=== PATIENT | male | born 1970 | race Caucasian/White ===

== ENCOUNTER 2016-04-17 18:02 | Emergency (ER) | payer MEDICARE, OTHER ==
[~2016-04-17] VITALS: Ht 172.7 cm; Wt 89.1 kg
[~2016-04-17 18:02] MED LIST: ALPR1TAB7 PO; AMLO10TA3 PO; CARV6.252 PO; CLON0.1T14 PO; GUAI400T57 PO; HYDR-3939 PO; ONDA4TAB6 PO; SERT100T9 PO
[2016-04-17 18:06] VITALS: BP 142/96; PULSE 81; RESP 15; O2SAT 100
[2016-04-17 18:30] LABS: EOSINOPHILS % (AUTO) 3.5 % (0-5); MONOCYTES % (AUTO) 9.4 % (4-12); Mean Corpuscular Volume 85.1 fL (81-100); NEUTROPHILS % (AUTO) 60.6 % (40-74); Platelet Count 301 bil/L (150-400)
--- NOTE | 2016-04-17 18:43 | ED.REPORT ---
HPI-Chest Pain 40 and Over Date of Service Apr 17, 2016 ED Provider: Vadim Everett MD Patient is a 45 year old male with a history ESRD on peritoneal dialysis who presents to the ED complaining of intermittent sharp left sided chest pain that began 2 days ago, with a constant pressure today. The patient reports a squeezing chest pain, with radiates into his left armpit. He states that the duration of these episodes varies. The patient reports having similar pain when he was previously diagnosed with a small pericardial effusion. When these episodes occur he also experiences shortness of breath and radiation of his pain to his kidneys. The pain is present even when he is laying in bed and does not notice any changes to his pain with movement. Prior to this the patient had felt very well, the best he had felt in some time. The patient reports only having a "trickle" of urinary output this morning, although he usually has 500cc. The patient reports having associated bilateral kidney pain. The patient reports having decreased appetite, with the patient developing nausea and vomiting prior to arrival. He denies increased swelling in his legs or fever. Nursing Notes Stated Complaint: CHEST PAIN Chief Complaint: Chest Pain Nursing Notes Reviewed: Yes Allergies: Coded Allergies: Penicillins (Verified Allergy, Severe, difficulty breathing, 04/17/16) Sulfa (Sulfonamide Antibiotics) (Verified Allergy, Severe, hives, 04/17/16) cefotetan (Verified Adverse Reaction, Intermediate, causes unusual swelling, 04/17/16) Scheduled Amlodipine (Amlodipine) 10 Mg Tablet 10 MG PO HS Carvedilol (Carvedilol) 6.25 Mg Tablet 6.25 MG PO BID Clonidine (Catapres) 0.1 Mg Tablet 0.1 MG PO TID Guaifenesin (Guaifenesin) 400 Mg Tablet 400 MG PO BID Hydralazine (Hydralazine) 25 Mg Tablet 25 MG PO TID Sertraline HCl (Sertraline) 100 Mg Tablet 100 MG PO DAILY Scheduled PRN Alprazolam (Alprazolam) 1 Mg Tablet 0.5-1 MG PO BID PRN PRN For Anxiety or Agitation Ondansetron (Zofran) 4 Mg Tablet 8 MG PO BID PRN PRN For Nausea General Time Seen by MD: 18:42 Chief Complaint Chest pain Hx Obtained From: Patient Arrived By: Walk-in Sudden in Onset?: No Onset Occurred: 2 days ago Symptom Duration: Intermittent Location: : Chest left Quality: Painful, Stabbing Radiation: : Arm left (left armpit) Recent Healthcare: No recent doctor visit, No recent hospitalization Similar Sx Previous: Yes Past Medical History Past Medical History Notes: Nephrology: Dr. 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 Female: Reports: Flank pain, Urination decreased Physical Exam Initial Vital Signs Vital Signs (First) Date Time Temp Pulse Resp B/P Pulse Ox O2 Delivery O2 Flow Rate FiO2 04/17/16 18:06 36.5 81 15 142/96 100 Room Air 04/17/16 19:48 2 Initial VS: Reviewed Head / Eyes: Atraumatic, Normocephalic, PERRL ENT: Conjunctiva normal, No scleral icterus Neck: Supple, Full range of motion Skin: Warm, Dry, No cyanosis Neurologic: Alert, Oriented, Nonfocal Psychiatric: Mood/affect normal, Behavior normal, Normal thought content General/Constitutional: Awake, Alert, No acute distress Appearance / Presentation: Positive: Obese Respiratory / Chest: Breath sounds NL, Breath sounds = bilat, No respiratory distress, No rales, No rhonchi, No wheezing Cardiovascular: Heart rate NL, Regular rhythm, No murmurs Abdomen: Soft, Non-tender, No guarding, No rebound Back: No CVA tenderness diffuse low back tenderness Lower Extremity / Pelvis / MS: No swelling, No edema Upper Extremity / MS: No swelling, No edema Interpretation & Diagnostics Lab Results Interpretation Result Diagram: 04/17/16 1823 04/17/16 1823 Test 04/17/16 18:23 04/17/16 21:04 04/17/16 21:50 White Blood Count 13.3th/mm3 (3.8-10.1) Red Blood Count 4.17mil/mm3 (4.40-5.80) Hemoglobin 12.1g/dL (13.8-17.2) Hematocrit 35.5% (41.0-50.0) Mean Corpuscular Volume 85.1fL (81-100) Mean Corpuscular Hemoglobin 29.0pg (27.0-35.0) Mean Corpuscular Hemoglobin Concent 34.1% (32.0-37.0) Red Cell Distribution Width 16.8% (12.3-15.4) Platelet Count 301bil/L (150-400) Neutrophils (%) (Auto) 60.6% (40-74) Lymphocytes (%) (Auto) 25.0% (14-46) Monocytes (%) (Auto) 9.4% (4-12) Eosinophils (%) (Auto) 3.5% (0-5) Basophils (%) (Auto) 1.0% (0-3) D-Dimer < 0.5mg/L (<0.50) Sodium Level 135mEq/L (134-144) Potassium Level 4.1mEq/L (3.5-5.2) Chloride Level 96mEq/L (97-108) Carbon Dioxide Level 23mmol/L (18-29) Blood Urea Nitrogen 62mg/dL (6-24) Creatinine 5.35mg/dL (0.76-1.27) Estimat Glomerular Filtration Rate 12mL/min (>59) Glucose Level 103mg/dL (60-99) Calcium Level 8.7mg/dL (8.5-10.1) Magnesium Level 2.6mg/dL (1.6-2.6) Total Bilirubin 0.2mg/dL (0.0-1.2) Aspartate Amino Transf (AST/SGOT) 11U/L (0-50) Alanine Aminotransferase (ALT/SGPT) 9U/L (0-44) Alkaline Phosphatase 108U/L (25-150) Total Protein 7.2g/dL (6.4-8.4) Albumin 3.6g/dL (3.4-5.0) Hold Jolley Top Tube Received (Received) Urine Color Yellow (YELLOW) Urine Appearance Clear (CLEAR,HAZY) Urine pH 6.5 (5.0-8.0) Urine Specific Dafter 1.015 (1.003-1.035) Urine Protein 30mg/dL (NEG,TRACE) Urine Glucose (UA) Negativemg/dL (NEGATIVE) Urine Ketones Negativemg/dL (NEGATIVE) Urine Occult Blood Small (NEGATIVE) Urine Nitrite Negative (NEGATIVE) Urine Bilirubin Negative (NEGATIVE) Urine Urobilinogen Normalmg/dL (NORMAL) Urine Leukocyte Esterase Negative (NEGATIVE) Urine RBC 3-10/hpf (0-2) Urine WBC 0-5/hpf (0-5) Urine Epithelial Cells Few/hpf (NONE-MOD) Urine Crystals None seen (NONE SEEN) Urine Bacteria Few/hpf (NONE-FEW) Urine Hyaline Casts None/lpf (NONE) Urine Granular Casts None seen (NONE SEEN) Urine Waxy Casts None seen (NONE SEEN) Urine Red Blood Cell Casts None seen (NONE SEEN) Urine White Blood Cell Casts None seen (NONE SEEN) Urine Mucus None seen (None Seen) Urine Trichomonas None seen (NONE SEEN) Urine Yeast None (NONE SEEN) Urinalysis Comment None Urine Culture Reflexed Not indicated Troponin T 0.010ug/L (0.0-0.011) Re-Eval/Medical Decision Med Decision/Clinical Course Care endorsed to me by Dr. Daniel. I know Adolph well taken care of him before. To me it seems like he is developing a left kidney infection. Pulmonary emboli was ruled out based on the negative d-dimer and low risk. 2 myocardial infarction was ruled out. With interesting is that his pain is clearly reproducible with positioning. He has pain up and down the left side of his body. He does have some CVA tenderness on the left. He does not make much urine but the urine that he is producing does seem to have some evidence of infection. He is allergic to cephalosporins and sulfa so therefore I will place him on ciprofloxacin. Adolph understands the risk and I went through a regarding the tendons please see the discharge. A follow-up on his urine culture check within in a few days. Short course of Percocet provided for pain. Source of Hx: Old records Time of Eval: 19:03 Re-Evaluation/Progress Note: After completion of the interview, examination, and initial evaluation the patient requests to be seen by a different provider, Dr. Das. Discharge & Departure Primary Impression: Chest pain Chest pain type: unspecified Qualified Code: R07.9 - Chest pain, unspecified Additional Impression: UTI (urinary tract infection) Urinary tract infection type: acute pyelonephritis Qualified Code: N10 - Acute tubulo-interstitial nephritis Disposition: Home Discharge Condition All VS Reviewed: Yes Condition: Stable Patient Instructions: Chest Pain (ED) Additional Instructions: The blood clot blood test was negative. The chest x-ray is normal. Your heart blood tests are normal. Your EKG did not show signs of a heart attack. The pain is reproducible with certain movements so certainly seems to be musculoskeletal. The fact that your left flank pain is worrisome is that maybe it's related to your IgA nephropathy. Your urine does have some bacteria and white blood cells in it. We will culture your urine. I would like is set up a follow-up with your primary care physician as well as your votator machine operator. Call tomorrow morning. Take Cipro once daily for the next 3 days well we are culturing your urine. Take it after your peritoneal dialysis. Follow-up with your votator machine operator and your primary care physician in the next 2-3 days. Follow up with urine culture. If you develop any tendon pain while taking the Cipro, stop taking it right away. Take 1-2 Percocet every 6 hours as needed for pain. Do not drive, consume acetaminophen, or drink alcohol while taking the Percocet. Referrals: Rehan Golden DO (PCP) Care Transferred to: Dr. Das (per patient request) Care Transferred at: 19:03 Scribe Attestation Portions of this note were transcribed by Amy Ford. Dr. Marguerite Davila personally performed the history, physical exam and medical decision-making; I reviewed and confirmed the accuracy of the information in the transcribed note. Signed by: Vishal Aguero, 04/17/2016 5906 Portions of this note were transcribed by Iesha Jenkins and Katie Awan. Dr. Pippa Davila personally performed the history, physical exam and medical decision-making ; I reviewed and confirmed the accuracy of the information in the transcribed note. Signed by: Vishal Serrano, 04/17/2016 and 1957 copies to: Rehan Golden Ben M MD Apr 17, 2016 18:43 Amy Ford Apr 17, 2016 18:52 Govind Das DO Apr 17, 2016 23:20 Hannah Jenkins [Iesha] Apr 17, 2016 23:24
[2016-04-17 19:04] LABS: TROPONIN T < 0.010 ug/L (0.0-0.011)
--- NOTE | 2016-04-17 19:08 | DRSVH ---
PROCEDURE: X-RAY CHEST ONE VIEW, PORTABLE ([id number]) INDICATIONS: Chest pain TECHNIQUE: One view of the chest was acquired. COMPARISON: [facility], CT, CT ANGIO CHEST PE, 01/14/2016, 18:56. [facility] l, CR, XR CHEST 1VW (PORTABLE), 01/14/2016, 16:42. [facility], CR, XR CHEST 1VW (PORTABL E), 12/21/2015, 21:30. [facility], NM, NM LUNG VQ, 11/08/2015, 15:47. [facility]W (PORT[facility]), 11/07/2015, 17:34. [facility], CT, CT CHEST WO CON, 07/2015, 17:29. [facility], CR, XR CHEST 1VW (PORTABLE), 10/08/2015, 15:31. [facility], CR, XR CHEST 1VW (PORTABLE), 04/06/2015, 20:42. [facility], CR, XR CHEST 2VW, 01/08/2015, 16:32. [facility], CR, CHEST 2VW, 05/08/2007, 22:16. [facility] , CR, XR CHEST 2VW, 02/26/2016, 9:16. FINDINGS: Surgical changes and devices: None. Lungs and pleura: No pleural effusions or pneumothorax. Lungs are clear. Mediastinum: Mediastinal contours appear normal. Heart size is normal. Bones and chest wall: No suspicious bony lesions. Overlying soft tissues appear unremarkable. Densi ties project over the left upper quadrant of the abdomen which likely are present material within the splenic flexure of the colon. IMPRESSION: No acute cardiopulmonary disease process. Dictated by: Venita Stuart MD, PhD on 04/17/2016 at 19:06 Approved by: Venita Stuart MD, PhD on 04/17/2016 at 19:06
[2016-04-17 19:10] LABS: Magnesium 2.6 mg/dL (1.6-2.6)
[2016-04-17] MEDS: HYDROmorphone 0.5 mg/0.5 mL iSecure Syringe IVPUSH PRN ×2 (19:32→22:45)
[2016-04-17] MEDS ORDERED: Ondansetron 2 mg/mL 2 mL Inj ONE (19:34)
[2016-04-17 19:48] VITALS: BP 124/82; PULSE 75; RESP 16; O2SAT 100
[2016-04-17] MEDS ORDERED: HYDROmorphone 1 mg/mL Inj IVPUSH ONE (20:50)
[2016-04-17 20:58] VITALS: BP 125/73; PULSE 76; RESP 16; O2SAT 98
[2016-04-17 21:25] LABS: APPEARANCE,URINE CLEAR (CLEAR,HAZY); COLOR,URINE YELLOW (YELLOW); OCCULT BLOOD,URINE SMALL (NEGATIVE); PH,URINE 6.5 (5.0-8.0); UROBILINOGEN,URINE NORMAL (NORMAL)
[2016-04-17] MEDS ORDERED: _oxyCODONE/APAP 5-325 mg Tablet PO PRN (21:50)
[2016-04-17 23:27] VITALS: BP 132/80; PULSE 71; RESP 18; O2SAT 99
== END 2016-04-17 23:28 | disposition home or self-care (01) ==
LOC: SED 18:02
DX: R07.89 Other chest pain (principal); N10 Acute pyelonephritis; I12.0 Hypertensive chronic kidney disease with stage 5 chronic kidney disease or end stage renal disease; N18.6 End stage renal disease; Z99.2 Dependence on renal dialysis; Z88.0 Allergy status to penicillin; Z88.2 Allergy status to sulfonamides; Z88.8 Allergy status to other drugs, medicaments and biological substances
CPT/HCPCS: 36415; 71010; 80053; 81000; 83735; 84484; 85025; 85379; 93005; 96374; 96375; 96376; 99285; J1170; J2405

== ENCOUNTER 2016-07-15 20:05 | Observation (INO) | payer MEDICARE, OTHER ==
[~2016-07-15] VITALS: Ht 172.7 cm; Wt 97.4 kg
--- NOTE | 2016-07-15 20:08 | ED.REPORT ---
HPI-Stroke / CVA Jul 15, 2016 ED Provider: Al Srivastava MD The patient is a 45 year old male with history of end-stage renal disease on peritoneal dialysis presumed secondary to lupus and migraines, who presents to the emergency department by EMS complaining of symptoms concerning for a stroke. 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 He was getting ready to start his peritoneal dialysis at home when he suddenly developed a sharp headache and was seeing "triple." He subsequently developed left-sided weakness and numbness. After further questioning he reports pain to his left upper extremity. Prior to this episode he had measured his blood pressure and the diastolic number was over 100. He is not on any blood thinners. He has had similar symptoms in the past and was told by one physician that he may have had a mini stroke and by another physician that it was probably not a mini stroke. Nursing Notes Stated Complaint: LEFT SIDED NUMBNESS Nursing Notes Reviewed: Yes Allergies: Coded Allergies: Penicillins (Verified Allergy, Severe, difficulty breathing, 04/17/16) Sulfa (Sulfonamide Antibiotics) (Verified Allergy, Severe, hives, 04/17/16) cefotetan (Verified Adverse Reaction, Intermediate, causes unusual swelling, 04/17/16) Scheduled Amlodipine (Amlodipine) 10 Mg Tablet 5 MG PO HS (Reported) Carvedilol (Carvedilol) 6.25 Mg Tablet 6.25 MG PO BID (Reported) Cholecalciferol (Vitamin D3) (Vitamin D3) 50,000 Unit Capsule 50,000 UNIT PO WEEKLY (Reported) WEDNESDAYS Clonidine (Catapres) 0.1 Mg Tablet 0.1 MG PO TID Gabapentin (Gabapentin) 100 Mg Capsule 200 MG PO HS (Reported) Hydralazine (Hydralazine) 25 Mg Tablet 25 MG PO TID (Reported) Lanthanum Carb Chew (Fosrenol Chew) 1,000 Mg Chew 1,000 MG PO TIDWM (Reported) Sertraline HCl (Sertraline) 100 Mg Tablet 100 MG PO QAM (Reported) Scheduled PRN Acetaminophen (Acetaminophen) 500 Mg Tablet 500 MG PO Q6H PRN PRN For Fever ( Reported) Alprazolam (Alprazolam) 1 Mg Tablet 1 MG PO BID PRN PRN For Anxiety or Agitation (Reported) Lidocaine/Prilocaine (Lido-Prilo Roderick Pack) 2.5 %-2.5 % Kit 1 EACH TP DAILY PRN PRN IV START (Reported) Ondansetron (Zofran) 4 Mg Tablet 8 MG PO BID PRN PRN For Nausea (Reported) Ranitidine (Ranitidine) 75 Mg Tablet 75 MG PO BID PRN PRN For Dyspepsia or Heartburn (Reported) General Time Seen by Provider: 20:10 Chief Complaint Weakness, Numbness Left-sided Hx Obtained From: Patient, EMS Arrived By: Ambulance Time last known well 1929 today Sudden in Onset?: Yes Symptom Duration: Since onset Progression Since Onset: Constant Location: : Head Quality: Painful, Sharp Severity: Current: Severe Severity: Maximum: Severe Associated with: Reports: Headache Pertinent Negative: Pt denies other symptoms Recent Healthcare: Recent doctor visit Similar Sx Previous: No Risk Factors NIH Stroke Scale Level of Consciousness: Alert and responsive (0) Ask Month & Age: Both questions right (0) Open/Close Eyes/Hand Digital Media Designer: Performs both tasks (0) Horizontal EO Movements: None (0) Visual Gardner: No visual loss (0) Facial Palsy: Normal symmetry (0) Right Arm Motor Drift (10s): No drift 10 sec (0) Left Arm Motor Drift (10s): No drift 10 sec (0) Right Leg Motor Drift (5s): No drift 5 sec (0) Left Leg Motor Drift (5s): No drift 5 sec (0) Limb Ataxia FNF/Heel-Crouch: No ataxia (0) Sensation (Arms/Legs/Face): No sensory loss (0) Language Aphasia: No aphasia, normal (0) Dysarthria: No dysarthria, normal (0) Extinction/Inattention: No exctinct/inattent (0) NIHSS Score: 0 Time NIHSS Performed: 20:19 Date NIHSS Performed: Jul 15, 2016 Past Medical History Past Medical History Notes: Nephrology: Dr. 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 Physical Exam Initial Vital Signs Vital Signs (First) Date Time Temp Pulse Resp B/P Pulse Ox O2 Delivery O2 Flow Rate FiO2 07/15/16 20:15 36.8 82 20 155/104 98 Room Air Initial VS: Reviewed ENT: Mucous membranes moist, Conjunctiva normal, No scleral icterus Extremities: Vascular intact, Neuro intact, No swelling, No tenderness Skin: Warm, Dry, No cyanosis Psychiatric: Mood/affect normal, Behavior normal, Normal thought content General/Constitutional: Awake, Alert, Cooperative Head / Eyes: Atraumatic, Normocephalic, PERRL, EOMI Respiratory / Chest: Atraumatic, Breath sounds NL, Breath sounds = bilat, No respiratory distress, No rales, No rhonchi, No wheezing Neurologic: Oriented X3, Speech NL, No motor deficits, No sensory deficits, CN II - XII intact Somewhat non participatory neurologic exam. The patient is clutching his left arm at this side complaining of left elbow pain. His speech is fluent, organized and linear. No slurred speech. No facial droop. He is holding his left arm against his chest in flexion at the elbow. He seems to have good strength in his left arm but reports significant pain when he tries to move his left arm. Digital Media Designer strength is 5/5 in his left hand. Strength is 5/5 to both lower extremities. Finger to nose testing is normal on the right and left. No pronator drift. Abdomen: Soft, Non-tender, No guarding, No rebound, BS normoactive, No distention, No hernia, No palpable mass, No pulsatile mass There is a peritoneal dialysis catheter in his right abdomen. There is no surrounding redness or warmth. Upper Extremity / MS: No deformity He reports pain just proximal and distal to his left elbow if I try to move his left arm. Interpretation & Diagnostics Lab Results Interpretation Result Diagram: 07/15/16202907/15/16 2030 Test 07/15/16 20:30 White Blood Count 12.0th/mm3 (3.8-10.1) Red Blood Count 4.70mil/mm3 (4.40-5.80) Hemoglobin 13.8g/dL (13.8-17.2) Hematocrit 41.5% (41.0-50.0) Mean Corpuscular Volume 88.3fL (81-100) Mean Corpuscular Hemoglobin 29.4pg (27.0-35.0) Mean Corpuscular Hemoglobin Concent 33.3% (32.0-37.0) Red Cell Distribution Width 13.7% (12.3-15.4) Platelet Count 290bil/L (150-400) Neutrophils (%) (Auto) 53.4% (40-74) Lymphocytes (%) (Auto) 31.5% (14-46) Monocytes (%) (Auto) 10.3% (4-12) Eosinophils (%) (Auto) 3.8% (0-5) Basophils (%) (Auto) 0.7% (0-3) Prothrombin Time 9.8sec (8.1-12.5) Prothromb Time International Ratio 0.92ratio Activated Partial Thromboplast Time 28.7sec (22.8-33.0) Sodium Level 136mEq/L (134-144) Potassium Level 3.8mEq/L (3.5-5.2) Chloride Level 97mEq/L (97-108) Carbon Dioxide Level 22mmol/L (18-29) Blood Urea Nitrogen 50mg/dL (6-24) Creatinine 5.88mg/dL (0.76-1.27) Estimat Glomerular Filtration Rate 11mL/min (>59) Glucose Level 96mg/dL (60-99) Calcium Level 9.2mg/dL (8.5-10.1) Magnesium Level 2.4mg/dL (1.6-2.6) Total Bilirubin 0.3mg/dL (0.0-1.2) Aspartate Amino Transf (AST/SGOT) 18U/L (0-50) Alanine Aminotransferase (ALT/SGPT) 11U/L (0-44) Alkaline Phosphatase 97U/L (25-150) Troponin T < 0.010ug/L (0.0-0.011) Total Protein 7.7g/dL (6.4-8.4) Albumin 4.0g/dL (3.4-5.0) Hold Jolley Top Tube Received (Received) ECG Interpretation ECG Interpretation: Poor baseline quality Sinus rhythm with a rate of 85 bpm Normal axis Normal intervals No ST segment changes No T wave abnormalities Time: 20:28 Interpreted by: ED physician CT Head Interpretation IMPRESSION: No acute intracranial findings. Note: The preliminary [facility] interpretation and the final report are concordant. This study fulfills neurological imaging criteria for inclusion or exclusion of acute stroke therapies based on available published neurological imaging guidelines. Dictated by: Mary Berg M.D. on 07/15/2016 at 20:36 Study: Head CT no contrast Interpretation / Wet Read by: Interpret - Radiologist, Discussed w radiologist Re-Eval/Medical Decision Med Decision/Clinical Course The patient is a 45 year old male with history of end-stage renal disease on peritoneal dialysis presumed secondary to lupus and migraines, who presents to the emergency department by EMS complaining of symptoms concerning for a stroke. 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 He was getting ready to start his peritoneal dialysis at home when he suddenly developed a sharp headache and was seeing "triple." He subsequently developed left-sided weakness and numbness. After further questioning he reports pain to his left upper extremity. Prior to this episode he had measured his blood pressure and the diastolic number was over 100. He is not on any blood thinners. He has had similar symptoms in the past and was told by one physician that he may have had a mini stroke and by another physician that it was "probably not a mini stroke". Upon arrival to the emergency department the patient appears quite anxious. He is very difficult to examine and provides a history that is quite vague. I do not personally detect any significant lateralizing weakness. He reports that he is having difficulty moving his left arm seems to like this to chronic left elbow pain. Of note when I order an x-ray to assess his left elbow he refuses the x-ray stating that he is always had pain in his left elbow and that this is nothing new. He has no pronator drift he has no lateralizing weakness he has no objective sensory deficits and he has no slurred speech or facial droop. In the absence of objective lateralizing neurologic deficits or alternatively rapid improvement in his neurologic deficits I do not believe that he is a candidate for TPA. Emergency CT scan of the brain demonstrates no acute intracranial abnormality or hemorrhage. LABS: leukocytosis of 12, CBC otherwise unremarkable, BUN 50, creatinine 5.88 consistent with known end-stage renal disease, electrolytes are unremarkable, Ca WNL, Mg WNL, LFTs are normal, troponin negative, coags normal. Here in the emergency department serial neurologic assessments remained reassuring. I see no evidence of significant electrolyte abnormality. No evidence of acute seizure event. No head trauma. She has no fevers, meningismus or other findings suggestive of bacterial meningitis. I cannot definitively rule out TIA though the overall constellation of symptoms is not entirely convincing of this. He was extremely anxious and was treated here with Ativan and Tylenol for his headache. The hospitalist service with plan for further stroke/TIA workup. Source of Hx: Old records, EMS Re-Evaluation/Progress #1: Time of Eval: 20:24 Re-Evaluation/Progress Note: On repeat neurologic exam he has 5/5 strength to both upper and lower extremities. Re-Evaluation/Progress #2: Time of Eval: 21:22 Re-Evaluation/Progress Note: Rechecked the patient. Discussed results, diagnosis, and plan for disposition. His is concerned because the patient was confused earlier and still continues to be slightly confused. On re-examination the patient is neurologically intact. His would like the patient admitted for further workup. Consultation : Referral / Consult Name: Jaren Carter MD Consulted With: Hospitalist Requested Call at: 21:30 Call Returned at: 21:39 Sash Clamp Operator: Will see patient, Agrees with eval, Agrees with plan, Accepts admit Counseled Regarding: Diagnosis, Lab results, Need for admission Patient Discharge & Departure Impression: Primary Impression: TIA (transient ischemic attack) Transient cerebral ischemia type: unspecified Qualified Code: G45.9 - Transient cerebral ischemic attack, unspecified Additional Impressions: Headache Headache type: unspecified Headache chronicity pattern: unspecified pattern Intractability: not intractable Qualified Code: R51 - Headache Left-sided sensory deficit present Left-sided weakness Peritoneal dialysis status Disposition: ADMITTED TO HOSPITAL Discharge Condition All VS Reviewed: Yes Condition: Stable Referrals: Rehan Golden DO (PCP) Vishal Attestation Portions of this note were transcribed by Annette Jiménez. I, Dr. Srivastava personally performed the history, physical exam and medical decision-making; I reviewed and confirmed the accuracy of the information in the transcribed note. Signed by: Vishal Marmolejo, 07/15/2016 at 2200. copies to: Rehan Golden Beck O MD Jul 15, 2016 20:08 Annette Jiménez Jul 15, 2016 20:13
[2016-07-15 20:15] VITALS: BP 155/104; PULSE 82; RESP 20; O2SAT 98
--- NOTE | 2016-07-15 20:39 | DRSVH ---
PROCEDURE: CT BRAIN (TPA) ([id number]) INDICATIONS: Stroke TECHNIQUE: Noncontrast 4.5 mm thick angled axial sections acquired from the foramen magnum to the vertex, with c oronal reformats. COMPARISON: None. FINDINGS: Image quality: Excellent. CSF spaces: Basal cisterns are patent. No extra-axial fluid collections. Ventricles are normal in size and shape. Brain: No midline shift. No intracranial masses or hemorrhage. Crowe-white matter interface is norm al. Skull and face: Calvarium and visualized facial bones are intact, without suspicious lesions. Sinuses: Visualized sinuses and mastoids are clear. IMPRESSION: No acute intracranial findings. Note: The preliminary [facility] interpretation and the final report are concordant. This study fulfills neurological imaging criteria for inclusion or exclusion of acute stroke therapie s based on available published neurological imaging guidelines. Dictated by: Mary Berg M.D. on 07/15/2016 at 20:36 Approved by: Mary Berg M.D. on 07/15/2016 at 20:38
[2016-07-15] MEDS ORDERED: Ondansetron 2 mg/mL 2 mL Inj IVPUSH PRN (20:40)
[2016-07-15] MEDS ORDERED: Alum-Mag Hydrox-Simeth 30 mL Suspension PO PRN ×2 (20:40→22:50)
[2016-07-15 20:42] LABS: BASOPHILS % (AUTO) 0.7 % (0-3); EOSINOPHILS % (AUTO) 3.8 % (0-5); MONOCYTES % (AUTO) 10.3 % (4-12); Mean Corpuscular Hemoglobin 29.4 pg (27.0-35.0); Mean Corpuscular Volume 88.3 fL (81-100); NEUTROPHILS % (AUTO) 53.4 % (40-74); Platelet Count 290 bil/L (150-400)
[2016-07-15 21:03] LABS: INR 0.92 ratio
[2016-07-15 21:15] LABS: TROPONIN T < 0.010 ug/L (0.0-0.011)
[2016-07-15] MEDS ORDERED: HYDROmorphone 0.5 mg/0.5 mL iSecure Syringe IVPUSH ONE (21:30)
[2016-07-15] MEDS ORDERED: CHOL500050 PO (21:37)
[2016-07-15] MEDS ORDERED: ACET-171 PO (21:41)
[2016-07-15] MEDS ORDERED: LIDO1KIT TP (21:41)
[2016-07-15] MEDS ORDERED: RANI-426 PO (21:41)
[2016-07-15] MEDS ORDERED: GABA-500 PO (21:41)
[2016-07-15] MEDS ORDERED: LANT1000 PO (21:41)
[2016-07-15] MEDS ORDERED: HYDR-3939 PO (21:41)
--- NOTE | 2016-07-15 21:58 | PCM.HPMED ---
Subjective Date of Service Jul 15, 2016 Primary Provider: Admitting Physician: Primary Care Physician: Rehan Golden DO Attending Physician: Admit Status: From the Emergency Department Chief Complaint: Acute onset left-sided weakness, altered vision, and headache History of Present Illness: The patient is a 45 year old male with history of end-stage renal disease diagnosed April 2015, patient had renal biopsy in May 2015 which showed IgA nephropathy possibly secondary to unconfirmed diagnosis of lupus. He is on peritoneal dialysis since January 2016, his baseline creatinine is 5.0. Dialyzes nightly for 10 hours. Patient had his dialysis port placed in October 2015. History of migraine headaches. Patient states that when he went to start his nightly dialysis around 1929 and 07/15/2016, he began to experience a severe sharp headache and took his blood pressure which was 160/103. He states that he then began to experience double and triple vision, with associated left- sided numbness and tingling in his upper and lower extremity. Patient states that he then felt very weak on the left and fell onto his bed but denies having his head. She did symptoms are headache, dizziness, right-sided shaking with left-sided weakness. Patient denied slurred speech, facial droop, fevers, chills, sweats. He also reports pain to his left upper extremity elbow. Pain in his elbows is not a new complaint. He is not on any blood thinners. Patient may have had an unconfirmed TIA versus stroke in the past less than 1 year ago. He states that he was told by 2 different doctors one saying that he had a TIA /stroke and the other saying he did not. Patient denies similar symptoms of left-sided weakness in the past however he does suffer from severe headaches. CT brain showed: No acute intracranial findings. Hemogram in ED: WBC's 12.0, PMN's 53.4, lymphs 31.5 Chem panel showed: Sodium 136, potassium 3.8, chloride 97, CO2 22, BUN 50, creatinine 5.88, he had creatinine of 5.33 in April 2016, magnesium 2.4, troponin 0.010 otherwise normal chemistry panel. PT/INR and 0.8/0.92 ETT 28.7 Review of Systems: A comprehensive review of systems was conducted and was negative except as mentioned in history of present illness. Allergies Coded Allergies: Penicillins (Verified Allergy, Severe, difficulty breathing, 04/17/16) Sulfa (Sulfonamide Antibiotics) (Verified Allergy, Severe, hives, 04/17/16) cefotetan (Verified Adverse Reaction, Intermediate, causes unusual swelling, 04/17/16) Home Medications Amlodipine (Amlodipine) 10 Mg Tablet 10 MG PO HS (Reported) Carvedilol (Carvedilol) 6.25 Mg Tablet 6.25 MG PO BID (Reported) Cholecalciferol (Vitamin D3) (Vitamin D3) 50,000 Unit Capsule 50,000 UNIT PO WEEKLY (Reported) Clonidine (Catapres) 0.1 Mg Tablet 0.1 MG PO TID Guaifenesin (Guaifenesin) 400 Mg Tablet 400 MG PO BID Hydralazine (Hydralazine) 25 Mg Tablet 25 MG PO TID Sertraline HCl (Sertraline) 100 Mg Tablet 100 MG PO DAILY (Reported) PRN Alprazolam (Alprazolam) 1 Mg Tablet 0.5-1 MG PO BID PRN PRN For Anxiety or Agitation (Reported) Ondansetron (Zofran) 4 Mg Tablet 8 MG PO BID PRN PRN For Nausea (Reported) PMH Migraines Suspected lupus 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 Anemia History of a small pericardial effusion Hypertension Reports history of a possible TIA last 1 year ago Surgical History Kidney biopsy Right-sided peritoneal dialysis catheter Family History Mother, maternal aunt maternal uncles and maternal cousins with history of diabetes mellitus Hypertension in many family members Paternal grand mother with stomach cancer Mother with history of TIA Other paternal relatives with history of stroke Social History Hx Alcohol Use: No Hx Substance Use: No Hx Tobacco Use: No Smoking Status: Unknown if Ever Smoker Living Arrangement: with Family (he is and this was his William) Exam Vital Signs Vital Sign - Last Date Time Temp Pulse Resp B/P Pulse Ox O2 Delivery O2 Flow Rate FiO2 07/15/16 20:15 36.8 82 20 155/104 98 Room Air Exam General: Patient was alert and oriented 3. In no acute distress. Patient speaking in full sentences. HEENT: NC/AT, eyes, PERRLA, EOMI, neck, soft supple, no adenopathy, no JVD, no masses, no thyromegaly, throat mucous membranes pink and moist. Lungs: CTAB all [place], no wheezes, no rhonchi, no crackles, no adventitious lung sounds Heart: Regular rate and rhythm, no murmur, S1-S2 present, no rub, no click, no distant heart sounds, Abdomen: Peritoneal dialysis port right flank, anterior abdominal stream present , demonstrated is protuberant but soft, nontender, nondistended, bowel sounds active, no rebound, no guarding, Genitourinary: No CVA tenderness, no suprapubic tenderness Extremities: Muscle strength, 5 out of 5 upper/lower extremity and symmetric laterally, reflexes 2 out of 4 upper/lower extremity and symmetric bilaterally, pulses equal and symmetric upper/lower extremity including radial and dorsalis pedis, no edema Neurologic: Wzvizi-wh-qqjz and fyjd-si-zafk normal, rapid alternating hand movements on the left are delayed compared to the right, mild clonus on the left upper and lower extremity, no pronator drift, no hemineglect, facial sensation intact bilaterally, no facial droop, nurse 2 through 12 grossly intact bilaterally, reports tingling sensation in the left upper extremity, muscle strength 5 out of 5 on the right, with muscle strength 4-5 on the left upper/lower extremities. Skin: Warm dry and intact with no rash Lab and Diagnostics Result Diagram: 07/15/16202907/15/162029 X-Rays, CTs and MRIs Date of Service: 07/15/162006 PROCEDURE: CT BRAIN (TPA) INDICATIONS: Stroke TECHNIQUE: Noncontrast 4.5 mm thick angled axial sections acquired from the foramen magnum to the vertex, with coronal reformats. COMPARISON: None. FINDINGS: Image quality: Excellent. CSF spaces: Basal cisterns are patent. No extra-axial fluid collections. Ventricles are normal in size and shape. Brain: No midline shift. No intracranial masses or hemorrhage. Crowe-white matter interface is normal. Skull and face: Calvarium and visualized facial bones are intact, without suspicious lesions. Sinuses: Visualized sinuses and mastoids are clear. IMPRESSION: No acute intracranial findings. Note: The preliminary [facility] interpretation and the final report are concordant. This study fulfills neurological imaging criteria for inclusion or exclusion of acute stroke therapies based on available published neurological imaging guidelines. Dictated by: Mary Berg M.D. on 07/15/2016 at 20:36 Approved by: Mary Berg M.D. on 07/15/2016 at 20:38 Assessment & Plan This is a 45-year-old male with history of stage V end-stage renal disease on peritoneal dialysis, and migraine type headaches who presented to the ED with acute onset severe sharp headache pain, followed by left-sided stroke symptoms such as weakness and numbness in upper and lower extremity are gradually improving. Patient had negative CT of the brain. He was admitted for sedation for further stroke workup. # Acute Stroke vs TIA, Present on Admission, active - Patient presented to the ED with severe migraine type sharp headache which is not a new finding for him, associated acute onset left-sided stroke symptoms to include upper and lower left-sided extremity weakness numbness and tingling, mild clonus on physical exam, and decreased rapid hand alternating movements on the left, mild left-sided clonus. 4-5 muscle strength on the left. Patient did complain of left posterior cervical tenderness. He complained of neck tenderness with flexion of the head and chin to the chest. Otherwise neurological exam was normal. Patient had normal and symmetric reflexes upper/ lower extremity. No slurred speech no facial droop, cranial nerves II through XII were grossly intact bilaterally, sensation of the face was intact bilaterally. Patient did complain of left upper and lower extremity numbness and tingling that persists. -Differential diagnosis includes stroke/TIA hemorrhagic versus ischemic, new onset seizure activity, meningitis/encephalitis, -CT brain done in ED: No acute intracranial findings. -Patient is not a candidate for thrombolysis -Aspirin 81 mg daily -Start atorvastatin 40 mg daily - Neuro checks Q 15 min for 2 hr, then Q 30 min for 6 hr, then Q 60 min up to 24 hours. -MRA Brain -Permissive HTN -NIHSS score of Zero -PT/OT/speech evaluation in the morning -Given patient's history of end-stage renal disease secondary to IgA nephropathy and strong family history of lupus. Will order initial lupus labs GRAY, ESR, CRP. # Mild leukocytosis, present on admission, active -Temperature 36.8, pulse 82, respiratory rate 20, blood pressure 135/104 with a map of 121, 98% on room air -Patient is afebrile and does not meet sepsis criteria -white blood cell count was 12.0 was no left shift -We will repeat CBC with differential and monitor leukocytosis. -I do not believe lumbar puncture is necessary at this time. # Chronic kidney disease stage V, present on admission, -Patient diagnosed with end-stage renal disease in April 2015, and renal biopsy showing IgA nephropathy, is on peritoneal dialysis nightly, his port was placed October 2015, he has been on peritoneal dialysis since January 2016. -Patient has never been worked up for lupus however he does have a strong family history as his mother has discoid and systemic lupus. -He reports his baseline creatinine is 5.0. Patient had creatinine of 5.33 in April 2016. Currently his creatinine is 5.88 # Migraine Headaches - Tylenol for headache pain # Anemia - H/H 13.8/41.5 # History of a small pericardial effusion # Hypertension -We will allow for permissive hypertension -We will hold patient medication amlodipine -We will hold medication carvedilol -We will hold patient medication clonidine -We will hold patient medication hydralazine Disposition: Admitted to in patient service with expected length of stay greater than 2 days, secondary to severity of presenting symptoms, treatment plan, complexity of clinical work up, and risk of adverse events. CODE STATUS: Full code PCP: Rehan Golden DO Nephrology: Dr. Muniz DVT PE prophylaxis: SubQ heparin Q8H Contact: William [phone] CT brain showed: No acute intracranial findings. Hemogram in ED: WBC's 12.0, PMN's 53.4, lymphs 31.5 Chem panel showed: Sodium 136, potassium 3.8, chloride 97, CO2 22, BUN 50, creatinine 5.88, he had creatinine of 5.33 in April 2016, magnesium 2.4, troponin 0.010 otherwise normal chemistry panel. PT/INR and 0.8/0.92 ETT 28.7 Pain Evaluation: Adequate Pain Control VTE Prophylaxis: Sub-Q Heparin (Unfractionated) Resuscitation Status: CPR: Attempt Resuscitation Attending Statement The patient was seen and examined together with Dr. Girard on 07/15 and I agree with the history, exam and plan as outlined in the note above. Scot Girard DO Jul 15, 2016 21:58 Jaren Carter MD Jul 16, 2016 01:41 Scot Girard DO Jul 15, 2016 21:58 Jaren Carter MD Jul 16, 2016 01:41
[2016-07-15 22:45] VITALS: BP 137/91; PULSE 72; RESP 20; O2SAT 98
[2016-07-15 22:46] VITALS: BP 132/100; PULSE 78; RESP 18; O2SAT 97
[2016-07-15] MEDS ORDERED: 0.9% Sodium Chloride 1,000 ML IV SCH (22:46)
[2016-07-15] MEDS ORDERED: Ondansetron 2 mg/mL 2 mL Inj IV PRN (22:50)
[2016-07-15] MEDS ORDERED: Polyethylene Glycol (PEG) 17 Gm Powder PO PRN (22:50)
--- NOTE | 2016-07-16 00:05 | NUR ---
Admit pt arrived to room 240-1 approximately at 2240 per gurney, accompanied by care technician. and family at the bedside. pt transferred self to bed, pt alert/oriented x4, IV on left arm saline locked at this time. pt reported tingling/burning on left side extremities. arm strength is the same except left arm is little bit slower. no tongue deviation or facial drooping. on arrival pt was told he will have roommate. pt told this RN if he is going to have roommate, he wants to go home AMA. Talked to charge attendant, and decided to left the pt with private room. Oriented pt to room. Admission is done by this RN, and med.rec. is done by admit RN. call light within reach. will continue to monitor.
[2016-07-16] MEDS ORDERED: HYDROmorphone 0.5 mg/0.5 mL iSecure Syringe IVPUSH PRN (01:20)
[2016-07-16] MEDS: Heparin 5,000 Unit/mL Inj SUBQ SCH ×2 (01:53→08:43)
[2016-07-16] MEDS: HYDROmorphone 0.5 mg/0.5 mL iSecure Syringe IVPUSH PRN ×3 (02:23→11:10)
[2016-07-16 02:36] VITALS: BP 142/92; PULSE 67; RESP 18; O2SAT 96
[2016-07-16] MEDS ORDERED: HYDROmorphone 0.5 mg/0.5 mL iSecure Syringe IM ONE (03:50)
[2016-07-16 04:16] VITALS: PULSE 71
[2016-07-16 06:12] VITALS: BP 132/85; PULSE 77; RESP 18; O2SAT 96
[2016-07-16 06:44] LABS: BASOPHILS % (AUTO) 0.9 % (0-3); EOSINOPHILS % (AUTO) 5.8 % (0-5); Mean Corpuscular Hemoglobin 29.5 pg (27.0-35.0); NEUTROPHILS % (AUTO) 48.9 % (40-74); Platelet Count 255 bil/L (150-400)
[2016-07-16] MEDS ORDERED: Lidocaine-Prilo 2.5-2.5% 5 Gm Cream TOPICAL PRN (08:30)
--- NOTE | 2016-07-16 09:36 | NUR ---
Evaluation completed. Please go to "Notes" then click on "Assessments and Notes" (bottom left corner of screen). Then select appropriate discipline tab on top of screen.
--- NOTE | 2016-07-16 10:53 | NUR ---
Case Management: Attempted to give [place] and Medicare Part D info to pt. Pt out of room at 10:25 am and 10:50 am, for test. Requested pt's nurse to notify UR RN when pt returns. BTWILBERTO mena RN
--- NOTE | 2016-07-16 11:25 | NUR ---
Case Management: Notified by nursing that pt has returned from test. [place] and Medicare Part D info given and explained to pt at bedside at 11:05 am. No questions at this time. Signed original [place] placed on hard chart, copy given to pt. WILBERTO Randall RN
[2016-07-16 11:30] VITALS: BP 151/83; RESP 18; O2SAT 98
--- NOTE | 2016-07-16 11:30 | NUR ---
Evaluation completed. Please go to "Notes" then click on "Assessments and Notes" (bottom left corner of screen). Then select appropriate discipline tab on top of screen.
--- NOTE | 2016-07-16 11:52 | NUR ---
Pain Pt c/o pain in posterior portion of neck Reports increase numbness/tingling occurs slightly with increase of headache Reports "feels confused slower to respond" After pain rx, feels mentation returns to baseline. Reports hx of pain in bilat elbows d/t ESRD and repeated hospitalizations. Has asked PCP for percocet for outpatient basis. Had cortisone injection right elbow 3 months ago
--- NOTE | 2016-07-16 12:16 | DRSVH ---
[facility] [address] [place] [address] Echocardiogram Report Name: JUANITA BROOKS FStudy Date: 07/16/2016 Height: 68 in Hospital Exam Location: [facility] Weight: 215 lb Gender: Male BSA: 2.1 m2 : 1970 Age: 45 yrs BP: 132/85 mmHg Reason For Study: TIA Ordering Physician: [facility]OSPITALIST [facility] Performed By: Redd Long Referring Physician: Dr. Ronda Golden Interpretation Summary 1. Normal left ventricular size, wall thickness and systolic function with an estimated EF of 60-65% 2. Grossly normal right ventricular size and systolic function. 3. No evidence for valvular pathology. 4. Saline contrast (with Valsalva) documented an interatrial shunt Compared to the previous study, a saline contrast study was performed Procedure: A two-dimensional transthoracic echocardiogram with color flow Doppler was performed. The study quality was technically adequate. Comparison is made with the echocardiogram of 10/09/15. A saline contrast injection was performed to assess for cardiac shunting. The patient was in normal sinus rhythm during the exam. Left Ventricle: The left ventricle is normal in size. Left ventricular wall thickness is at the upper limits of normal. The ejection fraction is estimated to be 60-65%. The E/A ratio is reversed with an elevated E/E', suggesting impaired early relaxation of the left ventricle with possible increased filling pressures. Right Ventricle: The right ventricle grossly appears normal in size with probable normal systolic function. The right ventricle is not optimally visualized. Atria: The left atrium is mildly dilated. Right atrial size is normal. Injection of contrast with valsalva documented an interatrial shunt. Mitral Valve: The mitral valve leaflets appear thickened, but open well. There is trace mitral regurgitation. Aortic Valve: The aortic valve is trileaflet. The aortic valve opens well. No aortic regurgitation is present. Tricuspid Valve: The tricuspid valve is normal in structure and function. There is a trace or physiologic amount of tricuspid regurgitation. Pulmonary artery pressures cannot be estimated because of the lack of a measurable TR jet velocity. Pulmonic Valve: The pulmonic valve is normal in structure and function. There is no pulmonic valvular regurgitation. Great Vessels: The aortic root is normal size. The ascending aorta is normal in size. The inferior vena cava was not visualized. Pericardium/ Pleura There is no pericardial effusion. There is no pleural effusion. MMode/2D Measurements & Calculations LVIDd: 5.1 cm RA long axis LVOT diam LVIDs: 3.4 cm LA A2 area: 24.1 cm FS: 33.9 % LA A4 area: 20.3 cm RA area AoV Opening EPSS: 0.69 cm LA length (vol): 5.3 cm IVSd: 0.98 cm LA vol: 78.9 ml : 16.8 cm Ao root diam LVPWd: 0.67 cm LA vol index RA vol : 48.0 ml asc Aorta : 37.4 ml/m2 RA Diam: 3.1 cm : 22.8 mm2 LV hamilton. diameter/BSA LV sys. diameter/BSA (cm/m^2): 2.4 (cm/m^2): 1.6 Doppler Measurements & Calculations Ao V2 max MV E max kirby MV E/A: 0.70 PA V2 max : 114.0 cm/sec : 62.5 cm/sec Med Peak E' Kirby : 67.8 cm/sec Ao max PG MV A max kirby PA mean PG : 5.2 mmHg : 89.4 cm/sec E/E' med: 12.4 : 0.95 mmHg Ao mean PG MV P1/2t: 81.7 msec Lat Peak E' Kirby PA Accel Time : 0.08 sec LVOT Max Kirby E/E' lat: 11.9 : 91.2 cm/sec E/e' average: 12.1 JTAIN(I,D): 3.0 cm Pulm A Revs Dur sev ratio MV A dur: 0.12 sec MV dec time MV P1/2t max kirby Ao V2 mean LV V1 max PG : 0.28 sec : 89.4 cm/sec Ao V2 VTI: 27.1 cm LV V1 VTI MVA(P1/2t): 2.7 cm2 : 22.9 cm JATIN(V,D): 2.8 cm2 PA V2 mean JATIN indexed to BSA Pulm A Revs Dur - MV A : 45.6 cm/sec (cm^2/m^2): 1.4 Dur: 0.01 msec Reading Physician:12:15 PM
[2016-07-16 12:26] VITALS: PULSE 71
--- NOTE | 2016-07-16 13:45 | NUR ---
renal consult Asked MD if wanting to consult renal MD as a peritoneal dialysis patient. 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
--- NOTE | 2016-07-16 13:56 | NUR ---
Social Work Note: Initial Assessment Data& Assessment: EMR reviewed. SW met with pt at bedside to discuss discharge planning, SW role explained. Adolph Santiago is a 45 year old male admitted on 07/15/2016 for TIA and headache. Pt has Medicare and [facility] [id number] insurance [place] supplement. Pt sees Rehan Golden DO for primary care. Pt is connected to the [facility] [place] [facility], but has Peritoneal dialysis at home. Pt lives in [place] with his and kids and is independent with all ADL's at baseline. Pt does not use any DME, does not have SNF hx or HH hx. Pt does not have LTC insurance or VA benefits. Pt has DPOA paperwork completed, SW requested a copy when possible. Pt or bestfriend to transport him home when medically ready. Pt denies any other needs. No other discharge needs identified. Plan: Anticipated discharge home via POV when medically ready. Pt denies any other needs. No other discharge needs identified. SW to continue to follow if any needs arise. LIZ Espino Addendum: 07/16/16 at 1401 by LISSETTE MUNOZ Amended: Links added.
--- NOTE | 2016-07-16 13:58 | DRSVH ---
PROCEDURE: MRI BRAIN WITHOUT CONTRAST ([id number]) INDICATIONS: TIA/Stroke TECHNIQUE: Noncontrast axial T1 spin echo, axial T2 fast spin echo, sagittal and axial FLAIR, coronal T2 fast sp in echo, axial gradient echo, axial diffusion and ADC through the brain. COMPARISON: None. FINDINGS: Image quality: Excellent. CSF Spaces: Basal cisterns are patent. No extra-axial fluid collections. Ventricles are normal in size and shape. Brain: No intracranial masses or hemorrhage. Crowe/white matter interface is normal. Brainstem appe ars normal. Diffusion-weighted images demonstrate no acute ischemic insult. No chronic ischemic ins ults. Normal intravascular flow voids are present. There are mild bilateral frontal hyperintense fo ci. Skull and face: Calvarium has normal marrow signal. Orbits appear normal. Sinuses: Sinuses demonstrate trace scattered mucosal thickening. IMPRESSION: 1. No acute intracranial process. No acute ischemia. 2. Mild bifrontal hyperintensities, as above. They are overall nonspecific. They could be related to early changes of chronic microvascular ischemia, migraine sequelae, vasculitis or potentially demy elinating disease. Clinical correlation is recommended. Dictated by: Laurence Kowalski M.D. on 07/16/2016 at 13:46 Approved by: Laurence Kowalski M.D. on 07/16/2016 at 13:57
--- NOTE | 2016-07-16 15:41 | PCM.DIMED ---
Discharge Instructions Date of Service Jul 16, 2016 Dates of Hospitalization Jul 15, 2016 at 22:13 Discharge Diagnosis Discharge Diagnosis 1. Hypertensive urgency 2. Headache with left arm and leg tingling 3. End-stage renal disease, with ongoing peritoneal dialysis Diet Low fat, Low Sodium, Renal Diet Activity Limited until seen by PCP Call your provider Fever or Chills, Shortness of breath, Other (headache, weakness of arm or leg, difficulty speaking.) Patient Instructions Follow-up Provider: Rehan Golden DO Follow-up with PCP in: 1 week Gaudencio Francisco MD Jul 16, 2016 15:41
[2016-07-16] MEDS ORDERED: CARV12.52 PO (15:42)
--- NOTE | 2016-07-16 16:37 | PCM.DC.MED ---
Discharge Summary Date of Service Jul 16, 2016 Dates of Hospitalization Date of Hospital Admission Jul 15, 2016 at 22:13 Date of Discharge: Jul 16, 2016 Providers: Admitting Physician: Jaren Carter MD Primary Care Physician: Rehan Golden DO Attending Physician: Jaren Carter MD Diagnosis at Time of Discharge Diagnosis at Time of Discharge 1. Hypertensive urgency 2. Headache with left arm and leg tingling 3. End-stage renal disease, with ongoing peritoneal dialysis Consultations None Procedures XRay, CTs & MRIs Date of Service: 07/15/162006 PROCEDURE: CT BRAIN (TPA) INDICATIONS: Stroke TECHNIQUE: Noncontrast 4.5 mm thick angled axial sections acquired from the foramen magnum to the vertex, with coronal reformats. COMPARISON: None. FINDINGS: Image quality: Excellent. CSF spaces: Basal cisterns are patent. No extra-axial fluid collections. Ventricles are normal in size and shape. Brain: No midline shift. No intracranial masses or hemorrhage. Crowe-white matter interface is normal. Skull and face: Calvarium and visualized facial bones are intact, without suspicious lesions. Sinuses: Visualized sinuses and mastoids are clear. IMPRESSION: No acute intracranial findings. Note: The preliminary [facility] interpretation and the final report are concordant. This study fulfills neurological imaging criteria for inclusion or exclusion of acute stroke therapies based on available published neurological imaging guidelines. Dictated by: Mary Berg M.D. on 07/15/2016 at 20:36 Approved by: Mary Berg M.D. on 07/15/2016 at 20:38 Brain MRI: 1. No acute intracranial process. No acute ischemia. 2. Mild bifrontal hyperintensities, as above. They are overall nonspecific. They could be related to early changes of chronic microvascular ischemia, migraine sequelae, vasculitis or potentially demyelinating disease. Clinical correlation is recommended. Dictated by: Laurence Kowalski M.D. on 07/16/2016 at 13:46 Approved by: Laurence Kowalski M.D. on 07/16/2016 at 13:57 ECG 12 Lead Normal sinus rhythm with normal intervals and no ST segment changes. Cardiac Echo Impression Interpretation Summary 1. Normal left ventricular size, wall thickness and systolic function with an estimated EF of 60-65% 2. Grossly normal right ventricular size and systolic function. 3. No evidence for valvular pathology. 4. Saline contrast (with Valsalva) documented an interatrial shunt Compared to the previous study, a saline contrast study was performed Invasive Procedures None Brief History The patient is a 45 year old male with history of end-stage renal disease diagnosed April 2015, patient had renal biopsy in May 2015 which showed IgA nephropathy possibly secondary to unconfirmed diagnosis of lupus. He is on peritoneal dialysis since January 2016, his baseline creatinine is 5.0. Dialyzes nightly for 10 hours. Patient had his dialysis port placed in October 2015. History of migraine headaches. Patient states that when he went to start his nightly dialysis around 1929 and 07/15/2016, he began to experience a severe sharp headache and took his blood pressure which was 160/103. He states that he then began to experience double and triple vision, with associated left- sided numbness and tingling in his upper and lower extremity. Patient states that he then felt very weak on the left and fell onto his bed but denies having his head. She did symptoms are headache, dizziness, right-sided shaking with left-sided weakness. Patient denied slurred speech, facial droop, fevers, chills, sweats. He also reports pain to his left upper extremity elbow. Pain in his elbows is not a new complaint. He is not on any blood thinners. Patient may have had an unconfirmed TIA versus stroke in the past less than 1 year ago. He states that he was told by 2 different doctors one saying that he had a TIA /stroke and the other saying he did not. Patient denies similar symptoms of left-sided weakness in the past however he does suffer from severe headaches. CT brain showed: No acute intracranial findings. Hemogram in ED: WBC's 12.0, PMN's 53.4, lymphs 31.5 Chem panel showed: Sodium 136, potassium 3.8, chloride 97, CO2 22, BUN 50, creatinine 5.88, he had creatinine of 5.33 in April 2016, magnesium 2.4, troponin 0.010 otherwise normal chemistry panel. PT/INR and 0.8/0.92 ETT 28.7 Hospital Course This is a 45-year-old male with history of stage V end-stage renal disease on peritoneal dialysis, and migraine type headaches who presented to the ED with acute onset severe sharp headache pain, followed by left-sided stroke symptoms such as weakness and numbness in upper and lower extremity are gradually improving. Patient had negative CT of the brain. He was admitted for sedation for further stroke workup. # Acute Stroke vs TIA, Present on Admission, active - Patient presented to the ED with severe migraine type sharp headache which is not a new finding for him, associated acute onset left-sided stroke symptoms to include upper and lower left-sided extremity weakness numbness and tingling, mild clonus on physical exam, and decreased rapid hand alternating movements on the left, mild left-sided clonus. 4-5 muscle strength on the left. Patient did complain of left posterior cervical tenderness. He complained of neck tenderness with flexion of the head and chin to the chest. Otherwise neurological exam was normal. Patient had normal and symmetric reflexes upper/ lower extremity. No slurred speech no facial droop, cranial nerves II through XII were grossly intact bilaterally, sensation of the face was intact bilaterally. Patient did complain of left upper and lower extremity numbness and tingling that persists. -Differential diagnosis includes stroke/TIA hemorrhagic versus ischemic, new onset seizure activity, meningitis/encephalitis, -CT brain done in ED: No acute intracranial findings. -Patient is not a candidate for thrombolysis -Aspirin 81 mg daily -Start atorvastatin 40 mg daily - Neuro checks Q 15 min for 2 hr, then Q 30 min for 6 hr, then Q 60 min up to 24 hours. -MRA Brain -Permissive HTN -NIHSS score of Zero -PT/OT/speech evaluation in the morning -Given patient's history of end-stage renal disease secondary to IgA nephropathy and strong family history of lupus. Will order initial lupus labs GRAY, ESR, CRP. The patient had resolution of all symptoms other than the very mild tingling of the arm and perhaps leg. MRI was negative for stroke. CT was also negative. Echo was unremarkable other than a possible small PFO. Given patient's lack of evidence of stroke is felt that his neurologic symptoms are related to headaches such as a migrainous headache versus mild hypertensive urgency. # Mild leukocytosis, present on admission, active -Temperature 36.8, pulse 82, respiratory rate 20, blood pressure 135/104 with a map of 121, 98% on room air -Patient is afebrile and does not meet sepsis criteria -white blood cell count was 12.0 was no left shift -We will repeat CBC with differential and monitor leukocytosis. -I do not believe lumbar puncture is necessary at this time. This remained stable on the hospital. # Chronic kidney disease stage V, present on admission, -Patient diagnosed with end-stage renal disease in April 2015, and renal biopsy showing IgA nephropathy, is on peritoneal dialysis nightly, his port was placed October 2015, he has been on peritoneal dialysis since January 2016. -Patient has never been worked up for lupus however he does have a strong family history as his mother has discoid and systemic lupus. -He reports his baseline creatinine is 5.0. Patient had creatinine of 5.33 in April 2016. Currently his creatinine is 5.88 Laboratories were stable throughout hospitalization, he did miss dialysis on the first evening of his admitted. # Migraine Headaches - Tylenol for headache pain He had no further headaches while in the hospital. # Anemia - H/H 13.8/41.5 # History of a small pericardial effusion # Hypertension -We will allow for permissive hypertension -We will hold patient medication amlodipine -We will hold medication carvedilol -We will hold patient medication clonidine -We will hold patient medication hydralazine We discussed his mild hypertension as a possible contributing factor with his headache and neurologic symptoms given the negative MRI. Was also noted that his amlodipine was recently decreased from 10-5 mg a day and he has had slightly higher readings especially some diastolic hypertension since. BLOOD pressure meds and made a joint decision to increase carvedilol from 6.25 mg twice a day to 12.5 mg twice a day and pursue close follow-up with his PCP, Dr. Golden Disposition: Admitted to in patient service with expected length of stay greater than 2 days, secondary to severity of presenting symptoms, treatment plan, complexity of clinical work up, and risk of adverse events. CODE STATUS: Full code Exam Vital Signs (Last) Date Time Temp Pulse Resp B/P Pulse Ox O2 Delivery O2 Flow Rate FiO2 07/16/16 12:26 71 07/16/16 11:30 36.5 18 151/83 98 Room Air Exam Patient was seen and examined and the discharge Test 07/15/16 20:30 07/16/16 06:00 Prothrombin Time 9.8sec (8.1-12.5) Prothromb Time International Ratio 0.92ratio Activated Partial Thromboplast Time 28.7sec (22.8-33.0) Magnesium Level 2.4mg/dL (1.6-2.6) Total Bilirubin 0.3mg/dL (0.0-1.2) Aspartate Amino Transf (AST/SGOT) 18U/L (0-50) Alanine Aminotransferase (ALT/SGPT) 11U/L (0-44) Alkaline Phosphatase 97U/L (25-150) Troponin T < 0.010ug/L (0.0-0.011) Total Protein 7.7g/dL (6.4-8.4) Albumin 4.0g/dL (3.4-5.0) Hold Jolley Top Tube Received (Received) White Blood Count 9.8th/mm3 (3.8-10.1) Red Blood Count 4.47mil/mm3 (4.40-5.80) Hemoglobin 13.2g/dL (13.8-17.2) Hematocrit 39.8% (41.0-50.0) Mean Corpuscular Volume 89.0fL (81-100) Mean Corpuscular Hemoglobin 29.5pg (27.0-35.0) Mean Corpuscular Hemoglobin Concent 33.2% (32.0-37.0) Red Cell Distribution Width 13.8% (12.3-15.4) Platelet Count 255bil/L (150-400) Neutrophils (%) (Auto) 48.9% (40-74) Lymphocytes (%) (Auto) 35.3% (14-46) Monocytes (%) (Auto) 9.0% (4-12) Eosinophils (%) (Auto) 5.8% (0-5) Basophils (%) (Auto) 0.9% (0-3) Erythrocyte Sedimentation Rate 29mm/hr (0-15) Sodium Level 139mEq/L (134-144) Potassium Level 3.9mEq/L (3.5-5.2) Chloride Level 101mEq/L (97-108) Carbon Dioxide Level 22mmol/L (18-29) Blood Urea Nitrogen 50mg/dL (6-24) Creatinine 5.98mg/dL (0.76-1.27) Estimat Glomerular Filtration Rate 11mL/min (>59) Glucose Level 91mg/dL (60-99) Calcium Level 8.5mg/dL (8.5-10.1) C-Reactive Protein 0.4mg/dL (0.0-0.5) Discharge Medications Discharge Medications Amlodipine (Amlodipine) 10 Mg Tablet 5 MG PO HS (Reported) Carvedilol (Carvedilol) 12.5 Mg Tablet 12.5 MG PO BID Prescribed by: GAUDENCIO MARTINEZ MD Cholecalciferol (Vitamin D3) (Vitamin D3) 50,000 Unit Capsule 50,000 UNIT PO WEEKLY (Reported) WEDNESDAYS Clonidine (Catapres) 0.1 Mg Tablet 0.1 MG PO TID Prescribed by: FLO ANTONIO DO Gabapentin (Gabapentin) 100 Mg Capsule 200 MG PO HS (Reported) Hydralazine (Hydralazine) 25 Mg Tablet 25 MG PO TID (Reported) Lanthanum Carb Chew (Fosrenol Chew) 1,000 Mg Chew 1,000 MG PO TIDWM (Reported) Sertraline HCl (Sertraline) 100 Mg Tablet 100 MG PO QAM (Reported) As needed Acetaminophen (Acetaminophen) 500 Mg Tablet 500 MG PO Q6H PRN PRN For Fever ( Reported) Alprazolam (Alprazolam) 1 Mg Tablet 1 MG PO BID PRN PRN For Anxiety or Agitation (Reported) Lidocaine/Prilocaine (Lido-Prilo Roderick Pack) 2.5 %-2.5 % Kit 1 EACH TP DAILY PRN PRN IV START (Reported) Ondansetron (Zofran) 4 Mg Tablet 8 MG PO BID PRN PRN For Nausea (Reported) Ranitidine (Ranitidine) 75 Mg Tablet 75 MG PO BID PRN PRN For Dyspepsia or Heartburn (Reported) Followup Plan Disposition: Home Discharge Diet: Low fat, Low Sodium, Renal Diet Discharge Activity: Limited until seen by PCP Follow-up Provider: Rehan Golden DO Follow-up with PCP in: 1 week Time spent 35 minutes Gaudencio Martinez MD Jul 16, 2016 16:37
--- NOTE | 2016-07-16 17:40 | NUR ---
discharge Reviewed DC instructions with patient and . Stated understanding. All belongings taken Pt amb to private vehicle to home with . Hard script sent in packet.
== END 2016-07-16 17:40 | disposition home or self-care (01) ==
LOC: SED 20:05 → INTOOBSV 22:13 → MOC 22:13
PROVIDERS: ADMIT Hospitalist; ATTEND Hospitalist
DX: I16.0 Hypertensive urgency (principal); R51 Headache; R53.1 Weakness; D72.829 Elevated white blood cell count, unspecified; N18.5 Chronic kidney disease, stage 5; D64.9 Anemia, unspecified; I12.0 Hypertensive chronic kidney disease with stage 5 chronic kidney disease or end stage renal disease; Z99.2 Dependence on renal dialysis; Z79.899 Other long term (current) drug therapy; Z87.891 Personal history of nicotine dependence

== ENCOUNTER 2016-08-03 21:34 | Emergency (ER) | payer MEDICARE, OTHER ==
[~2016-08-03] VITALS: Ht 172.7 cm; Wt 95.5 kg
[~2016-08-03 21:34] MED LIST changes: +ACET-171 PO; +CARV12.52 PO; -CARV6.252 PO; +CHOL500050 PO; +GABA-500 PO; -GUAI400T57 PO; +LANT1000 PO; +LIDO1KIT TP; +RANI-426 PO
[2016-08-03 22:43] VITALS: BP 122/81; PULSE 79; RESP 16; O2SAT 97
--- NOTE | 2016-08-03 23:21 | ED.REPORT ---
HPI- Male Date of Service Aug 03, 2016 ED Provider: Elder Shore MD A 45 year old male with a medical history including suspected lupus, hypertension, and ESRD on peritoneal dialysis presents to the ED reporting right -sided inguinal pain and swelling onset this afternoon, after vomiting. The pain is currently rated 8/10. The patient reportedly "drank too much alcohol" last night, resulting in nausea and vomiting which continued today. After a particularly violent bout of retching this afternoon, the patient noticed a lump in his right groin which has subsequently progressed to generalized scrotal and penis swelling, with associated pain. The patient denies fever, abdominal pain, or other symptoms. He underwent peritoneal dialysis as usual today, before his symptoms began. He has never had similar symptoms in the past. Nursing Notes Stated Complaint: GROIN PAIN/POSSIBLY HERNIA RUPTURE Chief Complaint: Male Abdominal Pain Nursing Notes Reviewed: Yes Allergies: Coded Allergies: Penicillins (Verified Allergy, Severe, difficulty breathing, 08/03/16) Sulfa (Sulfonamide Antibiotics) (Verified Allergy, Severe, hives, 08/03/16) cefotetan (Verified Adverse Reaction, Intermediate, causes unusual swelling, 08/03/16) Scheduled Amlodipine (Amlodipine) 10 Mg Tablet 5 MG PO HS Carvedilol (Carvedilol) 12.5 Mg Tablet 12.5 MG PO BID Cholecalciferol (Vitamin D3) (Vitamin D3) 50,000 Unit Capsule 50,000 UNIT PO WEEKLY WEDNESDAYS Clonidine (Catapres) 0.1 Mg Tablet 0.1 MG PO TID Gabapentin (Gabapentin) 100 Mg Capsule 200 MG PO HS Hydralazine (Hydralazine) 25 Mg Tablet 25 MG PO TID Lanthanum Carb Chew (Fosrenol Chew) 1,000 Mg Chew 1,000 MG PO TIDWM Sertraline HCl (Sertraline) 100 Mg Tablet 100 MG PO QAM Scheduled PRN Acetaminophen (Acetaminophen) 500 Mg Tablet 500 MG PO Q6H PRN PRN For Fever Alprazolam (Alprazolam) 1 Mg Tablet 1 MG PO BID PRN PRN For Anxiety or Agitation Hydrocodone-Acetaminophen 5-325 mg (Hydrocodone-Acetaminophen 5-325 mg) 1 Each Tablet 1-2 TABLET PO Q4H PRN PRN For Pain Lidocaine/Prilocaine (Lido-Prilo Roderick Pack) 2.5 %-2.5 % Kit 1 EACH TP DAILY PRN PRN IV START Ondansetron (Zofran) 4 Mg Tablet 8 MG PO BID PRN PRN For Nausea Ranitidine (Ranitidine) 75 Mg Tablet 75 MG PO BID PRN PRN For Dyspepsia or Heartburn General Time Seen by MD: 23:07 Chief Complaint Inguinal pain right, Inguinal swelling right Hx Obtained From: Patient Arrived By: Walk-in Onset Occurred: 5 - 8 hours ago Symptom Duration: Since onset Location: : Inguinal area right: Penis: Scrotum Quality: Painful Severity: Current: Moderate Severity: Maximum: Moderate Pertinent Negative: Relieved by nothing Recent Healthcare: No recent doctor visit Similar Sx Previous: No Past Medical History Past Medical History Notes: Nephrology: Dr. 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 Anemia History of a small pericardial effusion Hypertension Reports history of a possible TIA last 1 year ago Past Surgical History Kidney biopsy Right-sided peritoneal dialysis catheter Family History Mother, maternal aunt maternal uncles and maternal cousins with history of diabetes mellitus Hypertension in many family members Paternal grand mother with stomach cancer Mother with history of TIA Other paternal relatives with history of stroke Smoking History Unknown if Ever Smoker Social History Alcohol Use: "Social" Drug Use: Denies drug use Other Social History: Good social support, , Local resident Ambulatory Status Cane Review of Systems Review of Systems Note: + Right groin pain and swelling, penis pain and swelling Constitutional: Denies: Fever GI: Reports: Nausea, Vomiting, Denies: Abdominal pain Male: Reports Scrotal swelling (with pain) Complete sys rev & neg: except as marked. Respiratory: Denies: Non-productive cough, Shortness of breath Physical Exam Physical Exam Notes: Initial Vital Signs Vital Signs (First) Date Time Temp Pulse Resp B/P Pulse Ox O2 Delivery O2 Flow Rate FiO2 08/03/16 22:43 36.3 79 16 122/81 97 Room Air Initial VS: Reviewed Head / Eyes: Atraumatic, Normocephalic ENT: Conjunctiva normal, No scleral icterus Neck: Supple, Full range of motion Skin: Warm, Dry, No cyanosis Neurologic: Alert, Oriented, Nonfocal Psychiatric: Mood/affect normal, Behavior normal, Normal thought content Male Genitourinary: Atraumatic Testes / Epidid / Scrotum: Positive: Scrotum swollen Severely swollen glans penis, uncircumcised No heat or erythema General/Constitutional: Awake, Alert, No acute distress Abdomen: Soft, Non-tender, BS normoactive Peritoneal dialysis catheter in place Interpretation & Diagnostics CT PELVIS W/O CONTRAST: CONCLUSION: Fat-containing right inguinal hernia. Large amount of fluid and stranding in the scrotum and along the right inguinal canal. Uncertain if this is fluid related to inguinal hernia or a primary scrotal process such as epididymitis. Associated subcutaneous stranding. Minimal free pelvic fluid. Peritoneal dialysis catheter. Transmitted to ED by radiologist Shefali Dove M.D. at 08/04/16 - 12:39:34 AM PDT Lab Results Interpretation Result Diagram: 08/04/16 0001 08/04/16 0001 Test 08/04/16 00:01 08/04/16 01:50 White Blood Count 13.2th/mm3 (3.8-10.1) Red Blood Count 4.55mil/mm3 (4.40-5.80) Hemoglobin 13.4g/dL (13.8-17.2) Hematocrit 39.1% (41.0-50.0) Mean Corpuscular Volume 85.9fL (81-100) Mean Corpuscular Hemoglobin 29.5pg (27.0-35.0) Mean Corpuscular Hemoglobin Concent 34.3% (32.0-37.0) Red Cell Distribution Width 13.6% (12.3-15.4) Platelet Count 267bil/L (150-400) Neutrophils (%) (Auto) 59.7% (40-74) Lymphocytes (%) (Auto) 27.0% (14-46) Monocytes (%) (Auto) 10.4% (4-12) Eosinophils (%) (Auto) 1.9% (0-5) Basophils (%) (Auto) 0.8% (0-3) Sodium Level 139mEq/L (134-144) Potassium Level 3.6mEq/L (3.5-5.2) Chloride Level 97mEq/L (97-108) Carbon Dioxide Level 23mmol/L (18-29) Blood Urea Nitrogen 47mg/dL (6-24) Creatinine 5.83mg/dL (0.76-1.27) Estimat Glomerular Filtration Rate 11mL/min (>59) Glucose Level 111mg/dL (60-99) Calcium Level 8.6mg/dL (8.5-10.1) Total Bilirubin 0.2mg/dL (0.0-1.2) Aspartate Amino Transf (AST/SGOT) 17U/L (0-50) Alanine Aminotransferase (ALT/SGPT) 17U/L (0-44) Alkaline Phosphatase 66U/L (25-150) Total Protein 7.0g/dL (6.4-8.4) Albumin 4.1g/dL (3.4-5.0) Urine Color Yellow (YELLOW) Urine Appearance Clear (CLEAR,HAZY) Urine pH 6.5 (5.0-8.0) Urine Specific Holden 1.010 (1.003-1.035) Urine Protein 30mg/dL (NEG,TRACE) Urine Glucose (UA) Negativemg/dL (NEGATIVE) Urine Ketones Negativemg/dL (NEGATIVE) Urine Occult Blood Small (NEGATIVE) Urine Nitrite Negative (NEGATIVE) Urine Bilirubin Negative (NEGATIVE) Urine Urobilinogen Normalmg/dL (NORMAL) Urine Leukocyte Esterase Negative (NEGATIVE) Urine RBC 0-2/hpf (0-2) Urine WBC 0-5/hpf (0-5) Urine Epithelial Cells Occasional/hpf (NONE-MOD) Urine Crystals None seen (NONE SEEN) Urine Bacteria None/hpf (NONE-FEW) Urine Hyaline Casts None/lpf (NONE) Urine Granular Casts Rare (NONE SEEN) Urine Waxy Casts None seen (NONE SEEN) Urine Red Blood Cell Casts None seen (NONE SEEN) Urine White Blood Cell Casts None seen (NONE SEEN) Urine Mucus None seen (None Seen) Urine Trichomonas None seen (NONE SEEN) Urine Yeast None (NONE SEEN) Urinalysis Comment None Urine Culture Reflexed Not indicated Re-Eval/Medical Decision Source of Hx: Old records Re-Evaluation/Progress : Time of Eval: 02:14 Patient Status: Condition improved Re-Evaluation/Progress Note: Patient's pain has improved. Discussed with patient lab and CT results, consultations, diagnosis, and plan for discharge. Follow-up and return to the ER instructions given. Patient agrees with plan for care and all questions were addressed. Consultation #1: Referral / Consult Name: Blayne Muniz MD Consulted With: Nephrology Call Returned at: 23:34 Fur Puller: Agrees with eval, Agrees with plan Note: Discussed patient's case. Consultation #2: Referral / Consult Name: Francine Morelos MD Consulted With: Urology Call Returned at: 23:41 Fur Puller: Will see in office, Agrees with eval, Agrees with plan Note: Discussed patient's case. Consultation #3: Referral / Consult Name: Heri Wilder MD Consulted With: Hospitalist Call Returned at: 00:53 Fur Puller: Agrees with eval, Agrees with plan Note: Discussed patient's case. He does not feel hernia requires urgent intervention. Counseled Regarding: Diagnosis, Lab results, Need for follow-up, When/why to return to ED Discharge & Departure Impression: Primary Impression: Right inguinal hernia Additional Impression: Scrotal edema Disposition: Home Discharge Condition All VS Reviewed: Yes Condition: Improved Patient Instructions: Inguinal Hernia (ED) Additional Instructions: ED evaluation included interview, exam, labs and CT of pelvis. We found a R inguinal hernia that contains fat only (no bowel) and edema of the scrotum and penis. We suspect the edema is related to your CAPD. Continue CAPD. Elevate scrotum and penis when able- use a towel under them when reclining. Follow up with Dr Cristy perdue. Return to ED for fevers, abdominal pain, increased scrotal pain. Hydrocodone 1-2 every 4 hours as needed for pain. Referrals: Blayne Muniz MD Attestation Portions of this note were transcribed by Rere Navarrete. I, Dr. Shore, personally performed the history, physical exam, and medical decision-making; I reviewed and confirmed the accuracy of the information in the transcribed note. Signed by: Vishal Damian, 08/04/2016, 02:50 copies to: Blayne Muniz MD; Rehan Golden Donald L MD Aug 03, 2016 23:21 RERE NAVARRETE Aug 03, 2016 23:29
[2016-08-03] MEDS ORDERED: 0.9% Sodium Chloride 1,000 ML IV ONE (23:31)
[2016-08-03] MEDS ORDERED: Ondansetron 2 mg/mL 2 mL Inj IV PRN (23:35)
[2016-08-03] MEDS ORDERED: HYDROmorphone 0.5 mg/0.5 mL iSecure Syringe IVPUSH PRN (23:35)
[2016-08-04 00:07] LABS: BASOPHILS % (AUTO) 0.8 % (0-3); EOSINOPHILS % (AUTO) 1.9 % (0-5); MONOCYTES % (AUTO) 10.4 % (4-12); Mean Corpuscular Hemoglobin 29.5 pg (27.0-35.0); Mean Corpuscular Volume 85.9 fL (81-100); NEUTROPHILS % (AUTO) 59.7 % (40-74); Platelet Count 267 bil/L (150-400)
[2016-08-04 02:00] LABS: APPEARANCE,URINE CLEAR (CLEAR,HAZY); COLOR,URINE YELLOW (YELLOW); OCCULT BLOOD,URINE SMALL (NEGATIVE); PH,URINE 6.5 (5.0-8.0); UROBILINOGEN,URINE NORMAL (NORMAL)
[2016-08-04] MEDS ORDERED: _HYDROcodone/APAP 5-325 mg Tablet PO PRN (02:20)
[2016-08-04] MEDS ORDERED: HYDR-4003 PO (02:24)
[2016-08-04 04:12] VITALS: BP 130/85; PULSE 68; RESP 16; O2SAT 97
--- NOTE | 2016-08-04 10:01 | DRSVH ---
PROCEDURE: CT PELVIS WITHOUT CONTRAST ([id number]) INDICATIONS: scrotal swelling/CAPD patient TECHNIQUE: After the administration of oral contrast, 5 mm thick sections acquired from the iliac crests to the symphysis. 5 mm coronal and sagittal reformats were then performed. For radiation dose reduction, t he following was used: automated exposure control, adjustment of mA and/or kV according to patient s ize. COMPARISON: None. FINDINGS: Image quality: Excellent. Peritoneum and bowel: Bowel loops demonstrate normal wall thickness and caliber. No free fluid or a ir. Genitourinary: Bladder wall thickness is normal. Nodes and vessels: No iliac, pelvic, or inguinal adenopathy by size criteria. Iliac vessels demonst rate normal size. Bones: No suspicious bony lesions. Pelvic ring and hip joints appear intact. Miscellaneous: Within the right inguinal canal, there is soft tissue thickening and fluid. Stranding is extending to the subcutaneous tissues. There is increased thickening and fluid extending into the scrotum and anterior perineal region. Scrotal wall thickening is present. IMPRESSION: 1. Prominent fluid and soft tissue thickening within the right inguinal canal extending into signific ant fluid and stranding in the scrotum/scrotal wall. Prominent subcutaneous fat stranding is also pre sent. Inflammation could be related to inguinal canal inflammation with subsequent cellulitis like ap pearance in the subcutaneous tissues. However, primary scrotal process such as epididymitis or other etiologies should be considered. Testicular ultrasound may be helpful for additional evaluation. Dictated by: Laurence Kowalski M.D. on 08/04/2016 at 9:54 Approved by: Laurence Kowalski M.D. on 08/04/2016 at 9:59
[2016-08-04] MEDS ORDERED: CARV6.252 PO (16:25)
[2016-08-04] MEDS ORDERED: OXYC1TAB24 PO (16:25)
[2016-08-04] MEDS ORDERED: ONDA8TAB10 PO (16:25)
== END 2016-08-04 04:13 | disposition home or self-care (01) ==
LOC: SED 21:34
DX: K40.90 Unilateral inguinal hernia, without obstruction or gangrene, not specified as recurrent (principal); N50.89 Other specified disorders of the male genital organs; I12.0 Hypertensive chronic kidney disease with stage 5 chronic kidney disease or end stage renal disease; N18.6 End stage renal disease; Z99.2 Dependence on renal dialysis; Z88.2 Allergy status to sulfonamides; Z88.0 Allergy status to penicillin; Z88.1 Allergy status to other antibiotic agents
CPT/HCPCS: 36415; 51702; 51798; 72192; 80053; 81000; 85025; 96361; 96374; 96375; 99285; J1170; J2405; J7030

== ENCOUNTER 2016-08-04 11:30 | Inpatient (IN) | payer MEDICARE, OTHER ==
[~2016-08-04] VITALS: Ht 172.7 cm; Wt 92.7 kg
[~2016-08-04 11:30] MED LIST changes: +HYDR-4003 PO
[2016-08-04 11:47] VITALS: BP 145/94; PULSE 84; RESP 18; O2SAT 98
--- NOTE | 2016-08-04 12:13 | ED.REPORT ---
HPI-General Illness Date of Service August 04, 2016 ED Provider: Jean-Pierre Haines DO Pt is a 45 y/o male w/ a hx of ESRD on PD, HTN, presenting to the ED c/o inability to urinate secondary to swelling of the penis onset today. Two days ago, the patient was heavily drinking and violently vomited and felt a tearing sensation in his right inguinal area. Yesterday, the patient was undergoing peritoneal dialysis at which time he noticed his scrotum to be swelling. He was sent to the ED at which time a new fat-containing right-sided inguinal hernia was discovered as well as free fluid in the scrotum. An in-and-out catheter was placed during that visit and he was able to urinate and was sent home. He was able to urinate today at 11:30 am but only a very small amount and currently is experiencing the sensation of needing to void. He is uncircumcised, his scrotal swelling has increased, and he is now experiencing penile swelling which is causing him to be unable to urinate secondary to being unable to retract the foreskin past the urethra. He normally urinates 4-6 times each day. He c/o associated mild suprapubic abdominal pain, significant pain at the site of the hernia. Pt denies testicular or penile pain, rash, nausea, vomiting, fever, chills. He has not been able to fill his Vicodin prescription yet. Nursing Notes Stated Complaint: HERNIA COMPLICATIONS Chief Complaint: Male Abdominal Pain Nursing Notes Reviewed: Yes Allergies: Coded Allergies: Penicillins (Verified Allergy, Severe, difficulty breathing, 08/03/16) Sulfa (Sulfonamide Antibiotics) (Verified Allergy, Severe, hives, 08/03/16) cefuroxime (Verified Allergy, Intermediate, "swelling", 08/04/16) cefotetan (Verified Adverse Reaction, Intermediate, causes unusual swelling, 08/03/16) Scheduled Amlodipine (Amlodipine) 10 Mg Tablet 10 MG PO DAILY Carvedilol (Carvedilol) 6.25 Mg Tablet 12.5 MG PO BID Cholecalciferol (Vitamin D3) (Vitamin D3) 50,000 Unit Capsule 50,000 UNIT PO WEEKLY WEDNESDAYS Clonidine (Catapres) 0.1 Mg Tablet 0.1 MG PO TID Gabapentin (Gabapentin) 100 Mg Capsule 300 MG PO HS Hydralazine (Hydralazine) 25 Mg Tablet 25 MG PO TID Lanthanum Carb Chew (Fosrenol Chew) 1,000 Mg Chew 1,000 MG PO TIDWM Sertraline HCl (Sertraline) 100 Mg Tablet 100 MG PO QAM Scheduled PRN Alprazolam (Alprazolam) 1 Mg Tablet 1 MG PO BID PRN PRN For Anxiety or Agitation Ondansetron ODT (Ondansetron ODT) 8 Mg Tab.rapdis 8 MG PO BID PRN PRN For Nausea Ranitidine (Ranitidine) 75 Mg Tablet 75 MG PO BID PRN PRN For Dyspepsia or Heartburn oxyCODONE-Acetaminophen 5-325 mg (oxyCODONE-Acetaminophen 5-325 mg) 1 Each Tablet 1 TABLET PO q6 hours PRN PRN For Pain General Time Seen by MD: 12:08 Chief Complaint Other (decreased urination) Hx Obtained From: Patient Arrived By: Walk-in Sudden in Onset?: No Onset Occurred: Yesterday Symptom Duration: Since onset Location: : Abdomen Quality: Painful Severity: Current: Mild Severity: Maximum: Mild Recent Healthcare: Recent doctor visit, Recent testing, Previous diagnosis Past Medical History Past Medical History Notes: Nephrology: Dr. 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 Anemia History of a small pericardial effusion Hypertension Reports history of a possible TIA last 1 year ago Past Surgical History Kidney biopsy Right-sided peritoneal dialysis catheter Family History Mother, maternal aunt maternal uncles and maternal cousins with history of diabetes mellitus Hypertension in many family members Paternal grand mother with stomach cancer Mother with history of TIA Other paternal relatives with history of stroke Smoking History Unknown if Ever Smoker Social History Alcohol Use: "Social" Drug Use: Denies drug use Other Social History: Good social support, , Local resident Ambulatory Status Cane Review of Systems Full Review of Systems Constitutional: Denies: Chills, Fever Respiratory: Denies: Non-productive cough, Shortness of breath Cardiovascular: Denies: Chest pain, Dyspnea on exertion GI: Reports: Abdominal pain, Denies: Nausea, Vomiting Male: Reports Urination decreased, Denies Dysuria Complete sys rev & neg: except as marked. Physical Exam Vital Signs Vital Signs Date Time Temp Pulse Resp B/P Pulse Ox O2 Delivery O2 Flow Rate FiO2 08/04/16 16:01 73 16 135/91 98 Room Air 08/04/16 11:47 36.6 84 18 145/94 98 Room Air Initial VS: Reviewed, Vital signs normal Head / Eyes: Atraumatic, Normocephalic, PERRL ENT: Mucous membranes moist, Conjunctiva normal, No scleral icterus Neck: Supple, Full range of motion Respiratory: Breath sounds normal, Clear to auscultation, No respiratory distress Cardiovascular: Regular rate & rhythm, Heart sounds normal, Intact distal pulses Skin: Warm, Dry, No cyanosis Neurologic: Alert, Oriented, Nonfocal Psychiatric: Mood/affect normal, Behavior normal, Normal thought content Abdomen: Atraumatic, Soft, Non-tender, No guarding, No rebound, No distention, No palpable mass Peritoneal dialysis catheter right side abdomen Male Genitourinary: Atraumatic, No lesions or rash Tender over right inguinal area. Extensive scrotal and penile swelling. Unable to retract foreskin and evaluate the glans. Scrotum is larger than a grapefruit Interpretation & Diagnostics Lab Results Interpretation Result Diagram: 08/04/16 1300 08/04/16 1300 Test 08/04/16 13:00 White Blood Count 9.8th/mm3 (3.8-10.1) Red Blood Count 4.58mil/mm3 (4.40-5.80) Hemoglobin 13.5g/dL (13.8-17.2) Hematocrit 40.2% (41.0-50.0) Mean Corpuscular Volume 87.8fL (81-100) Mean Corpuscular Hemoglobin 29.5pg (27.0-35.0) Mean Corpuscular Hemoglobin Concent 33.6% (32.0-37.0) Red Cell Distribution Width 13.8% (12.3-15.4) Platelet Count 258bil/L (150-400) Neutrophils (%) (Auto) 60.0% (40-74) Lymphocytes (%) (Auto) 26.1% (14-46) Monocytes (%) (Auto) 8.5% (4-12) Eosinophils (%) (Auto) 3.7% (0-5) Basophils (%) (Auto) 1.5% (0-3) Sodium Level 137mEq/L (134-144) Potassium Level 3.7mEq/L (3.5-5.2) Chloride Level 96mEq/L (97-108) Carbon Dioxide Level 23mmol/L (18-29) Blood Urea Nitrogen 49mg/dL (6-24) Creatinine 5.85mg/dL (0.76-1.27) Estimat Glomerular Filtration Rate 11mL/min (>59) Glucose Level 119mg/dL (60-99) Calcium Level 8.6mg/dL (8.5-10.1) Total Bilirubin 0.2mg/dL (0.0-1.2) Aspartate Amino Transf (AST/SGOT) 17U/L (0-50) Alanine Aminotransferase (ALT/SGPT) 18U/L (0-44) Alkaline Phosphatase 70U/L (25-150) Total Protein 7.0g/dL (6.4-8.4) Albumin 3.7g/dL (3.4-5.0) Hold Jolley Top Tube Received (Received) Lab Results Interpretation: Bladder scan: 400 cc Re-Eval/Medical Decision Med Decision/Clinical Course Ultimately the concern is that peritoneal dialysis may cause worsening scrotal edema, the plan is that the patient will be admitted and observed during peritoneal dialysis. Time of Eval: 15:27 Re-Evaluation/Progress Note: Pt rechecked. Informed pt of need for admission due to recommendation of Dr. Russell. Pt understands and agrees with plan for admission. All questions addressed. Consultation #1: Referral / Consult Name: Anjelica Bennett MD Consulted With: Nephrology Call Returned at: 13:45 Housekeeping/Laundry: Agrees with eval, Agrees with plan Note: Recommends surgery consult. Consultation #2: Referral / Consult Name: Eleazar Narayanan MD Consulted With: Surgeon Call Returned at: 14:09 Housekeeping/Laundry: Agrees with eval, Agrees with plan Note: States that scrotal swelling and inguinal hernia is not a contraindication to dialysis and recommends patient follow-up in clinic this week for surgery. called back after decision to admit and will consult in hospital Consultation #3: Referral / Consult Name: Anjelica Bennett MD Consulted With: Nephrology Call Returned at: 15:28 Housekeeping/Laundry: Agrees with eval, Agrees with plan Note: Recommends admit to hospitalist for observation and peritoneal dialysis. Requests surgeon see the patient at some point during admission. Consultation #4: Referral / Consult Name: Emily Dukes MD Consulted With: Hospitalist Call Returned at: 16:06 Housekeeping/Laundry: Will see patient, Agrees with eval, Agrees with plan, Accepts admit Counseled Regarding: Diagnosis, Lab results, Need for admission Discharge & Departure Primary Impression: Right inguinal hernia Additional Impressions: ESRD (end stage renal disease) on dialysis Scrotal edema Disposition: ADMITTED TO HOSPITAL Discharge Condition All VS Reviewed: Yes Condition: Stable Referrals: Rehan Golden DO (PCP) Eleazar Narayanan MD Attestation Portions of this note were transcribed by Tyrone Olmos. I, Dr. Haines personally performed the history, physical exam and medical decision-making; I reviewed and confirmed the accuracy of the information in the transcribed note. Signed by Vishal Martino, 08/04/16 - [id number] copies to: Rehan Golden Timothy S DO August 04, 2016 12:13 TYRONE OLMOS August 04, 2016 12:33
[2016-08-04 13:11] LABS: BASOPHILS % (AUTO) 1.5 % (0-3); EOSINOPHILS % (AUTO) 3.7 % (0-5); MONOCYTES % (AUTO) 8.5 % (4-12); Mean Corpuscular Hemoglobin 29.5 pg (27.0-35.0); Mean Corpuscular Volume 87.8 fL (81-100); Platelet Count 258 bil/L (150-400)
[2016-08-04] MEDS ORDERED: Lactulose 20 Gm/30 mL 30 mL Syrup PO ONE (16:00)
[2016-08-04 16:01] VITALS: BP 135/91; PULSE 73; RESP 16; O2SAT 98
[2016-08-04] MEDS ORDERED: OXYC1TAB24 PO (16:25)
[2016-08-04] MEDS ORDERED: ONDA8TAB10 PO (16:25)
[2016-08-04] MEDS ORDERED: CARV6.252 PO (16:25)
--- NOTE | 2016-08-04 17:01 | PCM.HPMED ---
Subjective Date of Service August 04, 2016 Primary Provider: Admitting Physician: Primary Care Physician: Rehan Golden DO Attending Physician: Chief Complaint: Scrotal swelling History of Present Illness: 45 year old male with history of end-stage renal disease diagnosed April 2015 , patient had renal biopsy in May 2015 which showed IgA nephropathy possibly secondary to unconfirmed diagnosis of lupus. He is on peritoneal dialysis since January 2016, his baseline creatinine is 5.0. Dialyzes nightly for 10 hours. Patient had his dialysis port placed in October 2015. History of migraine headaches. pt initially presented to ED 08/03 with scrotal swelling. pt stated that he drank alcohol a lot had severe retching turned into pain in his right groin, then started having swelling on scrotum. Initial visit in ED, pt was HD stable, afebrile, CT showed Prominent fluid and soft tissue thickening within the right inguinal canal extending into significant fluid and stranding in the scrotum/ scrotal wall and fat stranding. patient was unable to urinate so underwent in/ out cath once, pt was sent home around 5am today. Since then, pt noticed his scrotal swelling was worse, more pain on groin, decided to come back. denied vomiting, but felt nauseous. pt also denied JALLOH, dizziness, chest pain left inguinal pain, unprotected sex, hx of STDs, hx of inguinal hernia, penile rash/ ulcer. Of note, patient was hospitalized with HTN urgency recently 07/15-, BP regimen was changed, actively followed by Rehan Cai DO. Second visit in ED, VS remained stable. UA unremarkable. nephrology/surgery was consulted. Hoang cath was inserted. Review of Systems: Pertinent positives as noted in history of present illness. All other systems were reviewed and are negative Allergies Coded Allergies: Penicillins (Verified Allergy, Severe, difficulty breathing, 08/03/16) Sulfa (Sulfonamide Antibiotics) (Verified Allergy, Severe, hives, 08/03/16) cefotetan (Verified Adverse Reaction, Intermediate, causes unusual swelling, 08/03/16) Home Medications Scheduled Amlodipine (Amlodipine) 10 Mg Tablet 5 MG PO HS Carvedilol (Carvedilol) 12.5 Mg Tablet 12.5 MG PO BID Cholecalciferol (Vitamin D3) (Vitamin D3) 50,000 Unit Capsule 50,000 UNIT PO WEEKLY WEDNESDAYS Clonidine (Catapres) 0.1 Mg Tablet 0.1 MG PO TID Gabapentin (Gabapentin) 100 Mg Capsule 200 MG PO HS Hydralazine (Hydralazine) 25 Mg Tablet 25 MG PO TID Lanthanum Carb Chew (Fosrenol Chew) 1,000 Mg Chew 1,000 MG PO TIDWM Sertraline HCl (Sertraline) 100 Mg Tablet 100 MG PO QAM Scheduled PRN Acetaminophen (Acetaminophen) 500 Mg Tablet 500 MG PO Q6H PRN PRN For Fever Alprazolam (Alprazolam) 1 Mg Tablet 1 MG PO BID PRN PRN For Anxiety or Agitation Hydrocodone-Acetaminophen 5-325 mg (Hydrocodone-Acetaminophen 5-325 mg) 1 Each Tablet 1-2 TABLET PO Q4H PRN PRN For Pain Lidocaine/Prilocaine (Lido-Prilo Roderick Pack) 2.5 %-2.5 % Kit 1 EACH TP DAILY PRN PRN IV START Ondansetron (Zofran) 4 Mg Tablet 8 MG PO BID PRN PRN For Nausea Ranitidine (Ranitidine) 75 Mg Tablet 75 MG PO BID PRN PRN For Dyspepsia or Heartburn PMH PMH Migraines Suspected lupus 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 Anemia History of a small pericardial effusion Hypertension Reports history of a possible TIA last 1 year ago Surgical History Kidney biopsy Right-sided peritoneal dialysis catheter Family History Mother, maternal aunt maternal uncles and maternal cousins with history of diabetes mellitus Hypertension in many family members Paternal grand mother with stomach cancer Mother with history of TIA Other paternal relatives with history of stroke Social History Hx Alcohol Use: Yes (VERY RARE) Hx Substance Use: No Hx Tobacco Use: No Smoking Status: Unknown if Ever Smoker Exam Vital Signs Vital Sign - Last Date Time Temp Pulse Resp B/P Pulse Ox O2 Delivery O2 Flow Rate FiO2 08/04/16 16:01 73 16 135/91 98 Room Air 08/04/16 11:47 36.6 Exam NAD, mildly distressed with pain no JVD, MMM, no LAD RRR, nl s1, s2 no mrg CTAB, no w,c S,ND,NT,normoactive BS+, PD cath in place, no CVAT warm, no edema, pulses 2/2 Rt groin: tender to palpate, no erythema/edema diffuse soft swelling on scrotum, nontender to palpate, uncomfortable, no penile/scrotal erythema no inguinal LAD bilaterally hoang cath in place Lab and Diagnostics Result Diagram: 08/04/16 1300 08/04/16 1300 X-Rays, CTs and MRIs PROCEDURE: CT PELVIS WITHOUT CONTRAST ([id number]) INDICATIONS: scrotal swelling/CAPD patient TECHNIQUE: After the administration of oral contrast, 5 mm thick sections acquired from the iliac crests to the symphysis. 5 mm coronal and sagittal reformats were then performed. For radiation dose reduction, the following was used: automated exposure control, adjustment of mA and/or kV according to patient size. COMPARISON: None. FINDINGS: Image quality: Excellent. Peritoneum and bowel: Bowel loops demonstrate normal wall thickness and caliber. No free fluid or air. Genitourinary: Bladder wall thickness is normal. Nodes and vessels: No iliac, pelvic, or inguinal adenopathy by size criteria. Iliac vessels demonstrate normal size. Bones: No suspicious bony lesions. Pelvic ring and hip joints appear intact. Miscellaneous: Within the right inguinal canal, there is soft tissue thickening and fluid. Stranding is extending to the subcutaneous tissues. There is increased thickening and fluid extending into the scrotum and anterior perineal region. Scrotal wall thickening is present. IMPRESSION: 1. Prominent fluid and soft tissue thickening within the right inguinal canal extending into significant fluid and stranding in the scrotum/scrotal wall. Prominent subcutaneous fat stranding is also present. Inflammation could be related to inguinal canal inflammation with subsequent cellulitis like appearance in the subcutaneous tissues. However, primary scrotal process such as epididymitis or other etiologies should be considered. Testicular ultrasound may be helpful for additional evaluation. Dictated by: Laurence Kowalski M.D. on 08/04/2016 at 9:54 Approved by: Laurence Kowalski M.D. on 08/04/2016 at 9:59 Assessment & Plan acute, active Rt inguinal/scrotal swelling, POA, likely due to initial insult with valsalva with retching, hernia with dialysate fluid infiltrate. no signs of systemic infection. no signs of strangulation. Although pelvic CT 08/03 showed probable inflammatory chg. UA neg for infection. no hx of STD. -will get scrotal US to exclude epididymitis, cellulitis -appreciate input -observe with PD overnight. -zofran for n/v -pain control with percocet, dilaudid prn chronic, stable, # ESRD on HD, POA, Patient diagnosed with end-stage renal disease in April 2015, and renal biopsy showing IgA nephropathy, is on peritoneal dialysis nightly, his port was placed October 2015, he has been on peritoneal dialysis since January 2016. -PD is not contraindicated in this situation, appreciate input, PD as scheduled # Migraine Headaches, Tylenol for headache pain # Anemia, chronic, stable h/h # Hypertension, stable, resume all of home meds once med recs done. Dispo: Patient is admitted under observation status with expectation that she will be discharged within 24-48 hours, diet:general dvt ppx:HSQ FC Time spent 65min Emily Dukes MD August 04, 2016 16:06
[2016-08-04] MEDS: HYDROmorphone 1 mg/mL Inj IVPUSH PRN ×2 (17:32→22:07)
[2016-08-04] MEDS: Ondansetron 2 mg/mL 2 mL Inj IVPUSH PRN (17:32)
[2016-08-04 17:39] VITALS: BP 129/86; PULSE 68; RESP 20; O2SAT 95
[2016-08-04 17:53] VITALS: PULSE 79
--- NOTE | 2016-08-04 17:58 | DRSVH ---
PROCEDURE: US TESTICULAR SONOGRAM WITH DOPPLER INDICATIONS: scrotal swelling fat stranding on CT TECHNIQUE: Real-time scanning was performed of the scrotum and testicles, with image documentation. Color and p ulse Doppler interrogation was performed of both testicles. COMPARISON: , CT, CT PELVIS WO CON, 08/04/2016, 0:08. FINDINGS: Bilateral hydroceles are present, moderate in size. Right: Testicle is normal in size at 3.4 x 2.6 x 2.9 cm, and homogenous in echotexture. Epididymis is normal in overall size and morphology. No varicoceles. Overlying scrotal skin is edematous, edward uring 2.0 cm. Complex fluid is present within the inferior scrotal wall. Left: Testicle is normal in size at 3.8 x 2.7 x 2.9 cm, and homogeneous in echotexture. Epididymis is normal in overall size and morphology. No varicoceles. Overlying scrotal skin is edematous, edward uring 21 mm in thickness. Complex fluid is present within the inferior scrotal wall Doppler: Color and pulse Doppler demonstrate normal and symmetric arterial flow in both testicles. IMPRESSION: 1. No evidence of scrotal hernia, nor portion of the time of the examination. 2. Edematous scrotal wall with complex intramural fluid, consistent with cellulitis, with possible de veloping abscesses. 3. Bilateral hydroceles. Dictated by: Coy Bentley M.D. on 08/04/2016 at 17:55 Approved by: Coy Bentley M.D. on 08/04/2016 at 17:57
[2016-08-04] MEDS: Lanthanum Carbonate 500 mg Chewable Tablet PO SCH (18:22)
--- NOTE | 2016-08-04 18:26 | NUR ---
Admission Patient admitted to the floor from ED at 1655. Admit questions done by primary nurse and med list accomplished in the ED. Vitals - bp 135/91, p-73, rr-16, O2-98 RA. Patient complained of 8/10 pain in the scrotal and penile area. Gave 1mg Dilaudid. Pain decrease to 3/10. Also, patient complained of nausea. Gave patient 8mg Zofran. nausea resolved. Oriented patient to the room, placed bed in lowest position and call light within reach. Also, started 22 gauge IV on his right wrist now SL.
--- NOTE | 2016-08-04 18:58 | NUR ---
Dialysis note: PD cycler tx started. 9 hrs, 4 cycles, 2000 ml fill volume and 200 ml last fill, using 2.5% dextrose solution. PD catheter exit site dsg changed, no s/s of infection noted. Initial drain clear, no fibrin, no sediments noted. Report given to Gregorio PEREZ.
[2016-08-04 20:00] VITALS: PULSE 70
--- NOTE | 2016-08-04 20:05 | CONS ---
[address] [address] CONSULTATION REPORT PATIENT: JUANITA BROOKS : 1970 MR#: [id number] ADMIT: 08/04/2016 JOB ID: [id number] DATE OF SERVICE: 08/04/2016 REQUESTING PHYSICIAN: Dr. Jose Ramon Haines. REASON FOR CONSULTATION: Management of end-stage renal disease. CHIEF COMPLAINT: Right groin pain and scrotal swelling. PRESENT ILLNESS: This is a very pleasant, 45-year-old gentleman with significant past medical history of end-stage renal disease on peritoneal dialysis, biopsy-proven IgA nephropathy, migraines, hypertension who presented to the hospital due to right groin pain and scrotal swelling. The patient reported that he consumed some alcohol the night before, August 02, 2016. Afterwards, he experienced nausea and vomiting. Yesterday afternoon, he had another episode of a bout of retching. Later on, he noticed a lump in his right groin which was associated with severe right groin pain and scrotal swelling. The patient also had difficulty urinating due to closure of the opening of the urethra. The patient then came to the emergency department last night. CT of pelvis without contrast was performed which showed fat-containing right inguinal hernia, large amount of fluid and stranding in the scrotum and along the right inguinal canal. The patient experienced difficulty urinating, hence he had a straight cath x1. The patient then was sent home with pain medication. Unfortunately, the patient started to develop worsening scrotal and penile swelling. He was unable to urinate. The patient then came to the emergency department again and was seen by the ER physician around noontime. The patient reported that he did last peritoneal dialysis yesterday at around 7 p.m. He had to stop the treatment due to scrotal swelling. He drained the fluid out around 8 p.m. He left some fluid inside approximately 200 to 300 cc. The patient denies history of fever, chills, abdominal pain, diarrhea. The patient was recently admitted a couple of weeks ago due to pneumonia. He was treated completely with antibiotics. He no longer has any cough. The patient typically is not constipated. He usually urinates 4-6 times a day with a normal amount of urine. During my visit, the patient has some scrotal swelling and right inguinal pain. A Pereira catheter has been placed. He has clear yellowish urine. The patient agreed to be admitted for an observation period. He would like to try peritoneal dialysis overnight. His peritoneal dialysis prescription includes 10 hours, four cycles, 2.5% dextrose, total volume 12 L, last filled 200-300 cc. He is a patient of Dr. Muniz. He was started on hemodialysis in October 2015. Later on, he was switched to peritoneal dialysis in December 2015. 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 He received IV pulse steroids and oral prednisone. PAST MEDICAL HISTORY: 1. End-stage renal disease on peritoneal dialysis. 2. Biopsy-proven IgA nephropathy. 3. Migraines. 4. Family history of lupus. 5. History of small pericardial effusion. 6. Anemia of chronic kidney disease. 7. Hypertension. 8. Suspected history of TIA. PAST SURGICAL HISTORY: 1. Status post kidney biopsy status post tunneled catheter placement. 2. Status post peritoneal dialysis catheter placement. FAMILY HISTORY: Positive for diabetes, hypertension, stomach cancer, TIA, lupus and stroke in the family. SOCIAL HISTORY: Patient drinks socially. Denies current use of tobacco or illicit drugs. REVIEW OF SYSTEMS: Fourteen point system was performed. MEDICATIONS: 1. Amlodipine 5 mg at bedtime. 2. Carvedilol 12.5 mg b.i.d. 3. Vitamin D 3 50,000 units weekly. 4. Clonidine 0.1 mg t.i.d. 5. Gabapentin 200 mg at bedtime. 6. Hydralazine 25 mg t.i.d. 7. Fosrenol 1 g t.i.d. 8. Sertraline 100 mg daily. PHYSICAL EXAMINATION: Vitals: Temperature 36.6, pulse 84, respiratory rate 18, blood pressure 135/91, O2 sat 98% on room air. General appearance: Awake, alert, oriented x3. No acute distress. Very pleasant. Lying in bed comfortably. HEENT: No pallor, no jaundice. No JVD. No lymphadenopathy. No thyroid enlargement. Positive subconjunctival hemorrhage on the left eye. Heart: Regular rhythm. Normal S1, S2. No murmurs, rubs, or gallops. Lungs: Clear to auscultation bilaterally. No wheezing. No rhonchi. Abdomen: Soft, active bowel sounds, nontender, nondistended. No hepatosplenomegaly. PD catheter in place which is dry, clean and intact. : Positive for scrotal swelling. Pereira catheter in place with clear urine. Extremity: No edema, cyanosis or clubbing of fingers. LABORATORY: WBC 9.8, hemoglobin 13.5, sodium 137, potassium 3.7, chloride 96, bicarb 23, BUN 49, creatinine 5.85, calcium 8.6. ASSESSMENT: 1. Right scrotal swelling. CAT scan showed prominent fluid and soft tissue thickening within the right inguinal canal extending into significant fluid and stranding in the scrotum and scrotal wall. 2. End-stage renal disease on peritoneal dialysis. 3. Hypertension. 4. History of IgA nephropathy. 5. Migraines. PLAN: We will resume his blood pressure medications. Will start the patient on a renal diet. We will resume low-volume peritoneal dialysis tonight using 2.5% dextrose. We will try only 2 L. If the scrotal swelling getting worse, we will contact general surgeon for further evaluation. We may need to switch to hemodialysis if indicated. Thank you for allowing me to participate in the care of your patient. We will monitor along with you. KEVIN
[2016-08-04 20:11] VITALS: BP 118/76; PULSE 68; RESP 20; O2SAT 96
--- NOTE | 2016-08-04 20:38 | CONS ---
[address] [address] CONSULTATION REPORT PATIENT: JUANITA BROOKS : 1970 MR#: [id number] ADMIT: 08/04/2016 JOB ID: [id number] DATE OF SERVICE: 08/04/2016 CHIEF COMPLAINT: Right inguinal hernia and scrotal swelling. HISTORY OF PRESENT ILLNESS: The patient is a 45-year-old male who was diagnosed with a new right inguinal hernia just yesterday. The patient was celebrating a wedding anniversary two nights ago and he had too much alcohol intake and this caused subsequent nausea and vomiting Thursday night. The patient felt a tearing sensation in his right groin with subsequent scrotal swelling. The patient presented to the emergency department yesterday and underwent a workup that included a CT scan of the pelvis which demonstrated a new fat-containing right inguinal hernia. Given the swelling of his penis and scrotum, the patient has been having issues with his urination. The patient is actually requiring a Pereira catheter at this time. The patient is a dialysis patient. 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 Since this new-onset right inguinal hernia with penile and scrotal swelling, he has not had an opportunity to undergo peritoneal dialysis. The patient is being admitted by the Nephrology Service to see what will happen if he undergoes peritoneal dialysis. PAST MEDICAL HISTORY: Right inguinal hernia, migraines, suspected lupus, renal failure due to IgA nephropathy, hypertension, TIA, kidney biopsy and peritoneal dialysis catheter placement by Dr. Larry Francisco. MEDICATIONS AT HOME: 1. Alprazolam. 2. Amlodipine. 3. Carvedilol. 4. Vitamins. 5. Gabapentin. 6. Hydralazine. 7. Ranitidine. ALLERGIES: 1. PENICILLIN. 2. SULFA. 3. CEFOTETAN. 4. CEFUROXIME. SOCIAL HISTORY: The patient is . He has two daughters. He lives in [place]. He is currently disabled. FAMILY HISTORY: Positive for lupus, kidney disease, hypertension and cirrhosis of the liver. REVIEW OF SYSTEMS: Positive for the right inguinal swelling and scrotal swelling and difficulty with urination. There has been no further nausea or vomiting since two nights ago. PHYSICAL EXAMINATION: The patient is currently on the emergency department gurney in no acute distress. Temperature is 36.6, blood pressure 135/91, pulse is 73, respirations 16. Head is normocephalic, atraumatic. The patient has a small left-sided subconjunctival hemorrhage of his left eye. Neck is supple. Heart is regular rate. Lungs are clear. Abdomen is nondistended. It is nontender to palpation. Examination shows equally swollen bilateral pubic tubercle region. His scrotum is distended and swollen. Currently both testes are palpable. A Pereira catheter is in place. The patient does report some discomfort when palpating in the right pubic tubercle region. Extremities show no clubbing and no cyanosis. Neurologically, patient is awake and alert and answers appropriately. His WBC is 9.8, creat 5.85. A pelvic CT scan which was done yesterday shows prominent fluid and soft tissue thickening within the right inguinal canal. ASSESSMENT: This is a 45-year-old male peritoneal dialysis patient with a new right-sided inguinal hernia after nausea and vomiting two nights ago. This new hernia is creating swelling of his penis and scrotum at this time and seems to be affecting his urination. The patient is being admitted by the Nephrology Service to see what would happen if he undergoes peritoneal dialysis. I do not believe this hernia requires urgent or emergent surgical intervention, and it should be planned given that peritoneal dialysis is his current route of dialysis. I will follow the patient along with you. I've recommended scrotal elevation and using an inguinal truss as supportive measures. KEVIN
[2016-08-04] MEDS: cloNIDine 0.1 mg Tablet PO SCH (21:30)
[2016-08-04] MEDS: Heparin 5,000 Unit/mL Inj SUBQ SCH (21:30)
--- NOTE | 2016-08-04 23:23 | NUR ---
Edema/PD: Pt has PD infusing, states scrotal/penile swelling has increased slightly since the start of the PD and his pain is 6/10. Pt requested that he continue with the PD and will alert RN if swelling increases and/or pain. RN will continue to monitor.
[2016-08-05] VITALS (8 sets, daily range): BP systolic 105–120; BP diastolic 66–80; PULSE 64–74; RESP 20; O2SAT 95–98
--- NOTE | 2016-08-05 04:33 | NUR ---
Pain: Pt slept most of the night, no further complaints. at bedside, pleasant and cooperative with care.
[2016-08-05] MEDS: HYDROmorphone 1 mg/mL Inj IVPUSH PRN ×4 (05:43→20:18)
[2016-08-05] MEDS: cloNIDine 0.1 mg Tablet PO SCH ×3 (07:56→22:39)
[2016-08-05] MEDS: Heparin 5,000 Unit/mL Inj SUBQ SCH ×2 (07:57→22:40)
[2016-08-05] MEDS: Ondansetron 2 mg/mL 2 mL Inj IVPUSH PRN ×2 (07:57→17:10)
[2016-08-05] MEDS: Lanthanum Carbonate 500 mg Chewable Tablet PO SCH ×3 (07:57→17:09)
[2016-08-05 08:15] LABS: BASOPHILS % (AUTO) 1.5 % (0-3); EOSINOPHILS % (AUTO) 4.9 % (0-5); MONOCYTES % (AUTO) 11.1 % (4-12); Mean Corpuscular Hemoglobin 29.4 pg (27.0-35.0); Mean Corpuscular Volume 88.4 fL (81-100); NEUTROPHILS % (AUTO) 53.8 % (40-74); Platelet Count 242 bil/L (150-400)
[2016-08-05 08:47] LABS: Magnesium 2.3 mg/dL (1.6-2.6); Phosphorus 5.9 mg/dL (2.5-4.9)
--- NOTE | 2016-08-05 08:58 | PCM.PNSURG ---
Subjective Visit Information: Reason for Visit ESRD Surgery/Surgery Date Post-Op Day # Date of Admission: August 04, 2016 at 16:28 Hospital Day # Subjective: tolerated overnight peritoneal dialysis, penile swelling is down, scrotal swelling about the same Objective Objective Awake in bed Hoang in place Scrotum -- about same size as yesterday Penile swelling is less Vital Sign- Last 8 Hours Date Time Temp Pulse Resp B/P Pulse Ox O2 Delivery O2 Flow Rate FiO2 08/05/16 05:39 36.4 64 20 106/66 96 Room Air Intake and Output- Last 8 Hour 08/05/16 Cumulative From/Thru 07:00 08/04/16 11:47 - 08/05/16 06:11 Intake Total 400 ml 1575 ml Output Total 1200 ml 1200 ml Balance -800 ml 375 ml Intake Oral 400 ml 1575 ml Output Urine Total 1200 ml 1200 ml # Bowel Movements 0 0 Result Diagram: 08/05/16 0800 08/04/16 1300 Assessment & Plan Impression Peritoneal dialysis pt with a RIH Scrotal swelling Problems: Plan Will order an inguinal truss for support Peritoneal dialysis prn Consider removal hoang catheter to see if he can urinate on his own. Nephrology f/u. Eleazar Narayanan MD August 05, 2016 08:58
[2016-08-05] MEDS ORDERED: levoFLOXacin Inj 750 MG in IV Premix 1 EACH IV ONE (10:17)
--- NOTE | 2016-08-05 11:16 | PCM.PNNEPH ---
Subjective Date of Service August 05, 2016 Subjective PD went well last night. However, he stated that he noticed worsening scrotal swelling when PD fluid filled in and when he was upright. Penile swelling is somewhat better. He has no fever/chills. (+) Persistent pain noted on right groin. Testicular US: 1. No evidence of scrotal hernia, nor portion of the time of the examination. 2. Edematous scrotal wall with complex intramural fluid, consistent with cellulitis, with possible developing abscesses. 3. Bilateral hydroceles. Exam Vital Signs Vital Sign - Last Date Time Temp Pulse Resp B/P Pulse Ox O2 Delivery O2 Flow Rate FiO2 08/05/16 10:17 70 08/05/16 10:00 36.6 20 106/71 97 08/05/16 05:39 Room Air Intake and Output 08/04/16 08/04/16 08/05/16 Cumulative From/Thru 15:00 23:00 07:00 08/04/16 11:47 - 08/05/16 06:11 Intake Total 1175 ml 400 ml 1575 ml Output Total 1200 ml 1200 ml Balance 1175 ml -800 ml 375 ml Intake Oral 1175 ml 400 ml 1575 ml Output Urine Total 1200 ml 1200 ml Bladder Scan Volume Amount 400 # Bowel Movements 0 0 Exam General appearance: Awake, alert, oriented x3. No acute distress. Very pleasant. Lying in bed comfortably. HEENT: No pallor, no jaundice. No JVD. No lymphadenopathy. No thyroid enlargement. Positive subconjunctival hemorrhage on the left eye. Heart: Regular rhythm. Normal S1, S2. No murmurs, rubs, or gallops. Lungs: Clear to auscultation bilaterally. No wheezing. No rhonchi. Abdomen: Soft, active bowel sounds, nontender, nondistended. No hepatosplenomegaly. PD catheter in place which is dry, clean and intact. : Positive for scrotal swelling and tenderness on right inguinal area. Pereira catheter in place with clear urine. Extremity: No edema, cyanosis or clubbing of fingers. Lab and Diagnostics Result Diagram: 08/05/16 0800 08/05/16 0800 X-Rays, CTs and MRIs PROCEDURE: CT PELVIS WITHOUT CONTRAST ([id number]) INDICATIONS: scrotal swelling/CAPD patient TECHNIQUE: After the administration of oral contrast, 5 mm thick sections acquired from the iliac crests to the symphysis. 5 mm coronal and sagittal reformats were then performed. For radiation dose reduction, the following was used: automated exposure control, adjustment of mA and/or kV according to patient size. COMPARISON: None. FINDINGS: Image quality: Excellent. Peritoneum and bowel: Bowel loops demonstrate normal wall thickness and caliber. No free fluid or air. Genitourinary: Bladder wall thickness is normal. Nodes and vessels: No iliac, pelvic, or inguinal adenopathy by size criteria. Iliac vessels demonstrate normal size. Bones: No suspicious bony lesions. Pelvic ring and hip joints appear intact. Miscellaneous: Within the right inguinal canal, there is soft tissue thickening and fluid. Stranding is extending to the subcutaneous tissues. There is increased thickening and fluid extending into the scrotum and anterior perineal region. Scrotal wall thickening is present. IMPRESSION: 1. Prominent fluid and soft tissue thickening within the right inguinal canal extending into significant fluid and stranding in the scrotum/scrotal wall. Prominent subcutaneous fat stranding is also present. Inflammation could be related to inguinal canal inflammation with subsequent cellulitis like appearance in the subcutaneous tissues. However, primary scrotal process such as epididymitis or other etiologies should be considered. Testicular ultrasound may be helpful for additional evaluation. Dictated by: Laurence Kowalski M.D. on 08/04/2016 at 9:54 Approved by: Laurence Kowalski M.D. on 08/04/2016 at 9:59 Plan Impression ASSESSMENT: 1. Scrotal swelling. CAT scan showed prominent fluid and soft tissue thickening within the right inguinal canal extending into significant fluid and stranding in the scrotum and scrotal wall. Testicular US -No evidence of scrotal hernia, nor portion of the time of the examination. -Edematous scrotal wall with complex intramural fluid, consistent with cellulitis, with possible developing abscesses. -Bilateral hydroceles. 2. End-stage renal disease on peritoneal dialysis. 3. Hypertension. 4. History of IgA nephropathy. 5. Migraines. Plan: Hold PD tonight. Agreed with primary team to start IV levaquin. Recommend ID/Urology consultation. D/c natalya in am. Anjelica Bennett MD August 05, 2016 11:16
--- NOTE | 2016-08-05 11:35 | PCM.PNMED ---
Subjective Date of Service August 05, 2016 Subjective pt still in pain, testicular US showed cellulitis, possible abscess pt stated that he is monogamous relationship with for 16yrs, again denied STD hx /ID consulted, Levaquin ordered Exam Vital Signs Vital Sign - Last Date Time Temp Pulse Resp B/P Pulse Ox O2 Delivery O2 Flow Rate FiO2 08/05/16 10:17 70 08/05/16 10:00 36.6 20 106/71 97 08/05/16 05:39 Room Air Intake and Output 08/04/16 08/04/16 08/05/16 Cumulative From/Thru 15:00 23:00 07:00 08/04/16 11:47 - 08/05/16 06:11 Intake Total 1175 ml 400 ml 1575 ml Output Total 1200 ml 1200 ml Balance 1175 ml -800 ml 375 ml Intake Oral 1175 ml 400 ml 1575 ml Output Urine Total 1200 ml 1200 ml Bladder Scan Volume Amount 400 # Bowel Movements 0 0 Exam NAD, mildly distressed with pain no JVD, MMM, no LAD RRR, nl s1, s2 no mrg CTAB, no w,c S,ND,NT,normoactive BS+, PD cath in place, no CVAT warm, no edema, pulses 2/2 Rt groin: tender to palpate, no erythema/edema diffuse soft swelling on scrotum, nontender to palpate, uncomfortable, no penile/scrotal erythema no inguinal LAD left, Rt inguinal tenderness, no definite LAD. hoang cath in place IVs and Medications Medications Reviewed: Medications were reviewed in detail Lab and Diagnostics Result Diagram: 08/05/16 0800 08/05/16 0800 X-Rays, CTs and MRIs PROCEDURE: CT PELVIS WITHOUT CONTRAST ([id number]) INDICATIONS: scrotal swelling/CAPD patient TECHNIQUE: After the administration of oral contrast, 5 mm thick sections acquired from the iliac crests to the symphysis. 5 mm coronal and sagittal reformats were then performed. For radiation dose reduction, the following was used: automated exposure control, adjustment of mA and/or kV according to patient size. COMPARISON: None. FINDINGS: Image quality: Excellent. Peritoneum and bowel: Bowel loops demonstrate normal wall thickness and caliber. No free fluid or air. Genitourinary: Bladder wall thickness is normal. Nodes and vessels: No iliac, pelvic, or inguinal adenopathy by size criteria. Iliac vessels demonstrate normal size. Bones: No suspicious bony lesions. Pelvic ring and hip joints appear intact. Miscellaneous: Within the right inguinal canal, there is soft tissue thickening and fluid. Stranding is extending to the subcutaneous tissues. There is increased thickening and fluid extending into the scrotum and anterior perineal region. Scrotal wall thickening is present. IMPRESSION: 1. Prominent fluid and soft tissue thickening within the right inguinal canal extending into significant fluid and stranding in the scrotum/scrotal wall. Prominent subcutaneous fat stranding is also present. Inflammation could be related to inguinal canal inflammation with subsequent cellulitis like appearance in the subcutaneous tissues. However, primary scrotal process such as epididymitis or other etiologies should be considered. Testicular ultrasound may be helpful for additional evaluation. Dictated by: Laurence Kowalski M.D. on 08/04/2016 at 9:54 Approved by: Laurence Kowalski M.D. on 08/04/2016 at 9:59 Assessment & Plan acute, active Rt inguinal/scrotal swelling, POA, likely due to initial insult with valsalva with retching, hernia with dialysate fluid infiltrate. no signs of systemic infection. no signs of strangulation. Although pelvic CT 08/03 showed probable inflammatory chg. UA neg for infection. no hx of STD. testicular US 08/04 showed no inguinal hernia, bilateral hydrocele, ddematous scrotal wall with complex intramural fluid, consistent with cellulitis, with possible developing abscesses. -started IV Levaquin 750mg, appreciate ID recs for further abx of choice, send gen probe for GC/chlamydia, HIV -appreciate input, no surgical intervention now, -appreciate input -gerson for n/v -pain control with percocet, dilaudid prn -keep hoang cath for now, chronic, stable, # ESRD on HD, POA, Patient diagnosed with end-stage renal disease in April 2015, and renal biopsy showing IgA nephropathy, is on peritoneal dialysis nightly, his port was placed October 2015, he has been on peritoneal dialysis since January 2016. -PD is not contraindicated in this situation, appreciate input, PD as scheduled # Migraine Headaches, Tylenol for headache pain # Anemia, chronic, stable h/h # Hypertension, stable, resume all of home meds once med recs done. Dispo: likely 2-3more days, pending. diet:general dvt ppx:HSQ FC Time spent 35min Emily Dukes MD August 05, 2016 11:35
--- NOTE | 2016-08-05 12:01 | NUR ---
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 Dr Russell paged and message given to her.
--- NOTE | 2016-08-05 16:32 | NUR ---
Case Management: IMM explained to patient at 1515, all questions answered. Signed original placed in chart, copy of IMM given to patient. Pt commented that he may need to contest discharge considering how things have been managed... Danitza Calderón RN
--- NOTE | 2016-08-05 17:14 | PCM.HPSURG ---
Subjective Date of Service: August 05, 2016 Referring Provider: Admitting Physician: Emily Dukes MD Primary Care Physician: Rehan Golden DO Attending Physician: Emily Dukes MD Chief Complaint I was asked by Dr Dukes for eval and treament recommendations for a 45 y/o patient Scrotal swelling/pain and imaging studies suggestive of cellulitis/ possible early abscess. History of Present Illness Pt is a 45 y/o gentleman with ESRD in home PD chronic (IgA nephropathy) seen at [facility] ER 08/03/16 with c/o scrotal swelling/inguinal swelling after nausea and emesis associated with drinking and new onset/worsened Rt groin fullness/pain. CT that visit showed Rt inguinal canal fat/tissue thickening extending into the scrotal wall, strandy fat changes c/w inflammation- felt either to be related more proximally to the inguinal canal process (possibly extrusion of PD fluid with emesis into the inguinal canal and surrounding tissues with valsalva at emesis) or potentially from a distal source: primarily scrotal as from epididymoorchitis. There was no abdominal contents (bowel) in the canal, no incarcerated hernia. He returned to the ER 08/04 with worsened c/o scrotal edema and pain centered again overlying the inguinal canal. F/U US showed again the edematous tissue above the inguinal canal and edematous scrotal wall with complex intramural fluid c/w Cellulitis- potentially developing abscess. He was not started on empiric antibiotics. He had difficulty urinating and some penile edema making catheter placement difficult for nursing staff per pt. He stated he can see his meatus, but the edema makes it more difficult. 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) Hx Tobacco Use: No PMH HEENT History History of ENT Problems?: No HEENT History: Positive for:: Sinus Problem (Hx of sinusitis) Denies:: Abnormal Airway Cataracts Difficult Intubation Dysphagia Hearing Problem TMJ Cardiovascular History History of Heart Problems?: Yes Cardiovascular History: Positive for:: Chest Pain Denies:: Abdominal Aortic Aneurism Atrial Fibrillation Cardiac Surgery Congestive Heart Failure Edema Heart Murmur Hypertension Irregular Heartbeat Pacemaker Thrombophlebitis Respiratory History of Respiratory Problem: Yes Respiratory History: Denies:: Asthma COPD Chest Surgery Dyspnea Emphysema Hemoptysis Pneumonia Tuberculosis Use of C-PAP Machine (sleep apnea dx - no sleep study appt avail until february) Other Resp Pertinent History: upper respiratory infection Neurological History Hx Neurologic Problems?: Yes Neurological History: Positive for:: CVA ( "TIA a year ago". admitted today due to TIA) Headaches (migraine) Denies:: Alzheimer's Disease Dementia Dizziness Multiple Sclerosis Parkinson's Disease Seizures Gastrointestinal History HX of GI Problems?: No Gastrointestinal History: Positive for:: Heartburn Denies:: Cirrhosis Diverticulitis Gastroesphageal Reflux Gastrointestinal Bleeding Hepatitis Hiatal Hernia Rectal Bleeding Genitourinary History Hx of Gu Problems?: Yes Genitourinary History: Denies: HX of Hemodialysis Kidney Stones Urinary Tract Infection Female/Male History Reproductive History Male: Denies: Prostate Problems Scrotal Mass Skin History Skin History: Denies:: History Skin Disorders? Pressure Ulcers Musculoskeletal History Hx Musculoskeletal Problems?: No Musculoskeletal History: Denies:: Back Injury Joint Replacement Musculoskeletal Trauma Systemic Lupus Psycho Social History Hx of Psycho/Social Problems?: Yes Psycho Social History: Positive for:: Anxiety Denies:: Bipolar Disorder Hx Depression ("Undiagnosed, but depressive swings") Suicide Attempt Other History Hx Any Other Health Problems?: Yes Other History: Positive for:: Hospitalization ("End of last year") Denies:: Cancer Thyroid Disease Diabetes: No Social History Hx Alcohol Use: Yes (VERY RARE)Hx Substance Use: Yes (2003 - methamphetamin) Hx Tobacco Use: No Smoking Status: Unknown if Ever Smoker Review of Systems Constitutional: Reports: Weakness, Denies: Chills, Fever ENT: Denies: Hoarseness, Nasal Congestion, Throat Pain Cardiovascular: Denies: Chest Pain, Palpitations Respiratory: Denies: Cough, Hemoptysis, Sputum Gastrointestinal: Reports: Abdominal Pain, Denies: Hematochezia, Melena Genitourinary: Reports: Change in Frequency, Retention Musculoskeletal: Denies: Limitation of Function, Redness, Swelling Skin: Denies: Bruising, Jaundice Neurological: Denies: Confusion, Dizziness, Numbness, Weakness Psychologic: Denies: Agitation, Disorientation, Excitation, Nervousness Endocrine: Reports: Change in Appitite, Denies: Polyuria H&P Surgical Exam Exam General: Alert, Oriented X3, Cooperative, No Acute Distress Neck: Supple, Other (midline trachea, no scars, good rom) Lungs: Normal Air Movement (no audible ronchi or wheezes, no coughing, no inc wob) Abdomen: Benign, Soft (PD catheter looks good, protuberant, n omasses) Extremities: Warm, Edema Localized Neuro: Grossly Neurologically Intact, Normal Speech (clear speech, symmetric face) Catheters: Urethral 2 Way Hoang Lab & Micro Results: WBC at admit 9.2 60% N 26%L Assessment & Plan Assessment Scrotal Cellulitis, also same process overlying inguinal canal (most tender area ) Fairly normal WBC with normal differential This could potentially represent a chemical reaction if the PD fluid were causal as this did begin with his bout of retching, though infectious etiology cannot be excluded and secondary infection could still occur even if the inciting event were chemical irritant. No evidence for necrotic tissue, abscess at this time. No evidence for orchitis/epididymitis at this time- no Quite edematous- will take some time to resolve. hoang in place, pt anxious about removal as it was "difficult" for nursing staff to place, likely only due to edematous anatomy. may leave for now if he is more comfortable. Ideally remove when possisble Plan: Recommend broad spectrum antibiotic coverage for cellulitis. Currently on Levaquin. If clinically responding can continue and convert to PO , though if any question may broaden, potentially Clindamycin would add some G+ and anaerobic coverage Otherwise cont scrotal elevation/support to help edema resolve No surgical intervention indicated at present will follow with you this hospitalization Kaleigh Colindres MD August 05, 2016 17:14
--- NOTE | 2016-08-05 18:28 | NUR ---
Hoang Pt states he feels he could urinate with hoang dc'd, however he feels it "would go everywhere" and is causing him anxiety to remove hoang. He wishes to keep it in longer, per pt this was discussed with nephrology and urology who agree. Hoang is patent, draining light maite urine. Scrotum remains swollen, attempting to keep elevated/slinged as able. Bed in lowest, locked position and call light in reach.
--- NOTE | 2016-08-05 19:35 | CONS ---
[address] [address] CONSULTATION REPORT PATIENT: JUANITA BROOKS : 1970 MR#: [id number] ADMIT: 08/04/2016 JOB ID: [id number] DATE OF SERVICE: 08/05/2016 REASON FOR CONSULTATION: Possible scrotal cellulitis. HISTORY OF PRESENT ILLNESS: The patient is a 45-year-old gentleman with underlying renal failure secondary to IgA nephropathy. He has been on peritoneal dialysis for about six months and tolerating it quite well. He is said to also have a possible underlying diagnosis of lupus, though the grounds for that diagnosis is not completely clear to me. In any event, the patient was in his usual state of reasonably good compensated health until August 03. At that time, he was out with friends and had a few beers and some food, and then after he got home developed intractable vomiting and retching. During this prolonged episode of retching, he felt a tearing sensation in his right groin. He was eventually able to go to sleep but, the next day, noticed that he had developed quite significant scrotal edema as well as swelling of the penis. This was painful, especially in the right groin, right testicle, right epididymal area but the swelling was actually bilateral. When he attempted to use peritoneal dialysis following this episode, he noticed there was profound re-accumulation of swelling in the scrotum and the penis. This painful swelling in the scrotum and penis has persisted and has been exacerbated by each attempt at doing peritoneal dialysis which eventually led to his admission here yesterday, August 04, for evaluation. Throughout this illness, the patient has been free of fevers, chills, or sweats. He also notes that he developed urinary retention within the past couple of days and, for that reason, a Pereira catheter was placed, as he does still continue to produce some urine despite his renal failure and IgA nephropathy. Throughout this illness, the patient has not had fevers, as mentioned, nor has he had significant pulmonary or GI symptoms. ID consultation is requested because CT imaging of this area showed some fat stranding and raised the question about possible scrotal cellulitis and/or epididymitis or orchitis. PAST MEDICAL HISTORY: 1. IgA nephropathy. 2. End-stage renal disease since 2015. 3. History of possible lupus. 4. Hypertension. 5. TIA one year ago. SOCIAL HISTORY: The patient spent 13 years in the [employer] and left voluntarily because of issues related to deployments. The patient is a rare alcohol consumer and does not smoke cigarettes and has not lived overseas or deployed overseas. FAMILY HISTORY: Positive for many relatives with diabetes but no relatives including first and second-degree relatives with tuberculosis. REVIEW OF SYSTEMS: Was done. At this point, the patient has no significant headache, visual change, sore throat, odynophagia, dysphagia, stiff neck, cough, shortness of breath, chest pain, nausea, vomiting, or diarrhea. He, of course, has the right groin pain and swelling which started on Thursday three days ago. The patient denies any edema in his legs or any motor complaints. Remainder of the review of systems is negative. PHYSICAL EXAMINATION: Reveals an afebrile gentleman, temperature 36.4, he has been afebrile since admission, pulse 67, respiratory rate 20, blood pressure 120/80, saturating well on room air. The mental status is completely clear. Head without trauma. Eyes with a left conjunctival hemorrhage which also occurred during this period of retching three days ago. Otherwise, his eyes appear normal. Oral cavity: No thrush or hairy leukoplakia. Teeth in good repair. Neck is supple. No adenopathy. Lungs clear. Cardiac tones: Regular rate and rhythm without murmur. Abdomen: Soft, nontender. No organomegaly. No appreciable ascites. He does have a trocar in place for peritoneal dialysis which appears uninflamed and uninfected. Examination of the genitourinary tract shows that he has very swollen scrotum. His testes are easily palpable on the right and may be slightly tender. The epididymis is almost nontender except for perhaps minimal tenderness on the right side, but certainly not the jumping off the bed one would expect classically with epididymitis. His whole right inguinal area is more swollen than the corresponding area on the left and is tender to palpation. A Valsalva maneuver did not elicit obvious presence of a hernia but that could not be excluded. His lower extremities are essentially benign. There is no edema, no cellulitis, no synovitis. The patient is neurologically intact. He does not have an indwelling dialysis line. He does have a Pereira catheter at this point. Labs include white count 9000 with normal diff on two measurements. Creatinine about 6 on two measurements. LFTs normal. Procalcitonin 0.21 on a single measure which is normal for a renal failure patient. Chlamydia and gonorrhea studies are pending as is an HIV test. No cultures are available. IMAGING: Includes a testicular ultrasound which shows no evidence of scrotal hernia. He does have an edematous scrotum with complex intramural fluid consistent with cellulitis or possible developing abscess. A pelvic CT done shows prominent soft tissue thickening in the right inguinal canal and stranding up into the scrotum and scrotal wall. Prominent subcutaneous fat stranding is also present. This inflammation could be related to inguinal canal inflammation with cellulitis and scrotal process such as epididymitis should be considered. IMPRESSION: I see little or no evidence for infection at this point. The patient has had no fevers, chills, leukocytosis and his procalcitonin is normal. I suspect that what has happened here is that the patient's retching led to the passage of peritoneal dialysis fluid into the right inguinal and scrotal region perhaps through a hernia. I have very little concern for infection, though I note that certainly the differential based upon radiographic studies that have been obtained. The surgical assist believes that the patient has a right inguinal hernia with peritoneal dialysis and I think that is the correct diagnosis, but I think it is reasonable to hedge our bets at least in the short run with a short course of levofloxacin, but I would not continue that for very long without additional evidence of infection in this very nontoxic gentleman. RECOMMENDATIONS: 1. I will be continue the q. 48 hour levofloxacin for about three dose or one week course. 2. Without additional evidence of infection, I do not think any other antibiotics are indicated as overall my sense of this case is that there is no infection. 3. ID will go ahead and sign off at this time. 4. Please do not hesitate to call if there are additional questions or issues regarding this case.
[2016-08-06] VITALS (7 sets, daily range): BP systolic 108–120; BP diastolic 69–75; PULSE 60–72; RESP 14–20; O2SAT 96–98
[2016-08-06] MEDS ORDERED: 0.9% Sodium Chloride 500 ML IV ONE (00:45)
--- NOTE | 2016-08-06 01:54 | NUR ---
Leg cramps: Pt c/o leg cramps, requesting IV fluids, stating that when he gets dehydrated from PD he gets cramps and that fluids are what helps with the cramps. MD contacted, new order for x1 dose 500 ml NS for gentle hydration. RN will continue to monitor.
[2016-08-06] MEDS: Ondansetron 2 mg/mL 2 mL Inj IVPUSH PRN ×4 (04:06→22:10)
--- NOTE | 2016-08-06 04:39 | NUR ---
Pain/Constipation: Pt c/o groin/pelvic pain x2, medication administered; effective. Pt requested Lactulose for constipation stating he takes this at home daily. MD contacted, MD ordered Miralax at this time. Pt slept off/on throughout the night, pleasant and cooperative with care.
[2016-08-06] MEDS: Polyethylene Glycol (PEG) 17 Gm Powder PO SCH ×2 (04:48→08:30)
[2016-08-06] MEDS ORDERED: Polyethylene Glycol (PEG) 17 Gm Powder PO PRN (08:10)
[2016-08-06] MEDS: cloNIDine 0.1 mg Tablet PO SCH ×3 (08:13→21:25)
[2016-08-06] MEDS: Lanthanum Carbonate 500 mg Chewable Tablet PO SCH ×3 (08:14→17:48)
[2016-08-06] MEDS: Heparin 5,000 Unit/mL Inj SUBQ SCH ×2 (08:15→21:22)
[2016-08-06 08:38] LABS: BASOPHILS % (AUTO) 0.6 % (0-3); EOSINOPHILS % (AUTO) 4.9 % (0-5); MONOCYTES % (AUTO) 7.5 % (4-12); Mean Corpuscular Hemoglobin 29.5 pg (27.0-35.0); Mean Corpuscular Volume 86.5 fL (81-100); NEUTROPHILS % (AUTO) 63.3 % (40-74); Platelet Count 244 bil/L (150-400)
[2016-08-06] MEDS: LORazepam 1 mg Tablet PO PRN ×2 (08:38→23:26)
[2016-08-06 09:06] LABS: Magnesium 2.2 mg/dL (1.6-2.6); Phosphorus 4.6 mg/dL (2.5-4.9)
[2016-08-06] MEDS ORDERED: Lactulose 20 Gm/30 mL 30 mL Syrup PO PRN (09:20)
--- NOTE | 2016-08-06 09:22 | PCM.PNMED ---
Subjective Date of Service August 06, 2016 Subjective scrotal swelling is improving since PD was held ID/ are on board, continued Levaquin, c/o less pain on scrotum, no n/v requested Lactulose for constipation, ativan for anxiety Exam Vital Signs Vital Sign - Last Date Time Temp Pulse Resp B/P Pulse Ox O2 Delivery O2 Flow Rate FiO2 08/06/16 05:27 36.7 72 20 114/73 96 Room Air Intake and Output 08/05/16 08/05/16 08/06/16 Cumulative From/Thru 15:00 23:00 07:00 08/04/16 11:47 - 08/06/16 06:46 Intake Total 1380 ml 900 ml 3855 ml Output Total 850 ml 1700 ml 3750 ml Balance 530 ml -800 ml 105 ml Intake Oral 1200 ml 400 ml 3175 ml IV Total 180 ml 500 ml 680 ml Output Urine Total 850 ml 1700 ml 3750 ml # Bowel Movements 0 0 Exam NAD, mildly distressed with pain no JVD, MMM, no LAD RRR, nl s1, s2 no mrg CTAB, no w,c S,ND,NT,normoactive BS+, PD cath in place, no CVAT warm, no edema, pulses 2/2 Rt groin: tender to palpate, no erythema/edema diffuse soft swelling on scrotum, less tense no penile/scrotal erythema no inguinal LAD left, Rt inguinal tenderness, no definite LAD. hoang cath in place IVs and Medications Medications Reviewed: Medications were reviewed in detail Lab and Diagnostics Result Diagram: 08/06/16 0830 08/05/16 0800 X-Rays, CTs and MRIs PROCEDURE: CT PELVIS WITHOUT CONTRAST ([id number]) INDICATIONS: scrotal swelling/CAPD patient TECHNIQUE: After the administration of oral contrast, 5 mm thick sections acquired from the iliac crests to the symphysis. 5 mm coronal and sagittal reformats were then performed. For radiation dose reduction, the following was used: automated exposure control, adjustment of mA and/or kV according to patient size. COMPARISON: None. FINDINGS: Image quality: Excellent. Peritoneum and bowel: Bowel loops demonstrate normal wall thickness and caliber. No free fluid or air. Genitourinary: Bladder wall thickness is normal. Nodes and vessels: No iliac, pelvic, or inguinal adenopathy by size criteria. Iliac vessels demonstrate normal size. Bones: No suspicious bony lesions. Pelvic ring and hip joints appear intact. Miscellaneous: Within the right inguinal canal, there is soft tissue thickening and fluid. Stranding is extending to the subcutaneous tissues. There is increased thickening and fluid extending into the scrotum and anterior perineal region. Scrotal wall thickening is present. IMPRESSION: 1. Prominent fluid and soft tissue thickening within the right inguinal canal extending into significant fluid and stranding in the scrotum/scrotal wall. Prominent subcutaneous fat stranding is also present. Inflammation could be related to inguinal canal inflammation with subsequent cellulitis like appearance in the subcutaneous tissues. However, primary scrotal process such as epididymitis or other etiologies should be considered. Testicular ultrasound may be helpful for additional evaluation. Dictated by: Laurence Kowalski M.D. on 08/04/2016 at 9:54 Approved by: Laurence Kowalski M.D. on 08/04/2016 at 9:59 Assessment & Plan acute, active Rt inguinal/scrotal swelling, POA, likely due to initial insult with valsalva with retching, hernia with dialysate fluid infiltrate. no signs of systemic infection. no signs of strangulation. Although pelvic CT 08/03 showed probable inflammatory chg. UA neg for infection. no hx of STD. testicular US 08/04 showed no inguinal hernia, bilateral hydrocele, ddematous scrotal wall with complex intramural fluid, consistent with cellulitis, with possible developing abscesses. HIV neg -started IV Levaquin 750mg, likely to continue 500mg q48hr per ID recs despite low suspicion for infection, awaits gen probe for GC/chlamydia, -appreciate input, no surgical intervention now, -appreciate input, no surgical intervention recommended. -zofran for n/vmore days, pending. -pain control with percocet, dilaudid prn -keep hoang cath for now, constipation, POA, lactulose prn chronic, stable, # ESRD on HD, POA, Patient diagnosed with end-stage renal disease in April 2015, and renal biopsy showing IgA nephropathy, is on peritoneal dialysis nightly, his port was placed October 2015, he has been on peritoneal dialysis since January 2016. -PD was held and pt is clinically improving, pt will likely needs new access for dialysis, appreciate input, # Migraine Headaches, Tylenol for headache pain # Anemia, chronic, stable h/h # Hypertension, stable, resume all of home meds once med recs done. anxiety d/o, ativan prn Dispo: likely 1-2 diet:general dvt ppx:HSQ FC Time spent 35min Emily Dukes MD August 06, 2016 09:19
--- NOTE | 2016-08-06 10:37 | PCM.PNNEPH ---
Subjective Date of Service August 06, 2016 Subjective He was up and about this morning. Reported having less scrotal swelling. He has mild bilateral groin pain. He has no fever/chills. He was evaluated by Dr. Colindres and Dr. Stark. Exam Vital Signs Vital Sign - Last Date Time Temp Pulse Resp B/P Pulse Ox O2 Delivery O2 Flow Rate FiO2 08/06/16 10:04 36.7 67 20 112/75 98 Room Air Intake and Output 08/05/16 08/05/16 08/06/16 Cumulative From/Thru 15:00 23:00 07:00 08/04/16 11:47 - 08/06/16 06:46 Intake Total 1380 ml 900 ml 3855 ml Output Total 850 ml 1700 ml 3750 ml Balance 530 ml -800 ml 105 ml Intake Oral 1200 ml 400 ml 3175 ml IV Total 180 ml 500 ml 680 ml Output Urine Total 850 ml 1700 ml 3750 ml # Bowel Movements 0 0 Exam General appearance: Awake, alert, oriented x3. No acute distress. Very pleasant. Lying in bed comfortably. HEENT: No pallor, no jaundice. No JVD. No lymphadenopathy. No thyroid enlargement. Positive subconjunctival hemorrhage on the left eye. Heart: Regular rhythm. Normal S1, S2. No murmurs, rubs, or gallops. Lungs: Clear to auscultation bilaterally. No wheezing. No rhonchi. Abdomen: Soft, active bowel sounds, nontender, nondistended. No hepatosplenomegaly. PD catheter in place which is dry, clean and intact. : Less scrotal swelling and tenderness on bilateral groin. Pereira catheter in place with clear urine. Extremity: No edema, cyanosis or clubbing of fingers. Lab and Diagnostics Result Diagram: 08/06/16 0830 08/06/16 0830 X-Rays, CTs and MRIs PROCEDURE: CT PELVIS WITHOUT CONTRAST ([id number]) INDICATIONS: scrotal swelling/CAPD patient TECHNIQUE: After the administration of oral contrast, 5 mm thick sections acquired from the iliac crests to the symphysis. 5 mm coronal and sagittal reformats were then performed. For radiation dose reduction, the following was used: automated exposure control, adjustment of mA and/or kV according to patient size. COMPARISON: None. FINDINGS: Image quality: Excellent. Peritoneum and bowel: Bowel loops demonstrate normal wall thickness and caliber. No free fluid or air. Genitourinary: Bladder wall thickness is normal. Nodes and vessels: No iliac, pelvic, or inguinal adenopathy by size criteria. Iliac vessels demonstrate normal size. Bones: No suspicious bony lesions. Pelvic ring and hip joints appear intact. Miscellaneous: Within the right inguinal canal, there is soft tissue thickening and fluid. Stranding is extending to the subcutaneous tissues. There is increased thickening and fluid extending into the scrotum and anterior perineal region. Scrotal wall thickening is present. IMPRESSION: 1. Prominent fluid and soft tissue thickening within the right inguinal canal extending into significant fluid and stranding in the scrotum/scrotal wall. Prominent subcutaneous fat stranding is also present. Inflammation could be related to inguinal canal inflammation with subsequent cellulitis like appearance in the subcutaneous tissues. However, primary scrotal process such as epididymitis or other etiologies should be considered. Testicular ultrasound may be helpful for additional evaluation. Dictated by: Laurence Kowalski M.D. on 08/04/2016 at 9:54 Approved by: Laurence Kowalski M.D. on 08/04/2016 at 9:59 Plan Impression ASSESSMENT: 1. Scrotal swelling. DDx: Dialysate leakage thru inguinal canal/hernia vs scrotal cellulitis. We will try low volume PD today. 2L, 2.5% dextrose, 3 cycles, 6 hr today. If scrotal swelling worsens, will switch to HD for a couple of weeks. May require elective repair if clinically indicated. 2. End-stage renal disease on peritoneal dialysis. 3. Hypertension. 4. History of IgA nephropathy. 5. Migraines. Anjelica Bennett MD August 06, 2016 10:37 Anjelica Bennett MD August 06, 2016 10:37
--- NOTE | 2016-08-06 14:58 | PCM.PNSURG ---
Subjective Date of Service: August 06, 2016 Visit Information: Reason for Visit ESRD Surgery/Surgery Date Post-Op Day # Date of Admission: August 04, 2016 at 16:28 Hospital Day #3 Subjective: The patient believes that his penile swelling has completely resolved. He also believes that scrotal edema has decreased by approximately 25%. He is hesitant to have the Pereira catheter removed as he fears that he will not be able to void. He has discomfort with movement but otherwise no pain. He is undergoing peritoneal dialysis during this exam. Postop General: No Complaints Pain Management: Good Pain Control Objective Objective Non-edematous penis with Pereira catheter in place. Moderate scrotal edema. Vital Sign- Last 8 Hours Date Time Temp Pulse Resp B/P Pulse Ox O2 Delivery O2 Flow Rate FiO2 08/06/16 13:56 36.8 68 14 110/69 96 Room Air 08/06/16 11:05 69 08/06/16 10:04 36.7 67 20 112/75 98 Room Air Intake and Output- Last 8 Hour 08/06/16 Cumulative From/Thru 07:00 08/04/16 11:47 - 08/06/16 06:46 Intake Total 900 ml 3855 ml Output Total 1700 ml 3750 ml Balance -800 ml 105 ml Intake Oral 400 ml 3175 ml IV Total 500 ml 680 ml Output Urine Total 1700 ml 3750 ml # Bowel Movements 0 0 General: Alert, Cooperative, No Acute Distress Lungs: Clear to Auscultation Heart: Regular Rate/Rhythm, No Murmurs/Rubs/Gallops Neuro: Normal Speech Catheters: Urethral 2 Way Pereira Result Diagram: 08/06/16 0830 08/06/16 0830 Assessment & Plan Impression Primary diagnosis: Right inguinal hernia with scrotal edema. HD #3 with slowly resolving scrotal edema. Other chronic conditions 1. Migraines 2. Suspected lupus 3. 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 Anemia 5. History of a small pericardial effusion 6. Hypertension 7. Reports history of a possible TIA last 1 year ago Problems: Plan 1. A scrotal truss was applied by me during this exam with reported significant relief of discomfort. 2. Pereira catheter will remain in place until tomorrow when a trial of urination with the Pereira out will occur. Pain Management: Ultram Intermittent IV Dilaudid VTE Prophylaxis: Sub-Q Heparin (Unfractionated) Resuscitation Status: CPR: Attempt Resuscitation (a discussion was held with the patient and he would like full resuscitation) Javed Jo PA-C August 06, 2016 14:58
--- NOTE | 2016-08-06 15:28 | NUR ---
spiritual care: follow up brief visit, prayer. pt shared coping and status reports, positive manner.
--- NOTE | 2016-08-06 18:41 | NUR ---
Pain/activity/plan Pt reporting 4/10 abdominal pain, PRN analgesic effective. Also c/o nausea, PRN antiemetic effective as well. Pt up, moving around room. PD done today, pt tolerated well. Reports edema is slightly improved, PA placed a scrotal truss which pt states aided in comfort. Pereira remains patent, draining light yellow urine. Pt to be NPO after MN for hemocath placement in AM, understands instructions. Bed in lowest, locked position and call light in reach.
[2016-08-06] MEDS: HYDROmorphone 1 mg/mL Inj IVPUSH PRN (21:16)
[2016-08-07] VITALS (17 sets, daily range): BP systolic 102–148; BP diastolic 63–95; PULSE 58–96; RESP 16–20; O2SAT 91–98
[2016-08-07 06:01] LABS: BASOPHILS % (AUTO) 0.5 % (0-3); Mean Corpuscular Hemoglobin 29.1 pg (27.0-35.0); Mean Corpuscular Volume 88.3 fL (81-100); NEUTROPHILS % (AUTO) 51.8 % (40-74); Platelet Count 235 bil/L (150-400)
[2016-08-07 06:04] LABS: INR 0.95 ratio
[2016-08-07 06:20] LABS: Magnesium 2.2 mg/dL (1.6-2.6); Phosphorus 5.5 mg/dL (2.5-4.9)
[2016-08-07] MEDS ORDERED: Heparin 5,000 Units/500 mL NS Premix IV ONE (07:38)
[2016-08-07] MEDS ORDERED: Heparin 1,000 Unit/mL 10 mL Inj ONE (07:38)
[2016-08-07] MEDS ORDERED: 0.9% Sodium Chloride 1,000 ML ONE (07:38)
--- NOTE | 2016-08-07 07:49 | PCM.PNSURG ---
Subjective Visit Information: Reason for Visit ESRD Surgery/Surgery Date Post-Op Day # Date of Admission: August 04, 2016 at 16:28 Hospital Day # Subjective: had partial PD dialysis yesterday, still has some scrotal swellling but appears slightly less. On abx for possible infection. Objective Objective Awake in bed Pereira still in place Scrotum appears slightly less swollen this AM Vital Sign- Last 8 Hours Date Time Temp Pulse Resp B/P Pulse Ox O2 Delivery O2 Flow Rate FiO2 08/07/16 06:28 64 08/07/16 05:26 36.7 74 18 115/68 98 Room Air 08/07/16 00:35 36.4 74 18 119/72 97 Room Air Intake and Output- Last 8 Hour 08/07/16 Cumulative From/Thru 07:00 08/04/16 11:47 - 08/07/16 06:11 Intake Total 400 ml 5130 ml Output Total 1200 ml 7320.00 ml Balance -800 ml -2190.00 ml Intake Oral 400 ml 4450 ml IV Total 680 ml Output Urine Total 1200 ml 6600 ml Ultrafiltrate 720.00 ml # Bowel Movements 0 0 Result Diagram: 08/07/16 0525 08/07/16 0525 Assessment & Plan Impression Peritoneal dialysis pt with a new RIH On abx for possible infection Problems: Plan I believe the plan is to switch to hemodialysis first. Then I'd recommend outpt elective hernia repair once he's completed his course of abx, to minimize possibility of mesh infection. VTE Prophylaxis: Sub-Q Heparin (Unfractionated) Resuscitation Status: CPR: Attempt Resuscitation (a discussion was held with the patient and he would like full resuscitation) Eleazar Narayanan MD August 07, 2016 07:49
[2016-08-07] MEDS: Lanthanum Carbonate 500 mg Chewable Tablet PO SCH ×3 (08:00→17:30)
--- NOTE | 2016-08-07 08:26 | NUR ---
Off Unit: Transported to lab tester for dialysis cath placement @ approx 0830 accompanied by [employer] staff. printing technician notified. No apparent distress at time of transport. Family @ bedside and accompanied patient on transport. AM assessment and medication administration delayed do to transport.
[2016-08-07] MEDS: Polyethylene Glycol (PEG) 17 Gm Powder PO SCH (08:30)
[2016-08-07] MEDS: cloNIDine 0.1 mg Tablet PO SCH ×3 (08:30→19:57)
[2016-08-07] MEDS: Heparin 5,000 Unit/mL Inj SUBQ SCH ×2 (08:30→19:57)
[2016-08-07] MEDS ORDERED: fentaNYL-PF 50 mCg/mL 2 mL Inj ONE (08:37)
[2016-08-07] MEDS ORDERED: Vancomycin Inj 1,000 MG in IV Premix 1 EACH IV ONE (09:00)
--- NOTE | 2016-08-07 09:20 | NUR ---
FROM ROTARY BAR OPERATOR. SEE FLOW SHEET
[2016-08-07] MEDS ORDERED: Levofloxacin 500 mg/100 mL D5W IV SCH (10:00)
--- NOTE | 2016-08-07 10:30 | NUR ---
TRANSFER NOTE RETURNED TO [facility]. REPORT GIVEN
--- NOTE | 2016-08-07 10:34 | DRSVH ---
PROCEDURE: CV TUNNEL CATH PLCMNT 1. Sonographic guidance for venous access. 2. Conscious sedation for 30 minutes. 3. Right internal jugular vein tunneled hemodialysis catheter placement. 4. Fluoroscopic guidance for catheter placement. INDICATIONS: ESRD TECHNIQUE: The indications, alternatives, benefits, risks, and complications of the procedure were e xplained to the patient and any family members present. Informed written consent was obtained and pl aced in the chart. The patient was brought to the angiography suite, and conscious sedation was admi nistered intravenously by care home staff, while continuous cardiorespiratory monitoring was pe rformed. Maximum sterile barrier technique was employed per standard protocol, including hand hygiene, cap, ma sk, sterile gown and gloves, and 2% chlorhexidine. Sterile ultrasound probe cover was also utilized. 1% lidocaine was used for local anaesthesia. Under sonographic guidance, the right internal jugular vein was accessed with a Micropuncture set. An 0.035J wire was advanced into the vena cava. Subcuta neous tunnel was created within the right anterior chest wall, through which a 14.5 [place] double lum en tunneled hemodialysis catheter was advanced. Following sequential venotomy tract dilation, the ca theter was advanced through the peel-away sheath and the tip was placed at the cavoatrial junction. Peel-away sheath was removed. Adequate flow was obtained through both lumens of the catheter. The v enotomy was closed with Vicryl, and the catheter was fastened to the skin with Ticron. Both lumens w ere flushed with heparinized saline. The patient tolerated the procedure without difficulty and was in stable condition at the conclusion of the procedure. COMPARISON: [facility], , CV TUNNEL CATH PLCMNT, 10/09/2015, 14:17. FINDINGS: The right internal jugular vein is patent by ultrasound. Fluoroscopic imaging demonstrates tip of th e catheter at the cavoatrial junction. IMPRESSION: Right internal jugular vein tunneled hemodialysis catheter placement using sonographic and fluoroscop ic guidance. Dictated by: Coy Bentley M.D. on 08/07/2016 at 10:32 Approved by: Coy Bentley M.D. on 08/07/2016 at 10:33
[2016-08-07] MEDS: HYDROmorphone 1 mg/mL Inj IVPUSH PRN ×2 (10:52→19:59)
[2016-08-07] MEDS: Ondansetron 2 mg/mL 2 mL Inj IVPUSH PRN (10:56)
--- NOTE | 2016-08-07 11:07 | PCM.PNMED ---
Subjective Date of Service August 07, 2016 Subjective had RIJ dialysis cath today. tolerated well. plan for HD this afternoon still c/o discomfort on scrotum, but swelling went down. denied n/v Exam Vital Signs Vital Sign - Last Date Time Temp Pulse Resp B/P Pulse Ox O2 Delivery O2 Flow Rate FiO2 08/07/16 10:45 36.5 62 20 130/87 97 Room Air Intake and Output 08/06/16 08/06/16 08/07/16 Cumulative From/Thru 15:00 23:00 07:00 08/04/16 11:47 - 08/07/16 06:11 Intake Total 875 ml 400 ml 5130 ml Output Total 720.00 ml 1650 ml 1200 ml 7320.00 ml Balance -720.00 ml -775 ml -800 ml -2190.00 ml Intake Oral 875 ml 400 ml 4450 ml IV Total 680 ml Output Urine Total 1650 ml 1200 ml 6600 ml Ultrafiltrate 720.00 ml 720.00 ml # Bowel Movements 0 0 Exam NAD, mildly distressed with pain no JVD, MMM, no LAD RRR, nl s1, s2 no mrg CTAB, no w,c S,ND,NT,normoactive BS+, PD cath in place, no CVAT warm, no edema, pulses 2/2 diffuse soft swelling on scrotum, less tense, swollen no inguinal LAD hoang cath in place Lab and Diagnostics Result Diagram: 08/07/16 0525 08/07/16 0525 X-Rays, CTs and MRIs PROCEDURE: CT PELVIS WITHOUT CONTRAST ([id number]) INDICATIONS: scrotal swelling/CAPD patient TECHNIQUE: After the administration of oral contrast, 5 mm thick sections acquired from the iliac crests to the symphysis. 5 mm coronal and sagittal reformats were then performed. For radiation dose reduction, the following was used: automated exposure control, adjustment of mA and/or kV according to patient size. COMPARISON: None. FINDINGS: Image quality: Excellent. Peritoneum and bowel: Bowel loops demonstrate normal wall thickness and caliber. No free fluid or air. Genitourinary: Bladder wall thickness is normal. Nodes and vessels: No iliac, pelvic, or inguinal adenopathy by size criteria. Iliac vessels demonstrate normal size. Bones: No suspicious bony lesions. Pelvic ring and hip joints appear intact. Miscellaneous: Within the right inguinal canal, there is soft tissue thickening and fluid. Stranding is extending to the subcutaneous tissues. There is increased thickening and fluid extending into the scrotum and anterior perineal region. Scrotal wall thickening is present. IMPRESSION: 1. Prominent fluid and soft tissue thickening within the right inguinal canal extending into significant fluid and stranding in the scrotum/scrotal wall. Prominent subcutaneous fat stranding is also present. Inflammation could be related to inguinal canal inflammation with subsequent cellulitis like appearance in the subcutaneous tissues. However, primary scrotal process such as epididymitis or other etiologies should be considered. Testicular ultrasound may be helpful for additional evaluation. Dictated by: Laurence Kowalski M.D. on 08/04/2016 at 9:54 Approved by: Laurence Kowalski M.D. on 08/04/2016 at 9:59 Assessment & Plan acute, active Rt inguinal/scrotal swelling, POA, likely due to initial insult with valsalva with retching, hernia with dialysate fluid infiltrate. no signs of systemic infection. no signs of strangulation. Although pelvic CT 08/03 showed probable inflammatory chg. UA neg for infection. no hx of STD. testicular US 08/04 showed no inguinal hernia, bilateral hydrocele, ddematous scrotal wall with complex intramural fluid, consistent with cellulitis, with possible developing abscesses. HIV, gen probe for GC/chlamydia neg -started IV Levaquin 750mg, likely to continue 500mg q48hr per ID recs despite low suspicion for infection, will finish 1week course iv. -appreciate input, no surgical intervention now, elective surgery after finishing course of abx -appreciate input, no surgical intervention recommended. -zofran for n/v -pain control with percocet, dilaudid prn -keep hoang cath for now, likely try wean off tomorrow constipation, POA, lactulose prn chronic, stable, # ESRD on HD, POA, Patient diagnosed with end-stage renal disease in April 2015, and renal biopsy showing IgA nephropathy, is on peritoneal dialysis nightly, his port was placed October 2015, he has been on peritoneal dialysis since January 2016. -PD was held and pt is clinically improving, initiate HD via new access in [facility], appreciate input # Migraine Headaches, Tylenol for headache pain # Anemia, chronic, stable h/h # Hypertension, stable, resume all of home meds once med recs done. anxiety d/o, ativan prn Dispo: likely 1-2more days, diet:general dvt ppx:HSQ FC VTE Prophylaxis: Sub-Q Heparin (Unfractionated) Resuscitation Status: CPR: Attempt Resuscitation (a discussion was held with the patient and he would like full resuscitation) Time spent 35min Emily Dukes MD August 07, 2016 11:07
--- NOTE | 2016-08-07 11:25 | NUR ---
Medications/Pain/Nausea: Reviewed medication list with meal grinder tender. Scheduled am medications on hold as patient will receive dialysis early this afternoon. Discussed with spin table operator. Dilaudid administered for groin pain level 8/10 on pain scale. On reassessment, groin pain 3/10. Nausea relieved after administration of Zofran.
--- NOTE | 2016-08-07 14:01 | NUR ---
Off Unit: Patient transported [place] [facility] [place] [id number] [place] bed for dialysis at approx 1315. nuclear fuel enrichment technician notified. No apparent distress at time of transport.
--- NOTE | 2016-08-07 15:47 | NUR ---
Anxiety: Call placed to regarding home medication of Alprazolam. ordered a 1x dose of Alprazolam now and he will order home med for use on the unit. Addendum: 08/07/16 at 1614 by JOANIE WILSON RN Medication effective. Pt sleeping.
--- NOTE | 2016-08-07 16:22 | PCM.PNNEPH ---
Subjective Date of Service August 07, 2016 Subjective s/p right tunneled cath placement. seen during HD. (+) anxiety attack, xanax given, feeling better. Exam Vital Signs Vital Sign - Last Date Time Temp Pulse Resp B/P Pulse Ox O2 Delivery O2 Flow Rate FiO2 08/07/16 13:33 62 08/07/16 11:24 118/80 08/07/16 10:45 36.5 20 97 Room Air Intake and Output 08/06/16 08/06/16 08/07/16 Cumulative From/Thru 15:00 23:00 07:00 08/04/16 11:47 - 08/07/16 06:11 Intake Total 875 ml 400 ml 5130 ml Output Total 720.00 ml 1650 ml 1200 ml 7320.00 ml Balance -720.00 ml -775 ml -800 ml -2190.00 ml Intake Oral 875 ml 400 ml 4450 ml IV Total 680 ml Output Urine Total 1650 ml 1200 ml 6600 ml Ultrafiltrate 720.00 ml 720.00 ml # Bowel Movements 0 0 Exam General appearance: Awake, alert, oriented x3. No acute distress. Very pleasant. Lying in bed comfortably. HEENT: No pallor, no jaundice. No JVD. No lymphadenopathy. No thyroid enlargement. Positive subconjunctival hemorrhage on the left eye. Heart: Regular rhythm. Normal S1, S2. No murmurs, rubs, or gallops. Lungs: Clear to auscultation bilaterally. No wheezing. No rhonchi. Abdomen: Soft, active bowel sounds, nontender, nondistended. No hepatosplenomegaly. PD catheter in place which is dry, clean and intact. : Less scrotal swelling and tenderness on bilateral groin. Hoang catheter in place with clear urine. Extremity: No edema, cyanosis or clubbing of fingers. Skin: right tunneled cath in place. Lab and Diagnostics Result Diagram: 08/07/1652408/07/16524 X-Rays, CTs and MRIs PROCEDURE: CT PELVIS WITHOUT CONTRAST ([id number]) INDICATIONS: scrotal swelling/CAPD patient TECHNIQUE: After the administration of oral contrast, 5 mm thick sections acquired from the iliac crests to the symphysis. 5 mm coronal and sagittal reformats were then performed. For radiation dose reduction, the following was used: automated exposure control, adjustment of mA and/or kV according to patient size. COMPARISON: None. FINDINGS: Image quality: Excellent. Peritoneum and bowel: Bowel loops demonstrate normal wall thickness and caliber. No free fluid or air. Genitourinary: Bladder wall thickness is normal. Nodes and vessels: No iliac, pelvic, or inguinal adenopathy by size criteria. Iliac vessels demonstrate normal size. Bones: No suspicious bony lesions. Pelvic ring and hip joints appear intact. Miscellaneous: Within the right inguinal canal, there is soft tissue thickening and fluid. Stranding is extending to the subcutaneous tissues. There is increased thickening and fluid extending into the scrotum and anterior perineal region. Scrotal wall thickening is present. IMPRESSION: 1. Prominent fluid and soft tissue thickening within the right inguinal canal extending into significant fluid and stranding in the scrotum/scrotal wall. Prominent subcutaneous fat stranding is also present. Inflammation could be related to inguinal canal inflammation with subsequent cellulitis like appearance in the subcutaneous tissues. However, primary scrotal process such as epididymitis or other etiologies should be considered. Testicular ultrasound may be helpful for additional evaluation. Dictated by: Laurence Kowalski M.D. on 08/04/2016 at 9:54 Approved by: Laurence Kowalski M.D. on 08/04/2016 at 9:59 Plan Impression ASSESSMENT: 1. Scrotal swelling. DDx: Dialysate leakage thru inguinal canal/hernia vs scrotal cellulitis. 2. End-stage renal disease on peritoneal dialysis. switched to HD. 3.5 hr, 3K, 35HCO3, DFR 600, BFR 300, revaclear, UF 500 ml. right tunneled cath. 3. Hypertension. 4. History of IgA nephropathy. 5. Migraines. Plan: Next HD in am. Hold PD for 2weeks. OP HD arranged Q MWF at [facility]. d/c hoang cath. Anjelica Bennett MD August 07, 2016 16:22
--- NOTE | 2016-08-07 17:20 | NUR ---
Dialysis note: S/P catheter placement 3 1/2 hours tx 500 ml net UF per pt's request Right catheter, dsg changed, sutures intact Pls see DTR for VS details Qb 300 Heparin given O2 @ 2L via NC on during tx Alprazolam 1 mg po given for anxiety Tolerated tx, slept at intervals Catheter flushed, heparin dwelled and secured Stable condition at end of tx Report given to Adriana PEREZ
--- NOTE | 2016-08-07 18:33 | NUR ---
Pereira Discontinued: Pereira catheter removed @ 1830. Patient encouraged to use urinal to measure urinary output. Patient agreed.
[2016-08-08 01:31] VITALS: BP 119/85; PULSE 65; RESP 18; O2SAT 98
--- NOTE | 2016-08-08 06:08 | NUR ---
Pain Pt reporting pain / to dialysis cath insertion site and christy area. Pt stating he would like his HS medications and Dilaudid so he could get some rest. Medicated pt with 1.5 mg IV dilaudid, pt resting in bed after medication admin. Pt sleeping through shift, no further reports of pain. Call light within reach, frequent rounding.
[2016-08-08 06:27] VITALS: BP 118/83; PULSE 64; RESP 18; O2SAT 97
[2016-08-08 08:00] VITALS: PULSE 65
[2016-08-08] MEDS: Lanthanum Carbonate 500 mg Chewable Tablet PO SCH ×2 (08:00→12:00)
[2016-08-08 08:30] VITALS: BP 123/71; PULSE 66; RESP 20; O2SAT 93
[2016-08-08] MEDS: Polyethylene Glycol (PEG) 17 Gm Powder PO SCH (08:30)
[2016-08-08] MEDS: cloNIDine 0.1 mg Tablet PO SCH ×2 (08:30→13:59)
[2016-08-08] MEDS: Ondansetron 2 mg/mL 2 mL Inj IVPUSH PRN (09:09)
[2016-08-08 09:31] VITALS: BP 117/79; PULSE 69
--- NOTE | 2016-08-08 09:33 | NUR ---
Off Unit: Patient transported to [facility] [place] [id number] for dialysis via bed accompanied by FLOATLIGHT LOADING SUPERVISOR. Scheduled am BP medications on hold until after dialysis. Zofran administered prior to transfer, patient stated groin pain at a tolerable 4/10 on pain scale. No apparent distress at time of transport.
--- NOTE | 2016-08-08 10:26 | PCM.DIMED ---
Discharge Instructions Date of Service August 08, 2016 Dates of Hospitalization August 04, 2016 at 16:28 Discharge Diagnosis Discharge Diagnosis scrotal edema, likely associated with peritoneal dialysis probable scrotal cellulitis urinary retention Diet Renal Diet Activity No restrictions Call your provider Other (more pain and swelling on scrotum) Patient Instructions You were hospitalized with scrotal pain and swelling, likely associated with infiltration of dialyzate fluid with PD. You received antibiotics empirically although there was no signs of infection. Please note that you likely need elective repair of inguinal hernia to continue peritoneal dialysis, Please follow hemodialysis schedule Please monitor your scrotum, return if you notice more swelling, pain. Follow-up plan Please follow up with your primary doctor in 2weeks Follow-up Provider: Gab Beltrán MD Follow-up with PCP in: 2 weeks Emily Dukes MD August 08, 2016 10:26
--- NOTE | 2016-08-08 10:34 | NUR ---
Social Work: Discharge Data: Pt is on day 4 of hospitalization. EMR reviewed. D/C orders are in. No d/c planning needs at this time. CHART PICKER will continue to follow if needs arise. Assessment: Pt who is independent at baseline. Plan: Pt will d/c home via POV today. No d/c planning needs at this time. CHART PICKER will continue to follow if needs arise. LIZ Head
--- NOTE | 2016-08-08 10:43 | PCM.PNSURG ---
Subjective Date of Service: August 08, 2016 Date of Service: August 08, 2016 Visit Information: Reason for Visit ESRD Surgery/Surgery Date Post-Op Day # Date of Admission: August 04, 2016 at 16:28 Hospital Day # Subjective: At time of interview patient undergoing hemodialysis. States he is in no specific pain though states he still has significant scrotal swelling and is concerned about this becoming worse and his ability to urinate. Remains on antibiotics. Objective Vital Sign- Last 8 Hours Date Time Temp Pulse Resp B/P Pulse Ox O2 Delivery O2 Flow Rate FiO2 08/08/16 08:30 36.5 66 20 123/71 93 Room Air 08/08/16 06:27 36.6 64 18 118/83 97 Room Air Intake and Output- Last 8 Hour 08/08/16 Cumulative From/Thru 07:00 08/04/16 11:47 - 08/08/16 06:48 Intake Total 800 ml 7052 ml Output Total 2000 ml 25961.00 ml Balance -1200 ml -4268.00 ml Intake Oral 800 ml 6122 ml IV Total 930 ml Output Urine Total 2000 ml 12535 ml Ultrafiltrate 1220.00 ml # Bowel Movements 0 General: Alert, Oriented X3, Cooperative Neck: Full Range of Motion Lungs: Clear to Auscultation, Clear to Percussion Heart: Exam Unremarkable, Regular Rate/Rhythm Abdomen: Benign, Soft, Appropriately tender (right lower quadrant tenderness to palpation) Result Diagram: 08/07/16 0525 08/07/16 0525 Additional Information: Time of interview patient undergoing hemodialysis Assessment & Plan Impression Assessment: 1. Right inguinal hernia, with recovering scrotal swelling secondary to possible cellulitis 2. End-stage renal disease Plan: 1. Continue antibiotics 2. Elective surgery for RIH after completion of ABX course 3. Continue with Hemodialysis Problems: Plan I agree with Dr. Torres's assessment and plan. Elective repair of RIH as outpt. VTE Prophylaxis: Sub-Q Heparin (Unfractionated) Resuscitation Status: CPR: Attempt Resuscitation (a discussion was held with the patient and he would like full resuscitation) NICK TORRES DO August 08, 2016 10:43 Eleazar Narayanan MD August 12, 2016 12:02
[2016-08-08] MEDS ORDERED: levoFLOXacin 500 mg Tablet PO ONE (11:50)
--- NOTE | 2016-08-08 12:00 | PCM.PNNEPH ---
Subjective Date of Service August 08, 2016 Subjective Feeling better, mild scrotal swelling noted, hoang cath removed, able to urinate without difficulty. Mild pain on bilateral groin areas. Seen during HD. Exam Vital Signs Vital Sign - Last Date Time Temp Pulse Resp B/P Pulse Ox O2 Delivery O2 Flow Rate FiO2 08/08/16 08:30 36.5 66 20 123/71 93 Room Air Intake and Output 08/07/16 08/07/16 08/08/16 Cumulative From/Thru 15:00 23:00 07:00 08/04/16 11:47 - 08/08/16 06:48 Intake Total 250 ml 872 ml 800 ml 7052 ml Output Total 500 ml 1500 ml 2000 ml 11703.00 ml Balance -250 ml -628 ml -1200 ml -4268.00 ml Intake Oral 872 ml 800 ml 6122 ml IV Total 250 ml 930 ml Output Urine Total 1500 ml 2000 ml 31146 ml Ultrafiltrate 500 ml 1220.00 ml # Bowel Movements 0 Exam General appearance: Awake, alert, oriented x3. No acute distress. Very pleasant. Lying in bed comfortably. HEENT: No pallor, no jaundice. No JVD. No lymphadenopathy. No thyroid enlargement. Positive subconjunctival hemorrhage on the left eye. Heart: Regular rhythm. Normal S1, S2. No murmurs, rubs, or gallops. Lungs: Clear to auscultation bilaterally. No wheezing. No rhonchi. Abdomen: Soft, active bowel sounds, nontender, nondistended. No hepatosplenomegaly. PD catheter in place which is dry, clean and intact. : mild scrotal swelling and tenderness on bilateral groin. Extremity: No edema, cyanosis or clubbing of fingers. Skin: right tunneled cath in place. Lab and Diagnostics Result Diagram: 08/07/16 0508/07/16 05 X-Rays, CTs and MRIs PROCEDURE: CT PELVIS WITHOUT CONTRAST ([id number]) INDICATIONS: scrotal swelling/CAPD patient TECHNIQUE: After the administration of oral contrast, 5 mm thick sections acquired from the iliac crests to the symphysis. 5 mm coronal and sagittal reformats were then performed. For radiation dose reduction, the following was used: automated exposure control, adjustment of mA and/or kV according to patient size. COMPARISON: None. FINDINGS: Image quality: Excellent. Peritoneum and bowel: Bowel loops demonstrate normal wall thickness and caliber. No free fluid or air. Genitourinary: Bladder wall thickness is normal. Nodes and vessels: No iliac, pelvic, or inguinal adenopathy by size criteria. Iliac vessels demonstrate normal size. Bones: No suspicious bony lesions. Pelvic ring and hip joints appear intact. Miscellaneous: Within the right inguinal canal, there is soft tissue thickening and fluid. Stranding is extending to the subcutaneous tissues. There is increased thickening and fluid extending into the scrotum and anterior perineal region. Scrotal wall thickening is present. IMPRESSION: 1. Prominent fluid and soft tissue thickening within the right inguinal canal extending into significant fluid and stranding in the scrotum/scrotal wall. Prominent subcutaneous fat stranding is also present. Inflammation could be related to inguinal canal inflammation with subsequent cellulitis like appearance in the subcutaneous tissues. However, primary scrotal process such as epididymitis or other etiologies should be considered. Testicular ultrasound may be helpful for additional evaluation. Dictated by: Laurence Kowalski M.D. on 08/04/2016 at 9:54 Approved by: Laurence Kowalski M.D. on 08/04/2016 at 9:59 Plan Impression ASSESSMENT: 1. Scrotal swelling improving secondary to right inguinal hernia. possible scrotal cellulitis. 2. End-stage renal disease. switched to HD on 08/07. 3.5 hr, 3K, 35HCO3, DFR 600, BFR 300, revaclear, no UF. right tunneled cath. 3. Hypertension. 4. History of IgA nephropathy. 5. Migraines. Plan: Per renal perspective, he can be d/c'd home. Next HD on Thursday a [facility]. Anjelica Bennett MD August 08, 2016 12:00
--- NOTE | 2016-08-08 13:01 | NUR ---
Pt arrived to [facility]: Pt arrived to [facility] for dialysis at approx. 0940. Pt appears stable at time of arrival. Pt requested Xanax for anxiety, call placed to who put order in. See MAR. Report obtained and give to Mary Burnett RN. clinical tech aware of transfer.
--- NOTE | 2016-08-08 13:10 | NUR ---
Dialysis note: 3 1/2 hours tx 500 ml net UF Right catheter, dsg dry and intact Pls see DTR for VS details Qb 350 Heparin given O2 @ 2L via NC on during tx Alprazolam 1 mg po given for anxiety Tolerated tx, slept at intervals Catheter flushed, heparin dwelled and secured Stable condition at end of tx Report given to Adriana PEREZ
[2016-08-08 13:35] VITALS: BP 120/67; PULSE 68; RESP 19; O2SAT 96
[2016-08-08] MEDS: Heparin 5,000 Unit/mL Inj SUBQ SCH (13:59)
[2016-08-08] MEDS ORDERED: levoFLOXacin 500 mg Tablet PO SCH (14:45)
--- NOTE | 2016-08-08 15:15 | NUR ---
Discharge: Patient discharged to home @ approx 1515. IV d/c'd intact, telemetry removed, laboratory development technician notified. Personal belongings sent home with patient. Reviewed home medication list, d/c instruction and follow up appointments. Verbalized understanding. Patient ambulated to main entrance accompanied by RN and family.
--- NOTE | 2016-08-09 11:38 | PCM.DC.MED ---
Discharge Summary Date of Service August 08, 2016 Dates of Hospitalization Date of Hospital Admission August 04, 2016 at 16:28 Date of Discharge: August 08, 2016 Providers: Admitting Physician: Emily Dukes MD Primary Care Physician: Rehan Golden DO Attending Physician: Emily Dukes MD Diagnosis at Time of Discharge Diagnosis at Time of Discharge acute dx scrotal edema, likely associated with peritoneal dialysis probable scrotal cellulitis urinary retention chronic dx #conspitation # ESRD on dialysis, PD to HD # Migraine Headaches # Anemia # Hypertension, #anxiety d/o Consultations Nephrology General surgery Infectious disease Urology Procedures XRay, CTs & MRIs PROCEDURE: CT PELVIS WITHOUT CONTRAST ([id number]) INDICATIONS: scrotal swelling/CAPD patient TECHNIQUE: After the administration of oral contrast, 5 mm thick sections acquired from the iliac crests to the symphysis. 5 mm coronal and sagittal reformats were then performed. For radiation dose reduction, the following was used: automated exposure control, adjustment of mA and/or kV according to patient size. COMPARISON: None. FINDINGS: Image quality: Excellent. Peritoneum and bowel: Bowel loops demonstrate normal wall thickness and caliber. No free fluid or air. Genitourinary: Bladder wall thickness is normal. Nodes and vessels: No iliac, pelvic, or inguinal adenopathy by size criteria. Iliac vessels demonstrate normal size. Bones: No suspicious bony lesions. Pelvic ring and hip joints appear intact. Miscellaneous: Within the right inguinal canal, there is soft tissue thickening and fluid. Stranding is extending to the subcutaneous tissues. There is increased thickening and fluid extending into the scrotum and anterior perineal region. Scrotal wall thickening is present. IMPRESSION: 1. Prominent fluid and soft tissue thickening within the right inguinal canal extending into significant fluid and stranding in the scrotum/scrotal wall. Prominent subcutaneous fat stranding is also present. Inflammation could be related to inguinal canal inflammation with subsequent cellulitis like appearance in the subcutaneous tissues. However, primary scrotal process such as epididymitis or other etiologies should be considered. Testicular ultrasound may be helpful for additional evaluation. Dictated by: Laurence Kowalski M.D. on 08/04/2016 at 9:54 Approved by: Laurence Kowalski M.D. on 08/04/2016 at 9:59 Brief History HPI obtained on 08/04 Pt is a 45 y/o gentleman with ESRD in home PD chronic (IgA nephropathy) seen at [facility] ER 08/03/16 with c/o scrotal swelling/inguinal swelling after nausea and emesis associated with drinking and new onset/worsened Rt groin fullness/pain. CT that visit showed Rt inguinal canal fat/tissue thickening extending into the scrotal wall, strandy fat changes c/w inflammation- felt either to be related more proximally to the inguinal canal process (possibly extrusion of PD fluid with emesis into the inguinal canal and surrounding tissues with valsalva at emesis) or potentially from a distal source: primarily scrotal as from epididymoorchitis. There was no abdominal contents (bowel) in the canal, no incarcerated hernia. He returned to the ER 08/04 with worsened c/o scrotal edema and pain centered again overlying the inguinal canal. F/U US showed again the edematous tissue above the inguinal canal and edematous scrotal wall with complex intramural fluid c/w Cellulitis- potentially developing abscess. He was not started on empiric antibiotics. He had difficulty urinating and some penile edema making catheter placement difficult for nursing staff per pt. He stated he can see his meatus, but the edema makes it more difficult. Hospital Course acute dx Rt inguinal/scrotal swelling, Patient was consulted with multiple services with Gen surg, Urology, ID, nephrology. Consensus was that it's most likely due to initial insult with valsalva with retching, causing inguinal hernia with dialysate fluid infiltrate into scrotum. pt didn't show any signs of systemic infection. no signs of strangulation. Although pelvic CT 08/03 showed probable inflammatory chg. UA neg for infection. no hx of STD. testicular US 08/04 showed no inguinal hernia, bilateral hydrocele, edematous scrotal wall with complex intramural fluid, consistent with cellulitis, with possible developing abscesses. Therefore Patient was consulted with ED, Levaquin was started to finish 1week course. HIV, gen probe for GC/chlamydia all came back negative. pt was initially nauseated but sx controlled with zofran, eventually symptoms stopped. patient also developed urinary retention with scrotal edema. inserted hoang cath on admission. As edema resolves, pt was able to void w/o hoang cath. PD diverted to HD via new RIJ dialysis cath, tolerated HD well in house. Plan is to finish one last dose of Levaquin, continue HD as scheduled. Follow up with surgery for elective repair of inguinal hernia in the future. chronic dx #conspitation, lactulose prn tried # ESRD on PD, POA, Patient diagnosed with end-stage renal disease in April 2015, and renal biopsy showing IgA nephropathy, diverted to HD as above # Migraine Headaches, Tylenol for headache pain # Anemia, chronic, stable h/h # Hypertension, stable, resume all of home meds once med recs done. #anxiety d/o, required alprazolam as needed prior to HD Exam Vital Signs (Last) Date Time Temp Pulse Resp B/P Pulse Ox O2 Delivery O2 Flow Rate FiO2 08/08/16 13:35 36.4 68 19 120/67 96 Room Air Exam NAD no JVD, MMM, no LADm, RIJ cath in place RRR, nl s1, s2 no mrg CTAB, no w,c S,ND,NT,normoactive BS+, warm, no edema, pulses 2/2 scrotal edema, almost resolved Test 08/04/16 13:00 08/05/16 08:00 08/05/16 10:45 08/07/16 05:25 Hold Jolley Top Tube Received (Received) Procalcitonin 0.20ng/mL (0.00-0.08) HIV (1&2) Ag and Ab, 4th Generation Non reactive (Non Reactive) Chlamydia trachomatis DNA (OTIS) Negative (Negative) Neisseria gonorrhoeae DNA (OTIS) Negative (Negative) White Blood Count 8.8th/mm3 (3.8-10.1) Red Blood Count 4.19mil/mm3 (4.40-5.80) Hemoglobin 12.2g/dL (13.8-17.2) Hematocrit 37.0% (41.0-50.0) Mean Corpuscular Volume 88.3fL (81-100) Mean Corpuscular Hemoglobin 29.1pg (27.0-35.0) Mean Corpuscular Hemoglobin Concent 33.0% (32.0-37.0) Red Cell Distribution Width 13.2% (12.3-15.4) Platelet Count 235bil/L (150-400) Neutrophils (%) (Auto) 51.8% (40-74) Lymphocytes (%) (Auto) 33.6% (14-46) Monocytes (%) (Auto) 9.0% (4-12) Eosinophils (%) (Auto) 5.0% (0-5) Basophils (%) (Auto) 0.5% (0-3) Prothrombin Time 10.1sec (8.1-12.5) Prothromb Time International Ratio 0.95ratio Activated Partial Thromboplast Time 28.8sec (22.8-33.0) Sodium Level 140mEq/L (134-144) Potassium Level 4.5mEq/L (3.5-5.2) Chloride Level 101mEq/L (97-108) Carbon Dioxide Level 25mmol/L (18-29) Blood Urea Nitrogen 44mg/dL (6-24) Creatinine 5.69mg/dL (0.76-1.27) Estimat Glomerular Filtration Rate 12mL/min (>59) Glucose Level 88mg/dL (60-99) Calcium Level 8.9mg/dL (8.5-10.1) Phosphorus Level 5.5mg/dL (2.5-4.9) Magnesium Level 2.2mg/dL (1.6-2.6) Total Bilirubin 0.2mg/dL (0.0-1.2) Aspartate Amino Transf (AST/SGOT) 15U/L (0-50) Alanine Aminotransferase (ALT/SGPT) 13U/L (0-44) Alkaline Phosphatase 57U/L (25-150) Total Protein 6.2g/dL (6.4-8.4) Albumin 4.0g/dL (3.4-5.0) Discharge Medications Discharge Medications Amlodipine (Amlodipine) 10 Mg Tablet 10 MG PO DAILY (Reported) Carvedilol (Carvedilol) 6.25 Mg Tablet 12.5 MG PO BID (Reported) Cholecalciferol (Vitamin D3) (Vitamin D3) 50,000 Unit Capsule 50,000 UNIT PO WEEKLY (Reported) WEDNESDAYS Clonidine (Catapres) 0.1 Mg Tablet 0.1 MG PO TID Prescribed by: FLO ANTONIO DO Gabapentin (Gabapentin) 100 Mg Capsule 300 MG PO HS (Reported) Hydralazine (Hydralazine) 25 Mg Tablet 25 MG PO TID (Reported) Lanthanum Carb Chew (Fosrenol Chew) 1,000 Mg Chew 1,000 MG PO TIDWM (Reported) Sertraline HCl (Sertraline) 100 Mg Tablet 100 MG PO HS (Reported) As needed Alprazolam (Alprazolam) 1 Mg Tablet 1 MG PO BID PRN PRN For Anxiety or Agitation (Reported) Ondansetron ODT (Ondansetron ODT) 8 Mg Tab.rapdis 8 MG PO BID PRN PRN For Nausea (Reported) Ranitidine (Ranitidine) 75 Mg Tablet 75 MG PO BID PRN PRN For Dyspepsia or Heartburn (Reported) oxyCODONE-Acetaminophen 5-325 mg (oxyCODONE-Acetaminophen 5-325 mg) 1 Each Tablet 1 TABLET PO q6 hours PRN PRN For Pain (Reported) Followup Plan Disposition: home Follow-up plan Please follow up with your primary doctor in 2weeks Discharge Diet: Renal Diet Discharge Activity: No restrictions Patient Instructions You were hospitalized with scrotal pain and swelling, likely associated with infiltration of dialyzate fluid with PD. You received antibiotics empirically although there was no signs of infection. Please note that you likely need elective repair of inguinal hernia to continue peritoneal dialysis, Please follow hemodialysis schedule Please monitor your scrotum, return if you notice more swelling, pain. Follow-up Provider: Gab Beltrán MD Follow-up with PCP in: 2 weeks Time spent 65min Emily Dukes MD August 08, 2016 22:08
[2016-08-09] MEDS ORDERED: levoFLOXacin 500 mg Tablet PO ONE (14:35)
== END 2016-08-08 15:10 | disposition home or self-care (01) | DRG 811 ==
LOC: SED 11:30 → MPC 16:28 → OBSVTOIN 16:28 → MPC 16:48
PROVIDERS: ADMIT Internal Medicine; ATTEND Internal Medicine
PROC: 3E1M39Z Irrigation of Peritoneal Cavity using Dialysate, Percutaneous Approach (ICD-10-PCS; 2016-08-04)
PROC: 3E1M39Z Irrigation of Peritoneal Cavity using Dialysate, Percutaneous Approach (ICD-10-PCS; 2016-08-06)
PROC: 05HM33Z Insertion of Infusion Device into Right Internal Jugular Vein, Percutaneous Approach (ICD-10-PCS; principal; 2016-08-07)
PROC: B513YZA Fluoroscopy of Right Jugular Veins using Other Contrast, Guidance (ICD-10-PCS; 2016-08-07)
DX: T80.89XA Other complications following infusion, transfusion and therapeutic injection, initial encounter (principal); N18.6 End stage renal disease; I12.0 Hypertensive chronic kidney disease with stage 5 chronic kidney disease or end stage renal disease; N49.2 Inflammatory disorders of scrotum; N50.89 Other specified disorders of the male genital organs; Z99.2 Dependence on renal dialysis; Z79.84 Long term (current) use of oral hypoglycemic drugs; Z86.73 Personal history of transient ischemic attack (TIA), and cerebral infarction without residual deficits; G43.909 Migraine, unspecified, not intractable, without status migrainosus; K59.00 Constipation, unspecified; R33.9 Retention of urine, unspecified

== ENCOUNTER 2016-08-21 08:05 | Observation (INO) | payer MEDICARE, OTHER ==
[~2016-08-21] VITALS: Ht 172.7 cm; Wt 95.5 kg
[~2016-08-21 08:05] MED LIST changes: -ACET-171 PO; -CARV12.52 PO; +CARV6.252 PO; -HYDR-4003 PO; -LIDO1KIT TP; -ONDA4TAB6 PO; +ONDA8TAB10 PO; +OXYC1TAB24 PO
[2016-08-21 08:15] VITALS: BP 148/109; PULSE 74; RESP 14; O2SAT 100
[2016-08-21] MEDS ORDERED: LACT10SO PO (08:39)
--- NOTE | 2016-08-21 09:08 | ED.REPORT ---
HPI-Abd Pain M 40 and Over Date of Service August 21, 2016 ED Provider: Gerard Mcclain MD The patient is a 45 year old male with history of renal failure on peritoneal dialysis, who presents to the emergency department complaining of right groin pain that began last night. He describes the pain as "sharp" and states if felt like something tore. He also experienced testicular swelling, nausea and diaphoresis. He took Percocet last night with no relief. He has been urinating okay. The patient put in 2 L for peritoneal dialysis last night and only got 1650 out. His symptoms are similar to when he was recently admitted. He denies fever, chills or vomiting. Nursing Notes Stated Complaint: INGUINAL HERNIA Chief Complaint: Male Abdominal Pain Nursing Notes Reviewed: Yes (DP7 Digital, SmartDocs (Tek[employer]) reconciled) Allergies: Coded Allergies: Penicillins (Verified Allergy, Severe, difficulty breathing, 08/21/16) Sulfa (Sulfonamide Antibiotics) (Verified Allergy, Severe, hives, 08/21/16) cefuroxime (Verified Allergy, Intermediate, "swelling", 08/21/16) cefotetan (Verified Adverse Reaction, Intermediate, causes unusual swelling, 08/21/16) Scheduled Amlodipine (Amlodipine) 10 Mg Tablet 10 MG PO DAILY Carvedilol (Carvedilol) 6.25 Mg Tablet 12.5 MG PO BID Cholecalciferol (Vitamin D3) (Vitamin D3) 50,000 Unit Capsule 50,000 UNIT PO WEEKLY WEDNESDAYS Clonidine (Catapres) 0.1 Mg Tablet 0.1 MG PO TID Gabapentin (Gabapentin) 100 Mg Capsule 300 MG PO HS Hydralazine (Hydralazine) 25 Mg Tablet 25 MG PO TID Lactulose (Lactulose) 10 Gm/15 Ml Solution 10 GM PO HS Lanthanum Carb Chew (Fosrenol Chew) 1,000 Mg Chew 1,000 MG PO TIDWM Sertraline HCl (Sertraline) 100 Mg Tablet 100 MG PO HS Scheduled PRN Alprazolam (Alprazolam) 1 Mg Tablet 1 MG PO BID PRN PRN For Anxiety or Agitation Ondansetron ODT (Ondansetron ODT) 8 Mg Tab.rapdis 8 MG PO BID PRN PRN For Nausea oxyCODONE-Acetaminophen 5-325 mg (oxyCODONE-Acetaminophen 5-325 mg) 1 Each Tablet 1 TABLET PO q6 hours PRN PRN For Pain General Time Seen by MD: 09:04 Chief Complaint Abdominal pain Hx Obtained From: Patient Arrived By: Walk-in Sudden in Onset?: Yes Onset Occurred: Yesterday Symptom Duration: Since onset Progression since Onset: Constant Location: : Suprapubic (right side) Quality: Painful, Sharp, Tearing Radiation: : Inguinal right Severity: Current: Severe Severity: Maximum: Severe Recent Healthcare: Recent doctor visit, Recent hospitalization Similar Sx Previous: Yes Past Medical History Past Medical History Notes: Nephrology: Dr. 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 - on peritoneal dialysis Anemia History of a small pericardial effusion Hypertension Reports history of a possible TIA last 1 year ago Past Surgical History Kidney biopsy Right-sided peritoneal dialysis catheter Family History Mother, maternal aunt maternal uncles and maternal cousins with history of diabetes mellitus Hypertension in many family members Paternal grand mother with stomach cancer Mother with history of TIA Other paternal relatives with history of stroke Smoking History Unknown if Ever Smoker Social History Alcohol Use: "Social" Drug Use: Denies drug use Other Social History: Good social support, , Lives with children, Local resident Ambulatory Status Cane Review of Systems Constitutional: Denies: Chills, Fever GI: Reports: Abdominal pain, Nausea, Denies: Vomiting Male: Reports Testicular pain, Reports Testicular swelling, Denies Dysuria, Denies Hematuria Complete sys rev & neg: except as marked. Skin: Reports Diaphoresis Physical Exam Initial Vital Signs Vital Signs (First) Date Time Temp Pulse Resp B/P Pulse Ox O2 Delivery O2 Flow Rate FiO2 08/21/16 08:15 36.6 74 14 148/109 100 Room Air Initial VS: Reviewed, Vital signs normal Head / Eyes: Atraumatic, Normocephalic, PERRL ENT: Mucous membranes moist, Conjunctiva normal, No scleral icterus Neck: Supple, Non-tender, Full range of motion Lymphatic: No lymphadenopathy Extremities: Vascular intact, Neuro intact, No swelling, No tenderness Skin: Warm, Dry, No cyanosis Neurologic: Alert, Oriented, Nonfocal Psychiatric: Mood/affect normal, Behavior normal, Normal thought content General/Constitutional: Awake, Alert Respiratory / Chest: Atraumatic, Breath sounds NL, Breath sounds = bilat, No respiratory distress, No rales, No rhonchi, No wheezing, No retractions Hemodialysis access in right chest Cardiovascular: Heart rate NL, Regular rhythm, Heart sounds NL, Peripheral circulation NL Abdomen: Soft, No guarding, No rebound, BS normoactive, No distention Abdomen itself is nontender. Peritoneal dialysis catheter in abdomen. Back: Inspection NL, Non-tender, No CVA tenderness Male Genitourinary: Testes NL Tender right inguinal region. No mass. No testicular swelling or erythema. Interpretation & Diagnostics US:There is a direct hernia in the right groin, fat containing only, no bowels, no incarceration. Lab Results Interpretation Result Diagram: 08/21/16 1251 08/21/16 1251 Test 08/21/16 12:51 08/21/16 13:27 White Blood Count 9.5th/mm3 (3.8-10.1) Red Blood Count 4.66mil/mm3 (4.40-5.80) Hemoglobin 13.6g/dL (13.8-17.2) Hematocrit 41.2% (41.0-50.0) Mean Corpuscular Volume 88.4fL (81-100) Mean Corpuscular Hemoglobin 29.2pg (27.0-35.0) Mean Corpuscular Hemoglobin Concent 33.0% (32.0-37.0) Red Cell Distribution Width 13.5% (12.3-15.4) Platelet Count 275bil/L (150-400) Neutrophils (%) (Auto) 56.8% (40-74) Lymphocytes (%) (Auto) 30.2% (14-46) Monocytes (%) (Auto) 7.1% (4-12) Eosinophils (%) (Auto) 4.7% (0-5) Basophils (%) (Auto) 0.9% (0-3) Sodium Level 139mEq/L (134-144) Potassium Level 4.1mEq/L (3.5-5.2) Chloride Level 102mEq/L (97-108) Carbon Dioxide Level 22mmol/L (18-29) Blood Urea Nitrogen 39mg/dL (6-24) Creatinine 4.73mg/dL (0.76-1.27) Estimat Glomerular Filtration Rate 14mL/min (>59) Glucose Level 103mg/dL (60-99) Calcium Level 9.1mg/dL (8.5-10.1) Phosphorus Level 4.5mg/dL (2.5-4.9) Magnesium Level 2.2mg/dL (1.6-2.6) Total Bilirubin 0.2mg/dL (0.0-1.2) Aspartate Amino Transf (AST/SGOT) 17U/L (0-50) Alanine Aminotransferase (ALT/SGPT) 11U/L (0-44) Alkaline Phosphatase 67U/L (25-150) Total Protein 7.3g/dL (6.4-8.4) Albumin 4.0g/dL (3.4-5.0) Urine Color Straw (YELLOW) Urine Appearance Hazy (CLEAR,HAZY) Urine pH 7.5 (5.0-8.0) Urine Specific [place] 1.005 (1.003-1.035) Urine Protein Tracemg/dL (NEG,TRACE) Urine Glucose (UA) Negativemg/dL (NEGATIVE) Urine Ketones Negativemg/dL (NEGATIVE) Urine Occult Blood Trace (NEGATIVE) Urine Nitrite Negative (NEGATIVE) Urine Bilirubin Negative (NEGATIVE) Urine Urobilinogen Normalmg/dL (NORMAL) Urine Leukocyte Esterase Negative (NEGATIVE) Urine RBC 3-10/hpf (0-2) Urine WBC 0-5/hpf (0-5) Urine Epithelial Cells Occasional/hpf (NONE-MOD) Urine Crystals None seen (NONE SEEN) Urine Bacteria None/hpf (NONE-FEW) Urine Hyaline Casts None/lpf (NONE) Urine Granular Casts None seen (NONE SEEN) Urine Waxy Casts None seen (NONE SEEN) Urine Red Blood Cell Casts None seen (NONE SEEN) Urine White Blood Cell Casts None seen (NONE SEEN) Urine Mucus None seen (None Seen) Urine Trichomonas None seen (NONE SEEN) Urine Yeast None (NONE SEEN) Urinalysis Comment None Urine Culture Reflexed Not indicated Lab Results Interpretation: CBC normal CMP chronic renal failure Re-Eval/Medical Decision Med Decision/Clinical Course This is a 45-year-old male with renal failure who presents with right inguinal pain. The patient was recently hospitalized, developed a right inguinal hernia made worse with peritoneal dialysis. He is awaiting outpatient repair, and has an appointment to see Chapo Francisco on the of this month. He reports that last night he did a peritoneal flush with 2 L-it turns out it is recommended only do 500 mL-with peritoneal flush he had swelling and pain in the right groin and testicle again, and he only got about 15-6000 mL back out. He had pain much of the night, no fevers, no nausea or vomiting and returns to the emergency department. He has been able to urinate, but reports he has had urinary retention as a result previously. The patient is uncomfortable, however there is no appreciable clinically evident swelling of the testicle, groin, inguinal canal and I do not appreciate an incarceration. There are no clinical signs of a scrotal abscess or infection -patient was treated empirically for that possibility on his recent admission, but has no clinical findings to suggest that on today's exam. An ultrasound was obtained and revealed a fat-containing inguinal direct hernia , but no evidence of incarceration, no clinical findings or radiographic findings indicate need for emergent surgery. The patient is still very concerned that he needs surgery that he was sent in by his culinary assistant as well. So I contacted and discuss the case with Dr. Narayanan consumer studies professor for surgery who agrees and the patient does not require emergent surgery and that outpatient follow-up for elective repair is indicated. He did improve my contacting the surgery office to see if it is possible facilitate advancing the patient's appointment-so we did this and unable to advance his appointment with Dr. Francisco to the . However, the patient remains insistent he is not comfortable with discharge home. I want to talk the culinary assistant, which I did was understanding the patient does not meet traditional criteria for emergent surgery, or emergent direct hospitalization. They do note however that the patient should not be doing his peritoneal flushes with 2 L given this situation, and recommend a maximum of 500 mL for any future peritoneal flushes. During this. Peritoneal dialysis is likely exacerbate the hernia, the patient has been set up for hemodialysis-is currently scheduled for tomorrow afternoon. Nonetheless, the patient remains insistent that he is not feel comfortable with discharged home, he is demanding hot observation hospitalization and understands he does not meet criteria for full admission. Ronny be observed overnight, obtain pain management if needed verify that he is doing okay-no longer period, citing that he has artery had bounced back once with his previous admission and does not want bounce back again. I have tried to explain the setting of waiting for an elective surgery like this, that there is not a possibility to exclude the possibility of another bounce back. She remains consistently like to be hospitalized. I then rediscussed the case with Dr. Narayanan from surgery, who indicates he wants the patient admitted to the medicine services the patient does not require emergent surgery-and I have explained the need to have surgery consult in this setting and he will do so. At this point a line and labs are being obtained the patient's request. The hospitalist is being paged Source of Hx: Old records Time of Eval: 11:30 Re-Evaluation/Progress Note: Rechecked the patient. Discussed results, diagnosis, and plan for discharge. All questions were addressed. Time of Eval: 12:21 Re-Evaluation/Progress Note: The patient expressed more concerns. He is refusing to go home at this time. Consultation #1: Referral / Consult Name: Eleazar Narayanan MD Consulted With: Surgeon Call Returned at: 11:21 Manager Occupational: Agrees with eval, Agrees with plan Consultation #2: Referral / Consult Name: Anjelica Bennett MD Consulted With: Nephrology Call Returned at: 11:42 Note: Hold PD flushes and go to HD tomorrow. Consultation #3: Referral / Consult Name: Eleazar Narayanan MD Consulted With: Surgeon Call Returned at: 12:27 Note: He is willing to see the patient. Consultation #4: Referral / Consult Name: Emily Dukes MD Consulted With: Hospitalist Requested Call at: 12:27 Call Returned at: 13:09 Manager Occupational: Will see patient, Agrees with eval, Agrees with plan, Accepts admit Counseled Regarding: Diagnosis, Lab results, Need for admission Discharge & Departure Primary Impression: Inguinal hernia Obstruction and gangrene presence: without obstruction or gangrene Laterality : unilateral Recurrence: not specified as recurrent Qualified Code: K40.90 - Unilateral inguinal hernia, without obstruction or gangrene, not specified as recurrent Additional Impression: Chronic renal failure Chronic kidney disease stage: stage 5 Qualified Code: N18.5 - Chronic kidney disease, stage 5 Disposition: ADMITTED TO HOSPITAL Vital Signs - All Vital Signs Date Time Temp Pulse Resp B/P Pulse Ox O2 Delivery O2 Flow Rate FiO2 08/21/16 11:34 36.3 80 134/91 100 Room Air 08/21/16 08:15 36.6 74 14 148/109 100 Room Air )( All Prior VS Reviewed: Yes Condition: Stable Additional Instructions: 1. The ultrasound reveals that he is still have the right inguinal hernia, but the bowel was not entrapped. This means that emergent surgical repair today is not indicated. 2. Your appointment has been moved up to August 28 at 1:15 PM with a 1:00 PM check-in time. 3. Please call the office later today to check in with him. 4. Continue your current pain medication. 5. Return again if worsening symptoms occur. Referrals: Rehan Golden DO (PCP) Scribe Attestation Portions of this note were transcribed by Annette Jiménez. I, Dr. Mcclain personally performed the history, physical exam and medical decision-making; I reviewed and confirmed the accuracy of the information in the transcribed note. Signed by: Vishal Marmolejo, 08/21/2016 at 1317. copies to: Rehan Golden Matthew F MD August 21, 2016 09:08 Annette Jiménez August 21, 2016 09:15
[2016-08-21] MEDS ORDERED: Ondansetron 8 mg ODT Tablet PO ONE (09:15)
[2016-08-21] MEDS ORDERED: HYDROmorphone 1 mg/mL Inj IM ONE (09:15)
[2016-08-21 11:34] VITALS: BP 134/91; PULSE 80; O2SAT 100
[2016-08-21] MEDS ORDERED: HYDROmorphone 1 mg/mL Inj IVPUSH PRN (12:25)
[2016-08-21] MEDS ORDERED: Ondansetron 2 mg/mL 2 mL Inj IVPUSH ONE (12:25)
--- NOTE | 2016-08-21 12:33 | DRSVH ---
PROCEDURE: US HERNIA INGUINAL INDICATIONS: R pain TECHNIQUE: Real-time focused scanning was performed of the inguinal region, with image documentation. COMPARISON: None. FINDINGS: Non-completely reducible fat-containing right inguinal hernia is present, which is more pro minent during Valsalva maneuver. IMPRESSION: Right inguinal fat containing hernia. Dictated by: Nathanael Worthy M.D. on 08/21/2016 at 12:30 Approved by: Nathanael Worthy M.D. on 08/21/2016 at 12:32
[2016-08-21 13:00] LABS: BASOPHILS % (AUTO) 0.9 % (0-3); EOSINOPHILS % (AUTO) 4.7 % (0-5); MONOCYTES % (AUTO) 7.1 % (4-12); Mean Corpuscular Hemoglobin 29.2 pg (27.0-35.0); Mean Corpuscular Volume 88.4 fL (81-100); NEUTROPHILS % (AUTO) 56.8 % (40-74); Platelet Count 275 bil/L (150-400)
[2016-08-21 13:25] LABS: Magnesium 2.2 mg/dL (1.6-2.6); Phosphorus 4.5 mg/dL (2.5-4.9)
--- NOTE | 2016-08-21 13:46 | NUR ---
Admit nurse note Admission assessment completed in the ER. Pt.'s speech is pressured and he states he feels strongly that his surgery should be GO and not wait. He states he needs to flush his abdominal catheter and when he does he retains fluid in his Right testicle, which causes pain that is not alleviated with prescribed pain meds. Visitor states concern that pt. has been "doing too much at home," and should rest more. Dr. Dukes in to evaluate pt. and to update him to plan of care. brewmaster in to discuss his admission and admission requirements. Med rec completed by ED RN and pt. states it is accurate. Allergies verified and allergy sticker placed on nameband. Pt. states he was recently dx with sleep apnea but has not been fitted with a CPAP recently. Sleep apnea protocol to be initiated upon arrival to unit.
[2016-08-21 13:48] LABS: APPEARANCE,URINE HAZY (CLEAR,HAZY); COLOR,URINE STRAW (YELLOW); OCCULT BLOOD,URINE TRACE (NEGATIVE); PH,URINE 7.5 (5.0-8.0); UROBILINOGEN,URINE NORMAL (NORMAL)
--- NOTE | 2016-08-21 14:33 | PCM.HPMED ---
Subjective Date of Service August 21, 2016 Primary Provider: Admitting Physician: Primary Care Physician: Rehan Golden DO Attending Physician: Chief Complaint: Right-sided Groin pain History of Present Illness: This is a patient well-known to myself from prior hospitalization, patient was hospitalized 5-, with similar symptoms of right inguinal pain, scrotal swelling, resulted from peritoneal dialysate passed through inguinal canal, causing scrotal swelling/cellulitis. Patient dialysis method was switched from PD to HD. received abx but suspicion was very low for infection and patient was discharged on stable condition, resolved scrotal swelling and inguinal pain. He has been tolerated hemodialysis as scheduled. Patient stated that,last night , it was due for flush of peritoneal cath and this was the first time he did flush since d/c from last hospitalization. Since he injected 2liters, only 1.6liter was out, started noticing pain and swelling in rt groin, scrotum was also mildly swollen. Pain was improved but remaining decided to come to the hospital. ED VSS, afebrile, 100% on RA. abd US showed Right inguinal fat containing hernia.Pain was controlled dilaudid, received zofran as well. As per , patient has appointment with on for inguinal hernia repair then was able to make it to . Patient strongly wanted to stay in the hospital until pain is better controlled, also did understand, this is not urgent Ix of surgery. Review of Systems: Pertinent positives as noted in history of present illness. All other systems were reviewed and are negative Allergies Coded Allergies: Penicillins (Verified Allergy, Severe, difficulty breathing, 08/21/16) Sulfa (Sulfonamide Antibiotics) (Verified Allergy, Severe, hives, 08/21/16) cefuroxime (Verified Allergy, Intermediate, "swelling", 08/21/16) cefotetan (Verified Adverse Reaction, Intermediate, causes unusual swelling, 08/21/16) Home Medications Amlodipine (Amlodipine) 10 Mg Tablet 10 MG PO DAILY (Reported) Carvedilol (Carvedilol) 6.25 Mg Tablet 12.5 MG PO BID (Reported) Cholecalciferol (Vitamin D3) (Vitamin D3) 50,000 Unit Capsule 50,000 UNIT PO WEEKLY (Reported) WEDNESDAYS Clonidine (Catapres) 0.1 Mg Tablet 0.1 MG PO TID Prescribed by: FLO ANTONIO DO Gabapentin (Gabapentin) 100 Mg Capsule 300 MG PO HS (Reported) Hydralazine (Hydralazine) 25 Mg Tablet 25 MG PO TID (Reported) Lanthanum Carb Chew (Fosrenol Chew) 1,000 Mg Chew 1,000 MG PO TIDWM (Reported) Sertraline HCl (Sertraline) 100 Mg Tablet 100 MG PO HS (Reported) As needed Alprazolam (Alprazolam) 1 Mg Tablet 1 MG PO BID PRN PRN For Anxiety or Agitation (Reported) Ondansetron ODT (Ondansetron ODT) 8 Mg Tab.rapdis 8 MG PO BID PRN PRN For Nausea (Reported) Ranitidine (Ranitidine) 75 Mg Tablet 75 MG PO BID PRN PRN For Dyspepsia or Heartburn (Reported) oxyCODONE-Acetaminophen 5-325 mg (oxyCODONE-Acetaminophen 5-325 mg) 1 Each Tablet 1 TABLET PO q6 hours PRN PRN For Pain (Reported) PMH PMH Migraines Suspected lupus 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 Anemia History of a small pericardial effusion Hypertension Reports history of a possible TIA last 1 year ago Surgical History Kidney biopsy Right-sided peritoneal dialysis catheter Family History Mother, maternal aunt maternal uncles and maternal cousins with history of diabetes mellitus Hypertension in many family members Paternal grand mother with stomach cancer Mother with history of TIA Other paternal relatives with history of stroke Social History Hx Alcohol Use: Yes (VERY RARE) Hx Substance Use: Yes (2003 - methamphetamin) Hx Tobacco Use: No Smoking Status: Unknown if Ever Smoker Exam Vital Signs Vital Sign - Last Date Time Temp Pulse Resp B/P Pulse Ox O2 Delivery O2 Flow Rate FiO2 08/21/16 11:34 36.3 80 134/91 100 Room Air 08/21/16 08:15 14 Exam NAD, comfortably laying down on the bed no JVD, MMM, no LAD RRR, nl s1, s2 no mrg CTAB, no w,c S,ND,NT,normoactive BS+ warm, no edema, pulses 2/2 no scrotal swelling/erythema, mild tenderness on Rt inguinal area, no LAD Lab and Diagnostics Result Diagram: 08/21/16 1251 08/21/16 1251 Assessment & Plan Acute, active Rt inguinal pain, POA, likely resulted from dialysate passed via inguinal canal , no s/s of local or systemic infection, scrotal swelling has already improved. urinating okay.UA negative. -It was suggested by nephrology that patient should use 200-300cc for future irrigation. -tentatively scheduled for appointment with on , then surgery thereafter. -zofran for n/v -pain control with percocet, dilaudid prn chronic, stable, # ESRD on HD, Patient diagnosed with end-stage renal disease in April 2015, and renal biopsy showing IgA nephropathy, is on peritoneal dialysis nightly, his port was placed October 2015, he has been on peritoneal dialysis since January 2016. -HD as scheduled, plan for tomorrow, appreciate input regarding education # Migraine Headaches, Tylenol for headache pain # Anemia, chronic, stable h/h # Hypertension, stable, resume all of home meds once med recs done. #depression, anxiety d/o, alprazolam prn, sertraline Dispo: Patient is admitted under observation status with expectation that she will be discharged within 24-48 hours, diet:renal dvt ppx:HSQ Full code Time spent 65 minutes Emily Dukes MD August 21, 2016 14:11
[2016-08-21] MEDS ORDERED: Ondansetron 8 mg ODT Tablet PO PRN (14:35)
[2016-08-21 15:38] VITALS: BP 135/95; PULSE 18; PULSE 81; RESP 20; O2SAT 99
--- NOTE | 2016-08-21 15:45 | NUR ---
Admit Pt admitted to [facility] room 1020 at 1530 via stretcher. Pt able to transfer from stretcher to bed, SBA with steady gait. Pt rates pain in the groin area at 5/10. Medication given in ED. Pt A&Ox3. NUÑEZ. Family at bedside. Pt oriented to room and call light within reach. Care continues.
[2016-08-21 16:00] VITALS: PULSE 82
[2016-08-21] MEDS: Lanthanum Carbonate 500 mg Chewable Tablet PO SCH (16:54)
[2016-08-21] MEDS: HYDROmorphone 1 mg/mL Inj IVPUSH PRN (16:54)
[2016-08-21 20:20] VITALS: BP 125/80; PULSE 76; RESP 20; O2SAT 98
[2016-08-21] MEDS: HYDROcodone-APAP 5-325 mg Tablet PO PRN (20:40)
[2016-08-21] MEDS: cloNIDine 0.1 mg Tablet PO SCH (20:41)
[2016-08-21] MEDS: Heparin 5,000 Unit/mL Inj SUBQ SCH (20:46)
--- NOTE | 2016-08-21 20:46 | NUR ---
Case Management: ANASTASIA explained to patient at 2035, all questions answered. Signed original placed in chart, copy given to patient. I also provided patient with "How Medicare Covers Self-Administered Drugs Given in Hospital Outpatient Settings". Danitza Calderón RN
[2016-08-21] MEDS ORDERED: Lactulose 20 Gm/30 mL 30 mL Syrup PO SCH (21:00)
[2016-08-22 00:41] VITALS: BP 136/93; PULSE 73; RESP 18; O2SAT 98
[2016-08-22] MEDS: HYDROmorphone 1 mg/mL Inj IVPUSH PRN (00:48)
--- NOTE | 2016-08-22 01:43 | CONS ---
[address] [address] CONSULTATION REPORT PATIENT: JUANITA BROOKS : 1970 MR#: [id number] ADMIT: 08/21/2016 JOB ID: [id number] DATE OF SERVICE: 08/21/2016 CHIEF COMPLAINT: Symptomatic right-sided inguinal hernia. HISTORY OF PRESENT ILLNESS: The patient is a 45-year-old male, whom I had met in the early part of August due to a new onset right-sided inguinal hernia. The patient developed this right-sided inguinal hernia after an episode of retching and nausea and vomiting after he drank too much while celebrating a anniversary. The patient has an indwelling peritoneal dialysis catheter, which was placed last year by Dr. Avel Francisco. After the nausea, vomiting and retching, he developed a symptomatic swelling of his right inguinal region and also into the right scrotum. There was suspicion of scrotal cellulitis, and he was started on antibiotics per the recommendation of urologist. The patient was given a hemodialysis catheter while he was in-house, and he was switched over to hemodialysis. The patient was discharged home with a plan to follow up and have an elective right-sided inguinal hernia repair. Patient still has the peritoneal dialysis catheter in place, and he was instructed to flush it once a week. His commissary manager had instructed only using 500 cc for the flushing; however, he gave himself 2 L by mistake yesterday. After the infusion of the dialysate through the peritoneal dialysis catheter, he got recurrence of right-sided pain in the groin region and into his scrotum. He reports having sharp pains last night and also this morning. The pain doubled him over, and he resorted to taking Percocet. Due to persistence of pain, the patient presented to the emergency department today. An ultrasound was again performed that showed just a right-sided fat containing inguinal hernia. Patient requested to be admitted to the hospital for observation. PAST MEDICAL HISTORY: Right-sided inguinal hernia, migraines, lupus, renal failure due to IgA nephropathy, hypertension, TIA, prior kidney biopsy, PD catheter placement in September [address] Avel Francisco. MEDICATIONS AT HOME: Include alprazolam, amlodipine, carvedilol, clonidine, gabapentin, hydralazine, ondansetron, oxycodone, sertraline. ALLERGIES: 1. PENICILLIN. 2. SULFA. 3. CEFOTETAN. 4. CEFUROXIME. SOCIAL HISTORY: The patient is . He has two daughters. He lives in [place]. He is disabled. FAMILY HISTORY: Positive for lupus, kidney disease, hypertension, and liver cirrhosis. REVIEW OF SYSTEMS: Positive for the right-sided inguinal pain and scrotal swelling. The patient is able to urinate without difficulty. PHYSICAL EXAMINATION: The patient is currently in the emergency department [facility] in no acute distress. His BMI is 32, temperature is 36.3, blood pressure 134/91, pulse is 80, respirations were 14. Head is normocephalic, atraumatic. There is no scleral icterus. Neck is supple. Heart is regular rate. Lungs are clear. Abdomen is mildly obese but it is soft and nontender, and indwelling PD catheter is in place. Examination of his groin region shows no obvious swelling or tenderness at this time. His right scrotum does appear to be slightly enlarged but it is definitely not as pronounced as his prior hospitalization in early August. The patient does not appear to be in distress. Neurologically, patient is awake and alert and follows commands. LABORATORY EXAMINATION: Today showed a white blood count of 9.5, hematocrit 41.2, platelet count is 275. Sodium is 139, potassium 4.1, creatinine 4.73, and his total bilirubin is 0.2. ASSESSMENT: This is a 45-year-old male with a symptomatic right-sided inguinal hernia complicated by the need to flush his peritoneal dialysis catheter once a week. The patient had used 2 L of dialysate rather than 500 cc as recommended by his commissary manager. The patient is currently not in distress. We have tentatively moved up his elective outpatient appointment with Dr. Avel Francisco. The patient will be observed overnight and likely be discharged tomorrow for him to follow up with Dr. Avel Francisco for an elective right-sided inguinal hernia repair. This was explained to the patient and his mother and they both understand and seem to agree with the plan.
--- NOTE | 2016-08-22 03:46 | NUR ---
Pain Pt. reported pain 6-7/10 earlier in shift. Pain responsive to IV Dilaudid and PO [place]. Will continue to monitor.
[2016-08-22 04:41] VITALS: BP 125/80; PULSE 74; RESP 18; O2SAT 97
[2016-08-22 06:18] VITALS: PULSE 72
[2016-08-22 08:00] VITALS: PULSE 68
[2016-08-22 08:15] VITALS: BP 145/96; PULSE 70; RESP 18; O2SAT 100
--- NOTE | 2016-08-22 08:31 | CONS ---
[address] [address] CONSULTATION REPORT PATIENT: JUANITA BROOKS : 1970 MR#: [id number] ADMIT: 08/21/2016 JOB ID: [id number] DATE OF SERVICE: 08/21/2016 DATE OF SERVICE: NEPHROLOGY CONSULTATION: REQUESTING PHYSICIAN: Dr. Dukes. REASON FOR CONSULTATION: Management of end-stage renal disease. CHIEF COMPLAINT: Right groin pain. PRESENT ILLNESS: This is a very pleasant 45-year-old gentleman with significant past medical history of end-stage renal disease on hemodialysis, biopsy-proven IgA nephropathy, migraines, hypertension who came to the hospital due to right groin pain. The patient was just hospitalized between August 04 and August 08, 2016 due to right scrotal edema likely due to inguinal hernia. The patient was switched to hemodialysis. Currently, he is dialyzed every Thursday, Thursday and Thursday. The patient has been off peritoneal dialysis for at least two weeks. The patient was told to flush the PD catheter yesterday. He misunderstood instead of using 500 cc of fluid, he used 2 L of dialysate. Within 10 or 15 minutes, he noticed sharp pain on the right groin. He also noticed a right scrotal swelling as well. The patient decided to come to the hospital for further investigation. The patient received pain medication to control the right scrotal tenderness. The sonogram of the right inguinal area showed right inguinal fat containing hernia. During my visit, he stated that the pain has been better, however, he still has some moderate pain, 6/10. He reports no fever, no chills. No nausea, vomiting. He reported profound sweating when he had severe right groin pain. His last hemodialysis was performed yesterday at the [facility]. PAST MEDICAL HISTORY: 1. End-stage heart disease currently on hemodialysis, peritoneal dialysis on hold due to right inguinal hernia. 2. Biopsy-proven IgA nephropathy. 3. Migraines. 4. Family history of lupus. 5. History of small pericardial effusion. 6. Anemia of chronic kidney disease. 7. Hypertension. 8. Suspected history of TIA. 9. Recent history of pneumonia. PAST SURGICAL HISTORY: 1. Status post kidney biopsy. 2. Status post tunneled catheter placement. 3. Status post peritoneal dialysis catheter placement. FAMILY HISTORY: Positive for diabetes, hypertension, stomach cancer, TIA, lupus and stroke. SOCIAL HISTORY: Patient drinks socially. He denies current use of tobacco or illicit drugs. REVIEW OF SYSTEMS: Fourteen point review of system was performed. MEDICATIONS: Amlodipine, carvedilol, vitamin D, clonidine, gabapentin, hydralazine, Fosrenol, Sertraline. PHYSICAL EXAMINATION: Vitals: Temperature 36.4, pulse 18, respiratory rate 20, blood pressure 135/95, O2 sat 99% on room air. General appearance: Awake, alert and oriented x3. No acute distress. HEENT: No pallor. No jaundice. No JVD. No lymphadenopathy. No thyroid enlargement. Dry mucous membranes. PERRLA. Atraumatic. Heart: Regular rhythm. Normal S1, S2. No murmurs, rubs or gallops. Lungs: Clear to auscultation bilaterally. Abdomen: Soft, active bowel sounds. Nontender. Nondistended. No hepatosplenomegaly. Extremities: No edema, cyanosis or clubbing of fingers. : No obvious scrotal swelling. Positive for tenderness on the right groin area. LABORATORY: WBC 9.5, hemoglobin 13.6, sodium 139, potassium 4.1, chloride 102, bicarbonate 22, BUN 39, creatinine 4.73. ASSESSMENT: 1. Right inguinal tenderness likely related to right inguinal hernia. The pain likely precipitated by dialysate that had passed through the inguinal canal. 2. End-stage renal disease, currently on hemodialysis, peritoneal dialysis has been put on hold. 3. Biopsy-proven IgA nephropathy. 4. Migraines. 5. Hypertension with hypertensive nephrosclerosis. 6. Renal osteodystrophy. 7. Depression and anxiety. PLANS: Per renal standpoint, we will arrange for hemodialysis tomorrow. We will hold peritoneal dialysis for now. The patient will need to be evaluated by a surgeon for potential elective hernia repair. Thank you for allowing me to participate in the care of your patient. We will monitor along with you. KEVIN
[2016-08-22] MEDS: Lanthanum Carbonate 500 mg Chewable Tablet PO SCH ×2 (09:01→12:02)
[2016-08-22] MEDS: cloNIDine 0.1 mg Tablet PO SCH ×2 (09:02→14:56)
[2016-08-22] MEDS: HYDROcodone-APAP 5-325 mg Tablet PO PRN (09:03)
[2016-08-22] MEDS: Heparin 5,000 Unit/mL Inj SUBQ SCH (09:03)
--- NOTE | 2016-08-22 09:26 | NUR ---
Social Work- Initial Assessment/Readiness for Discharge Data: See Initial Assessment. Pt is a 45 year old male admitted 08/21/16 for right inguinal hernia per H&P. Pt's insurance is [facility] [email or web address] [place] [employer] [facility]. Pt's PCP is Rehan Golden DO. NOK is William [phone]. Pt's readmit risk score is 4- high risk. COMPUTER NETWORK AND SYSTEMS ENGINEER met with pt at bedside regarding discharge plan, SW role explained. Pt to discharge today and complete is dialysis as an outpatient at the [facility]. Pt resides in [place] in an apartment with his where he is independent with ADLs. Pt receives dialysis Tu/Th/Sat. Pt uses no DME and continues to drive. Pt has HH history while living in [place], no SNF history. Pt has no LTC or VA benefits. Pt's Advance Directives are complete. COMPUTER NETWORK AND SYSTEMS ENGINEER wrote phone number and plan on whiteboard if discharge needs arise. Pt to discharge home with to transport via POV. No discharge needs identified. COMPUTER NETWORK AND SYSTEMS ENGINEER will continue to follow. Assessment: Pt who is independent at baseline. Plan: Pt to discharge today. Pt to discharge home with to transport via POV. No discharge needs identified. COMPUTER NETWORK AND SYSTEMS ENGINEER will continue to follow. LIZ Kilpatrick Addendum: 08/22/16 at 0929 by EVENS FIORE Amended: Links added.
--- NOTE | 2016-08-22 12:01 | PCM.DIMED ---
Discharge Instructions Date of Service August 22, 2016 Dates of Hospitalization August 21, 2016 at 15:09 Discharge Diagnosis Discharge Diagnosis Right groin pain from peritoneal dialysate in the setting of known Rt inguinal hernia, Medication Instructions you can take Oxycodone as needed for your pain Diet Low fat, Low Sodium, Heart Healthy, Renal Diet Activity No restrictions Call your provider Fever or Chills, Other Patient Instructions You were hospitalized with Rt groin, which was likely due to dialysate fluid being passed given your inguinal hernia. Pain is better controlled during hospitalization. Please follow up with for elective repair of inguinal hernia, tantatively scheduled to see in the clinic on Please follow recommendation from [employer], using less amount of dialysate for flush judiciously Follow-up Provider: Avel Francisco MD Follow-up with PCP in: 1 week Emily Dukes MD August 22, 2016 12:01
--- NOTE | 2016-08-22 13:32 | PCM.PNSURG ---
Subjective Date of Service: August 22, 2016 Date of Service: August 22, 2016 Visit Information: Reason for Visit Right Inguinal Hernia Surgery/Surgery Date Post-Op Day # Date of Admission: August 21, 2016 at 15:09 Hospital Day #2 Subjective: Patient more comfortable today. Requests to minimize outpatient appointments and to have inguinal hernia repair soon. Notes decreased scrotal swelling. Gastrointestinal: Good Appetite, No N/V Pain Management: Good Pain Control Objective Vital Sign- Last 8 Hours Date Time Temp Pulse Resp B/P Pulse Ox O2 Delivery O2 Flow Rate FiO2 08/22/16 08:15 36.4 70 18 145/96 100 Room Air 08/22/16 08:00 68 08/22/16 06:18 72 Intake and Output- Last 8 Hour 08/22/16 Cumulative From/Thru 07:00 08/21/16 08:15 - 08/22/16 06:07 Intake Total 700 ml 1100 ml Output Total 1100 ml 1100 ml Balance -400 ml 0 ml Intake Oral 700 ml 1100 ml Output Urine Total 1100 ml 1100 ml # Voids 0 # Bowel Movements 0 0 General: Alert, Oriented X3 Heart: Exam Unremarkable Abdomen: Other (tender right inguinal region and mild right scrotal tenderness. ) Result Diagram: 08/21/16 1251 08/21/16 1251 Assessment & Plan Impression right inguinal hernia migraines, lupus, renal failure due to IgA nephropathy, hypertension, TIA, prior kidney biopsy, PD catheter placement in September [address] Avel Francisco. Problems: Plan Outpatient appointment moved up to this next , 08/28 in preparation for Right Inguinal hernia repair. Patient is satisfied with the plan. José Frost PA-C August 22, 2016 13:32
[2016-08-22] MEDS ORDERED: OXYC1TAB24 PO (14:25)
[2016-08-22 14:57] VITALS: BP 114/80; PULSE 71
--- NOTE | 2016-08-22 15:04 | NUR ---
Discharge Pt states that pain is under control with PO pain medication. Pt has outpt dialysis apt at 1700. All discharge teaching and instructions done with pt. All questions and concerns addressed. Hard copy of RX in the folder with the pt. IV d/c'd intact. Pt to follow up with Dr. Francisco on 08/28/16 for surgical apt.
--- NOTE | 2016-08-22 15:29 | NUR ---
Social Work- Discharge Data: Pt to discharge today. Pt to discharge home with to transport via POV. No discharge needs identified. Assessment: Pt who is independent at baseline. Plan: Pt to discharge today. Pt to discharge home with to transport via POV. No discharge needs identified. Kaylee Gabriel MSW
--- NOTE | 2016-08-23 14:21 | PCM.DC.MED ---
Discharge Summary Date of Service August 22, 2016 Dates of Hospitalization Date of Hospital Admission August 21, 2016 at 15:09 Date of Discharge: August 22, 2016 Providers: Admitting Physician: Emily Paul MD Primary Care Physician: Rehan Golden DO Attending Physician: Emily Paul MD Diagnosis at Time of Discharge Diagnosis at Time of Discharge Acute Right groin pain from peritoneal dialysate in the setting of known Rt inguinal hernia, chronic dx # ESRD on HD, # Migraine Headaches, # Anemia, # Hypertension, . #depression, anxiety d/o Consultations Nephrology General surgery Procedures Other Diagnostics PROCEDURE: US HERNIA INGUINAL INDICATIONS: R pain TECHNIQUE: Real-time focused scanning was performed of the inguinal region, with image documentation. COMPARISON: None. FINDINGS: Non-completely reducible fat-containing right inguinal hernia is present, which is more prominent during Valsalva maneuver. IMPRESSION: Right inguinal fat containing hernia. Dictated by: Nathanael Worthy M.D. on 08/21/2016 at 12:30 Approved by: Nathanael Worthy M.D. on 08/21/2016 at 12:32 Brief History This is a patient well-known to myself from prior hospitalization, patient was hospitalized 08/04-, with similar symptoms of right inguinal pain, scrotal swelling, resulted from peritoneal dialysate passed through inguinal canal, causing scrotal swelling/cellulitis. Patient dialysis method was switched from PD to HD. received abx but suspicion was very low for infection and patient was discharged on stable condition, resolved scrotal swelling and inguinal pain. He has been tolerated hemodialysis as scheduled. Patient stated that,last night , it was due for flush of peritoneal cath and this was the first time he did flush since d/c from last hospitalization. Since he injected 2liters, only 1.6liter was out, started noticing pain and swelling in rt groin, scrotum was also mildly swollen. Pain was improved but remaining decided to come to the hospital. ED VSS, afebrile, 100% on RA. abd US showed Right inguinal fat containing hernia.Pain was controlled dilaudid, received zofran as well. As per , patient has appointment with on for inguinal hernia repair then was able to make it to . Patient strongly wanted to stay in the hospital until pain is better controlled, also did understand, this is not urgent Ix of surgery. Hospital Course Acute dx Rt inguinal pain, likely resulted from peritoneal dialysate passed via inguinal canal, this is recurrent as pt used excessive amount of fluid for flushes. there was no s/s of local or systemic infection on labs, exam. pt had no difficulty of urination. UA negative. patient was observed overnight for pain control. pain subsided appropriately with percocet. patient will be followed up by for elective repair of hernia, tentatively scheduled for clinic visit on . pt agreed with the plan, left in stable condition chronic dx # ESRD on HD, Patient diagnosed with end-stage renal disease in April 2015, and renal biopsy showing IgA nephropathy, is on peritoneal dialysis nightly, his port was placed October 2015, he was on peritoneal dialysis since January 2016 til last month, stopped due to scrotal swelling via hernia as above.Pt didn't get HD in house, plan was to continue HD as scheduled. # Migraine Headaches, Tylenol for headache pain # Anemia, chronic, stable h/h # Hypertension, stable, resume all of home meds once med recs done. #depression, anxiety d/o, alprazolam prn, sertraline Exam Vital Signs (Last) Date Time Temp Pulse Resp B/P Pulse Ox O2 Delivery O2 Flow Rate FiO2 08/22/16 14:57 71 114/80 08/22/16 08:15 36.4 18 100 Room Air Exam NAD, comfortably laying down on the bed no JVD, MMM, no LAD RRR, nl s1, s2 no mrg CTAB, no w,c S,ND,NT,normoactive BS+ warm, no edema, pulses 2/2 Test 08/21/16 12:51 08/21/16 13:27 White Blood Count 9.5th/mm3 (3.8-10.1) Red Blood Count 4.66mil/mm3 (4.40-5.80) Hemoglobin 13.6g/dL (13.8-17.2) Hematocrit 41.2% (41.0-50.0) Mean Corpuscular Volume 88.4fL (81-100) Mean Corpuscular Hemoglobin 29.2pg (27.0-35.0) Mean Corpuscular Hemoglobin Concent 33.0% (32.0-37.0) Red Cell Distribution Width 13.5% (12.3-15.4) Platelet Count 275bil/L (150-400) Neutrophils (%) (Auto) 56.8% (40-74) Lymphocytes (%) (Auto) 30.2% (14-46) Monocytes (%) (Auto) 7.1% (4-12) Eosinophils (%) (Auto) 4.7% (0-5) Basophils (%) (Auto) 0.9% (0-3) Sodium Level 139mEq/L (134-144) Potassium Level 4.1mEq/L (3.5-5.2) Chloride Level 102mEq/L (97-108) Carbon Dioxide Level 22mmol/L (18-29) Blood Urea Nitrogen 39mg/dL (6-24) Creatinine 4.73mg/dL (0.76-1.27) Estimat Glomerular Filtration Rate 14mL/min (>59) Glucose Level 103mg/dL (60-99) Calcium Level 9.1mg/dL (8.5-10.1) Phosphorus Level 4.5mg/dL (2.5-4.9) Magnesium Level 2.2mg/dL (1.6-2.6) Total Bilirubin 0.2mg/dL (0.0-1.2) Aspartate Amino Transf (AST/SGOT) 17U/L (0-50) Alanine Aminotransferase (ALT/SGPT) 11U/L (0-44) Alkaline Phosphatase 67U/L (25-150) Total Protein 7.3g/dL (6.4-8.4) Albumin 4.0g/dL (3.4-5.0) Urine Color Straw (YELLOW) Urine Appearance Hazy (CLEAR,HAZY) Urine pH 7.5 (5.0-8.0) Urine Specific [place] 1.005 (1.003-1.035) Urine Protein Tracemg/dL (NEG,TRACE) Urine Glucose (UA) Negativemg/dL (NEGATIVE) Urine Ketones Negativemg/dL (NEGATIVE) Urine Occult Blood Trace (NEGATIVE) Urine Nitrite Negative (NEGATIVE) Urine Bilirubin Negative (NEGATIVE) Urine Urobilinogen Normalmg/dL (NORMAL) Urine Leukocyte Esterase Negative (NEGATIVE) Urine RBC 3-10/hpf (0-2) Urine WBC 0-5/hpf (0-5) Urine Epithelial Cells Occasional/hpf (NONE-MOD) Urine Crystals None seen (NONE SEEN) Urine Bacteria None/hpf (NONE-FEW) Urine Hyaline Casts None/lpf (NONE) Urine Granular Casts None seen (NONE SEEN) Urine Waxy Casts None seen (NONE SEEN) Urine Red Blood Cell Casts None seen (NONE SEEN) Urine White Blood Cell Casts None seen (NONE SEEN) Urine Mucus None seen (None Seen) Urine Trichomonas None seen (NONE SEEN) Urine Yeast None (NONE SEEN) Urinalysis Comment None Urine Culture Reflexed Not indicated Discharge Medications Discharge Medications Amlodipine (Amlodipine) 10 Mg Tablet 10 MG PO DAILY (Reported) Carvedilol (Carvedilol) 6.25 Mg Tablet 12.5 MG PO BID (Reported) Cholecalciferol (Vitamin D3) (Vitamin D3) 50,000 Unit Capsule 50,000 UNIT PO WEEKLY (Reported) WEDNESDAYS Clonidine (Catapres) 0.1 Mg Tablet 0.1 MG PO TID Prescribed by: FLO ANTONIO DO Gabapentin (Gabapentin) 100 Mg Capsule 300 MG PO HS (Reported) Hydralazine (Hydralazine) 25 Mg Tablet 25 MG PO TID (Reported) Lactulose (Lactulose) 10 Gm/15 Ml Solution 10 GM PO HS (Reported) Lanthanum Carb Chew (Fosrenol Chew) 1,000 Mg Chew 1,000 MG PO TIDWM (Reported) Sertraline HCl (Sertraline) 100 Mg Tablet 100 MG PO HS (Reported) As needed Alprazolam (Alprazolam) 1 Mg Tablet 1 MG PO BID PRN PRN For Anxiety or Agitation (Reported) Ondansetron ODT (Ondansetron ODT) 8 Mg Tab.rapdis 8 MG PO BID PRN PRN For Nausea (Reported) oxyCODONE-Acetaminophen 5-325 mg (oxyCODONE-Acetaminophen 5-325 mg) 1 Each Tablet 1 TABLET PO q6 hours PRN PRN For Pain Prescribed by: EMILY PAUL MD Additional med instructions you can take Oxycodone as needed for your pain Followup Plan Disposition: Home Discharge Diet: Low fat, Low Sodium, Heart Healthy, Renal Diet Discharge Activity: No restrictions Patient Instructions You were hospitalized with Rt groin, which was likely due to dialysate fluid being passed given your inguinal hernia. Pain is better controlled during hospitalization. Please follow up with for elective repair of inguinal hernia, tantatively scheduled to see in the clinic on Please follow recommendation from Helminthology Teacher, using less amount of dialysate for flush judiciously Follow-up Provider: Avel Francisco MD Follow-up with PCP in: 1 week Time spent 65 minutes Emily aPul MD August 22, 2016 22:08
[2016-08-28] MEDS ORDERED: Ergocalciferol (Vit D2) 50,000 Unit Capsule PO SCH (08:30)
== END 2016-08-22 15:00 | disposition home or self-care (01) ==
LOC: SED 08:05 → OSC 15:09
PROVIDERS: ADMIT Internal Medicine; ATTEND Internal Medicine
DX: K40.90 Unilateral inguinal hernia, without obstruction or gangrene, not specified as recurrent (principal); I12.0 Hypertensive chronic kidney disease with stage 5 chronic kidney disease or end stage renal disease; N18.6 End stage renal disease; G43.909 Migraine, unspecified, not intractable, without status migrainosus; D63.1 Anemia in chronic kidney disease; F41.8 Other specified anxiety disorders; Z99.2 Dependence on renal dialysis; L93.0 Discoid lupus erythematosus; Z86.73 Personal history of transient ischemic attack (TIA), and cerebral infarction without residual deficits; J90 Pleural effusion, not elsewhere classified; F15.90 Other stimulant use, unspecified, uncomplicated
CPT/HCPCS: 36415; 76857; 80053; 81000; 83735; 84100; 85025; 96372; 96374; 96375; 96376; 99285; G0378; J1170; J1644

== ENCOUNTER 2016-09-09 08:01 | Day surgery (SDC) | payer MEDICARE, OTHER ==
[~2016-09-09] VITALS: Ht 172.7 cm; Wt 93.2 kg
[2016-09-09] VITALS (9 sets, daily range): BP systolic 102–119; BP diastolic 66–75; PULSE 64–72; RESP 13–18; O2SAT 90–98
[~2016-09-09 08:01] MED LIST changes: +Clindamycin Inj 900 MG in IV Premix 1 EACH IV SCH; +LACT10SO PO; +Lactated Ringer's 1,000 ML IV SCH; -RANI-426 PO
[2016-09-09] MEDS ORDERED: Propofol 10,000 mCg/mL 20 mL Inj ONE (08:02)
[2016-09-09] MEDS ORDERED: EPHEDrine/NS 5 mg/mL 5 mL Syringe ONE (08:02)
[2016-09-09] MEDS ORDERED: Ondansetron 2 mg/mL 2 mL Inj ONE (08:02)
[2016-09-09] MEDS ORDERED: MetoCLOpramide 5 mg/mL 2 mL Inj ONE (08:02)
[2016-09-09] MEDS ORDERED: fentaNYL-PF 50 mCg/mL 2 mL Inj ONE (08:02)
[2016-09-09] MEDS ORDERED: 0.9% Sodium Chloride 1,000 ML IV ONE (08:35)
[2016-09-09] MEDS ORDERED: Bupivacaine-MPF 0.5% 30 mL Inj INFILTRATE ONE (11:17)
[2016-09-09] MEDS ORDERED: 0.9% Sodium Chloride 250 ML IV PRN (11:41)
--- NOTE | 2016-09-09 11:44 | PCM.HPANE ---
Patient Data Surgeon Admitting Provider: Attending Provider:Avel Francisco MD Primary Care Physician:Rehan Golden DO Other Provider:[facility] Reason for Visit Right Inguinal Hernia Ht/WT & BMI Height (Feet): 5 Height (Inches): 8.00 Weight (Kilograms): 93.200 Body Mass Index 31.00 Allergies Coded Allergies: Penicillins (Verified Allergy, Severe, difficulty breathing, 08/21/16) Sulfa (Sulfonamide Antibiotics) (Verified Allergy, Severe, hives, 08/21/16) cefuroxime (Verified Allergy, Intermediate, "swelling", 08/21/16) cefotetan (Verified Adverse Reaction, Intermediate, causes unusual swelling, 08/21/16) Past Anesthesia History Anesthesia History: Denies:: Abnormal Airway, Anesthesia Reactions, Difficult Intubation, Fam Anesthesia Reaction, Fam Malignant Hypertherm, Malignant Hyperthermia Diabetes History Hx Diabetes?: No MRSA MRSA: No Medications Hypertension Medication: Yes Home Meds Incl Beta Tin: Yes Date Beta Tin Taken: Sep 09, 2016 Time Beta Tin Taken: 639 Active Scripts oxyCODONE-Acetaminophen 5-325 mg 1 Each Tablet1 Tablet PO q6 hours PRN For Pain #14 Prov:Emily Dukes MD 08/22/16 Clonidine (Catapres)0.1 Mg Tablet0.1 Mg PO TID 30 Days Ref 2 Prov:Petey Rivera DO 10/13/15 Reported Medications Lactulose 10 Gm/15 Ml Dfzudhhb32 Gm PO HS 08/21/16 Ondansetron ODT 8 Mg Tab.rapdis8 Mg PO BID PRN For Nausea #30 08/04/16 Carvedilol 6.25 Mg Wwveun25.5 Mg PO BID #60 08/04/16 Hydralazine 25 Mg Upslwt32 Mg PO TID Ref 0 07/15/16 Lanthanum Carb Chew (Fosrenol Chew)1,000 Mg Chew1,000 Mg PO TIDWM 07/15/16 Gabapentin 100 Mg Ptjqsiw406 Mg PO HS 30 Days Ref 0 07/15/16 Cholecalciferol (Vitamin D3) (Vitamin D3)50,000 Unit Nbaglys83,000 Unit PO WEEKLY Wednesdays07/15/16 Sertraline HCl (Sertraline)100 Mg Clfkhv745 Mg PO HS 11/07/15 Amlodipine 10 Mg Gnpfrz54 Mg PO DAILY 09/28/15 Alprazolam 1 Mg Tablet1 Mg PO BID PRN For Anxiety or Agitation 09/28/15 History History of ENT Problems?: Yes HEENT History: Positive for:: Sinus Problem (Hx of sinusitis) Denies:: Abnormal Airway Cataracts Difficult Intubation Dysphagia Hearing Problem TMJ Denture Type: Partial- Upper Teeth Condition: Missing Teeth Hx of Heart Problems?: Yes Cardiovascular History: Positive for:: Chest Pain Hypertension Denies:: AICD Abdominal Aortic Aneurism Atrial Fibrillation Cardiac Surgery Congestive Heart Failure Coronary Artery Disease Edema Heart Murmur Irregular Heartbeat Pacemaker Peripheral Vascular Rheumatic Fever Thrombophlebitis Valvular Heart Disease Hx of Respiratory Problem?: No Respiratory History: Denies:: Asthma COPD Chest Surgery Cough Dyspnea Emphysema Hemoptysis Oxygen Administration Pneumonia Pulmonary Embolism Tuberculosis Use of C-PAP Machine (sleep apnea dx - no sleep study appt avail until february) Use of Inhalers / NEBS Hx Neurologic Problems?: Yes Neurological History: Positive for:: CVA (tia x 2) Headaches (migraine) Denies:: Alzheimer's Disease Dementia Dizziness Multiple Sclerosis Parkinson's Disease Peripheral Neuropathy Seizures TIA Hx of GI Problems?: Yes Gastrointestinal History: Denies:: Cirrhosis Diverticulitis Gall Bladder Disease Gastroesphageal Reflux Gastrointestinal Bleeding Heartburn Hepatitis Hiatal Hernia Liver Disease Rectal Bleeding Other GI Pertinent History: right inguinal hernia current admission dx Hx of Problems?: Yes Genitourinary History: Positive for:: HX of Hemodialysis (Thu, thu at [facility] - last dialysis 09/08/16) Denies:: Kidney Stones Urinary Tract Infection HX of Peritoneal Dialysis: No (prior hx/ now tunnel cath) Other Pertinent History: CKD stage V Male Hx: Denies:: Prostate Problems Scrotal Mass Testicular Surgery Skin History: Denies:: History Skin Disorders? Pressure Ulcers Hx Musculoskeletal Problems?: Yes Musculoskeletal History: Denies:: Back Injury Degenerative Joint Fibromyalgia Joint Replacement Musculoskeletal Trauma Myasthenia Gravis Osteoarthritis Rheumatoid Arthritis Systemic Lupus Hx of Psycho/Social Problems?: Yes Psycho Social History: Positive for:: Anxiety (takes xanax and sertraline) Denies:: Bipolar Disorder Hx Depression ("Undiagnosed, but depressive swings") Suicide Attempt Hx Surgeries?: Yes (KIDNEY BX, PERMACATH W/REMOVAL, PD port insertion) Hx Any Other Health Problems?: Yes Other History: Positive for:: Hospitalization (tia's, ESRD) Denies:: Cancer Endocrine Disease Thyroid Disease History Blood Transfusions: Denies:: Blood Transfuse Reaction Blood Transfusions Hx Diabetes: No Hx Alcohol Use: Yes (VERY RARE)Hx Substance Use: Yes (2003 - methamphetamin) Smoking Status: Unknown if Ever Smoker Have You Smoked inLast 12 mo: No Stop/Bang S-Snoring: Do You Snore Loudly: Yes T-Tired: feel tired, fatigued: No O-Obsered: Observed not breath: No P-Blood Pressure: treated: Yes B- Body Mass Index > 35 kg/m2: No A- Age over 50: No N- Neck Large Circumference: No G- Gender Male: Yes MICHELLE Total Score: 3 Risk Assessment Category Category 1A: Patient has history of documented sleep apnea, and HAS NOT received any narcotic, sedative or anesthesia administration during this stay. Category 1B: Patient has history of documented sleep apnea, and HAS received any narcotic , sedative or anesthesia administration during this stay Category 2: Patient has SUSPECTED Obstructive Sleep Apnea, and HAS received any narcotic , sedative or anesthesia administration during this stay. Category 3: Patient has SUSPECTED Obstructive Sleep Apnea and HAS NOT received narcotic, sedative or anesthesia administration during this stay. Category 4: Outpatient in Procedural Areas with known sleep apnea or who screen positive for High Risk via the STOP/BANG questionnaire. Exam Exam Vital Signs Vital Signs Date Time Temp Pulse Resp B/P Pulse Ox O2 Delivery O2 Flow Rate FiO2 09/09/16 08:12 36.0 64 16 115/75 95 Room Air General Appearance: Alert, Oriented X3, Cooperative, No Acute Distress HEENT/AIRWAY: MP 2, Neck Movement (FROM), Mouth Opening (3 FBMO) Lungs: Clear to Auscultation, Normal Air Movement Heart: Exam Unremarkable, Regular Rate/Rhythm, No Murmurs/Rubs/Gallops Meds/Labs/Diagnostics Admission Meds Current Medications Sodium Chloride (Normal Saline) 1,000 ml @ ud STK-MED ONCE IV Last administered on 09/09/16t 08:35; Start 09/09/16 at 08:35; Stop 09/09/16 at 08:36; Status DC Plan Impression Patient chart reviewed, patient interviewed and anesthestic plan with risks, benefits, and alternatives discussed, and informed consent obtained. NPO per Anesth. Guidelines: Yes ASA Physical Status: ASA4 Life Threatening (ESRD on dialysis) Anesthetic Plan: GA Bene/Risks/Altern/Consents: Yes HP Complete Prior to Induction: Yes Denis Bower MD Sep 09, 2016 08:43
[2016-09-09] MEDS ORDERED: EPHEDrine Sulfate 50 mg/mL Inj IVPUSH PRN (11:45)
[2016-09-09] MEDS ORDERED: Phenylephrine 10,000 mCg/mL Inj IVPUSH PRN (11:45)
[2016-09-09] MEDS ORDERED: Atropine 0.4 mg/mL Inj IVPUSH PRN (11:45)
[2016-09-09] MEDS ORDERED: fentaNYL-PF 50 mCg/mL 2 mL Inj IVPUSH PRN (11:45)
[2016-09-09] MEDS ORDERED: Labetalol 5 mg/mL 4 mL Inj IV PRN (11:45)
[2016-09-09] MEDS ORDERED: Ondansetron 2 mg/mL 2 mL Inj IVPUSH PRN (11:45)
[2016-09-09] MEDS ORDERED: HYDROcodone-APAP 5-325 mg Tablet PO PRN (12:20)
--- NOTE | 2016-09-09 13:22 | PCM.ANEP1 ---
Post Anesthesia PACU Phase 1 Assessment Vital Signs Vital Signs Date Time Temp Pulse Resp B/P Pulse Ox O2 Delivery O2 Flow Rate FiO2 09/09/16 13:10 65 18 111/74 95 Room Air 09/09/16 13:00 66 15 107/73 96 Nasal Cannula 2 09/09/16 12:55 36.1 64 13 102/71 90 Room Air 09/09/16 12:45 68 15 107/74 94 Room Air 09/09/16 12:30 66 13 103/68 94 Room Air 09/09/16 12:25 64 13 107/69 98 Simple Mask 8 09/09/16 12:21 37.0 66 13 105/66 98 Simple Mask 8 09/09/16 08:12 36.0 64 16 115/75 95 Room Air Anesthetic Administered: GA Level of Alertness: Awake, talking NUÑEZ's with Equal Strength: Yes Pain: No Nausea or Vomiting: No CV Function & Hydration Stable: No Airway Device: Oxygen Delivery: Simple Mask Lungs: Clear to Auscultation, Normal Air Movement Dermatome Level: Full Sensation PACU Phase 2 Assessment Complications: No Follow up Care: N/A Patient Instructions Provided: N/A Denis Bower MD Sep 09, 2016 13:22
--- NOTE | 2016-09-09 20:51 | OP ---
[address] [address] OPERATIVE REPORT PATIENT: JUANITA BROOKS : 1970 MR#: [id number] ADMIT: 09/09/2016 JOB ID: [id number] DATE OF SURGERY: 09/09/2016 PREOPERATIVE DIAGNOSIS(ES): Symptomatic left inguinal hernia. POSTOPERATIVE DIAGNOSIS(ES): Symptomatic direct left inguinal hernia. OPERATION: Indirect left inguinal hernia repair with Kugel patch. SURGEON: Avel Francisco MD. GUNNERY/ORDNANCE OFFICER: Javi Frost PA-C. INDICATIONS: A 45-year-old male who has a symptomatic right inguinal hernia. He does peritoneal dialysis and his hernia has been filling with fluid causing pain and distention in his right inguinal canal, and after discussing options with the patient, it was elected to proceed with repair. He has been converted to hemodialysis to allow his hernia to heal prior to restarting peritoneal dialysis. FINDINGS: He had an indirect right inguinal hernia. DESCRIPTION OF PROCEDURE: At the beginning and end of the operation, SCOAP checklist was completed. An LMA anesthetic was induced. Using ChloraPrep, he was prepped and draped in usual fashion. His right inguinal incision was designed and infiltrated with 0.5% bupivacaine. The day after making the incision, cautery was used to divide the Ashwin's fascia. The superficial epigastric vessels were ligated with 3-0 chromic. The external oblique was identified and after injecting local anesthesia deep to it, it was opened in the direction of its fibers. The internal oblique and transversus abdominis were also opened in the direction of the fibers. The cord was identified and controlled with a Sandra drain. The transversalis fascia was opened vertically. The deep epigastric artery and vein were identified and reflected anteriorly. The preperitoneal space was then developed. The sac was identified coursing up the spermatic cord. It was mobilized from cord structures and then freed up well down the length of the cord where I then ligated it with a suture ligature of 3-0 Vicryl. Further blunt dissection was used to develop the preperitoneal space and then a small Kugel patch was placed within it and secured to the transversus abdominis with interrupted 2-0 PDS. The internal oblique was closed with running 2-0 PDS. The external oblique and Ashwin's fascia with 3-0 Vicryl, and the skin with subcuticular 4-0 Monocryl. Steri-Strips and sterile dressing were applied. The estimated blood loss was less than 10 cc. There were no apparent complications. The final sponge, needle and instrument counts were announced as correct, and he was returned to recovery room in stable condition. Critical assistance was provided by Javi Frost PA-C.
== END 2016-09-09 23:59 | disposition home or self-care (01) ==
LOC: SAS 08:01
PROVIDERS: ATTEND Surgery
DX: K40.90 Unilateral inguinal hernia, without obstruction or gangrene, not specified as recurrent (principal); I12.0 Hypertensive chronic kidney disease with stage 5 chronic kidney disease or end stage renal disease; N18.6 End stage renal disease; F41.1 Generalized anxiety disorder; G47.33 Obstructive sleep apnea (adult) (pediatric); Z86.73 Personal history of transient ischemic attack (TIA), and cerebral infarction without residual deficits; Z99.2 Dependence on renal dialysis; Z87.891 Personal history of nicotine dependence; Z87.898 Personal history of other specified conditions
CPT/HCPCS: 36415; 49505; 84132; C1781; J2405; J3010; J7030

== ENCOUNTER 2016-10-03 01:35 | Observation (INO) | payer MEDICARE, OTHER ==
[~2016-10-03] VITALS: Ht 172.7 cm; Wt 94.1 kg
[2016-10-03] VITALS (12 sets, daily range): BP systolic 110–125; BP diastolic 75–96; PULSE 75–81; RESP 16–18; O2SAT 94–97
[~2016-10-03 01:35] MED LIST changes: -Clindamycin Inj 900 MG in IV Premix 1 EACH IV SCH; -Lactated Ringer's 1,000 ML IV SCH; +RANI-426 PO
--- NOTE | 2016-10-03 09:08 | NUR ---
JARET: Pt arrived to [facility] for tunnel cath removal. R upper chest tunnel cath in place, dsg C/D/I, pt does not want to be done at bedside, provider aware and procedure scheduled to be done in senior laboratory technician. VSS. 20g IV started in R FA, no c/o pain. Daughter at bedside. Questions about the procedure answered. Addendum: 10/03/16 at 1111 by TRELL PAPPAS RN Taken to senior laboratory technician for procedure at 1045 in bed per senior laboratory technician staff. Addendum: 10/03/16 at 1253 by TRELL PAPPAS RN Post Procedure: Pt arrived back from senior laboratory technician from tunnel cath removal at 1120. Initially had c/o 3/10 tolerable pain at tunnel cath removal site. Around 1215, pt had c/o 7/10 "burning" pain "down" from cath removal site. notified, and to see pt. VSS, afebrile.
[2016-10-03] MEDS ORDERED: Heparin 10,000 Unit/1,000 mL NS Premix IV ONE (10:46)
[2016-10-03] MEDS ORDERED: 0.9% Sodium Chloride 1,000 ML ONE (10:50)
[2016-10-03] MEDS ORDERED: fentaNYL-PF 50 mCg/mL 2 mL Inj ONE (10:59)
[2016-10-03] MEDS ORDERED: Vancomycin 1,000mg/200 mL NS IV ONE (14:06)
--- NOTE | 2016-10-03 14:31 | NUR ---
Pain: Pt has c/o 7 burning pain in R upper chest tunnel cath removal site. Pt initially stated pain went "down" but pain is now going "Up" from removal site. notified and IV abx started per order. Pt still having c/o 7 pain, ice applied with no relief. MD notified and IVP dilaudid ordered. Addendum: 10/03/16 at 1522 by TRELL PAPPAS RN R upper chest tunnel cath removal site with gauze dressing C/D/I. No redness, warmth or swelling noted in area. Ice pack on site.
--- NOTE | 2016-10-03 14:39 | DRSVH ---
PROCEDURE: CV REMOVE CATH TUNLD INDICATIONS: ESRD COMPARISON: [facility], XA, CV REMOVE CATH MANDEEPLD, 01/30/2016, 10:00. Technique: 1. Conscious sedation for 30 minutes. 2. Total catheter removal. The risks and benefits of the procedure were discussed with the patient, consent was obtained, and pl aced on the chart. The patient was placed in the supine position on the angiography table. Existing c atheter was prepped and draped in the usual sterile fashion. 1% lidocaine was used to anesthetize the skin around the area of interest. Conscious sedation and cardiorespiratory monitoring was provided b y the nursing staff. Using blunt dissection, the existing tunnel catheter was removed and hemostasis was achieved. IMPRESSION: Status post removal of the right upper extremity tunneled hemodialysis catheter. Dictated by: Mary Berg M.D. on 10/03/2016 at 14:36 Approved by: Mary Berg M.D. on 10/03/2016 at 14:37
[2016-10-03] MEDS ORDERED: Ondansetron 2 mg/mL 2 mL Inj ONE (14:44)
[2016-10-03] MEDS ORDERED: HYDROmorphone 1 mg/mL Inj IVPUSH ONE (14:45)
[2016-10-03] MEDS ORDERED: Ondansetron 2 mg/mL 2 mL Inj IVPUSH ONE (14:50)
[2016-10-03] MEDS ORDERED: Vancomycin Inj 1,000 MG in IV Premix 1 EACH IV ONE (14:50)
[2016-10-03] MEDS ORDERED: Polyethylene Glycol (PEG) 17 Gm Powder PO PRN (15:45)
[2016-10-03] MEDS ORDERED: HYDROcodone-APAP 5-325 mg Tablet PO PRN (15:45)
[2016-10-03] MEDS ORDERED: Alum-Mag Hydrox-Simeth 30 mL Suspension PO PRN (15:45)
[2016-10-03] MEDS ORDERED: Ondansetron 2 mg/mL 2 mL Inj IVPUSH PRN (15:45)
--- NOTE | 2016-10-03 16:16 | NUR ---
Transfer to [facility]: Pt transferred to [facility] bed 239-2 in w/c. Pt stating pain in R upper tunnel cath removal site is now 06/13, ice pack still in place. IV Vanco dose completed just prior to transfer. Reported given to CHRIS Davidson to assume care of pt. Pt taken to [facility] at 1610 in w/c with all of his belongings with him.
--- NOTE | 2016-10-03 16:30 | NUR ---
Transfer from [facility] to Room 239-2 Pt transferred from [facility] to Rm 239 at pt requested admitted for the night. Pt A&Ox3, able to NUÑEZ steady gait; VSS, currently SL, c/o pain 4/10 at site and tolerable at this time. R chest covered with gauze and tagederm dressing, CDI, no visible redness, some pain with gentle palpation above dressing site and hard feeling. Pt came with contacts, clothing, wallet, ring and cellphone to which his will take home clothing, wallet and ring.
--- NOTE | 2016-10-03 17:27 | PCM.HPMED ---
Subjective Date of Service Oct 03, 2016 Primary Provider: Admitting Physician: Pavel Bonds MD Primary Care Physician: Rehan Golden DO Attending Physician: Pavel Bonds MD Chief Complaint: Pain at site of central line removal History of Present Illness: Patient is a 46-year-old male past medical history significant for end-stage renal disease which is dialysis dependent, admitted directly following interventional radiology procedure to remove central venous catheter which have been used temporary for dialysis following patient's inguinal hernia repair. Patient notes he has had skin infections at the site of line removals in the past, and was concerned that this felt similar and is the sign of a growing infection. Patient noted some itchiness and discomfort of the site prior removal but it was much worse following this event and he noticed the pain shot upwards underneath skin, and he subsequently noted a firmness or swelling of the tissue in that same area. Interventional radiologist believed removal at without major complication however given patient's high level of concern, in addition to his immunocompromised state due to end-stage renal disease, he was placed on a medical observation to ensure no development of infection overnight. Time of my evaluation patient notes he is still experiencing pain at incision site, but denies any radiation to other locations. He has placed an ice pack over the area which has benefited him a good deal in terms of discomfort. He was initially provided Dilaudid interventional radiology suite prior to his transfer which was also very helpful in limiting pain. He denies any palpitations or shortness of breath at this time. He denies any left-sided chest pain. Denies any fever or chills. Denies any numbness or tingling down his right arm. Appetite is good. Review of Systems: A 10 point review of systems is conducted and entirely negative excepting pertinent positives and negatives included in above history of present illness Allergies Coded Allergies: Penicillins (Verified Allergy, Severe, difficulty breathing, 08/21/16) Sulfa (Sulfonamide Antibiotics) (Verified Allergy, Severe, hives, 08/21/16) cefuroxime (Verified Allergy, Intermediate, "swelling", 08/21/16) cefotetan (Verified Adverse Reaction, Intermediate, causes unusual swelling, 08/21/16) Home Medications Amlodipine (Amlodipine) 10 Mg Tablet 10 MG PO DAILY (Reported) Carvedilol (Carvedilol) 6.25 Mg Tablet 12.5 MG PO BID (Reported) Cholecalciferol (Vitamin D3) (Vitamin D3) 50,000 Unit Capsule 50,000 UNIT PO WEEKLY (Reported) WEDNESDAYS Clonidine (Catapres) 0.1 Mg Tablet 0.1 MG PO TID Prescribed by: FLO ANTONIO DO Gabapentin (Gabapentin) 100 Mg Capsule 300 MG PO HS (Reported) Hydralazine (Hydralazine) 25 Mg Tablet 25 MG PO TID (Reported) Lanthanum Carb Chew (Fosrenol Chew) 1,000 Mg Chew 1,000 MG PO TIDWM (Reported) Sertraline HCl (Sertraline) 100 Mg Tablet 100 MG PO HS (Reported) As needed Alprazolam (Alprazolam) 1 Mg Tablet 1 MG PO BID PRN PRN For Anxiety or Agitation (Reported) Ondansetron ODT (Ondansetron ODT) 8 Mg Tab.rapdis 8 MG PO BID PRN PRN For Nausea (Reported) Ranitidine (Ranitidine) 75 Mg Tablet 75 MG PO BID PRN PRN For Dyspepsia or Heartburn (Reported) oxyCODONE-Acetaminophen 5-325 mg (oxyCODONE-Acetaminophen 5-325 mg) 1 Each Tablet 1 TABLET PO q6 hours PRN PRN For Pain (Reported) PMH Migraines Suspected lupus 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 Anemia History of a small pericardial effusion Hypertension Reports history of a possible TIA last 1 year ago Surgical History Kidney biopsy Right-sided peritoneal dialysis catheter Family History Mother, maternal aunt maternal uncles and maternal cousins with history of diabetes mellitus Hypertension in many family members Paternal grand mother with stomach cancer Mother with history of TIA Other paternal relatives with history of stroke Social History Hx Alcohol Use: Yes (rarely) Hx Substance Use: No Hx Tobacco Use: No Smoking Status: Unknown if Ever Smoker Exam Vital Signs Vital Sign - Last Date Time Temp Pulse Resp B/P Pulse Ox O2 Delivery O2 Flow Rate FiO2 10/03/16 14:00 76 17 119/79 10/03/16 13:30 36.5 10/03/16 12:15 97 Room Air General: Alert, Oriented X3, Cooperative, Mild Distress Eyes: PERRLA Mouth: Mucous Membr Moist/[place] Neck: Supple Chest & Lungs: Clear to auscultation & percussion Cardiovascular: Regular Rate/Rhythm, No Murmurs/Rubs/Gallops Abdomen: Non-tender, Non-distended, Other (obese) Extremities: No cyanosis/clubbing/edma bilat Skin: Other (right subclavian region is dressed with a clean dry gauze dressing. There is no overt induration warmth or erythema of the area but there is a mild firmness superior to site of prior PICC line, which is mildly tender to touch. There is no drainage from rule site at this time. No streaking or other evidence of infection noted. ) Neurological: Grossly Neurologically Intact Assessment & Plan A 46-year-old male with end-stage renal disease placed on hospital observation overnight due to concern for pain and swelling following removal of central venous catheter. 1. Pain at central venous catheter removal site/soft tissue injury injury/ concern for cellulitis - Based on history of reported to me by interventional radiologist Dr. cullen, and my own evaluation of the area, there is more likely to be soft tissue trauma than developing infection. - He was provided 1 dose of vancomycin in interventional radiology suite following removal , given poor renal clearance this will likely be adequate for next 24 hours and provide further time for observation. - Cultures were not obtained prior to antibiotic administration, so we will defer to clinical evaluation to assess likelihood of developing cellulitis. - Anticipate discharge home in a.m. should condition improve with conservative measures but may consider further interventions, or at the very least evaluation such as ultrasound at the site, should patient demonstrate any concerns for infection worsening swelling of the area or other complaints. 2. End-stage renal disease - Doing likely short stay condition improves, we hope he is able to return home tomorrow to conduct peritoneal dialysis as prior - Should patient's hospital stay prove prolonged we will need to consult nephrology to arrange for inpatient peritoneal dialysis - Following up BMP studies at this time, recommendations creatinine seemed to trend in the 5's. 3. Hypertension - We will continue patient's home medications appears in stable condition at this time Pain Evaluation: Adequate Pain Control GI Prophylaxis: Not indicated VTE Mechanical Devices: Intermittant Pneumatic CD Resuscitation Status: CPR: Attempt Resuscitation Time spent 50 minutes Scot Barragan DO Oct 03, 2016 17:27
[2016-10-03] MEDS ORDERED: Ondansetron 8 mg ODT Tablet PO PRN (17:30)
[2016-10-03] MEDS ORDERED: Lanthanum Carbonate 500 mg Chewable Tablet PO SCH (17:30)
[2016-10-03] MEDS ORDERED: oxyCODONE-Acetamin 5-325 mg Tablet PO PRN (17:30)
[2016-10-03] MEDS ORDERED: HYDROmorphone 0.5 mg/0.5 mL iSecure Syringe IVPUSH PRN (17:30)
--- NOTE | 2016-10-03 18:27 | NUR ---
ANASTASIA explained and signed. Copy of ANASTASIA and Medicare self administered medication information given to pt.
[2016-10-03 18:42] LABS: BASOPHILS % (AUTO) 0.9 % (0-3); EOSINOPHILS % (AUTO) 5.6 % (0-5); MONOCYTES % (AUTO) 7.6 % (4-12); Mean Corpuscular Hemoglobin 28.8 pg (27.0-35.0); Mean Corpuscular Volume 86.2 fL (81-100); NEUTROPHILS % (AUTO) 56.3 % (40-74); Platelet Count 293 bil/L (150-400)
--- NOTE | 2016-10-03 19:10 | NUR ---
Shift Pt A&Ox3, cooperative with care, tolerating PO intake, no c/o N/V/D. c/o pain to L chest site, dressing CDI, ice pack to area and 2mg PO Dilaudid given before end of shift and pt resting quietly. Will continue to monitor with frequent rounds.
--- NOTE | 2016-10-03 19:58 | NUR ---
Critical Lab Critical Lab result: Creatinine 5.88 Physician paged
[2016-10-03] MEDS ORDERED: cloNIDine 0.1 mg Tablet PO SCH (20:30)
[2016-10-03] MEDS ORDERED: Lactulose 20 Gm/30 mL 30 mL Syrup PO SCH (21:00)
[2016-10-04 01:17] VITALS: BP 142/92; PULSE 76; RESP 16; O2SAT 95
--- NOTE | 2016-10-04 06:44 | NUR ---
Patient left AMA Approx 0630, patient used call light and informed this nurse that he was leaving AMA now. He was in good spirits, said he felt "100% better" and was glad he had stayed overnight to make sure, but his surgical site was no longer red and was not swollen, no pain, so he did not want to "stick around and wait for the doctors for discharge and all the same questions". He stated that this was the "best nursing care he has received in all his visits", he wasn't leaving because of that, but that he was just "done". He was informed of possible risks of infection, pain, and insurance not paying. AMA form filled out and signed; charge nurse, nursing insurance licensing supervisor, hospitalist paged and is aware prior to departure. This nurse walked him out to his car.
--- NOTE | 2016-10-04 17:20 | PCM.DC.MED ---
Discharge Summary Date of Service Oct 04, 2016 Dates of Hospitalization Date of Hospital Admission Date of Discharge: Oct 04, 2016 Providers: Admitting Physician: Primary Care Physician: Rehan Golden DO Attending Physician: Blayne Muniz MD Diagnosis at Time of Discharge Diagnosis at Time of Discharge Pain at central venous catheter removal site Hospital Course It is reported that patient left AMA this morning prior to my arrival do I did not evaluate him. Discharge Medications Discharge Medications Amlodipine (Amlodipine) 10 Mg Tablet 10 MG PO DAILY (Reported) Carvedilol (Carvedilol) 6.25 Mg Tablet 12.5 MG PO BID (Reported) Cholecalciferol (Vitamin D3) (Vitamin D3) 50,000 Unit Capsule 50,000 UNIT PO WEEKLY (Reported) WEDNESDAYS Clonidine (Catapres) 0.1 Mg Tablet 0.1 MG PO TID Prescribed by: FLO ANTONIO DO Gabapentin (Gabapentin) 100 Mg Capsule 200 MG PO HS (Reported) Hydralazine (Hydralazine) 25 Mg Tablet 25 MG PO TID (Reported) Lactulose (Lactulose) 10 Gm/15 Ml Solution 10 GM PO HS (Reported) Lanthanum Carb Chew (Fosrenol Chew) 1,000 Mg Chew 1,000 MG PO TIDWM (Reported) Sertraline HCl (Sertraline) 100 Mg Tablet 100 MG PO HS (Reported) As needed Alprazolam (Alprazolam) 1 Mg Tablet 1 MG PO BID PRN PRN For Anxiety or Agitation (Reported) Ondansetron ODT (Ondansetron ODT) 8 Mg Tab.rapdis 8 MG PO BID PRN PRN For Nausea (Reported) oxyCODONE-Acetaminophen 5-325 mg (oxyCODONE-Acetaminophen 5-325 mg) 1 Each Tablet 1 TABLET PO q6 hours PRN PRN For Pain Prescribed by: MD Ame HOLLIS Peggy E MD Oct 04, 2016 17:20
[2016-10-10] MEDS ORDERED: CHOLECALCIFEROL 50000 UNIT PO SCH (08:30)
== END 2016-10-04 06:35 | disposition left against medical advice (07) ==
LOC: SPI 01:35 → MOC 14:48
PROVIDERS: ADMIT Internal Medicine Infectious Disease; ATTEND Family Medicine
DX: G89.18 Other acute postprocedural pain (principal); I12.0 Hypertensive chronic kidney disease with stage 5 chronic kidney disease or end stage renal disease; N18.6 End stage renal disease; I31.3 Pericardial effusion (noninflammatory); D64.9 Anemia, unspecified; Z86.73 Personal history of transient ischemic attack (TIA), and cerebral infarction without residual deficits; Z99.2 Dependence on renal dialysis; Z53.21 Procedure and treatment not carried out due to patient leaving prior to being seen by health care provider
CPT/HCPCS: 36415; 36589; 80048; 85025; 99152; G0378; G0379; J1170; J1644; J2250; J2405; J3010; J3370; J7030

== ENCOUNTER 2016-10-05 20:32 | Emergency (ER) | payer MEDICARE, OTHER ==
[~2016-10-05] VITALS: Ht 172.7 cm; Wt 94.1 kg
[~2016-10-05 20:32] MED LIST changes: -RANI-426 PO
[2016-10-05 20:40] VITALS: BP 134/90; PULSE 91; RESP 18; O2SAT 99
[2016-10-05 21:23] LABS: BASOPHILS % (AUTO) 0.9 % (0-3); EOSINOPHILS % (AUTO) 5.1 % (0-5); MONOCYTES % (AUTO) 7.1 % (4-12); Mean Corpuscular Hemoglobin 28.9 pg (27.0-35.0); Mean Corpuscular Volume 86.8 fL (81-100); NEUTROPHILS % (AUTO) 58.2 % (40-74); Platelet Count 272 bil/L (150-400)
[2016-10-05 21:49] LABS: APPEARANCE,URINE CLEAR (CLEAR,HAZY); COLOR,URINE YELLOW (YELLOW); PH,URINE 6.5 (5.0-8.0)
[2016-10-05 21:50] LABS: OCCULT BLOOD,URINE TRACE (NEGATIVE); UROBILINOGEN,URINE NORMAL (NORMAL)
[2016-10-05 21:58] LABS: Magnesium 2.4 mg/dL (1.6-2.6)
--- NOTE | 2016-10-06 07:02 | PCM.EDPN ---
ED Note Date of Service Oct 06, 2016 46-year-old male who initially presented for evaluation in the emergency room. He left without being seen after labs were drawn. The labs are unremarkable and consistent with his chronic kidney injury. Vital signs are also generally normal. Mauro Lyman MD Oct 06, 2016 07:02
== END 2016-10-05 23:50 | disposition home or self-care (01) ==
LOC: SED 20:32
DX: T82.898A Other specified complication of vascular prosthetic devices, implants and grafts, initial encounter (principal); Z53.21 Procedure and treatment not carried out due to patient leaving prior to being seen by health care provider

== ENCOUNTER 2016-10-12 16:22 | Inpatient (IN) | payer MEDICARE, OTHER ==
[~2016-10-12] VITALS: Ht 172.7 cm; Wt 97.2 kg
[2016-10-12 16:25] VITALS: BP 133/86; PULSE 83; RESP 16; O2SAT 98
--- NOTE | 2016-10-12 16:52 | ED.REPORT ---
HPI-Chest Pain 40 and Over Date of Service Oct 12, 2016 ED Provider: The patient is a 46 year old male with history of end stage renal disease on peritoneal dialysis, hypertension, and anemia, who presents to the emergency department complaining of left-sided chest pain that began approximately 10 minutes prior to arrival. He also reports that he has had 3 syncopal episodes today. The first episode, he was standing in the sun, felt lightheaded, and the next thing he knows his mom was holding him up. The second episode was when he was going up on the elevator, he felt his knees buckle and then was out. The 3rd episode was different because he felt chest pain, lost consciousness, and fell and hit the back of his head on a door. He also reports experienced numbness and weakness in his arms and leg. He is still having chest pain at this time. He is not on blood thinners. Nursing Notes Stated Complaint: CHEST PAIN/HEADACHE/PASSED OUT Chief Complaint: Chest Pain Nursing Notes Reviewed: Yes Allergies: Coded Allergies: Penicillins (Verified Allergy, Severe, difficulty breathing, 10/05/16) Sulfa (Sulfonamide Antibiotics) (Verified Allergy, Severe, hives, 10/05/16) cefuroxime (Verified Allergy, Intermediate, "swelling", 10/05/16) Scheduled Amlodipine (Amlodipine) 10 Mg Tablet 10 MG PO DAILY Carvedilol (Carvedilol) 6.25 Mg Tablet 12.5 MG PO BID Cholecalciferol (Vitamin D3) (Vitamin D3) 50,000 Unit Capsule 50,000 UNIT PO WEEKLY WEDNESDAYS Clonidine (Catapres) 0.1 Mg Tablet 0.1 MG PO TID Gabapentin (Gabapentin) 100 Mg Capsule 200 MG PO HS Hydralazine (Hydralazine) 25 Mg Tablet 25 MG PO TID Lactulose (Lactulose) 10 Gm/15 Ml Solution 10 GM PO HS Lanthanum Carb Chew (Fosrenol Chew) 1,000 Mg Chew 1,000 MG PO TIDWM Sertraline HCl (Sertraline) 100 Mg Tablet 100 MG PO HS Scheduled PRN Alprazolam (Alprazolam) 1 Mg Tablet 1 MG PO BID PRN PRN For Anxiety or Agitation Ondansetron ODT (Ondansetron ODT) 8 Mg Tab.rapdis 8 MG PO BID PRN PRN For Nausea oxyCODONE-Acetaminophen 5-325 mg (oxyCODONE-Acetaminophen 5-325 mg) 1 Each Tablet 1 TABLET PO q6 hours PRN PRN For Pain General Time Seen by MD: 16:51 Chief Complaint Chest pain Hx Obtained From: Patient Arrived By: Walk-in Sudden in Onset?: Yes Onset Occurred: Just prior to arrival Symptom Duration: Since onset Location: : Chest left Quality: Painful Severity: Current: Moderate Severity: Maximum: Severe Recent Healthcare: No recent hospitalization, Recent doctor visit Similar Sx Previous: Yes Past Medical History Past Medical History Notes: Nephrology: Dr. 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 - on peritoneal dialysis Anemia History of a small pericardial effusion Hypertension Reports history of a possible TIA last 1 year ago Past Surgical History Kidney biopsy Right-sided peritoneal dialysis catheter Inguinal hernia repair Family History Mother, maternal aunt maternal uncles and maternal cousins with history of diabetes mellitus Hypertension in many family members Paternal grand mother with stomach cancer Mother with history of TIA Other paternal relatives with history of stroke Smoking History Former Smoker Social History Alcohol Use: "Social" Drug Use: Denies drug use Other Social History: Good social support, , Lives with children, Local resident Ambulatory Status Cane Review of Systems Cardiovascular: Reports: Chest pain Neurologic: Reports: Change LOC, Headache, Lightheaded, Numbness, Syncope, Weakness Complete sys rev & neg: except as marked. Physical Exam Initial Vital Signs Vital Signs (First) Date Time Temp Pulse Resp B/P Pulse Ox O2 Delivery O2 Flow Rate FiO2 10/12/16 16:25 37 83 16 133/86 98 Room Air Initial VS: Reviewed Head / Eyes: Atraumatic, Normocephalic, PERRL ENT: Mucous membranes moist, Conjunctiva normal, No scleral icterus Neck: Supple, Non-tender, Full range of motion Lymphatic: No lymphadenopathy Extremities: Vascular intact, Neuro intact, No swelling, No tenderness Skin: Warm, Dry, No cyanosis Neurologic: Alert, Oriented, Nonfocal Psychiatric: Mood/affect normal, Behavior normal, Normal thought content General/Constitutional: Awake, Alert, No acute distress, Well appearing, Cooperative Respiratory / Chest: Breath sounds NL, Breath sounds = bilat, No respiratory distress, No rales, No rhonchi, No wheezing, No stridor Left lower focal chest wall tenderness Cardiovascular: Heart rate NL, Regular rhythm, Heart sounds NL, No gallop, No murmurs, No rubs, Peripheral circulation NL, Pulses = bilaterally, No gross BP differential Abdomen: Soft, No guarding, No rebound, BS normoactive, No distention, No hernia, No palpable mass, No pulsatile mass Peritoneal dialysis catheter in place. Interpretation & Diagnostics Lab Results Interpretation Result Diagram: 10/12/16 1645 10/12/16 1645 Test 10/12/16 16:45 White Blood Count 12.9th/mm3 (3.8-10.1) Red Blood Count 4.65mil/mm3 (4.40-5.80) Hemoglobin 13.4g/dL (13.8-17.2) Hematocrit 40.2% (41.0-50.0) Mean Corpuscular Volume 86.5fL (81-100) Mean Corpuscular Hemoglobin 28.8pg (27.0-35.0) Mean Corpuscular Hemoglobin Concent 33.3% (32.0-37.0) Red Cell Distribution Width 14.3% (12.3-15.4) Platelet Count 303bil/L (150-400) Neutrophils (%) (Auto) 66.3% (40-74) Lymphocytes (%) (Auto) 18.7% (14-46) Monocytes (%) (Auto) 9.5% (4-12) Eosinophils (%) (Auto) 4.3% (0-5) Basophils (%) (Auto) 0.9% (0-3) D-Dimer 1.22mg/L FEU (<0.50) Sodium Level 133mEq/L (134-144) Potassium Level 4.7mEq/L (3.5-5.2) Chloride Level 94mEq/L (97-108) Carbon Dioxide Level 19mmol/L (18-29) Blood Urea Nitrogen 42mg/dL (6-24) Creatinine 6.13mg/dL (0.76-1.27) Estimat Glomerular Filtration Rate 11mL/min (>59) Glucose Level 122mg/dL (60-99) Calcium Level 9.1mg/dL (8.5-10.1) Magnesium Level 2.4mg/dL (1.6-2.6) Total Bilirubin 0.3mg/dL (0.0-1.2) Aspartate Amino Transf (AST/SGOT) 29U/L (0-50) Alanine Aminotransferase (ALT/SGPT) 14U/L (0-44) Alkaline Phosphatase 90U/L (25-150) Troponin T < 0.010ug/L (0.0-0.011) Total Protein 8.2g/dL (6.4-8.4) Albumin 4.2g/dL (3.4-5.0) Hold Jolley Top Tube Received (Received) ECG Interpretation ECG Interpretation: Normal sinus rhythm Inferior Q waves which were present on 07/15/2016 Time: 16:50 Interpreted by: ED physician X-Ray Chest Interpretation Chest Xray Interpretation: IMPRESSION: 1. No acute cardiopulmonary disease. Dictated by: Parrish Galvez M.D. on 10/12/2016 at 17:08 Interpretation / Wet Read by: Interpret - Radiologist CT Head Interpretation IMPRESSION: 1. No acute intracranial abnormality. Dictated by: Parrish Galvez M.D. on 10/12/2016 at 17:18 Re-Eval/Medical Decision Med Decision/Clinical Course Current syncopal episodes associated chest pain. Patient has a elevated d-dimer and still makes urine. After discussion with the patient his primary dough machine operator had recommended not having IV contrast with CAT scans. We will plan to use heparin for anticoagulation and admit for probable VQ scan in the morning. Source of Hx: Old records Time of Eval: 17:28 Re-Evaluation/Progress Note: Discussed plan for admission. All questions were addressed. Consultation : Referral / Consult Name: Elaine Washburn DO Consulted With: Hospitalist Requested Call at: 17:29 Fretted Instrument Repairer: Will see patient, Agrees with eval, Agrees with plan, Accepts admit Note: will consult nephro Counseled Regarding: Diagnosis, Lab results, Need for admission Discharge & Departure Primary Impression: Syncope Syncope type: unspecified Qualified Code: R55 - Syncope and collapse Additional Impression: Chest pain Chest pain type: unspecified Qualified Code: R07.9 - Chest pain, unspecified Disposition: ADMITTED TO HOSPITAL Discharge Condition All VS Reviewed: Yes Condition: Stable Referrals: Rehan Golden DO (PCP) Crit Care Except Billable Proc Time Spent: 30-74 minutes Services Performed: Patient management by me, Time spent at bedside, Reviewing test results Critical Care Notes: See MDM Scribe Attestation Portions of this note were transcribed by Annette Jiménez. I, Dr. Haines personally performed the history, physical exam and medical decision-making; I reviewed and confirmed the accuracy of the information in the transcribed note. Signed by: Vishal Marmolejo, 10/12/2016 at 1800. copies to: Rehan Golden Timothy S DO Oct 12, 2016 16:52 Annette Jiménez Oct 12, 2016 16:59
[2016-10-12] MEDS ORDERED: Ondansetron 2 mg/mL 2 mL Inj IVPUSH PRN ×2 (17:00→18:10)
--- NOTE | 2016-10-12 17:10 | DRSVH ---
PROCEDURE: X-RAY CHEST ONE VIEW, PORTABLE ([id number]) INDICATIONS: Chest pain TECHNIQUE: One view of the chest was acquired. COMPARISON: [facility], CR, XR CHEST 2VW, 02/26/2016, 9:16. FINDINGS: Surgical changes and devices: None. Lungs and pleura: No pleural effusions or pneumothorax. Lungs are clear. Mediastinum: Mediastinal contours appear normal. Heart size is normal. Bones and chest wall: No suspicious bony lesions. Overlying soft tissues appear unremarkable. IMPRESSION: 1. No acute cardiopulmonary disease. Dictated by: Parrish Galvez M.D. on 10/12/2016 at 17:08 Approved by: Parrish Galvez M.D. on 10/12/2016 at 17:08
--- NOTE | 2016-10-12 17:21 | DRSVH ---
PROCEDURE: CT BRAIN WITHOUT CONTRAST ([id number]) INDICATIONS: fall, syncope, head injury TECHNIQUE: Noncontrast 4.5 mm thick angled axial sections acquired from the foramen magnum to the vertex, with c oronal reformats. COMPARISON: [facility], CT, BRAIN ([facility]), 07/15/2016, 20:12. FINDINGS: Image quality: Excellent. CSF spaces: Basal cisterns are patent. No extra-axial fluid collections. Ventricles are normal in size and shape. Brain: No intracranial hemorrhage, mass, or mass effect. Crowe-white matter interface is preserved. Skull and face: Calvarium and visualized facial bones are intact, without suspicious lesions. Sinuses: Visualized sinuses and mastoids are clear. IMPRESSION: 1. No acute intracranial abnormality. Dictated by: Parrish Galvez M.D. on 10/12/2016 at 17:18 Approved by: Parrish Galvez M.D. on 10/12/2016 at 17:20
[2016-10-12 17:31] LABS: BASOPHILS % (AUTO) 0.9 % (0-3); EOSINOPHILS % (AUTO) 4.3 % (0-5); MONOCYTES % (AUTO) 9.5 % (4-12); Mean Corpuscular Hemoglobin 28.8 pg (27.0-35.0); Mean Corpuscular Volume 86.5 fL (81-100); NEUTROPHILS % (AUTO) 66.3 % (40-74); Platelet Count 303 bil/L (150-400)
[2016-10-12 17:36] VITALS: BP 124/86; PULSE 77; RESP 16; O2SAT 98
[2016-10-12 17:44] LABS: TROPONIN T < 0.010 ug/L (0.0-0.011)
[2016-10-12] MEDS ORDERED: HYDROmorphone 1 mg/mL Inj IVPUSH PRN (17:45)
[2016-10-12] MEDS ORDERED: Heparin 5,000 Unit/mL Inj IVPUSH ONE (17:50)
[2016-10-12] MEDS ORDERED: Heparin 25K Unit/500mL 0.45 NS 25,000 UNIT in IV Premix 1 EACH IV ONE (17:50)
[2016-10-12 17:53] LABS: Magnesium 2.4 mg/dL (1.6-2.6)
[2016-10-12] MEDS ORDERED: Alum-Mag Hydrox-Simeth 30 mL Suspension PO PRN ×2 (18:10→20:25)
[2016-10-12] MEDS ORDERED: CARV12.52 PO (19:31)
[2016-10-12] MEDS ORDERED: KTC2C15 TP (19:33)
[2016-10-12 19:37] VITALS: BP 137/68; PULSE 72; RESP 17; O2SAT 98
[2016-10-12 19:46] VITALS: BP 117/77; PULSE 77; RESP 22; O2SAT 97
[2016-10-12 20:02] VITALS: PULSE 78
[2016-10-12] MEDS ORDERED: HYDROcodone-APAP 5-325 mg Tablet PO PRN (20:25)
[2016-10-12] MEDS ORDERED: Polyethylene Glycol (PEG) 17 Gm Powder PO PRN (20:25)
--- NOTE | 2016-10-12 20:25 | PCM.HPMED ---
Subjective Date of Service Oct 12, 2016 Primary Provider: Admitting Physician: Carmenza Felton DO Primary Care Physician: Rehan Golden DO Attending Physician: Carmenza Felton DO Admit Status: From the Emergency Department Chief Complaint: Syncope/chest pain History of Present Illness: Adolph Santiago is a 46-year-old man with past medical history significant for end-stage renal disease on peritoneal dialysis, hypertension, anemia secondary to chronic kidney disease who presents to the [facility] emergency department due to sharp left-sided chest pain worsened with inspiration since earlier today. Patient has had 3 syncopal episodes over the course of the day. During the first the patient was aware that he was feeling "woozy" and was about to pass out. Upon awakening he was slightly confused and took him several minutes to piece together what happened. The last syncopal episode the patient suddenly collapsed and was out for 10-15 seconds per the patient's daughter. The patient woke up on the floor and had hit his head. The patient has had a prior history of a TIA but states does not feel similar to that. He noted some transient numbness and weakness in his arms and legs. He denies any loss of bladder or bowel function, any tongue lacerations, any past seizure history. The patient at this time is continuing to have chest pain but it is localized to one small area on his left chest and is reproducible with palpation. Patient does note that the pain is much worse upon deep inspiration. Of note, the patient has recently had a tunnel catheter removed. The patient is normally seen by Dr. Muniz his lung splitter. The patient undergoes nightly peritoneal dialysis with 2 green bags with 2 L at 4 cycles at 2 hours each. In the emergency department his vital signs were stable. Laboratory evaluation revealed an elevated d-dimer in the setting of syncopal episodes as well as chest pain. The patient was then placed on a heparin drip for PE/DVT protocol the intent to undergo a VQ scan in the morning as the patient refuses to have any IV or arterial contrast. Review of Systems: A comprehensive review of systems was performed and is negative except as noted above in history of present illness. Allergies Coded Allergies: Sulfa (Sulfonamide Antibiotics) (Verified Allergy, Severe, HIVES, 10/12/16) Penicillins (Verified Allergy, Intermediate, HIVES, 10/12/16) cefuroxime (Verified Allergy, Intermediate, "SWELLING" IN GROIN AREA, MAKES DIFFICULT TO URINATE, 10/12/16) lorazepam (Verified Adverse Reaction, Severe, HALLUCINATIONS, 10/12/16) PT DOES FINE WITH ALPRAZOLAM, PLEASE DON'T ADMINISTER LORAZEPAM PER PT WISHES Home Medications Amlodipine (Amlodipine) 10 Mg Tablet 10 MG PO DAILY (Reported) Carvedilol (Carvedilol) 6.25 Mg Tablet 12.5 MG PO BID (Reported) Cholecalciferol (Vitamin D3) (Vitamin D3) 50,000 Unit Capsule 50,000 UNIT PO WEEKLY (Reported) WEDNESDAYS Clonidine (Catapres) 0.1 Mg Tablet 0.1 MG PO TID Prescribed by: FLO ANTONIO DO Gabapentin (Gabapentin) 100 Mg Capsule 300 MG PO HS (Reported) Hydralazine (Hydralazine) 25 Mg Tablet 25 MG PO TID (Reported) Lanthanum Carb Chew (Fosrenol Chew) 1,000 Mg Chew 1,000 MG PO TIDWM (Reported) Sertraline HCl (Sertraline) 100 Mg Tablet 100 MG PO HS (Reported) As needed Alprazolam (Alprazolam) 1 Mg Tablet 1 MG PO BID PRN PRN For Anxiety or Agitation (Reported) Ondansetron ODT (Ondansetron ODT) 8 Mg Tab.rapdis 8 MG PO BID PRN PRN For Nausea (Reported) Ranitidine (Ranitidine) 75 Mg Tablet 75 MG PO BID PRN PRN For Dyspepsia or Heartburn (Reported) oxyCODONE-Acetaminophen 5-325 mg (oxyCODONE-Acetaminophen 5-325 mg) 1 Each Tablet 1 TABLET PO q6 hours PRN PRN For Pain (Reported) PMH Migraines Suspected lupus 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 Anemia History of a small pericardial effusion Hypertension Reports history of a possible TIA last 1 year ago Surgical History Kidney biopsy Right-sided peritoneal dialysis catheter Family History Mother, maternal aunt maternal uncles and maternal cousins with history of diabetes mellitus Hypertension in many family members Paternal grand mother with stomach cancer Mother with history of TIA Other paternal relatives with history of stroke Social History Hx Alcohol Use: No Hx Substance Use: No Hx Tobacco Use: No Smoking Status: Former Smoker Exam Vital Signs Vital Sign - Last Date Time Temp Pulse Resp B/P Pulse Ox O2 Delivery O2 Flow Rate FiO2 10/12/16 19:46 36.4 77 22 117/77 97 Room Air Exam General: Alert, Oriented X3, Cooperative, no acute distress Eyes: PERRLA, extraocular muscles are intact, conjunctiva is moist, sclerae anicteric Mouth: Mucous Membr Moist/[place], normal dentition Neck: Supple, no JVD noted Chest & Lungs: Clear to auscultation & percussion, normal respiratory effort, tenderness to palpation at the left intercostal space. Cardiovascular: Regular Rate/Rhythm, No Murmurs/Rubs/Gallops Abdomen: Non-tender, Non-distended, obese, peritoneal dialysis catheter in place and appears to be free of infection with dry intact dressing. Extremities: No cyanosis/clubbing/edema bilaterally Skin: No rashes, no nodules noted. Neurological: Grossly Neurologically Intact, normal speech, normal strength. Psychiatric: Normal mood and affect. Lab and Diagnostics Result Diagram: 10/12/16 1645 10/12/16 1645 X-Rays, CTs and MRIs X-RAY CHEST ONE VIEW, PORTABLE IMPRESSION: 1. No acute cardiopulmonary disease. Dictated by: Parrish Galvez M.D. on 10/12/2016 at 17:08 CT BRAIN WITHOUT CONTRAST IMPRESSION: 1. No acute intracranial abnormality Dictated by: Parrish Galvez M.D. on 10/12/2016 at 17:18 Assessment & Plan Adolph Santiago is a 46-year-old man with past medical history significant for end-stage renal disease on peritoneal dialysis, hypertension, anemia secondary to chronic kidney disease who presents to the [facility] emergency department due to sharp left-sided chest pain worsened with inspiration since earlier today. Syncopal episode, present on admission, active -Differential includes pulmonary embolism, cardiac arrhythmia, recurrent TIA -Patient currently on a heparin drip due to elevated d-dimer, acute chest pain worse with inspiration, and inability to evaluate patient with CTA. Risk factor includes recent removal of indwelling dialysis catheter. -Continue on heparin drip. VQ scan in the morning. -Orthostatic bp -Telemetry monitoring. Consider echocardiogram in the morning. -Should all this workup proved to be negative, consider MRI for stroke evaluation. Chronic issues, present admission: End-stage renal disease on peritoneal dialysis -Dr. Diaz of nephrology contacted, will managed the patient's periodic dialysis while he is in the hospital. Appreciate time and expertise. Hypertension -Continue home medications: Amlodipine, carvedilol, clonidine, hydralazine Depression/anxiety -Continue sertraline and as needed alprazolam Normocytic anemia secondary to CKD -Continue monitoring with CBC CODE STATUS: Full code Patient is admitted under observation status with anticipated length of stay less than to midnight due to the patient's symptoms and complexity of evaluation. VTE Prophylaxis Indicated: Meets Criteria for Anticoag Therapy Resuscitation Status: CPR: Attempt Resuscitation Attending Statement The patient was seen and examined together with house staff on 10/13/2016 and I agree with the history, exam and plan as outlined in the note above. Elaine Washburn DO Oct 12, 2016 20:05 Carmenza Felton DO Oct 13, 2016 04:49
[2016-10-12] MEDS ORDERED: Heparin 5,000 Unit/mL Inj IVPUSH PRN (20:30)
[2016-10-12] MEDS ORDERED: Heparin 25K Unit/500mL 0.45 NS 25,000 UNIT in IV Premix 1 EACH IV SCH (20:30)
[2016-10-12] MEDS ORDERED: Non-Formulary Medication (Amlodipine 10 MG) PO SCH (20:30)
[2016-10-12] MEDS ORDERED: SERTRALINE HCL 100 MG PO SCH (21:00)
[2016-10-12] MEDS ORDERED: Lactulose 10 Gm/15 mL 473 mL Solution PO SCH (21:00)
--- NOTE | 2016-10-12 21:15 | NUR ---
Dialysis note: PD cycler tx started. 9 hrs, 4 cycles, 2000 ml fill volume and 200 ml last fill, using 2.5% dextrose solution. PD catheter exit site dsg changed by pt earlier, no s/s of infection noted. Initial drain clear, no fibrin, no sediments noted. Report given to Vane PEREZ.
[2016-10-12] MEDS: cloNIDine 0.1 mg Tablet PO SCH (21:17)
[2016-10-12] MEDS: Lactulose 20 Gm/30 mL 30 mL Syrup PO SCH (21:18)
[2016-10-13] VITALS (8 sets, daily range): BP systolic 99–115; BP diastolic 63–75; PULSE 70–80; RESP 16–20; O2SAT 95–98
--- NOTE | 2016-10-13 05:33 | NUR ---
Admit: Pt arrived to room 3010 around 1945 from ED via WC, pt ambulated self to BR and bed with some mild dizziness noted. Bed alarm on, Tele placed, RA, vitals stable. Pt slept most of the night, pleasant and cooperative with care. Admit completed in the ED.
[2016-10-13 07:49] LABS: BASOPHILS % (AUTO) 1.2 % (0-3); EOSINOPHILS % (AUTO) 6.3 % (0-5); Mean Corpuscular Hemoglobin 29.3 pg (27.0-35.0); Mean Corpuscular Volume 86.2 fL (81-100); NEUTROPHILS % (AUTO) 47.1 % (40-74); Platelet Count 266 bil/L (150-400)
[2016-10-13 07:53] LABS: INR 0.99 ratio
[2016-10-13 07:58] LABS: Magnesium 2.7 mg/dL (1.6-2.6)
[2016-10-13] MEDS ORDERED: LANTHANUM CARBONATE 1000 MG PO SCH (08:00)
[2016-10-13] MEDS: Ondansetron 2 mg/mL 2 mL Inj IVPUSH PRN ×2 (10:07→22:26)
--- NOTE | 2016-10-13 10:22 | NUR ---
Case Management: OCONNOR given and explained to pt's . Connie LADD RN
[2016-10-13] MEDS: cloNIDine 0.1 mg Tablet PO SCH ×3 (10:27→22:32)
[2016-10-13] MEDS: Lanthanum Carbonate 500 mg Chewable Tablet PO SCH ×3 (10:28→17:45)
--- NOTE | 2016-10-13 11:42 | DRSVH ---
PROCEDURE: AL LUNG VQ RADIOPHARMACEUTICAL: 25.6 mCi Tc-99m DTPA aerosol by inhalation and 5.7 mCi Tc-99m MAA intravenously. INDICATIONS: CHEST PAIN, QUESTION OF PULMONARY EMBOLUS TECHNIQUE: Ventilation images were obtained first with Tc-99m DTPA aerosol. Subsequently, perfusion images were acquired after intravenous injection of Tc-99m MAA. Anterior, posterior, BYRD, ABDON, RPO, LPO, left and right lateral views were obtained. COMPARISON: [facility], AL, AL LUNG VQ, 11/08/2015, 15:47. FINDINGS: No abnormality identified that would indicate presence of pulmonary embolus. IMPRESSION: Very low probability of pulmonary embolus, source of chest pain is not identified. Dictated by: Wai Hightower M.D. on 10/13/2016 at 11:40 Approved by: Wai Hightower M.D. on 10/13/2016 at 11:41
[2016-10-13] MEDS: HYDROmorphone 0.5 mg/0.5 mL iSecure Syringe IVPUSH PRN (12:13)
--- NOTE | 2016-10-13 12:17 | DRSVH ---
PROCEDURE: US VENOUS LEG DUPLEX BILATERAL INDICATIONS: chest pain, elevated d dimer. r/o DVT TECHNIQUE: Real-time imaging, as well as color and pulse Doppler interrogation, were performed of the deep veins of both legs from the inguinal ligament to the popliteal fossa. COMPARISON: [facility], US, US VENOUS LEG DPLX BILAT, 11/08/2015, 7:36. FINDINGS: The deep veins are normally compressible, and free of intraluminal thrombus. Color and pu lse Doppler demonstrate normal phasic intravascular flow. There is normal augmentation response to d istal compression maneuver. IMPRESSION: No DVT found bilaterally. Dictated by: Wai Hightower M.D. on 10/13/2016 at 12:15 Approved by: Wai Hightower M.D. on 10/13/2016 at 12:16
--- NOTE | 2016-10-13 14:53 | NUR ---
Social Work-initial assessment/readiness for discharge: Data:See initial assessment. Pt is a 46 y/o male who was admitted on 10/12/16 for chest pain per H&P. Pt's insurance is [employer] and [employer] and PCP is Rehan Golden DO. EMR Reviewed. SW met with pt at bedside, SW role explained. Pt is alert and oriented x3. Pt resides at home with his and 2 daughter in a 4th story apartment. Pt is moving a house in [place] in November. Pt drives and does not use any DME. Pt had HH back in [place] a long time ago, but has no SNF history. Pt has no senior living care insurance or VA benefits. SW discussed DPOA/advanced directive, pt confirms he has completed this, SW encouraged a copy to be brought in. Pt does his own peritoneal dialysis at home. SW provided pt with discharge planning checklist and encouraged pt to call with any questions. SW provided phone number on white board in room. Pt's to provide transport home. No anticipated discharge needs. SW will continue to follow if needs arise. Assessment:Pt who is independent at baseline. Plan:Pt to discharge home when medically stable via POV. No anticipated discharge needs. SW will continue to follow if needs arise. LIZ Hughes Addendum: 10/13/16 at 1458 by BENNY LANCE Amended: Links added.
--- NOTE | 2016-10-13 14:59 | NUR ---
Social Work-multidisciplinary rounds: Per MD pt likely to be ready to discharge home tomorrow. Pt have Echo today. Pt has been up independent his room. No discharge needs. LIZ Hughes
--- NOTE | 2016-10-13 16:25 | PCM.PNMED ---
Subjective Date of Service Oct 13, 2016 Subjective continues to have chest pain and discomfort (mostly pleuritic). Also complains of neck pain and headache Exam Vital Signs Vital Sign - Last Date Time Temp Pulse Resp B/P Pulse Ox O2 Delivery O2 Flow Rate FiO2 10/13/16 12:52 36.4 73 18 99/65 95 Room Air Intake and Output 10/12/16 10/12/16 10/13/16 Cumulative From/Thru 15:00 23:00 07:00 10/12/16 16:25 - 10/13/16 06:06 Intake Total 800 ml 800 ml Output Total 450 ml 450 ml Balance 350 ml 350 ml Intake Oral 800 ml 800 ml Output Urine Total 450 ml 450 ml General: Alert, Oriented X3, Cooperative, No Acute Distress Head: Normal Eyes: PERRLA, EOMI, Scleral Anicteric Nose: Mucous Membr Moist/[place] Mouth: Mucous Membr Moist/[place] Neck: Supple Chest & Lungs: Chest Wall Normal, Clear to auscultation & percussion Cardiovascular: Regular Rate/Rhythm Pulses: NL carotid, radial, femoral, DP, PT Abdomen: Non-tender, Non-distended, Normoactive bowel tones, Soft Extremities: No cyanosis/clubbing/edma bilat Neurological: Grossly Neurologically Intact, Cranial Nerves 2-12 Intact, Normal Speech IVs and Medications Medications Reviewed: Medications were reviewed in detail Lab and Diagnostics Result Diagram: 10/13/16 0525 10/13/16 0525 X-Rays, CTs and MRIs X-RAY CHEST ONE VIEW, PORTABLE IMPRESSION: 1. No acute cardiopulmonary disease. Dictated by: Parrish Galvez M.D. on 10/12/2016 at 17:08 CT BRAIN WITHOUT CONTRAST IMPRESSION: 1. No acute intracranial abnormality Dictated by: Parrish Galvez M.D. on 10/12/2016 at 17:18 Additional Diagnostics Date of Service: 10/13/16 0500 PROCEDURE: NM LUNG VQ IMPRESSION: Very low probability of pulmonary embolus, source of chest pain is not identified. Dictated by: Wai Hightower M.D. on 10/13/2016 at 11:40 Approved by: Wai Hightower M.D. on 10/13/2016 at 11:41 Additional Diagnostics: Date of Service: 10/13/16 0743 PROCEDURE: US VENOUS LEG DUPLEX BILATERAL IMPRESSION: No DVT found bilaterally. Dictated by: Wai Hightower M.D. on 10/13/2016 at 12:15 Approved by: Wai Hightower M.D. on 10/13/2016 at 12:16 Assessment & Plan 46-year-old man with past medical history significant for end-stage renal disease on peritoneal dialysis, hypertension, anemia secondary to chronic kidney disease who presents to the [facility] emergency department due to sharp left-sided chest pain worsened with inspiration for one day associated with syncope # Acute syncopal episode, present on admission - Pulmonary embolism ruled out with negative VQ scan. LE U/S negative for DVT - Stop Heparin drip - Followup pending limited Echo - Cardiology consulted on 10/13. Will followup with recs # Acute chest pain, present on admission. Ongoing - IN ruled out with negative Trop - Followup pending echo - Cardiology consult as noted above # End-stage renal disease on peritoneal dialysis - Appreciate nephrology consult. Will followup with recs. - Further management of peritoneal dialysis per nephrology # Hypertension - Continue home medications: Amlodipine, carvedilol, clonidine, hydralazine # Depression/anxiety - Continue sertraline and as needed alprazolam # Normocytic anemia secondary to CKD - Continue monitoring Dispo: 1-2 days Resuscitation Status: CPR: Attempt Resuscitation Huber Hand Oct 13, 2016 16:25
--- NOTE | 2016-10-13 16:50 | DRSVH ---
[facility] [address] [place] [address] Echocardiogram Report Name: JUANITA BROOKS FStudy Date: 10/13/2016 Height: 68 in Hospital Exam Location: [facility] Weight: 214 lb Gender: Male BSA: 2.1 m2 : 1970 Age: 46 yrs BP: 112/73 mm Hg Reason For Study: Chest pain, SYNCOPE Ordering Physician: Dennis Leosist Performed By: Stiven Mitchell Referring Physician: JAVIER PALACIOS Interpretation Summary The left ventricle is normal in size, wall thickness, and systolic function without any focal wall motion abnormalities. The ejection fraction is estimated to be 55-60%. No significant change since prior study. Procedure: A two-dimensional transthoracic echocardiogram with color flow and Doppler was performed in limited views only. The study quality was technically adequate. Comparison is made with the echocardiogram of 07/16/16. The patient was in normal sinus rhythm during the exam. Left Ventricle: The left ventricle is normal in size, wall thickness, and systolic function without any focal wall motion abnormalities. The ejection fraction is estimated to be 55-60%. Aortic Valve: There is no hemodynamically significant valvular aortic stenosis. Reading Physician:TANA
--- NOTE | 2016-10-13 18:30 | NUR ---
Dialysis note: PD cycler tx started. 9 hrs, 4 cycles, 2000 ml fill volume and 200 ml last fill, using 1.5% and 2.5% dextrose solution. PD catheter exit site dsg changed by pt earlier, no s/s of infection noted. Initial drain clear, no fibrin, no sediments noted. Report given to Gregorio PEREZ.
--- NOTE | 2016-10-13 20:57 | CONS ---
[address] [address] CONSULTATION REPORT PATIENT: JUANITA BROOKS : 1970 MR#: [id number] ADMIT: 10/12/2016 JOB ID: [id number] DATE OF SERVICE: 10/13/2016 HISTORY: The patient is a very pleasant 46-year-old gentleman who is well known to me as he has recently transferred to our group to provide his nephrology services. He has a history of end-stage renal disease and has recently started peritoneal dialysis. He was admitted to [facility] for a syncopal episode and dehydration. Renal consultation is being sought for further evaluation and management of his end-stage renal disease. He states that for the last several days, he has been somewhat dizzy and lightheaded. He also states that he has had some marked changes in his diet and has had considerable thirst. He has also been out in the sunlight on several occasions and has had several near syncopal episodes especially when changing position. Yesterday, he had a syncopal episode and at time of awakening he had some confusion. There was a remote history of a TIA in the past. By the time he got to the emergency department, his only complaint was left intercostal pain which is worsened by deep inspiration and by palpation. He has a history of end-stage renal disease and the etiology of his end-stage renal disease is chronic glomerulonephritis from IgA nephropathy. He is on a nighttime cycler for this. Furthermore, he has a history of hypertension which has no doubt aggravated this. There is a questionable history of lupus in the past. He states that prior to the last several days he had been feeling well and denies any headache, visual disturbances, cough, wheezing, prior chest pain, shortness of breath, nausea, vomiting, diarrhea or constipation. He has had some decrease in oral intake because of a change in his diet. He denies any edema, fever, chills, or rashes. PAST MEDICAL HISTORY: Significant for end-stage renal disease secondary to IgA nephropathy, hypertension with hypertensive heart disease and hypertensive nephrosclerosis, history of a prior pericardial effusion, questionable lupus, migraine cephalgia, and a TIA. PAST SURGICAL HISTORY: Significant for placement of a peritoneal dialysis catheter and a renal biopsy. ALLERGIES: He is allergic to: 1. PENICILLIN. 2. SULFAS. 3. LORAZEPAM. 4. CEFUROXIME. FAMILY HISTORY: Remarkable for diabetes, hypertension, TIA, and stroke. SOCIAL HISTORY: He denies the current use of alcohol, tobacco, or illicit drugs and has a remote history of tobacco use. MEDICATIONS: At time of admission include: 1. Amlodipine. 2. Carvedilol. 3. Cholecalciferol. 4. Clonidine. 5. Gabapentin. 6. Hydralazine. 7. Sertraline. 8. [place] carbonate . REVIEW OF SYSTEMS: As detailed above. Otherwise is unremarkable. PHYSICAL EXAMINATION: Revealed a well-developed, 46-year-old gentleman who was alert and oriented x3 and in no distress at time of my evaluation. His blood pressure taken by me supine was approximately 126/78 with a pulse rate of 74. Upon sitting and waiting several minutes, his systolic blood pressure dropped to approximately 112 with a thready pulse that could not be obtained. The patient did feels mildly lightheaded. HEENT examination is remarkable for pale sclerae and moist mucous membranes. Neck is supple without adenopathy, thyromegaly or jugular venous distention. Lungs are clear to auscultation. Heart was regular and rhythmical with a soft systolic murmur. Abdomen is soft, without any tenderness, rebound, guarding, masses or hepatosplenomegaly. Peritoneal catheter was in place and there was no tenderness or evidence of a tunnel infection. Extremities did not show any evidence of any clubbing, cyanosis, or edema. Skin turgor is good. There is no evidence of any rashes. LABORATORY EXAMINATION: Today, his white count is 10.2, hemoglobin 13.4. Sodium is 138, potassium 3.8, chloride 97, bicarbonate 20, BUN and creatinine were 40 and 5.93 respectively. IMPRESSION: 1. End-stage renal disease, dialysis-dependent. 2. IgA nephropathy, by history. 3. Hypertension with hypertensive heart disease and hypertensive nephrosclerosis. RECOMMENDATION: I will write his orders for a cycler for his peritoneal dialysis this evening. His total volume will be 8500 mL. He will do four cycles with a 2000 fill volume with 1.5% Dianeal alternating with 2.5 and his last will be 100 mL. Once again, I would like to thank you for allowing me to participate in the care of this most pleasant and interesting patient. I will be following him closely with you.
[2016-10-13] MEDS: Lactulose 20 Gm/30 mL 30 mL Syrup PO SCH (21:00)
[2016-10-13] MEDS: oxyCODONE-Acetamin 5-325 mg Tablet PO PRN (22:35)
[2016-10-14] VITALS (8 sets, daily range): BP systolic 110–123; BP diastolic 67–80; PULSE 70–82; RESP 16–20; O2SAT 96
--- NOTE | 2016-10-14 05:22 | NUR ---
Pain: Pt c/o chest pain 06/13, per pt request, PO pain medication administered; effective. Pt c/o heart burn, new order x1 for tums; effective. Pt slept most of the night, pleasant and cooperative with care. Report given to Crystal Christine RN.
[2016-10-14 05:56] LABS: Magnesium 2.5 mg/dL (1.6-2.6)
[2016-10-14 06:02] LABS: Mean Corpuscular Volume 86.8 fL (81-100)
[2016-10-14] MEDS: Lanthanum Carbonate 500 mg Chewable Tablet PO SCH ×3 (08:00→17:58)
[2016-10-14] MEDS: Ondansetron 2 mg/mL 2 mL Inj IVPUSH PRN ×2 (08:41→09:55)
[2016-10-14] MEDS: cloNIDine 0.1 mg Tablet PO SCH ×3 (09:37→22:26)
--- NOTE | 2016-10-14 10:45 | NUR ---
Social Work-multidisciplinary rounds: Per MD pt likely to be ready to discharge home later today or tomorrow. Pt to have cardiology consult today. Pt has been up independent his room. No discharge needs. LIZ Hughes
[2016-10-14] MEDS: 0.9% Sodium Chloride 1,000 ML IV SCH (11:26)
--- NOTE | 2016-10-14 13:03 | PCM.PNNEPH ---
Subjective Date of Service Oct 14, 2016 Subjective Patient is still having symptomatic orthostasis. I have asked cardiology to see him and appreciate their input he is scheduled to undergo heart catheterization tomorrow. He has small to moderate oral intake and this is been encouraged. Otherwise he denies any chest further chest pain nausea or vomiting. Exam Vital Signs Vital Sign - Last Date Time Temp Pulse Resp B/P Pulse Ox O2 Delivery O2 Flow Rate FiO2 10/14/16 12:45 36.4 70 18 111/70 96 Room Air Intake and Output 10/13/16 10/13/16 10/14/16 Cumulative From/Thru 15:00 23:00 07:00 10/12/16 16:25 - 10/14/16 06:26 Intake Total 3156 ml 400 ml 4356 ml Output Total 2600 ml 900 ml 3950 ml Balance 556 ml -500 ml 406 ml Intake Oral 3156 ml 400 ml 4356 ml Output Urine Total 2600 ml 900 ml 3950 ml # Bowel Movements 0 0 Exam Lungs are clear to auscultation. Heart is regular and rhythmical with a soft systolic murmur. Abdomen is soft without any tenderness rebound guarding masses or hepatosplenomegaly. Extremities do not show any evidence of any clubbing, cyanosis, or edema. Skin turgor skull. Lab and Diagnostics Result Diagram: 10/14/16 0519 10/14/16 05 X-Rays, CTs and MRIs X-RAY CHEST ONE VIEW, PORTABLE IMPRESSION: 1. No acute cardiopulmonary disease. Dictated by: Parrish Galvez M.D. on 10/12/2016 at 17:08 CT BRAIN WITHOUT CONTRAST IMPRESSION: 1. No acute intracranial abnormality Dictated by: Parrish Galvez M.D. on 10/12/2016 at 17:18 Additional Diagnostics Date of Service: 10/13/16 0500 PROCEDURE: NM LUNG VQ IMPRESSION: Very low probability of pulmonary embolus, source of chest pain is not identified. Dictated by: Wai Hightower M.D. on 10/13/2016 at 11:40 Approved by: Wai Hightower M.D. on 10/13/2016 at 11:41 Plan Impression Impression #1 end-stage renal disease dialysis dependent #2 acute intravascular volume depletion with orthostatic which is resolving #3 IgA nephropathy for hypertension with hypertensive heart disease hypertensive nephrosclerosis #5 chest pain Recommendations #1 I will change his CCPD protocol to 1.5 exchanges and I would also like to start him on some cautious volume expansion. Raimundo Diaz DO Oct 14, 2016 13:03
--- NOTE | 2016-10-14 13:07 | PCM.PNNEPH ---
Subjective Date of Service Oct 14, 2016 Exam Vital Signs Vital Sign - Last Date Time Temp Pulse Resp B/P Pulse Ox O2 Delivery O2 Flow Rate FiO2 10/14/16 12:45 36.4 70 18 111/70 96 Room Air Intake and Output 10/13/16 10/13/16 10/14/16 Cumulative From/Thru 15:00 23:00 07:00 10/12/16 16:25 - 10/14/16 06:26 Intake Total 3156 ml 400 ml 4356 ml Output Total 2600 ml 900 ml 3950 ml Balance 556 ml -500 ml 406 ml Intake Oral 3156 ml 400 ml 4356 ml Output Urine Total 2600 ml 900 ml 3950 ml # Bowel Movements 0 0 Lab and Diagnostics Result Diagram: 10/14/16 0519 10/14/16 0519 X-Rays, CTs and MRIs X-RAY CHEST ONE VIEW, PORTABLE IMPRESSION: 1. No acute cardiopulmonary disease. Dictated by: Prarish Galvez M.D. on 10/12/2016 at 17:08 CT BRAIN WITHOUT CONTRAST IMPRESSION: 1. No acute intracranial abnormality Dictated by: Parrish Gavlez M.D. on 10/12/2016 at 17:18 Additional Diagnostics Date of Service: 10/13/16 0500 PROCEDURE: NM LUNG VQ IMPRESSION: Very low probability of pulmonary embolus, source of chest pain is not identified. Dictated by: Wai Hightower M.D. on 10/13/2016 at 11:40 Approved by: Wai Hightower M.D. on 10/13/2016 at 11:41 Raimundo Diaz DO Oct 14, 2016 13:07 PROCEDURE: NM LUNG VQ IMPRESSION: Very low probability of pulmonary embolus, source of chest pain is not identified. Dictated by: Wai Hightower M.D. on 10/13/2016 at 11:40 Approved by: Wai Hightower M.D. 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 Objective otherwise continue on his current medical therapy. Raimundo Diaz DO Oct 14, 2016 13:07
--- NOTE | 2016-10-14 13:15 | DRSVH ---
PROCEDURE: MRI BRAIN WITHOUT CONTRAST ([id number]) INDICATIONS: Transient left sided weakness TECHNIQUE: Noncontrast axial T1 spin echo, axial T2 fast spin echo, sagittal and axial FLAIR, coronal T2 fast sp in echo, axial gradient echo, axial diffusion and ADC through the brain. COMPARISON: [facility], MR, MR BRAIN WO CON, 07/16/2016, 7:26. FINDINGS: Image quality: Partly degraded by motion artifact. CSF Spaces: Basal cisterns are patent. No extra-axial fluid collections. Ventricles are normal in size and shape. Brain: No intracranial masses or hemorrhage. There is a mild degree of patchy high FLAIR signal with in the periventricular and subcortical white matter, as before. Crowe/white matter interface is normal . Brainstem appears normal. Diffusion-weighted images demonstrate no acute ischemic insult. No chr onic ischemic insults. Normal intravascular flow voids are present. Skull and face: Calvarium has normal marrow signal. Orbits appear normal. Sinuses: Sinuses and mastoids are clear. IMPRESSION: 1. No acute intracranial process. No recent infarct. 2. No change in mild nonspecific white matter disease. Differential considerations include early smal l vessel ischemic disease, migraines, diabetes mellitus, vasculitides, and demyelinating disorders, s uch as multiple sclerosis. Dictated by: Coy Bentley M.D. on 10/14/2016 at 13:08 Approved by: Coy Bentley M.D. on 10/14/2016 at 13:13
--- NOTE | 2016-10-14 13:17 | DRSVH ---
PROCEDURE: MRA ANGIOGRAM HEAD WITHOUT CONTRAST ([id number]) INDICATIONS: TRANSIENT LEFT SIDED WEAKNESS TECHNIQUE: Noncontrast axial 3-D [id number] MR angiogram, with 3-dimensional maximum intensity projection (M IP) reformats of the internal carotid arteries and posterior circulation then performed. COMPARISON: None. FINDINGS: Image quality: Excellent. Anterior circulation: Intracranial internal carotid arteries demonstrate normal size and intralumina l flow signal. The flow within the paired anterior cerebral arteries is normal and symmetric. The f low within the middle cerebral arteries is normal and symmetric. The anterior communicating artery i s seen. No stenoses, occlusions, or aneurysms. Posterior circulation: Visualized portions of the vertebral arteries demonstrate normal caliber, and join to form a normal appearing basilar artery. The flow within the posterior cerebral arteries is normal and symmetric. No stenoses, occlusions, or aneurysms. IMPRESSION: Negative cerebral MR angiography. Dictated by: Coy Bentley M.D. on 10/14/2016 at 13:13 Approved by: Coy Bentley M.D. on 10/14/2016 at 13:14
--- NOTE | 2016-10-14 13:30 | CONS ---
[address] [address] CARDIOLOGY INPATIENT CONSULTATION REPORT PATIENT: JUANITA BROOKS : 1970 MR#: [id number] ADMIT: 10/12/2016 JOB ID: [id number] DATE OF SERVICE: 10/14/2016 REASON FOR CONSULTATION: Syncopal episode and chest pain. HISTORY OF PRESENT ILLNESS: This is a very pleasant, 46-year-old gentleman with a history of hypertension and end-stage renal disease, on peritoneal dialysis, who was admitted to [facility] on October 12, 2016, with a syncopal episode and chest pain. The patient tells me that he has been on hemodialysis, starting September 2015. He had a tunneled catheter on the right side which was taken out in January 2016 when he was switched to peritoneal dialysis. In July 2016, he had an inguinal hernia surgery and he had a tunneled catheter put back on the right side and he was switched to hemodialysis again for that surgery. Two weeks ago, his right-side tunneled catheter was taken out and he was switched back to peritoneal dialysis. The patient tells me that one week before the tunneled catheter was removed it got infected. The area around it got red. It was painful and there was a small amount of what looks like yellow pus coming out, and around that time, he started having chills, nauseated and lightheaded and he got four injections of vancomycin every other day when he had hemodialysis and then catheter was removed. The tunneled catheter was removed and currently he is on peritoneal dialysis. He tells me that once catheter was removed and after vancomycin injections, his chills got better but he still continues having chills, maybe several times a week. He denies having fever though. Since catheter was removed, interestingly, he starting having pain on the left side of his chest. It is very localized, small area where he gets a sharp pain periodically and it gets aggravated with deep breathing, not radiating anywhere, and it is reproducible with palpation. This chest pain is not exertional. Also, he tells me that since his catheter was removed two weeks ago, he noticed that his dizziness and nausea got worse. He feels more lightheaded. He denies having any palpitations, any shortness of breath. He denies having any angina. He is physically active and denies any history of angina. He does not have symptoms of nocturnal pulmonary congestion. He tells me that on the day of admission, October 12, in the morning, he got up, he did morning routines and then went to see his mother at 11 a.m., and when he was talking to her, suddenly he felt that he was very lightheaded. He did not feel any palpitations and felt a little nauseous, and he felt that his knees were buckling and then felt like he was going to pass out, but he never passed out. He was given cold water to drink and he had toast and he got better. After that, he came home, sat on his bed, and he was leaning forward, putting away under the bed his gun, and when he sat up, he felt very dizzy, lightheaded, and suddenly passed out. He does not know how long he was unconscious. He thinks it was couple of minutes. His daughter was at home but she was in another room. She did not witness him passing out. When he regained consciousness, he did not have any incontinence. He does not have history of seizures. He got up and went to bathroom. He had a bowel movement and after bowel movement, he wanted to wash his hands and by that time, the daughter came to the bathroom door and waiting for him from outside when he suddenly again passed out without any prior symptoms. Because it was not too much space between sink and wall, he did not fall on floor but he just was between sink and wall. When he gained his consciousness, the patient states that he had weakness in his left arm and left leg and some tingling sensation in both extremities. Per his daughter he was unconscipassed out like one minute or so. He did not want to call 911. His daughter brought him in the ER. The patient tells me when he was going downstairs he actually was dragging his left leg and also when he wanted to drink the water, he noted that he had hard time swallowing. The patient tells me that he has a history of TIA twice, one six months ago and one, one year ago. Both times he had left-side lateralization with some swallowing involved. At this time, when he had the syncopal episode, he did not have any speech problems involved. The patient tells me generally since he his right-side tunneled catheter was removed, he has not been feeling well. One month ago, he was seen in the [facility]. He had a consultation for prerenal transplant and the patient tells me that he is waiting currently for the call from Cardiology to be evaluated He has obstructive sleep apnea and he has a sleep study scheduled for October 16, 2016. He tells me that he had a Lexiscan stress test done a year and half ago in [place], which was done after he had a profound weakness and he had a hard time getting out from the bed. He was told that the stress test was normal. I do not have any records of it. Generally, the patient has never seen a coil shaper in the past. He also tells me that he was told in [place] that he had a "hole in the heart," which is common. It is hard to say if it was ASD or PFO or VSD because he does not remember it. Since admission to hospital, he still continues to feel periodically lightheaded, although he is mainly in the bed. Today, in the morning, he got up and went to bathroom and urinated and washed his hands, and then he felt extremely dizzy, feeling like passing out and also felt very nauseated. He sat down on the floor and then vomited. This is the first time that he ever vomited, although he has been feeling nauseated on and off. Also the patient tells me that yesterday he again had chills. It was warm weather, when he suddenly developed chills during the day and he needed a lot of blankets. He denies tobacco smoking history. He uses alcohol occasionally. Denies recreational drug use. Denies family history of coronary artery disease. REVIEW OF SYSTEMS: A 12-point review of systems is negative except the ones mentioned in HPI. HOME MEDICATIONS: His home cardiac medications include: 1. Amlodipine 10 mg daily. 2. Carvedilol 6.25 mg tablet, 12.5 mg p.o. b.i.d. 3. He is also on clonidine 0.1 mg t.i.d. 4. Hydralazine 25 mg p.o. t.i.d. 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 Anemia of chronic disease. Hypertension. History of TIA six months ago and one year ago with left side lateralization. SURGICAL HISTORY: Kidney biopsy, right-sided peritoneal dialysis catheter. EXAM: Vital signs: Temperature is 36.6, pulse 75 beats per minute. Respiratory 18 per minute, blood pressure 112/76 mmHg. Pulse oximetry 96% saturation on room air. General: No acute distress, lying in the bed,Cooperative. EENT: Mucous membranes moist, sclerae anicteric. Neck supple. No thyromegaly. Pulm: Normal breathing sounds bilaterally. No crackles. No wheezing. Cardiac: Regular rate and rhythm. Normal S1, S2. No murmur appreciated. No rubs appreciated. JVP is not elevated. Extremities: No lower extremity edema. Abdomen: Nontender with palpation, soft. Neuro: Alert and oriented x3. On Neuro gross exam, he has a slight weakness in his left arm; no other gross abnormalities noted. LABS: From October 14, 2016: White blood cells 10.7, red blood cells 4.38, hemoglobin 12.7, hematocrit 38. Sodium 136, potassium 4.1, chloride 97, carbon dioxide 23, BUN 34, creatinine 5.7, glucose 119. Calcium 8.9, magnesium 2.5. He had an elevated D-dimer on admission, 1.22, and he had a V/Q scan done on October 13 which was reported very low probability of pulmonary embolus. Echo was done on October 13, 2016, and it was reported that left ventricle is normal in size, wall thickness, and systolic function without any focal wall motion abnormalities. The ejection fraction is estimated at 55 - 60%. No significant changes since prior study. Prior echo was done on July 16, 2016, and it was noted no evidence of valvular pathology. 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 History of TIA in the past. Admitted on October 12, 2016, after presyncope and two syncopal episodes the same day and with chest pain. # Chest pain is noncardiac in origin. It is reproducible with palpation and also has pleuritic features. It is located in left side of his chest. He had negative troponins. On EKG on admission was in sinus rhythm with heart rate 81, no ischemic changes. The patient denies having a history of angina. On echo which was done on October 13, 2016, preserved LV function, no wall motion abnormalities #. Syncopal episode. Per telemetry, the patient has not been having any dysrhythmia so far while at hospital. He is in sinus rhythm with a heart rate 70 beats per minute. Actually when I came in the room to talk to patient, he told me that 5 minutes before that he felt presyncopal, sat on the floor and vomited. When I looked on the telemetry, there were no alerts and no dysrhythmia going on at that time. As I noted above, he has a slight weakness in his left arm; and after syncopal episode he felt like weakness in his left arm and leg. He does have a history of TIA in the past. With these symptoms he describes, I think it would be helpful to do brain MRI. He had a noncontract head CT done when he was admitted, and it did not show any acute intracranial abnormalities. Also, the patient as I noted above, stated that he has been having chills since his right tunneled catheter was infected and removed and last chills he had yesterday while in the hospital. He had four vancomycin injections two weeks ago. I spoke with the bottle machine operator, Dr. Diaz, and nephrology team is going to do blood culture. This will be managed by hospitalist and followed by Nephrology. As I noted above, his chest pain is noncardiac in origin, but taking in mind his end-stage renal disease, he is high risk for coronary artery disease, and taking in mind that he is pretransplant candidate and per request of bottle machine operator, Dr. Diaz, will go ahead and do cardiac catheterization while patient is in the hospital to rule out any ischemic disease. This potentially is planned to be done tomorrow, on October 15, 2016. For that reason we will keep the patient n.p.o. status, midnight. Continue current medications. # Hypertension. His blood pressure is pretty much well controlled. # End-stage renal disease, on peritoneal dialysis. # Glomerulonephritis secondary to immunoglobulin A nephropathy, on peritoneal dialysis. # Chronic anemia The case was discussed with coil shaper, Dr. Garrido, who agreed with assessment and plan. KEVIN
--- NOTE | 2016-10-14 14:39 | PCM.PNMED ---
Subjective Date of Service Oct 14, 2016 Subjective continues to have chest pain and discomfort (mostly pleuritic). Reports transient left sided weakness earlier this morning and prior to admission as well. Exam Vital Signs Vital Sign - Last Date Time Temp Pulse Resp B/P Pulse Ox O2 Delivery O2 Flow Rate FiO2 10/14/16 12:45 36.4 70 18 111/70 96 Room Air Intake and Output 10/13/16 10/13/16 10/14/16 Cumulative From/Thru 15:00 23:00 07:00 10/12/16 16:25 - 10/14/16 06:26 Intake Total 3156 ml 400 ml 4356 ml Output Total 2600 ml 900 ml 3950 ml Balance 556 ml -500 ml 406 ml Intake Oral 3156 ml 400 ml 4356 ml Output Urine Total 2600 ml 900 ml 3950 ml # Bowel Movements 0 0 Exam General: Alert, Oriented x 3, Cooperative, No Acute Distress Head: Normal Eyes: PERRLA, EOMI, Scleral Anicteric Nose: Mucous Membr Moist/Kinsey Mouth: Mucous Membr Moist/Kinsey Neck: Supple Chest & Lungs: Chest Wall Normal, Clear to auscultation bilat Cardiovascular: Regular Rate/Rhythm Pulses: NL carotid Abdomen: Non-tender, Non-distended, Normoactive bowel tones, Soft Extremities: No cyanosis/clubbing/edema bilat Neurological: Grossly Neurologically Intact, Cranial Nerves 2-12 Intact, Normal Speech IVs and Medications Medications Reviewed: Medications were reviewed in detail Lab and Diagnostics Result Diagram: 10/14/1651810/14/16 05 X-Rays, CTs and MRIs X-RAY CHEST ONE VIEW, PORTABLE IMPRESSION: 1. No acute cardiopulmonary disease. Dictated by: Parrish Galvez M.D. on 10/12/2016 at 17:08 CT BRAIN WITHOUT CONTRAST IMPRESSION: 1. No acute intracranial abnormality Dictated by: Parrish Galvez M.D. on 10/12/2016 at 17:18 Additional Diagnostics Date of Service: 10/13/16 0500 PROCEDURE: NM LUNG VQ IMPRESSION: Very low probability of pulmonary embolus, source of chest pain is not identified. Dictated by: Wai Hightower M.D. on 10/13/2016 at 11:40 Approved by: Wai Hightower M.D. on 10/13/2016 at 11:41 Assessment & Plan 46-year-old man with past medical history significant for end-stage renal disease on peritoneal dialysis, hypertension, anemia secondary to chronic kidney disease who presents to the [facility] emergency department due to sharp left-sided chest pain worsened with inspiration for one day associated with syncope # Acute chest pain, present on admission. Ongoing - KS ruled out with negative Trop - Pulmonary embolism ruled out with negative VQ scan. LE U/S negative for DVT - Echo without acute finding - Appreciate cardiology consult. Will followup with recommendations - Plan for cardiac cath on 10/15 # Acute syncopal episode, present on admission - Echo as noted above # Report of recurrent transient left sided weakness. - MRI brain to rule out CVA - Check carotid artery U/S - Echo as noted above # End-stage renal disease on peritoneal dialysis - Appreciate nephrology consult. Will followup with recs. - Further management of peritoneal dialysis per nephrology # Hypertension - Continue current medications # Depression/anxiety - Continue sertraline and as needed alprazolam # Normocytic anemia secondary to CKD - Continue monitoring Dispo: 1-2 days Resuscitation Status: CPR: Attempt Resuscitation Huber Hand Oct 14, 2016 14:39
--- NOTE | 2016-10-14 14:48 | CONS ---
[address] [address] CONSULTATION REPORT PATIENT: JUANITA BROOKS : 1970 MR#: [id number] ADMIT: 10/12/2016 JOB ID: [id number] DATE OF SERVICE: 10/14/2016 REQUESTED BY: Huber Hand MD and Raimundo Diaz DO. Please see Mr. Zay Lara's notes for details. IMPRESSION: 1. Syncope, likely due to dehydration. 2. End-stage renal disease, on peritoneal dialysis. 3. Hypertension. 4. Noncardiac chest pain. PLAN: I believe that the patient was dehydrated since Thursday when he went to [employer] and was out in the sun. He continued to use peritoneal dialysis at the same amount and take his antihypertensive medications. This is likely the cause of his syncope on Thursday. The patient had warning symptom of dizziness. I will arrange for the patient to undergo a coronary angiogram as a part of pretransplant evaluation per Dr. Diaz's request. The risks and benefits of the procedure have been explained to the patient. He understands and agrees to proceed with the procedure. KEVIN
--- NOTE | 2016-10-14 15:57 | NUR ---
PD Dialysis note: Set up cycler; Total 8500, each fill 2000, 9 hrs on cycler, 4 cycles. last fill 200. Patient will hook himself up later this evening. Addendum: 10/14/16 at 1559 by WINSOME HUSSEIN RN Pt will assess initial drain and dressing.
--- NOTE | 2016-10-14 18:14 | NUR ---
Case Management: Explained IMM to patient at 1800, pt denied questions. Signed original placed in chart, pt given a copy. Danitza Calderón RN
--- NOTE | 2016-10-14 18:30 | NUR ---
Nausea/dizziness/vomiting Patient reporting nausea prior to breakfast. Requested 4 mg Zofran. Patient later reporting his nausea was better, he ate breakfast then got up to the bathroom. Patient then became dizzy and nausea, he then sat down on the floor and then vomited. Patient then requested another 4 mg of Zofran-denied further nausea this shift.
[2016-10-14] MEDS: Lactulose 20 Gm/30 mL 30 mL Syrup PO SCH (21:00)
[2016-10-15] VITALS (17 sets, daily range): BP systolic 96–134; BP diastolic 61–94; PULSE 60–76; RESP 12–24; O2SAT 94–99
[2016-10-15] MEDS: 0.9% Sodium Chloride 1,000 ML IV SCH (01:44)
--- NOTE | 2016-10-15 06:11 | NUR ---
Uneventful Night: Pt had an uneventful night, no c/o pain, chest pain or SOB. Pt slept most of the night, pleasant and cooperative with care.
[2016-10-15 06:19] LABS: BASOPHILS % (AUTO) 0.7 % (0-3); EOSINOPHILS % (AUTO) 5.3 % (0-5); Mean Corpuscular Hemoglobin 28.8 pg (27.0-35.0); Mean Corpuscular Volume 87.2 fL (81-100); NEUTROPHILS % (AUTO) 55.8 % (40-74); Platelet Count 259 bil/L (150-400)
[2016-10-15] MEDS: Lanthanum Carbonate 500 mg Chewable Tablet PO SCH ×4 (08:00→17:21)
[2016-10-15] MEDS ORDERED: Ergocalciferol (Vit D2) 50,000 Unit Capsule PO SCH (08:30)
[2016-10-15] MEDS: cloNIDine 0.1 mg Tablet PO SCH ×3 (08:45→19:55)
[2016-10-15] MEDS: HYDROmorphone 0.5 mg/0.5 mL iSecure Syringe IVPUSH PRN ×3 (08:53→21:23)
--- NOTE | 2016-10-15 10:30 | NUR ---
Social Work-multidisciplinary rounds/ readiness for discharge: Data:EMR Reviewed. Pt is on day 3 of hospitalization for chest pain per H&P. Pt is not medically stable anticipate tomorrow. Pt does his own peritoneal dialysis at home. Pt to have heart cath today around 1430. Per RN notes, pt has been up independent in his room. No anticipated discharge needs. SW will continue to follow if needs arise. Assessment:Pt who is independent at baseline. Plan:Pt to discharge home when medically stable via POV. No anticipated discharge needs. SW will continue to follow if needs arise. LIZ Hughes
--- NOTE | 2016-10-15 11:38 | PCM.PNNEPH ---
Subjective Date of Service Oct 15, 2016 Subjective The patient is continuing to improve. He is had no issues with dizziness, lightheadedness, or evidence of orthostasis. He is tolerating his diet and is scheduled to have a cardiac cath later today. This morning his hemoglobin is 12.4, sodium was 140 potassium 4.0 chloride 104 bicarbonate 20 BUN and creatinine were 33 and 5.5. Exam Vital Signs Vital Sign - Last Date Time Temp Pulse Resp B/P Pulse Ox O2 Delivery O2 Flow Rate FiO2 10/15/16 11:03 75 10/15/16 05:50 36.3 18 114/73 94 Room Air Intake and Output 10/14/16 10/14/16 10/15/16 Cumulative From/Thru 15:00 23:00 07:00 10/12/16 16:25 - 10/15/16 06:07 Intake Total 1000 ml 200 ml 5556 ml Output Total 1281.00 ml 400 ml 5631.00 ml Balance -281.00 ml -200 ml -75.00 ml Intake Oral 1000 ml 200 ml 5556 ml Output Urine Total 600 ml 400 ml 4950 ml Ultrafiltrate 681.00 ml 681.00 ml # Bowel Movements 0 0 Exam Neck is supple without adenopathy, thyromegaly, or jugular venous distention. Lungs are clear to auscultation. Heart is regular rhythmic with a soft systolic murmur. Abdomen soft without tenderness or rebound guarding masses or hepatosplenomegaly. Extremities do not show any evidence of any clubbing, cyanosis, or edema. Skin turgor is good. Lab and Diagnostics Result Diagram: 10/15/16 0535 10/15/16 0535 X-Rays, CTs and MRIs X-RAY CHEST ONE VIEW, PORTABLE IMPRESSION: 1. No acute cardiopulmonary disease. Dictated by: Parrish Galvez M.D. on 10/12/2016 at 17:08 CT BRAIN WITHOUT CONTRAST IMPRESSION: 1. No acute intracranial abnormality Dictated by: Parrish Galvez M.D. on 10/12/2016 at 17:18 Additional Diagnostics Date of Service: 10/13/16 0500 PROCEDURE: NM LUNG VQ IMPRESSION: Very low probability of pulmonary embolus, source of chest pain is not identified. Dictated by: Wai Hightower M.D. on 10/13/2016 at 11:40 Approved by: Wai Hightower M.D. on 10/13/2016 at 11:41 Plan Impression Impression #1 end-stage renal disease dialysis dependent #2 dehydration stasis which is resolved number 3IG nephropathy Recommendations #1 over to stop his IV fluids and will put him back on his regular physician. Schedule all of 2.5% exchanges. We will refer. Raimundo Diaz DO Oct 15, 2016 11:37
[2016-10-15] MEDS ORDERED: Heparin 1,000 Units/500 mL NS Premix IV ONE (13:33)
[2016-10-15] MEDS ORDERED: Nitroglycerin 50,000 mcg/250 mL D5W Premix IV ONE (13:34)
[2016-10-15] MEDS ORDERED: Heparin 10,000 Unit/1,000 mL NS Premix IV ONE (13:34)
[2016-10-15] MEDS ORDERED: fentaNYL-PF 50 mCg/mL 2 mL Inj ONE (14:01)
[2016-10-15] MEDS ORDERED: Atropine 1 mg/10 mL (Code) Syringe IVPUSH PRN (15:20)
[2016-10-15] MEDS ORDERED: 0.9% Sodium Chloride 250 ML BOLUS IV PRN (15:20)
[2016-10-15] MEDS ORDERED: Ondansetron 2 mg/mL 2 mL Inj IVPUSH PRN (15:20)
[2016-10-15] MEDS ORDERED: 0.9% Sodium Chloride 400 ML (4 HRS) IV ONE (15:20)
[2016-10-15] MEDS ORDERED: Sodium Chloride LOK Flush 10 mL Syringe IVFLUSH PRN (15:20)
--- NOTE | 2016-10-15 16:49 | PCM.PNMED ---
Subjective Date of Service Oct 15, 2016 Subjective Denies any new issues/complaints Exam Vital Signs Vital Sign - Last Date Time Temp Pulse Resp B/P Pulse Ox O2 Delivery O2 Flow Rate FiO2 10/15/16 16:30 62 16 106/67 10/15/16 16:30 96 Room Air 10/15/16 13:37 36.3 Intake and Output 10/14/16 10/14/16 10/15/16 Cumulative From/Thru 15:00 23:00 07:00 10/12/16 16:25 - 10/15/16 06:07 Intake Total 1000 ml 200 ml 5556 ml Output Total 1281.00 ml 400 ml 5631.00 ml Balance -281.00 ml -200 ml -75.00 ml Intake Oral 1000 ml 200 ml 5556 ml Output Urine Total 600 ml 400 ml 4950 ml Ultrafiltrate 681.00 ml 681.00 ml # Bowel Movements 0 0 Exam General: Alert, Oriented x 3, Cooperative, No Acute Distress Head: Normal Eyes: PERRLA, EOMI, Scleral Anicteric Nose: Mucous Membr Moist/[place] Mouth: Mucous Membr Moist/[place] Neck: Supple Chest & Lungs: Chest Wall Normal, Clear to auscultation bilat Cardiovascular: Regular Rate/Rhythm Pulses: NL carotid Abdomen: Non-tender, Non-distended, Normoactive bowel tones, Soft Extremities: No cyanosis/clubbing/edema bilat Neurological: Grossly Neurologically Intact, Cranial Nerves 2-12 Intact, Normal Speech IVs and Medications Medications Reviewed: Medications were reviewed in detail Lab and Diagnostics Result Diagram: 10/15/16 0535 10/15/16 0535 X-Rays, CTs and MRIs X-RAY CHEST ONE VIEW, PORTABLE IMPRESSION: 1. No acute cardiopulmonary disease. Dictated by: Parrish Galvez M.D. on 10/12/2016 at 17:08 CT BRAIN WITHOUT CONTRAST IMPRESSION: 1. No acute intracranial abnormality Dictated by: Parrish Galvez M.D. on 10/12/2016 at 17:18 Additional Diagnostics Date of Service: 10/13/16 0500 PROCEDURE: NM LUNG VQ IMPRESSION: Very low probability of pulmonary embolus, source of chest pain is not identified. Dictated by: Wai Hightower M.D. on 10/13/2016 at 11:40 Approved by: Wai Hightower M.D. on 10/13/2016 at 11:41 Assessment & Plan 46-year-old man with past medical history significant for end-stage renal disease on peritoneal dialysis, hypertension, anemia secondary to chronic kidney disease who presents to the emergency department due to sharp left-sided chest pain worsened with inspiration for one day associated with syncope # Acute chest pain, present on admission. Ongoing - [place] ruled out with negative Trop - Pulmonary embolism ruled out with negative VQ scan. LE U/S negative for DVT - Echo without acute finding - Appreciate cardiology consult. Will followup with recommendations - Plan for cardiac cath on 10/15 # Acute syncopal episode, present on admission - Echo as noted above # Report of recurrent transient left sided weakness. - MRI brain on 10/14 ruled out CVA - Echo as noted above # End-stage renal disease on peritoneal dialysis - Appreciate nephrology consult. Will followup with recs. - Further management of peritoneal dialysis per nephrology # Hypertension - Continue current medications # Depression/anxiety - Continue sertraline and as needed alprazolam # Normocytic anemia secondary to CKD - Continue monitoring Dispo: 1-2 days Resuscitation Status: CPR: Attempt Resuscitation Huber Hand Oct 15, 2016 16:48
--- NOTE | 2016-10-15 17:15 | NUR ---
JARET Patient to [facility] bed 6 from dairy laboratory technician/heart cath at 1450. Right groin star close without bleeding or hematoma. Pedal pulses present. Patient denies pain except right groin tender with palpation. Family at bedside Patient taking PO and void pr urinal. Transfer back to room 3010 by bed at 1705. Recieving RN notified.
--- NOTE | 2016-10-15 18:26 | NUR ---
Insertion site Patient site clean/dry/intact. No seepage noted. Tender to palpitation. Pain relieved with medication.
[2016-10-15] MEDS: Lactulose 20 Gm/30 mL 30 mL Syrup PO SCH (19:55)
[2016-10-15] MEDS: oxyCODONE-Acetamin 5-325 mg Tablet PO PRN (20:02)
[2016-10-16 01:23] VITALS: BP 124/85; PULSE 69; RESP 16; O2SAT 95
[2016-10-16 04:27] VITALS: BP 106/72; PULSE 71; RESP 16; O2SAT 98
[2016-10-16 06:28] LABS: Mean Corpuscular Volume 88.1 fL (81-100)
[2016-10-16 07:05] VITALS: PULSE 70
--- NOTE | 2016-10-16 07:26 | CS94 ---
[address] [address] DIAGNOSTIC CARDIAC CATHETERIZATION PATIENT: JUANITA BROOKS : 1970 MR#: [id number] ADMIT: 10/12/2016 JOB ID: [id number] SERVICE DATE: 10/15/2016 PATIENT PROFILE: The patient is a 46-year-old male with end-stage renal failure on peritoneal dialysis. This is for pre renal transplantation evaluation. PROCEDURE: 1. Retrograde left heart catheterization. 2. Selective coronary angiography. 3. Left ventricular angiogram. VASCULAR CLOSURE DEVICE: Perclose. COMPLICATION: None. METHOD: Retrograde left heart catheterization was performed from the right groin under 1% lidocaine local anesthesia using a 6-Ind[place] sheath. Selective coronary angiogram was performed in multiple projections, including cranial and caudal angulations with hand injected contrast via JL-4 and 3DRC catheters. A 6-[place] angulated pigtail catheter was advanced to the left ventricle and left ventricular angiogram was performed in the 30 degree BYRD view by injecting contrast at the rate of 10 cc/second for 3 seconds. This catheter was withdrawn. Right femoral angiogram was performed. Following sheath removal, hemostasis was achieved by using a StarClose device. The patient tolerated the procedure well. He was transferred to [facility] in good condition. TOTAL CONTRAST USED: 90 cc. FLUOROSCOPY TIME: 2.8 minutes. RESULTS: 1. Selective coronary angiogram: a. Left main coronary artery is normal. b. The left anterior descending artery is transapical and normal. c. The circumflex artery is normal. d. The dominant right coronary artery is normal. 2. Left ventricular angiogram demonstrates normal left ventricular systolic function (visually estimated ejection fraction 60%). There is no wall motion abnormality. There is no mitral regurgitation. 3. There is no gradient across the aortic valve on catheter withdrawal. 4. Aortic pressure is 113/73 mmHg. Left ventricular pressure is 113/12 mmHg. 5. Left ventricular end-diastolic pressure is 24 mmHg. CONCLUSION: 1. Normal coronary arteries. 2. Normal left ventricular systolic function. 3. LVEDP is 24 mmHg. MTDD
[2016-10-16] MEDS: Lanthanum Carbonate 500 mg Chewable Tablet PO SCH (08:12)
[2016-10-16] MEDS: cloNIDine 0.1 mg Tablet PO SCH (08:12)
[2016-10-16 09:26] VITALS: BP 122/78; PULSE 67; RESP 18; O2SAT 98
--- NOTE | 2016-10-16 11:10 | NUR ---
Social Work: D/C / Multidisciplinary Rounds Data: Pt is on day 4 of hospitalization. EMR reviewed. D/C orders are in. Pt discussed in rounds. MD states pt will d/c today. No d/c planning needs identified at this time. CARNALLITE PLANT OPERATOR will continue to follow if needs arise. Assessment: Pt who is independent at baseline. Plan: Pt will d/c home via POV today. No d/c planning needs identified at this time. CARNALLITE PLANT OPERATOR will continue to follow if needs arise. LIZ Head
--- NOTE | 2016-10-16 11:13 | PCM.DIMED ---
Discharge Instructions Date of Service Oct 16, 2016 Dates of Hospitalization Oct 12, 2016 at 19:25 Discharge Diagnosis Discharge Diagnosis # Non-cardiac chest pain, present on admission. Resolved - Acute myocardial infarction ruled out with negative enzymes. - Pulmonary embolism ruled out with negative VQ scan. Lower extremity ultrasound also negative for DVT - Cardiac catheterization on 10/15/16 shwoing: "Normal coronary arteries" # Acute syncopal episode, present on admission. Likely due to dehydration. # Acute dehydration present on admission. Resolved. # Report of recurrent transient left sided weakness. Unclear etiology. - MRI brain on 10/14/16 ruled out acute stroke. # End-stage renal disease on peritoneal dialysis # Chronic hypertension. Stable. # Depression/anxiety. Stable. # Normocytic anemia secondary to CKD. Stable. Diet Discharge Diet: Heart Healthy, Renal Diet Activity Discharge Activity: No restrictions Call your provider Call your provider for: Fever or Chills, Shortness of breath, Chest pain, Weakness (unilateral) Patient Instructions Patient Instructions Seek immediate medical attention if any new or worsening signs or symptoms occur. Follow-up plan 1. Followup with primary care provider within one week 2. Followup with your first helper as previously planned. Follow-up Provider: Rehan Golden Masoud Oct 16, 2016 11:13
[2016-10-16] MEDS ORDERED: ASPI-973 PO (11:16)
--- NOTE | 2016-10-16 11:34 | PCM.DC.MED ---
Discharge Summary Date of Service Oct 16, 2016 Dates of Hospitalization Date of Hospital Admission Oct 12, 2016 at 19:25 Date of Discharge: Oct 16, 2016 Providers: Admitting Physician: Carmenza Felton DO Primary Care Physician: Rehan Golden DO Attending Physician: Huber Palacios Diagnosis at Time of Discharge Diagnosis at Time of Discharge # Non-cardiac chest pain, present on admission. Resolved - Acute myocardial infarction ruled out with negative enzymes. - Pulmonary embolism ruled out with negative VQ scan. Lower extremity ultrasound also negative for DVT - Cardiac catheterization on 10/15/16 shwoing: "Normal coronary arteries" # Acute syncopal episode, present on admission. Likely due to dehydration. # Acute dehydration present on admission. Resolved. # Report of recurrent transient left sided weakness. Unclear etiology. - MRI brain on 10/14/16 ruled out acute stroke. # End-stage renal disease on peritoneal dialysis # Chronic hypertension. Stable. # Depression/anxiety. Stable. # Normocytic anemia secondary to CKD. Stable. Consultations 1. Nephrology 2. Cardiology Procedures XRay, CTs & MRIs X-RAY CHEST ONE VIEW, PORTABLE IMPRESSION: 1. No acute cardiopulmonary disease. Dictated by: Parrish Galvez M.D. on 10/12/2016 at 17:08 CT BRAIN WITHOUT CONTRAST IMPRESSION: 1. No acute intracranial abnormality Dictated by: Parrish Galvez M.D. on 10/12/2016 at 17:18 Cardiac Echo Impression Date of Service: 10/13/16 0743 Echocardiogram Report Interpretation Summary The left ventricle is normal in size, wall thickness, and systolic function without any focal wall motion abnormalities. The ejection fraction is estimated to be 55-60%. No significant change since prior study. Reading Physician:PM Invasive Procedures DIAGNOSTIC CARDIAC CATHETERIZATION SERVICE DATE: 10/15/2016 PROCEDURE: 1. Retrograde left heart catheterization. 2. Selective angiography. 3. Left ventricular angiogram. CONCLUSION: 1. Normal coronary arteries. 2. Normal left ventricular systolic function. 3. LVEDP is 24 mmHg. Judy Garrido MD 10/15/16 1429 Report status: Draft Transcribed by: DAMIAN 10/15/16 1770 REPORT#: [id number] cc: Rehan Golden DO; Judy Garrido MD Other Diagnostics Date of Service: 10/13/16 0504 PROCEDURE: NM LUNG VQ IMPRESSION: Very low probability of pulmonary embolus, source of chest pain is not identified. Dictated by: Wai Hightower M.D. on 10/13/2016 at 11:40 Approved by: Wai Hightower M.D. on 10/13/2016 at 11:41 Brief History 46-year-old man with past medical history significant for end-stage renal disease on peritoneal dialysis, hypertension, anemia secondary to chronic kidney disease who presents to the [facility] emergency department due to sharp left-sided chest pain worsened with inspiration for one day associated with syncope Hospital Course # Acute chest pain, present on admission. Resolved - [place] ruled out with negative Trop - Pulmonary embolism ruled out with negative VQ scan. LE U/S negative for DVT - Echo without acute finding - Cardiac cath on 10/15 also unremarkable as noted above # Acute syncopal episode, present on admission - Suspect likely due to dehydration - Echo as noted above # Report of recurrent transient left sided weakness. - MRI brain on 10/14 ruled out CVA - Echo as noted above - Unclear etiology. Unsure if TIA vs possible cervical radiculopathy. Will d/c on low dose ASA for now with recommendation for further followup as outpatient # End-stage renal disease on peritoneal dialysis - Appreciate nephrology consult. Will followup with recs. - Further management of peritoneal dialysis per nephrology # Hypertension - Continue current medications # Depression/anxiety. Stable. - Continue sertraline and as needed alprazolam # Normocytic anemia secondary to CKD. Stable. - Continue monitoring by day of discharge denies any further chest pain or neurologic symptoms. Eager to go home. Exam Vital Signs (Last) Date Time Temp Pulse Resp B/P Pulse Ox O2 Delivery O2 Flow Rate FiO2 10/16/16 09:26 36.9 67 18 122/78 98 Room Air Exam General: Alert, Oriented x 3, Cooperative, No Acute Distress Head: Normal Eyes: PERRLA, EOMI, Scleral Anicteric Nose: Mucous Membr Moist/[place] Mouth: Mucous Membr Moist/[place] Neck: Supple Chest & Lungs: Chest Wall Normal, Clear to auscultation bilat Cardiovascular: Regular Rate/Rhythm Pulses: NL carotid Abdomen: Non-tender, Non-distended, Normoactive bowel tones, Soft Extremities: No cyanosis/clubbing/edema bilat Neurological: Grossly Neurologically Intact, Cranial Nerves 2-12 Intact, Normal Speech Test 10/12/16 16:45 10/13/16 05:25 10/13/16 21:02 10/14/16 05:19 D-Dimer 1.22mg/L FEU (<0.50) Total Bilirubin 0.3mg/dL (0.0-1.2) Aspartate Amino Transf (AST/SGOT) 29U/L (0-50) Alanine Aminotransferase (ALT/SGPT) 14U/L (0-44) Alkaline Phosphatase 90U/L (25-150) Total Protein 8.2g/dL (6.4-8.4) Albumin 4.2g/dL (3.4-5.0) Hold Jolley Top Tube Received (Received) Prothrombin Time 10.6sec (8.1-12.5) Prothromb Time International Ratio 0.99ratio Troponin T 0.010ug/L (0.0-0.011) Activated Partial Thromboplast Time 27.5sec (22.8-33.0) Magnesium Level 2.5mg/dL (1.6-2.6) Test 10/15/16 05:35 10/16/16 05:43 Neutrophils (%) (Auto) 55.8% (40-74) Lymphocytes (%) (Auto) 28.9% (14-46) Monocytes (%) (Auto) 9.0% (4-12) Eosinophils (%) (Auto) 5.3% (0-5) Basophils (%) (Auto) 0.7% (0-3) Rheumatoid Factor <10.0IU/mL (0.0-13.9) Anti-Nuclear Antibody Screen Negative (Negative) White Blood Count 10.0th/mm3 (3.8-10.1) Red Blood Count 4.38mil/mm3 (4.40-5.80) Hemoglobin 12.7g/dL (13.8-17.2) Hematocrit 38.6% (41.0-50.0) Mean Corpuscular Volume 88.1fL (81-100) Mean Corpuscular Hemoglobin 29.0pg (27.0-35.0) Mean Corpuscular Hemoglobin Concent 32.9% (32.0-37.0) Red Cell Distribution Width 14.4% (12.3-15.4) Platelet Count 250bil/L (150-400) Sodium Level 136mEq/L (134-144) Potassium Level 4.2mEq/L (3.5-5.2) Chloride Level 98mEq/L (97-108) Carbon Dioxide Level 21mmol/L (18-29) Blood Urea Nitrogen 32mg/dL (6-24) Creatinine 5.36mg/dL (0.76-1.27) Estimat Glomerular Filtration Rate 12mL/min (>59) Glucose Level 126mg/dL (60-99) Calcium Level 8.9mg/dL (8.5-10.1) Discharge Medications Discharge Medications Alprazolam (Alprazolam) 1 Mg Tablet 1 MG PO BID (Reported) Amlodipine (Amlodipine) 10 Mg Tablet 10 MG PO QAM (Reported) Aspirin (Aspirin) 81 Mg Tablet 81 MG PO DAILY Prescribed by: HUBER PALACIOS MD Carvedilol (Carvedilol) 12.5 Mg Tablet 25 MG PO BID (Reported) Cholecalciferol (Vitamin D3) (Vitamin D3) 50,000 Unit Capsule 50,000 UNIT PO WEEKLY (Reported) WEDNESDAYS Clonidine (Catapres) 0.1 Mg Tablet 0.1 MG PO TID Prescribed by: FLO ANTONIO DO Gabapentin (Gabapentin) 100 Mg Capsule 200 MG PO HS (Reported) Hydralazine (Hydralazine) 25 Mg Tablet 25 MG PO TID (Reported) Ketoconazole (Ketoconazole) 15 Gm Cream..g. 15 GM TP BID (Reported) AROUND DIALYSIS CATH SITE Lactulose (Lactulose) 10 Gm/15 Ml Solution 10 GM PO HS (Reported) Lanthanum Carb Chew (Fosrenol Chew) 1,000 Mg Chew 1,000 MG PO TIDWM (Reported) Sertraline HCl (Sertraline) 100 Mg Tablet 100 MG PO HS (Reported) As needed Ondansetron ODT (Ondansetron ODT) 8 Mg Tab.rapdis 8 MG PO BID PRN PRN For Nausea (Reported) oxyCODONE-Acetaminophen 5-325 mg (oxyCODONE-Acetaminophen 5-325 mg) 1 Each Tablet 1 TABLET PO q6 hours PRN PRN For Pain Prescribed by: MARCIAL PAUL MD Followup Plan Disposition: Home Follow-up plan 1. Followup with primary care provider within one week 2. Followup with your cullet crusher as previously planned. Discharge Diet: Heart Healthy, Renal Diet Discharge Activity: No restrictions Patient Instructions Seek immediate medical attention if any new or worsening signs or symptoms occur. Follow-up Provider: Rehan Golden DO Time spent 35 min copies to: Raimundo Diaz DO; Rehan Golden Masoud Oct 16, 2016 11:34
--- NOTE | 2016-10-16 11:43 | NUR ---
discharge paperwork reviewed, no questions at this time. pt denies pain/distress. pt refuses a w/c ride to car, prefers to walk to car to return to private home.
== END 2016-10-16 11:41 | disposition home or self-care (01) | DRG 640 ==
LOC: SED 16:22 → MPC 19:25 → OBSVTOIN 19:25
PROVIDERS: ADMIT Internal Medicine; ATTEND Internal Medicine
PROC: 3E1M39Z Irrigation of Peritoneal Cavity using Dialysate, Percutaneous Approach (ICD-10-PCS; 2016-10-12)
PROC: 4A023N7 Measurement of Cardiac Sampling and Pressure, Left Heart, Percutaneous Approach (ICD-10-PCS; principal; 2016-10-15)
PROC: B2111ZZ Fluoroscopy of Multiple Coronary Arteries using Low Osmolar Contrast (ICD-10-PCS; 2016-10-15)
PROC: B2151ZZ Fluoroscopy of Left Heart using Low Osmolar Contrast (ICD-10-PCS; 2016-10-15)
DX: E86.0 Dehydration (principal); N18.6 End stage renal disease; I13.11 Hypertensive heart and chronic kidney disease without heart failure, with stage 5 chronic kidney disease, or end stage renal disease; N02.8 Recurrent and persistent hematuria with other morphologic changes; Z99.2 Dependence on renal dialysis; Z87.891 Personal history of nicotine dependence; D63.1 Anemia in chronic kidney disease; F32.9 Major depressive disorder, single episode, unspecified; F41.9 Anxiety disorder, unspecified; R07.89 Other chest pain

== ENCOUNTER 2016-11-08 11:53 | Observation (INO) | payer MEDICARE, OTHER ==
[~2016-11-08] VITALS: Ht 172.7 cm; Wt 98.6 kg
[~2016-11-08 11:53] MED LIST changes: +ASPI-973 PO; +CARV12.52 PO; -CARV6.252 PO; +KTC2C15 TP
[2016-11-08 11:59] VITALS: BP 125/71; PULSE 64; RESP 13; O2SAT 97
--- NOTE | 2016-11-08 12:05 | ED.REPORT ---
HPI-Syncope Date of Service Nov 08, 2016 ED Provider: Karina Feliz MD The pt is a 46 y/o male w/ a hx of HTN, TIAs, and peritoneal dialysis presenting to the ED via EMS due to a syncopal episode. The pt walked outside, lost consciousness, and his blood pressure on scene was "low". The pt is experiencing an intermittent headache localized to the occipital region for the last 3 days. When it first began it was a 5/10 but now is a 7/ 10. Tylenol slightly decreases the pain. He is also experiencing L elbow pain, forgetfulness, generalized weakness, severe nausea, SOB, L leg and arm weakness and decreased sensation, and visual changes described as "seeing spots". His chest pain is a 5/10 localized to the center of his chest w/ slight radiation to the L. The chest pain is similar to the pain during his last TIA. Denies diarrhea, constipation, abdominal pain, fever, chills. The pt has Percocet medication at home but is very careful and conservative with its use. The pt was here in the ED a month and a half ago for a syncopal episode, was hospitalized, and had a MRI and CT scan done. He also reports having two episodes of stroke like symptoms in the past w/ L sided paralysis, facial droop , confusion, and chest pain. Nursing Notes Stated Complaint: SYNCOPAL EPISODE Chief Complaint: Syncopal episode Nursing Notes Reviewed: Yes Allergies: Coded Allergies: Sulfa (Sulfonamide Antibiotics) (Verified Allergy, Severe, HIVES, 10/12/16) Penicillins (Verified Allergy, Intermediate, HIVES, 10/12/16) cefuroxime (Verified Allergy, Intermediate, "SWELLING" IN GROIN AREA, MAKES DIFFICULT TO URINATE, 10/12/16) lorazepam (Verified Adverse Reaction, Severe, HALLUCINATIONS, 10/12/16) PT DOES FINE WITH ALPRAZOLAM, PLEASE DON'T ADMINISTER LORAZEPAM PER PT WISHES Scheduled Alprazolam (Alprazolam) 1 Mg Tablet 1 MG PO BID Amlodipine (Amlodipine) 10 Mg Tablet 10 MG PO QAM Carvedilol (Carvedilol) 12.5 Mg Tablet 25 MG PO BID Cholecalciferol (Vitamin D3) (Vitamin D3) 50,000 Unit Capsule 50,000 UNIT PO WEEKLY WEDNESDAYS Clonidine (Catapres) 0.1 Mg Tablet 0.1 MG PO TID Gabapentin (Gabapentin) 100 Mg Capsule 200 MG PO HS Hydralazine (Hydralazine) 25 Mg Tablet 25 MG PO TID Ketoconazole (Ketoconazole) 15 Gm Cream..g. 15 GM TP BID AROUND DIALYSIS CATH SITE Lactulose (Lactulose) 10 Gm/15 Ml Solution 10 GM PO HS Lanthanum Carb Chew (Fosrenol Chew) 1,000 Mg Chew 1,000 MG PO TIDWM Sertraline HCl (Sertraline) 100 Mg Tablet 100 MG PO HS Scheduled PRN Ondansetron ODT (Ondansetron ODT) 8 Mg Tab.rapdis 8 MG PO BID PRN PRN For Nausea oxyCODONE-Acetaminophen 7.5-325 mg (oxyCODONE-Acetaminophen 7.5-325 mg) 1 Each Tablet 1-2 TAB PO Q6H PRN PRN For Pain General Time Seen by Provider: 11:47 Chief Complaint Lost consciousness Syncope Description: Single episode Hx Obtained From: Patient Arrived By: Ambulance Onset Occurred: Just prior to arrival Symptom Duration: Since onset Recent Healthcare: Recent doctor visit, Recent hospitalization Similar Sx Previous: Yes Past Medical History Past Medical History Notes: Nephrology: Dr. 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 - on peritoneal dialysis Anemia History of a small pericardial effusion Hypertension Reports history of a possible TIA last 1 year ago Past Surgical History Kidney biopsy Right-sided peritoneal dialysis catheter Inguinal hernia repair Family History Mother, maternal aunt maternal uncles and maternal cousins with history of diabetes mellitus Hypertension in many family members Paternal grand mother with stomach cancer Mother with history of TIA Other paternal relatives with history of stroke Smoking History Former Smoker Social History Alcohol Use: "Social" Drug Use: Denies drug use Other Social History: Good social support, , Lives with children, Local resident Ambulatory Status Cane Review of Systems Forgetfulness; Decreased sensation on L arm and leg Constitutional: Reports: Weakness - generalized, Denies: Chills, Fever Respiratory: Reports: Shortness of breath Cardiovascular: Reports: Chest pain GI: Reports: Nausea, Denies: Abdominal pain, Constipation, Diarrhea Musculoskeletal: Reports: Joint pain (L elbow ) Neurologic: Reports: Focal weakness (L sided ), Headache, Vision change Complete sys rev & neg: except as marked. Physical Exam Initial Vital Signs Vital Signs (First) Date Time Temp Pulse Resp B/P Pulse Ox O2 Delivery O2 Flow Rate FiO2 11/08/16 11:59 36.5 64 13 125/71 97 Room Air Initial VS: Reviewed, Vital signs normal Head / Eyes: Atraumatic, Normocephalic, PERRL ENT: Mucous membranes moist, Conjunctiva normal, No scleral icterus Skin: Warm, Dry, No cyanosis Psychiatric: Mood/affect normal, Behavior normal, Normal thought content General/Constitutional: Awake, Alert Respiratory / Chest: Breath sounds NL, Breath sounds = bilat Tenderness to chest palpation Cardiovascular: Heart rate NL, Regular rhythm, Heart sounds NL Lower Extremity / Pelvis / MS: Full range of motion, No deformity Neurologic: Speech NL, CN II - XII intact Decreased sensation to L side Slight weakness (4/5) to L leg Interpretation & Diagnostics Lab Results Interpretation Result Diagram: 11/08/16 1210 11/08/16 1210 Test 11/08/16 12:10 White Blood Count 9.0th/mm3 (3.8-10.1) Red Blood Count 4.47mil/mm3 (4.40-5.80) Hemoglobin 12.8g/dL (13.8-17.2) Hematocrit 38.2% (41.0-50.0) Mean Corpuscular Volume 85.5fL (81-100) Mean Corpuscular Hemoglobin 28.6pg (27.0-35.0) Mean Corpuscular Hemoglobin Concent 33.5% (32.0-37.0) Red Cell Distribution Width 13.7% (12.3-15.4) Platelet Count 309bil/L (150-400) Neutrophils (%) (Auto) 58.1% (40-74) Lymphocytes (%) (Auto) 25.3% (14-46) Monocytes (%) (Auto) 9.6% (4-12) Eosinophils (%) (Auto) 5.0% (0-5) Basophils (%) (Auto) 1.8% (0-3) Erythrocyte Sedimentation Rate 35mm/hr (0-15) Prothrombin Time 10.1sec (8.1-12.5) Prothromb Time International Ratio 0.95ratio Activated Partial Thromboplast Time 28.2sec (22.8-33.0) Sodium Level 136mEq/L (134-144) Potassium Level 3.7mEq/L (3.5-5.2) Chloride Level 96mEq/L (97-108) Carbon Dioxide Level 22mmol/L (18-29) Blood Urea Nitrogen 45mg/dL (6-24) Creatinine 6.17mg/dL (0.76-1.27) Estimat Glomerular Filtration Rate 11mL/min (>59) Glucose Level 114mg/dL (60-99) Calcium Level 8.8mg/dL (8.5-10.1) Magnesium Level 2.5mg/dL (1.6-2.6) Total Bilirubin 0.2mg/dL (0.0-1.2) Aspartate Amino Transf (AST/SGOT) 18U/L (0-50) Alanine Aminotransferase (ALT/SGPT) 15U/L (0-44) Alkaline Phosphatase 81U/L (25-150) Troponin T < 0.010ug/L (0.0-0.011) C-Reactive Protein 1.2mg/dL (0.0-0.5) Total Protein 7.6g/dL (6.4-8.4) Albumin 4.0g/dL (3.4-5.0) Hold Jolley Top Tube Received (Received) ECG Interpretation ECG Interpretation: Rate 81 Nsr Normal interval T wave inversion in V3 No acute ST changes compared to EKG done on 10/12/16 Time: 12:05 X-Ray Chest Interpretation Chest Xray Interpretation: IMPRESSION: Mildly reduced inspiratory volume, source of chest pain is not seen. Dictated by: Wai Hightower M.D. on 11/08/2016 at 12:50 Approved by: Wai Hightower M.D. on 11/08/2016 at 12:51 View: Portable, 1 view Interpretation / Wet Read by: Interpret - Radiologist CT Head Interpretation IMPRESSION: Normal for age, no change management director time, source of current symptoms is not seen. Dictated by: Wai Hightower M.D. on 11/08/2016 at 13:21 Approved by: Wai Hightower M.D. on 11/08/2016 at 13:21 Study: Head CT no contrast Interpretation / Wet Read by: Interpret - Radiologist Re-Eval/Medical Decision Med Decision/Clinical Course The patient presents with multiple symptoms and had a similar episode about 1 month ago with multiple tests that were normal. Wondering if he is not having any symptoms related to hypotension. The patient has peritoneal dialysis and is on multiple antihypertensives. With patient's chest pain he does not have any EKG changes and he had the same chest pain a month ago with a normal catheterization so it is unlikely ischemic he has a normal troponin. Size of patient's neurologic symptoms he does not meet criteria for TPA given his only symptom is some slight weakness to the left side which would give him a number of 1. The patient's symptoms do persist and so the patient will be admitted. I spoke with Dr. Diaz to knee change his peritoneal dialysis to take off less fluid. Spoke with Dr. Espinoza he agreed to the patient. The patient also complained of headache and there are no concerning features for subarachnoid hemorrhage or meningitis. Source of Hx: Old records Re-Evaluation/Progress : Time of Eval: 14:53 Re-Evaluation/Progress Note: Pt rechecked. Informed pt of need for admission. Pt understands and agrees with plan for admission. All questions addressed. Consultation : Referral / Consult Name: Pauly Turcios MD Consulted With: Hospitalist Call Returned at: 14:52 Offender Employment Specialist: Will see patient, Agrees with eval, Agrees with plan, Accepts admit Counseled Regarding: Diagnosis, Lab results, Need for admission Discharge & Departure Impression: Primary Impression: CVA (cerebral vascular accident) CVA mechanism: unspecified Qualified Code: I63.9 - Cerebral infarction, unspecified Additional Impressions: TIA (transient ischemic attack) Transient cerebral ischemia type: unspecified Qualified Code: G45.9 - Transient cerebral ischemic attack, unspecified Syncope Syncope type: unspecified Qualified Code: R55 - Syncope and collapse Disposition: ADMITTED TO HOSPITAL Discharge Condition All VS Reviewed: Yes Condition: Stable Referrals: Rehan Golden DO (PCP) Scribe Attestation Portions of this note were transcribed by Edenilson Marley. IDr. Feliz personally performed the history, physical exam and medical decision-making; I reviewed and confirmed the accuracy of the information in the transcribed note. copies to: Rehan Golden Jena M MD Nov 08, 2016 12:05 Edenilson Marley Nov 08, 2016 12:48
[2016-11-08] MEDS ORDERED: 0.9% Sodium Chloride 500 ML IV ONE (12:25)
[2016-11-08 12:30] LABS: BASOPHILS % (AUTO) 1.8 % (0-3); MONOCYTES % (AUTO) 9.6 % (4-12); Mean Corpuscular Hemoglobin 28.6 pg (27.0-35.0); Mean Corpuscular Volume 85.5 fL (81-100); NEUTROPHILS % (AUTO) 58.1 % (40-74); Platelet Count 309 bil/L (150-400)
[2016-11-08] MEDS: Ondansetron 2 mg/mL 2 mL Inj IVPUSH PRN ×2 (12:36→13:27)
--- NOTE | 2016-11-08 12:52 | DRSVH ---
PROCEDURE: X-RAY CHEST ONE VIEW, PORTABLE ([id number]) INDICATIONS: Chest pain TECHNIQUE: One view of the chest was acquired. COMPARISON: [facility], CR, XR CHEST 1VW (PORTABLE), 10/12/2016, 16:28. [facility], CR, XR CHEST 2VW, 02/26/2016, 9:16. FINDINGS: Surgical changes and devices: None. Lungs and pleura: No pleural effusions or pneumothorax. Lungs are clear. Mediastinum: Mediastinal contours appear normal. Heart size is normal. Bones and chest wall: No suspicious bony lesions. Overlying soft tissues appear unremarkable. IMPRESSION: Mildly reduced inspiratory volume, source of chest pain is not seen. Dictated by: Wai Hightower M.D. on 11/08/2016 at 12:50 Approved by: Wai Hightower M.D. on 11/08/2016 at 12:51
[2016-11-08 13:16] LABS: TROPONIN T < 0.010 ug/L (0.0-0.011)
[2016-11-08 13:19] LABS: INR 0.95 ratio
--- NOTE | 2016-11-08 13:23 | DRSVH ---
PROCEDURE: CT BRAIN WITHOUT CONTRAST ([id number]) INDICATIONS: Stroke TECHNIQUE: Noncontrast 4.5 mm thick angled axial sections acquired from the foramen magnum to the vertex, with c oronal reformats. COMPARISON: Prior head CT 10/12/16 reviewed.. FINDINGS: Image quality: Excellent. CSF spaces: Basal cisterns are patent. No extra-axial fluid collections. Ventricles are normal in size and shape. Brain: No midline shift. No intracranial masses or hemorrhage. Crowe-white matter interface is norm al. Skull and face: Calvarium and visualized facial bones are intact, without suspicious lesions. Sinuses: Visualized sinuses and mastoids are clear. IMPRESSION: Normal for age, no record changer time, source of current symptoms is not seen. Dictated by: Wai Hightower M.D. on 11/08/2016 at 13:21 Approved by: Wai Hightower M.D. on 11/08/2016 at 13:21
[2016-11-08 13:26] LABS: Magnesium 2.5 mg/dL (1.6-2.6)
[2016-11-08 13:27] VITALS: BP 112/73; PULSE 67; RESP 19; O2SAT 99
[2016-11-08] MEDS ORDERED: OXYC-465 PO (13:57)
--- NOTE | 2016-11-08 13:58 | NUR ---
Evaluation completed. Please go to "Notes" then click on "Assessments and Notes" (bottom left corner of screen). Then select appropriate discipline tab on top of screen.
[2016-11-08 15:31] VITALS: BP 113/58; PULSE 67; RESP 13; O2SAT 97
[2016-11-08] MEDS ORDERED: Ondansetron 2 mg/mL 2 mL Inj IVPUSH PRN ×2 (15:55→17:50)
[2016-11-08] MEDS ORDERED: Alum-Mag Hydrox-Simeth 30 mL Suspension PO PRN ×2 (15:55→17:50)
[2016-11-08 16:25] VITALS: BP 111/70; PULSE 63; RESP 20; O2SAT 97
[2016-11-08 16:30] VITALS: PULSE 64
[2016-11-08] MEDS: Lanthanum Carbonate 500 mg Chewable Tablet PO SCH (17:30)
[2016-11-08] MEDS ORDERED: Polyethylene Glycol (PEG) 17 Gm Powder PO PRN (17:50)
[2016-11-08] MEDS ORDERED: Non-Formulary Medication (Amlodipine 10 MG) PO SCH (17:55)
[2016-11-08] MEDS ORDERED: OXYCODONE ACETAMINOPHEN PO PRN (17:55)
[2016-11-08] MEDS ORDERED: Ondansetron 8 mg ODT Tablet PO PRN (17:55)
[2016-11-08 18:25] LABS: APPEARANCE,URINE CLEAR (CLEAR,HAZY); COLOR,URINE STRAW (YELLOW); OCCULT BLOOD,URINE TRACE (NEGATIVE); UROBILINOGEN,URINE NORMAL (NORMAL)
--- NOTE | 2016-11-08 18:36 | NUR ---
Admission Admit to room 3026 from ER via [facility] with family at bedside. Provider notified of arrival. Admission assessments completed by flume worker. Oriented to room and call light. FILM VAULT SUPERVISOR applied for high risk MICHELLE. Requesting PD Joe bowles with Nephrology contacted and reported that he was already aware of needs and will assess. Urine obtained and sent. Unsteady on feet and requiring 1PA. Provider assessed. New orders for MRI, EEG, and remote tele monitoring. Reporting comfort at this time and frequent rounding in place.
--- NOTE | 2016-11-08 18:51 | HP ---
[address] [address] HISTORY AND PHYSICAL PATIENT: JUANITA BROOKS : 1970 MR#: [id number] ADMIT: 11/08/2016 JOB ID: [id number] PRIMARY CARE PROVIDER: Rehan Golden DO TRIAGE CLINICIAN: Raimundo Diaz DO ADMISSION STATUS: Patient admitted from the ED, observational status, green team. CHIEF COMPLAINT: Syncopal episode and residual left-sided weakness. HISTORY OF PRESENT ILLNESS: This is a 46-year-old male back on peritoneal dialysis for about two months. He had three syncopal episodes and was admitted to the hospital on October 12. Workup for that was negative. He was discharged home. He has done well since discharge until today, when he had another syncopal episode. He has been feeling a little bit tired the last couple days and because of the heat he has been drinking extra fluids and has noted a little bit of edema. I do not think the patient is dehydrated. He was feeling okay this morning, went out for breakfast, sat down at the restaurant, 10 minutes later they brought some coffee, had a sip or two of coffee, got a little nauseated, and he got up and went outside with his daughter right away and then fainted. He kind of got outside on the sidewalk, he was hot, he just kind of slumped and sat down, and woke up leaning against the wall. He did kind of hit his left elbow but no other trauma. There was no incontinence, no seizures noted, and he was only out for maybe two or three seconds. He was laid down. Paramedics were called. He had a systolic pressure of 100 at that time. He was brought to the ED. The patient also notes residual left-sided weakness to the point where he could not walk and that is rapidly improving. He had that last time with a syncopal episode. He has not had other syncopal episodes. He has also has a little bit of a headache for two or three days but no other recent complaints. The patient had some nausea without emesis just preceding this episode today. He has had no diarrhea, chest pain, cough, productive sputum. REVIEW OF SYSTEMS: Complete review of systems obtained. All pertinent positives as per HPI above. Rest review of systems are negative. PAST MEDICAL HISTORY: 1. Migraines. 2. Possible suspected lupus. 3. Stage five renal failure, currently on peritoneal dialysis, secondary to IgA nephropathy, glomerulonephritis. 4. Chronic anemia. 5. History of small pericardial effusion. 6. Hypertension. 7. Possible TIA a year and a half ago. 8. Right-sided peritoneal dialysis catheter placed. MEDICATIONS: 1. Alprazolam 1 mg b.i.d. p.r.n. 2. Amlodipine 10 mg daily. 3. Coreg 12.5 b.i.d. 4. Vitamin D3 50,000 units weekly. 5. Clonidine 0.1 t.i.d. 6. Gabapentin 200 at bedtime. 7. Hydralazine 25 t.i.d. 8. Lactulose 15 at bedtime. 9. Fosrenol chew 1 g t.i.d. 10. Sertraline 100 at bedtime. 11. Oxycodone 5/325 q.6 p.r.n. pain. ALLERGIES: 1. SULFA. 2. PENICILLIN. 3. CEFUROXIME. 4. LORAZEPAM. SOCIAL HISTORY: The patient lives with his . There is no tobacco or alcohol use. He is a former smoker. FAMILY HISTORY: Mother has a history of type 2 diabetes, hypertension in many family members, and also had a paternal grandmother with stomach cancer. PHYSICAL EXAMINATION: Currently blood pressure 111/70, systolic of 100 by paramedics. O2 sats 97%. Pulse 64. No fever. The patient is alert. His eyes are PERRLA. EOM intact. He has no pronator drift and basic motor strength seems equal and symmetrical in the legs and arms. Cerebellar testing is unrevealing. Mouth shows adequate hydration. No lesions. No JVD. No bruits. Cardiac is regular. No significant murmur. Lungs are clear to auscultation and percussion. Abdomen is soft, nonacute, benign. Extremities show trace edema bilaterally. FINAL DIAGNOSES: 1. Acute syncopal episode. Present on admission. Resolved. The patient's blood pressure was a bit low and would suspect possibly some orthostatic hypotension. However, seizures are possible also, particularly with the transient left-sided weakness. The patient was recently in the hospital and had a complete workup for similar symptoms which showed no findings for a myocardial infarction, pulmonary embolism, etc. At this time I will talk further with Dr. Diaz about what measures we can do to reduce some of the patient's blood pressure medicines, but for now I will reduce his hydralazine to 12.5 t.i.d. from 25 and continue his other antihypertensives, check his blood pressure, and make further adjustments. 2. Left-sided weakness. Present on admission. Improving. Will order an MRI stroke protocol and an EEG. 3. Hypertension. Present on admission. Active. The patient's blood pressure was a bit low and as mentioned above will reduce his hydralazine by 50% and discuss further with Dr. Diaz for maybe less blood pressure medicine. 4. End-stage renal disease. Present on admission. Stable. We put in a consult for Dr. Diaz, who will get the patient continued on his peritoneal dialysis. His feels that some of these episodes could be related to that, and they can discuss further with him if the patient is interested in going back on hemodialysis. 5. Depression and anxiety. Present on admission. Stable. Continue sertraline. 6. Chronic anemia. Present on admission. Stable. Probably secondary to chronic renal disease. CODE STATUS: FULL CODE. Code sheet filled out.
--- NOTE | 2016-11-08 20:00 | NUR ---
ANASTASIA explained and signed. Copy of ANASTASIA and Medicare self administered medication information given to pt.
[2016-11-08] MEDS: cloNIDine 0.1 mg Tablet PO SCH (20:16)
[2016-11-08] MEDS: Lactulose 20 Gm/30 mL 30 mL Syrup PO SCH (20:18)
--- NOTE | 2016-11-08 20:27 | CONS ---
[address] [address] CONSULTATION REPORT PATIENT: JUANITA BROOKS : 1970 MR#: [id number] ADMIT: 11/08/2016 JOB ID: [id number] RENAL CONSULTATION: DATE OF SERVICE: HISTORY: Patient is a 46-year-old gentleman who has a history of end-stage renal disease. I am following him for his end-stage renal disease. He was admitted to [facility] for syncopal episode and significant hypotension. Renal consultation is being sought for further evaluation of his hypotension and chronic kidney disease. He has a history of end-stage renal disease secondary to IgA nephropathy. He had been on hemodialysis, and several months ago, transitioned over to peritoneal dialysis. He has had in the last several months considerable fluctuations in his blood pressure. He was admitted on October 12 for a syncopal episode and the workup was negative. The patient is compliant with his peritoneal dialysis and, over the last several days, he states that he has noticed his blood pressure is a bit lower than normal. He has not had any cough, wheezing, fever, chills, nausea, vomiting, or diarrhea. His peritoneal dialysate return has been clear and he has not had any urinary symptoms. He states that this morning he felt well and he and his family were at a restaurant when he began to feel lightheaded and sick to his stomach. He and his oldest daughter went outside where he became syncopal. There was no evidence of any seizures, tongue biting, or incontinence. At the time that the paramedics arrived, his systolic blood pressure was 100. In the emergency room, he was given 500 mL of normal saline with some improvement in his blood pressure. At the time he left the emergency room, he had no neurological deficits. He only has some very minor retrograde and antegrade amnesia, but otherwise is able to recall most of the details of the events leading up to and after his syncopal episode. PAST MEDICAL HISTORY: Significant for IgA nephropathy leading to end-stage renal disease. There is also a questionable history of lupus. He has a history of hypertension with hypertensive heart disease and hypertensive nephrosclerosis, migraine cephalgia, and history of a pericardial effusion. He also has a history of some type of peripheral neuropathy. MEDICATIONS: Medications at time of admission include alprazolam, amlodipine, Coreg, vitamin D, clonidine, gabapentin, hydralazine, lactulose, Fosrenol, sertraline, and oxycodone p.r.n. PAST SURGICAL HISTORY: Significant for placement of dialysis catheter. ALLERGIES: He is allergic to: 1. SULFA. 2. PENICILLIN. 3. CEFUROXIME. 4. LORAZEPAM. SOCIAL HISTORY: He denies use of alcohol, tobacco, or illicit drugs. He lives with his family and is normally quite active in his numerous activities of daily living. FAMILY HISTORY: Significant for diabetes, hypertension, and gastric cancer. REVIEW OF SYSTEMS: As detailed above. Otherwise is unremarkable. PHYSICAL EXAMINATION: Revealed a mildly obese 46-year-old white male who was alert and oriented x3, in no distress at the time my evaluation. His speech was fluent and there was no evidence of any receptive or expressive aphasia or dysarthria. His blood pressure is 111/70 with a pulse rate of 68. HEENT examination is remarkable for mildly pale sclerae. Cornea, conjunctiva, pupils, and extraocular muscles were within normal limits. Neck is supple without adenopathy, thyromegaly, or jugular venous distention. Lungs are clear to auscultation. Heart is regular and rhythmical with a soft systolic murmur. Abdomen is soft, without any tenderness, rebound, guarding, masses, or hepatosplenomegaly. There was no tenderness over the peritoneal dialysis catheter. Extremities do not show any evidence of any clubbing, cyanosis, or edema. Skin turgor is good and there is no evidence of any rashes. LABORATORY EXAMINATION: In the emergency room, his hemoglobin was 12.8, hematocrit 38.2. Urinalysis was unremarkable. Sodium was 136, potassium 3.7, chloride 96, bicarbonate 22. BUN and creatinine were 45 and 6.17. Glucose is 114. Liver function studies were normal. IMPRESSION: 1. Syncope, secondary to hypotension, which has resolved. 2. Questionable transient ischemic attack, which has resolved. 3. End-stage renal disease, peritoneal dialysis dependent. 4. IgA nephropathy. 5. Hypertension with hypertensive heart disease and hypertensive nephrosclerosis. RECOMMENDATION: As his blood pressure is somewhat tenuous, I will hold his peritoneal dialysis treatments for tonight. I would like to see how he does through the night. I would also like to stop the hydralazine. We will further evaluate the patient in the morning Once again, I would like to thank you for allowing me to participate in the care of this most pleasant and interesting patient. I will be following him closely with you.
[2016-11-08] MEDS: KETOCONAZOLE 2% TOPICAL SCH (20:30)
[2016-11-08] MEDS ORDERED: SERTRALINE HCL 100 MG PO SCH (21:00)
[2016-11-09] VITALS (11 sets, daily range): BP systolic 102–142; BP diastolic 60–92; PULSE 65–78; RESP 16; O2SAT 94–99
[2016-11-09] MEDS: cloNIDine 0.1 mg Tablet PO SCH ×2 (07:57→19:56)
[2016-11-09] MEDS ORDERED: LANTHANUM CARBONATE 1000 MG PO SCH (08:00)
[2016-11-09] MEDS: Lanthanum Carbonate 500 mg Chewable Tablet PO SCH ×3 (08:12→17:28)
[2016-11-09] MEDS: KETOCONAZOLE 2% TOPICAL SCH ×2 (08:20→19:47)
--- NOTE | 2016-11-09 11:18 | DRSVH ---
PROCEDURE: MRI BRAIN WITHOUT CONTRAST ([id number]) INDICATIONS: new right sided weakness TECHNIQUE: Noncontrast axial T1 spin echo, axial T2 fast spin echo, sagittal and axial FLAIR, coronal T2 fast sp in echo, axial gradient echo, axial diffusion and ADC through the brain. COMPARISON: None. FINDINGS: Image quality: Excellent. CSF Spaces: Basal cisterns are patent. No extra-axial fluid collections. Ventricles are normal in size and shape. Brain: No intracranial masses or hemorrhage. Crowe/white matter interface is normal. Brainstem appe ars normal. Diffusion-weighted images demonstrate no acute ischemic insult. No chronic ischemic ins ults. Normal intravascular flow voids are present. Skull and face: Calvarium has normal marrow signal. Orbits appear normal. Sinuses: Sinuses and mastoids are clear. IMPRESSION: No evidence of acute ischemia. Scattered subcentimeter white matter signal changes which are technically nonspecific. Statistically these represent chronic microvascular ischemic change although probably greater than number than expe cted for clinically reported age, and therefore raise the possibility of demyelinating, infectious or inflammatory etiologies. Recommend clinical correlation. Dictated by: Nathanael Worthy M.D. on 11/09/2016 at 11:12 Approved by: Nathanael Worthy M.D. on 11/09/2016 at 11:16
--- NOTE | 2016-11-09 13:44 | PCM.PNMED ---
Subjective Date of Service Nov 09, 2016 Subjective Feeling OK, no further syncopal episodes. I paged and discussed patient with Nephrology. No other complaints. Exam Vital Signs Vital Sign - Last Date Time Temp Pulse Resp B/P Pulse Ox O2 Delivery O2 Flow Rate FiO2 11/09/16 10:00 77 11/09/16 09:31 36.4 16 115/73 97 Room Air Intake and Output 11/08/16 11/08/16 11/09/16 Cumulative From/Thru 15:00 23:00 07:00 11/08/16 11:59 - 11/08/16 18:37 Intake Total 500 ml 350 ml 850 ml Output Total 400 ml 400 ml Balance 500 ml -50 ml 450 ml Intake Oral 350 ml 350 ml IV Total 500 ml 500 ml Output Urine Total 400 ml 400 ml Exam Skin; war dry with our rash HENT; adequate hydration no lesion CV; reg with out murmur Resp; clear GI; soft and non acute, benign No sig edema Lab and Diagnostics Result Diagram: 11/08/16 1210 11/08/16 1210 Assessment & Plan 1. Acute syncopal episode, poa resolved. -felt to be secondary to hypotension -dialysis will be adjusted by nephro -reduce bp meds -clonidine 0.1 tid, reduce to bid -coreg 25 bid, reduce to 12.5 bid -norvasc 10 daily, discontinue -hydralazine 25 tid, discontinue -wath patient overnight to follow blood pressures 2. Left-sided weakness, poa, resolved -MRI brain neg acute event -eeg pending 3. Hypertension, poa, active. -blood pressure med changes as above 4. End-stage renal disease, poa, stable. -continue with peritoneal dialysis, nephrology 5. Depression and anxiety,poa, Stable. -Continue sertraline. 6. Chronic anemia, poa,Stable. -secondary to chronic renal disease. Pauly Turcios MD Nov 09, 2016 13:44
--- NOTE | 2016-11-09 13:59 | PCM.PNNEPH ---
Subjective Date of Service Nov 09, 2016 Subjective Feeling better, BP remains on the low side. Received 25 mg of coreg this morning. No CP/SOB. No LE edema. Exam Vital Signs Vital Sign - Last Date Time Temp Pulse Resp B/P Pulse Ox O2 Delivery O2 Flow Rate FiO2 11/09/16 13:49 36.8 68 16 105/66 95 Room Air Intake and Output 11/08/16 11/08/16 11/09/16 Cumulative From/Thru 15:00 23:00 07:00 11/08/16 11:59 - 11/08/16 18:37 Intake Total 500 ml 350 ml 850 ml Output Total 400 ml 400 ml Balance 500 ml -50 ml 450 ml Intake Oral 350 ml 350 ml IV Total 500 ml 500 ml Output Urine Total 400 ml 400 ml Exam GENERAL: The patient in no apparent distress, and alert and oriented x3. VITAL SIGNS: as documented HEENT: Head is normocephalic and atraumatic. Extraocular muscles are intact. Pupils are equal, round, and reactive to light and accommodation. Mouth is well hydrated and without lesions. Mucous membranes are moist. NECK: Supple, no elevation of JVD, No carotid bruits. No lymphadenopathy or thyromegaly. LUNGS: Clear to auscultation, equal breath sounds bilaterally, no wheezing, no rhonchi no rales. HEART: Normal S1/S2, Regular rate and rhythm, no murmurs, rubs or gallops. 2+ pules throughout. ABDOMEN: Soft, nontender, and nondistended. Positive bowel sounds. No hepatosplenomegaly was noted. PD cath in place. EXTREMITIES: Without any cyanosis, clubbing, rash, lesions or edema. NEUROLOGIC: The patient is oriented to person, place and time. Strength and sensation are grossly intact. SKIN: No ulceration or induration present. Lab and Diagnostics Result Diagram: 11/08/16 1210 11/08/16 1210 Plan Impression 1. Syncope, secondary to hypotension, improving 2. End-stage renal disease, peritoneal dialysis dependent. 4. H/o IgA nephropathy. 5. Hypertension with hypertensive heart disease and hypertensive nephrosclerosis. Plan: Decrease coreg by 50% of the home dose. D/c hydralazine and norvasc. Weaning of clonidine. Recheck orthostatic BP. Disposition d/c home within 24 hr. Anjelica Bennett MD Nov 09, 2016 13:58
--- NOTE | 2016-11-09 14:30 | NUR ---
ENVIRONMENTAL MANAGER reviewed MRI. Results negative for acute infarct. ENVIRONMENTAL MANAGER spoke with RN who reported pt. functional communicator. No further skilled associate veterinarian services indicated at this time. d/c ST. Please reconsult if change in status or function noted. Thank you.
--- NOTE | 2016-11-09 17:46 | NUR ---
Social Work-initial assessment/Readiness for D/C Data: See initial assessment. Pt is a 46 y/o male who was admitted on 11/08/16 for CVA/TIA, Syncope per H&P. Pt's insurance is [employer] and [employer] and PCP is Rehan Golden DO. EMR Reviewed and pt discussed in multidisciplinary rounds. Pt is not medically ready for d/c, possible tomorrow. SW met with pt and mother at bedside, SW role explained. Pt was asleep and pt's mother confirmed the following: Pt resides at home with his and 2 daughters in a home in [place]. Pt drives and does not use any DME. Pt had HH back in [place] a long time ago, but has no SNF history. Pt has no halfway care insurance or VA benefits. Pt has [facility] on file. Pt does his own peritoneal dialysis at home. SW provided pt with discharge planning checklist and encouraged pt to call with any questions. SW provided phone number on white board in room. Pt's to provide transport home. No anticipated discharge needs. SW will continue to follow if needs arise. Assessment:Pt who is independent at baseline. Plan:Pt to discharge home when medically stable via POV. No anticipated discharge needs. SW will continue to follow if needs arise. LIZ Kilpatrick Addendum: 11/09/16 at 1749 by EVENS FIORE SS Amended: Links added.
[2016-11-09] MEDS: Lactulose 20 Gm/30 mL 30 mL Syrup PO SCH (19:56)
[2016-11-10 00:01] VITALS: BP 120/81; PULSE 75; RESP 16; O2SAT 94
--- NOTE | 2016-11-10 04:52 | NUR ---
uneventful night Oxycodone and tylenol given for 8/10 left side pain with good relief. Zofran and Alprazolam given as well per pt's request. Pt slept most of the night. no syncopal episode. VSS, afebrile.
[2016-11-10 06:38] VITALS: BP 125/80; PULSE 69; RESP 16; O2SAT 95
[2016-11-10] MEDS: Lanthanum Carbonate 500 mg Chewable Tablet PO SCH ×2 (08:00→12:00)
[2016-11-10] MEDS: KETOCONAZOLE 2% TOPICAL SCH (08:30)
[2016-11-10] MEDS: cloNIDine 0.1 mg Tablet PO SCH (08:49)
[2016-11-10 09:14] VITALS: BP 137/92; PULSE 70; RESP 16; O2SAT 98
[2016-11-10 09:16] VITALS: PULSE 74
--- NOTE | 2016-11-10 12:26 | PCM.DIMED ---
Discharge Instructions Date of Service Nov 10, 2016 Dates of Hospitalization Nov 08, 2016 at 15:41 Discharge Diagnosis Discharge Diagnosis 1. Acute syncopal episode, 2. Left-sided weakness, 3. Hypertension,. 4. End-stage renal disease, 5. Depression and anxiety . 6. Chronic anemia, Diet Discharge Diet: Low fat, Low Sodium, Heart Healthy Activity Discharge Activity: No restrictions Patient Instructions Follow-up plan Follow up with you Kidney doctor for blood pressure check and adjustment of your medications. Also followup with your primary care provider I will send report to him. Pauly Turcios MD Nov 10, 2016 12:26
[2016-11-10] MEDS ORDERED: CARV12.5 PO (12:29)
[2016-11-10] MEDS ORDERED: CLON0.1T PO (12:29)
[2016-11-10] MEDS ORDERED: ASPI-973 PO (12:29)
--- NOTE | 2016-11-10 12:38 | PCM.DC.MED ---
Discharge Summary Date of Service Nov 10, 2016 Dates of Hospitalization Date of Hospital Admission Nov 08, 2016 at 15:41 Date of Discharge: Nov 10, 2016 Providers: Admitting Physician: Pauly Turcios MD Primary Care Physician: Rehan Golden DO Attending Physician: Pauly Turcios MD Diagnosis at Time of Discharge Diagnosis at Time of Discharge 1. Acute syncopal episode, poa resolved. 2. Left-sided weakness, poa, resolved 3. Hypertension, poa, stable 4. End-stage renal disease, poa, stable. 5. Depression and anxiety,poa, Stable. . 6. Chronic anemia, poa,Stable. Consultations RENAL CONSULTATION: DATE OF SERVICE: HISTORY: Patient is a 46-year-old gentleman who has a history of end-stage renal disease. I am following him for his end-stage renal disease. He was admitted to [facility] for syncopal episode and significant hypotension. Renal consultation is being sought for further evaluation of his hypotension and chronic kidney disease. He has a history of end-stage renal disease secondary to IgA nephropathy. He had been on hemodialysis, and several months ago, transitioned over to peritoneal dialysis. He has had in the last several months considerable fluctuations in his blood pressure. He was admitted on October 12 for a syncopal episode and the workup was negative. The patient is compliant with his peritoneal dialysis and, over the last several days, he states that he has noticed his blood pressure is a bit lower than normal. He has not had any cough, wheezing, fever, chills, nausea, vomiting, or diarrhea. His peritoneal dialysate return has been clear and he has not had any urinary symptoms. He states that this morning he felt well and he and his family were at a restaurant when he began to feel lightheaded and sick to his stomach. He and his oldest daughter went outside where he became syncopal. There was no evidence of any seizures, tongue biting, or incontinence. At the time that the paramedics arrived, his systolic blood pressure was 100. In the emergency room, he was given 500 mL of normal saline with some improvement in his blood pressure. At the time he left the emergency room, he had no neurological deficits. He only has some very minor retrograde and antegrade amnesia, but otherwise is able to recall most of the details of the events leading up to and after his syncopal episode. PAST MEDICAL HISTORY: Significant for IgA nephropathy leading to end-stage renal disease. There is also a questionable history of lupus. He has a history of hypertension with hypertensive heart disease and hypertensive nephrosclerosis, migraine cephalgia, and history of a pericardial effusion. He also has a history of some type of peripheral neuropathy. MEDICATIONS: Medications at time of admission include alprazolam, amlodipine, Coreg, vitamin D, clonidine, gabapentin, hydralazine, lactulose, Fosrenol, sertraline, and oxycodone p.r.n. PAST SURGICAL HISTORY: Significant for placement of dialysis catheter. ALLERGIES: He is allergic to: 1. SULFA. 2. PENICILLIN. 3. CEFUROXIME. 4. LORAZEPAM. SOCIAL HISTORY: He denies use of alcohol, tobacco, or illicit drugs. He lives with his family and is normally quite active in his numerous activities of daily living. FAMILY HISTORY: Significant for diabetes, hypertension, and gastric cancer. REVIEW OF SYSTEMS: As detailed above. Otherwise is unremarkable. PHYSICAL EXAMINATION: Revealed a mildly obese 46-year-old white male who was alert and oriented x3, in no distress at the time my evaluation. His speech was fluent and there was no evidence of any receptive or expressive aphasia or dysarthria. His blood pressure is 111/70 with a pulse rate of 68. HEENT examination is remarkable for mildly pale sclerae. Cornea, conjunctiva, pupils, and extraocular muscles were within normal limits. Neck is supple without adenopathy, thyromegaly, or jugular venous distention. Lungs are clear to auscultation. Heart is regular and rhythmical with a soft systolic murmur. Abdomen is soft, without any tenderness, rebound, guarding, masses, or hepatosplenomegaly. There was no tenderness over the peritoneal dialysis catheter. Extremities do not show any evidence of any clubbing, cyanosis, or edema. Skin turgor is good and there is no evidence of any rashes. LABORATORY EXAMINATION: In the emergency room, his hemoglobin was 12.8, hematocrit 38.2. Urinalysis was unremarkable. Sodium was 136, potassium 3.7, chloride 96, bicarbonate 22. BUN and creatinine were 45 and 6.17. Glucose is 114. Liver function studies were normal. IMPRESSION: 1. Syncope, secondary to hypotension, which has resolved. 2. Questionable transient ischemic attack, which has resolved. 3. End-stage renal disease, peritoneal dialysis dependent. 4. IgA nephropathy. 5. Hypertension with hypertensive heart disease and hypertensive nephrosclerosis. RECOMMENDATION: As his blood pressure is somewhat tenuous, I will hold his peritoneal dialysis treatments for tonight. I would like to see how he does through the night. I would also like to stop the hydralazine. We will further evaluate the patient in the morning Once again, I would like to thank you for allowing me to participate in the care of this most pleasant and interesting patient. I will be following him closely with you. JoeRaimundo Pauly DO 11/08/16 192 Procedures XRay, CTs & MRIs PROCEDURE: MRI BRAIN WITHOUT CONTRAST ([id number]) INDICATIONS: new right sided weakness CSF Spaces: Basal cisterns are patent. No extra-axial fluid collections. Ventricles are normal in size and shape. Brain: No intracranial masses or hemorrhage. Crowe/white matter interface is normal. Brainstem appears normal. Diffusion-weighted images demonstrate no acute ischemic insult. No chronic ischemic insults. Normal intravascular flow voids are present. Skull and face: Calvarium has normal marrow signal. Orbits appear normal. Sinuses: Sinuses and mastoids are clear. IMPRESSION: No evidence of acute ischemia. Scattered subcentimeter white matter signal changes which are technically nonspecific. Statistically these represent chronic microvascular ischemic change although probably greater than number than expected for clinically reported age, and therefore raise the possibility of demyelinating, infectious or inflammatory etiologies. Recommend clinical correlation. Dictated by: Nathanael Worthy M.D. on 11/09/2016 at 11:12 Brief History HISTORY OF PRESENT ILLNESS: This is a 46-year-old male back on peritoneal dialysis for about two months. He had three syncopal episodes and was admitted to the hospital on October 12. Workup for that was negative. He was discharged home. He has done well since discharge until today, when he had another syncopal episode. He has been feeling a little bit tired the last couple days and because of the heat he has been drinking extra fluids and has noted a little bit of edema. I do not think the patient is dehydrated. He was feeling okay this morning, went out for breakfast, sat down at the restaurant, 10 minutes later they brought some coffee, had a sip or two of coffee, got a little nauseated, and he got up and went outside with his daughter right away and then fainted. He kind of got outside on the sidewalk, he was hot, he just kind of slumped and sat down, and woke up leaning against the wall. He did kind of hit his left elbow but no other trauma. There was no incontinence, no seizures noted, and he was only out for maybe two or three seconds. He was laid down. Paramedics were called. He had a systolic pressure of 100 at that time. He was brought to the ED. The patient also notes residual left-sided weakness to the point where he could not walk and that is rapidly improving. He had that last time with a syncopal episode. He has not had other syncopal episodes. He has also has a little bit of a headache for two or three days but no other recent complaints. The patient had some nausea without emesis just preceding this episode today. He has had no diarrhea, chest pain, cough, productive sputum. REVIEW OF SYSTEMS: Complete review of systems obtained. All pertinent positives as per HPI above. Rest review of systems are negative. Hospital Course 1. Acute syncopal episode, poa resolved. -felt to be secondary to orthostatic hypotension -dialysis will be adjusted by nephro -reduce bp meds -clonidine 0.1 tid, reduce to bid -coreg 25 bid, reduce to 12.5 bid -norvasc 10 daily, discontinue -hydralazine 25 tid, discontinue -follow up with nephrology few days to check BP and adjust meds. 2. Left-sided weakness, poa, resolved -MRI brain neg acute event -secondary to syncopal episode -add asa 81 mg daily 3. Hypertension, poa, active. -blood pressure med changes as above 4. End-stage renal disease, poa, stable. -continue with peritoneal dialysis, nephrology 5. Depression and anxiety,poa, Stable. -Continue sertraline. 6. Chronic anemia, poa,Stable. -secondary to chronic renal disease. Exam Vital Signs (Last) Date Time Temp Pulse Resp B/P Pulse Ox O2 Delivery O2 Flow Rate FiO2 11/10/16 09:16 74 11/10/16 09:14 36.3 16 137/92 98 Room Air Exam Skin; war dry with our rash HENT; adequate hydration no lesion CV; reg with out murmur Resp; clear GI; soft and non acute, benign No sig edema Test 11/08/16 12:10 11/08/16 17:53 White Blood Count 9.0th/mm3 (3.8-10.1) Red Blood Count 4.47mil/mm3 (4.40-5.80) Hemoglobin 12.8g/dL (13.8-17.2) Hematocrit 38.2% (41.0-50.0) Mean Corpuscular Volume 85.5fL (81-100) Mean Corpuscular Hemoglobin 28.6pg (27.0-35.0) Mean Corpuscular Hemoglobin Concent 33.5% (32.0-37.0) Red Cell Distribution Width 13.7% (12.3-15.4) Platelet Count 309bil/L (150-400) Neutrophils (%) (Auto) 58.1% (40-74) Lymphocytes (%) (Auto) 25.3% (14-46) Monocytes (%) (Auto) 9.6% (4-12) Eosinophils (%) (Auto) 5.0% (0-5) Basophils (%) (Auto) 1.8% (0-3) Erythrocyte Sedimentation Rate 35mm/hr (0-15) Prothrombin Time 10.1sec (8.1-12.5) Prothromb Time International Ratio 0.95ratio Activated Partial Thromboplast Time 28.2sec (22.8-33.0) Sodium Level 136mEq/L (134-144) Potassium Level 3.7mEq/L (3.5-5.2) Chloride Level 96mEq/L (97-108) Carbon Dioxide Level 22mmol/L (18-29) Blood Urea Nitrogen 45mg/dL (6-24) Creatinine 6.17mg/dL (0.76-1.27) Estimat Glomerular Filtration Rate 11mL/min (>59) Glucose Level 114mg/dL (60-99) Calcium Level 8.8mg/dL (8.5-10.1) Magnesium Level 2.5mg/dL (1.6-2.6) Total Bilirubin 0.2mg/dL (0.0-1.2) Aspartate Amino Transf (AST/SGOT) 18U/L (0-50) Alanine Aminotransferase (ALT/SGPT) 15U/L (0-44) Alkaline Phosphatase 81U/L (25-150) Troponin T < 0.010ug/L (0.0-0.011) C-Reactive Protein 1.2mg/dL (0.0-0.5) Total Protein 7.6g/dL (6.4-8.4) Albumin 4.0g/dL (3.4-5.0) Hold Jolley Top Tube Received (Received) Urine Color Straw (YELLOW) Urine Appearance Clear (CLEAR,HAZY) Urine pH 6.0 (5.0-8.0) Urine Specific [place]burn 1.005 (1.003-1.035) Urine Protein Tracemg/dL (NEG,TRACE) Urine Glucose (UA) Negativemg/dL (NEGATIVE) Urine Ketones Negativemg/dL (NEGATIVE) Urine Occult Blood Trace (NEGATIVE) Urine Nitrite Negative (NEGATIVE) Urine Bilirubin Negative (NEGATIVE) Urine Urobilinogen Normalmg/dL (NORMAL) Urine Leukocyte Esterase Trace (NEGATIVE) Urine RBC 0-2/hpf (0-2) Urine WBC 0-5/hpf (0-5) Urine Epithelial Cells Occasional/hpf (NONE-MOD) Urine Crystals None seen (NONE SEEN) Urine Bacteria Few/hpf (NONE-FEW) Urine Hyaline Casts None/lpf (NONE) Urine Granular Casts None seen (NONE SEEN) Urine Waxy Casts None seen (NONE SEEN) Urine Red Blood Cell Casts None seen (NONE SEEN) Urine White Blood Cell Casts None seen (NONE SEEN) Urine Mucus None seen (None Seen) Urine Trichomonas None seen (NONE SEEN) Urine Yeast None (NONE SEEN) Urinalysis Comment None Urine Culture Reflexed Indicated Discharge Medications Discharge Medications Alprazolam (Alprazolam) 1 Mg Tablet 1 MG PO BID (Reported) Aspirin (Aspirin) 81 Mg Tablet 81 MG PO DAILY Prescribed by: Pauly TURCIOS MD Carvedilol (Coreg) 12.5 Mg Tablet 12.5 MG PO BID Prescribed by: Pauly TURCIOS MD Cholecalciferol (Vitamin D3) (Vitamin D3) 50,000 Unit Capsule 50,000 UNIT PO WEEKLY (Reported) WEDNESDAYS Clonidine (Clonidine) 0.1 Mg Tablet 0.1 MG PO BID Prescribed by: Pauly TURCIOS MD Gabapentin (Gabapentin) 100 Mg Capsule 200 MG PO HS (Reported) Ketoconazole (Ketoconazole) 15 Gm Cream..g. 15 GM TP BID (Reported) AROUND DIALYSIS CATH SITE Lactulose (Lactulose) 10 Gm/15 Ml Solution 10 GM PO HS (Reported) Lanthanum Carb Chew (Fosrenol Chew) 1,000 Mg Chew 1,000 MG PO TIDWM (Reported) Sertraline HCl (Sertraline) 100 Mg Tablet 100 MG PO HS (Reported) As needed Ondansetron ODT (Ondansetron ODT) 8 Mg Tab.rapdis 8 MG PO BID PRN PRN For Nausea (Reported) oxyCODONE-Acetaminophen 7.5-325 mg (oxyCODONE-Acetaminophen 7.5-325 mg) 1 Each Tablet 1-2 TAB PO Q6H PRN PRN For Pain (Reported) Followup Plan Follow-up plan Follow up with you Kidney doctor for blood pressure check and adjustment of your medications. Also followup with your primary care provider I will send report to him. Discharge Diet: Low fat, Low Sodium, Heart Healthy Discharge Activity: No restrictions Follow-up with PCP in: 1 week Time spent 40 minutes time spent discharging patient home so far today, case discussed personally with Nephrology copies to: Anjelica Bennett MD; Rehan Golden D Geoffrey MD Nov 10, 2016 12:38
--- NOTE | 2016-11-10 12:48 | PCM.PNNEPH ---
Subjective Date of Service Nov 10, 2016 Subjective He has been out and about without episodes of syncope. Improved BP. Exam Vital Signs Vital Sign - Last Date Time Temp Pulse Resp B/P Pulse Ox O2 Delivery O2 Flow Rate FiO2 11/10/16 09:16 74 11/10/16 09:14 36.3 16 137/92 98 Room Air Intake and Output 11/09/16 11/09/16 11/10/16 Cumulative From/Thru 15:00 23:00 07:00 11/08/16 11:59 - 11/10/16 06:38 Intake Total 400 ml 800 ml 1200 ml 3250 ml Output Total 500 ml 900 ml Balance -100 ml 800 ml 1200 ml 2350 ml Intake Oral 400 ml 800 ml 1200 ml 2750 ml IV Total 500 ml Output Urine Total 500 ml 900 ml # Voids 3 4 7 # Bowel Movements 0 0 0 0 Exam GENERAL: The patient in no apparent distress, and alert and oriented x3. VITAL SIGNS: as documented HEENT: Head is normocephalic and atraumatic. Extraocular muscles are intact. Pupils are equal, round, and reactive to light and accommodation. Mouth is well hydrated and without lesions. Mucous membranes are moist. NECK: Supple, no elevation of JVD, No carotid bruits. No lymphadenopathy or thyromegaly. LUNGS: Clear to auscultation, equal breath sounds bilaterally, no wheezing, no rhonchi no rales. HEART: Normal S1/S2, Regular rate and rhythm, no murmurs, rubs or gallops. 2+ pules throughout. ABDOMEN: Soft, nontender, and nondistended. Positive bowel sounds. No hepatosplenomegaly was noted. PD cath in place. EXTREMITIES: Without any cyanosis, clubbing, rash, lesions or edema. NEUROLOGIC: The patient is oriented to person, place and time. Strength and sensation are grossly intact. SKIN: No ulceration or induration present. Lab and Diagnostics Result Diagram: 11/08/16 1210 11/08/16 1210 X-Rays, CTs and MRIs PROCEDURE: MRI BRAIN WITHOUT CONTRAST ([id number]) INDICATIONS: new right sided weakness CSF Spaces: Basal cisterns are patent. No extra-axial fluid collections. Ventricles are normal in size and shape. Brain: No intracranial masses or hemorrhage. Crowe/white matter interface is normal. Brainstem appears normal. Diffusion-weighted images demonstrate no acute ischemic insult. No chronic ischemic insults. Normal intravascular flow voids are present. Skull and face: Calvarium has normal marrow signal. Orbits appear normal. Sinuses: Sinuses and mastoids are clear. IMPRESSION: No evidence of acute ischemia. Scattered subcentimeter white matter signal changes which are technically nonspecific. Statistically these represent chronic microvascular ischemic change although probably greater than number than expected for clinically reported age, and therefore raise the possibility of demyelinating, infectious or inflammatory etiologies. Recommend clinical correlation. Dictated by: Nathanael Worthy M.D. on 11/09/2016 at 11:12 Plan Impression 1. Syncope, secondary to hypotension, resolved. 2. End-stage renal disease, peritoneal dialysis dependent. 4. H/o IgA nephropathy. 5. Hypertension with hypertensive heart disease and hypertensive nephrosclerosis. Plan: Continue coreg and clonidine. D/c hydralazine and norvasc. Weaning of clonidine. Per renal, he can be d/c'd home, f/u in 1-2 weeks. Anjelica Bennett MD Nov 10, 2016 12:48
[2016-11-10 13:35] VITALS: BP 113/71; PULSE 64; RESP 16; O2SAT 95
--- NOTE | 2016-11-10 14:40 | NUR ---
Social Work-discharge: Data:EMR reviewed. Pt is on day 2 of hospitalization for CVA per H&P. Pt is medically stable for discharge. Pt resides at home with family in [place]. SW followed up with pt at bedside and he is agreeable to discharge, no needs identified. Pt to continue with home Peritoneal dialysis. No anticipated discharge needs. SW will continue to follow if needs arise. Assessment:pt who is independent at baseline. Plan:Pt to discharge home today via POV. No anticipated discharge needs. SW will continue to follow if needs arise. LIZ Hughes
--- NOTE | 2016-11-10 15:08 | NUR ---
DISCHARGE Patient discharged home at 1507, ambulated off floor accompanied by RN and mother. Vitals stable, denies pain and in no apparent distress. IV discontinue d intact, all belongings with patient. All instructions for diet, activity, medications, new prescriptions and follow-up reviewed with patient who reports understanding.
[2016-11-12] MEDS ORDERED: CHOLECALCIFEROL 50000 UNIT PO SCH (08:30)
== END 2016-11-10 15:07 | disposition home or self-care (01) ==
LOC: EDBD 11:53 → SED 11:53 → EDUNIT# 11:53 → INTOOBSV 15:41 → MPC 15:41
PROVIDERS: ADMIT Hospitalist; ATTEND Hospitalist
DX: R55 Syncope and collapse (principal); I95.9 Hypotension, unspecified; R53.1 Weakness; I12.0 Hypertensive chronic kidney disease with stage 5 chronic kidney disease or end stage renal disease; N18.5 Chronic kidney disease, stage 5; F41.8 Other specified anxiety disorders; D53.9 Nutritional anemia, unspecified; Z99.2 Dependence on renal dialysis; Z88.0 Allergy status to penicillin; Z88.8 Allergy status to other drugs, medicaments and biological substances; Z86.73 Personal history of transient ischemic attack (TIA), and cerebral infarction without residual deficits; Z87.891 Personal history of nicotine dependence
CPT/HCPCS: 36415; 70450; 70551; 71010; 80053; 81000; 83735; 84484; 85025; 85610; 85651; 85730; 86140; 87086; 92610; 93005; 96374; 96376; 99285; G0378; J2405; J7040